=== PATIENT | female | born 1935 | race Caucasian/White ===

== ENCOUNTER 2019-03-21 09:50 | Inpatient (IN) | payer MEDICARE, OTHER ==
[2019-03-21] MEDS ORDERED: MORPHINE SULFATE 2 MG/ML SYRINGE IVP STA (10:30)
--- NOTE | 2019-03-21 10:35 | ED ---
Fall HPI - General Source: patient, EMS Mode of arrival: EMS <Queenie Perez Layton - Last Filed: 03/21/19 14:10> <SuazoSandipDima - Last Filed: 03/21/19 14:20> - General Chief Complaint: Fall Stated Complaint: Fall Time Seen by Provider: 03/21/19 10:07 - History of Present Illness Initial Comments: 83-year-old female with history of diabetes hypertension presents today for chief complaint of fall. Patient states that she fell on Wednesday. She states that she has had issues ambulating she states she has been on the couch for a few days because she is not able to weight-bear on the right lower extremity. Patient also complaining of left foot pain. Patient states the pain is mostly in her right shoulder right knee or ankle. Patient states that she fell in her home striking her right shoulder and then falling to the ground right-sided due to losing her balance. Patient denies any dizziness headache nausea vomiting chest pain shortness of breath prior to falling she states she simply lost her balance. Patient states that her has dementia and was not able to help her. She told her daughter about the fall who brought her to the emergency for further evaluation. Family feels patient is not safe at home. She denies any injury to the head or neck denies any back pain. Patient denies any numbness tingling or loss sensation of the extremities remaining review of system negative. Upon arrival patient appears well no signs of acute distress. Unable to ambulate (Queenie Perez) - Related Data Home Medications Medication Instructions Recorded Confirmed Allopurinol [Zyloprim] 300 mg PO DAILY 12/11/13 03/21/19 Baclofen [Lioresal] 10 mg PO HS 12/11/13 03/21/19 Ferrous Sulfate [Feosol] 325 mg PO DAILY 12/11/13 03/21/19 Furosemide [Lasix] 40 mg PO BID 12/11/13 03/21/19 Glimepiride [Amaryl] 2 mg PO DAILY 12/11/13 03/21/19 Simvastatin [Zocor] 40 mg PO HS 12/11/13 03/21/19 Aspirin 162 mg PO DAILY 03/21/19 03/21/19 Cholecalciferol [Vitamin D3 (25 1,000 unit PO DAILY 03/21/19 03/21/19 Mcg = 1000 Iu)] INSULIN ASPART (NovoLOG) [NovoLOG See Protocol SQ AC-TID 03/21/19 03/21/19 (formulary)] Irbesartan/Hydrochlorothiazide 1 tab PO DAILY 03/21/19 03/21/19 [Avalide 150-12.5 mg Tablet] Levothyroxine Sodium [Synthroid] 150 mcg PO DAILY 03/21/19 03/21/19 Nadolol [Corgard] 20 mg PO BID 03/21/19 03/21/19 Pantoprazole Sodium [Protonix] 40 mg PO DAILY 03/21/19 03/21/19 Allergies Allergy/AdvReac Type Severity Reaction Status Date / Time metformin Allergy Unknown Verified 03/21/19 10:01 Review of Systems ROS Other: All systems not noted in ROS Statement are negative. <Queenie Perez - Last Filed: 03/21/19 14:10> ROS Other: All systems not noted in ROS Statement are negative. <Dima Suazo - Last Filed: 03/21/19 14:20> ROS Statement: Those systems with pertinent positive or pertinent negative responses have been documented in the HPI. Past Medical History Past Medical History: Heart Failure, Diabetes Mellitus, Hypertension Additional Past Medical History / Comment(s): "irregular heart rate", gout, arthritis, SOB History of Any Multi-Drug Resistant Organisms: None Reported Past Surgical History: Appendectomy, Joint Replacement Additional Past Surgical History / Comment(s): left knee replacement, cataract surgery Past Anesthesia/Blood Transfusion Reactions: No Reported Reaction Type of Cardiac Device: Permanent Pacemaker Device Placement Date:: november 2013 Past Psychological History: No Psychological Hx Reported Smoking Status: Never smoker Past Alcohol Use History: None Reported Past Drug Use History: None Reported - Past Family History Father Family Medical History: Cancer <Queenie Perez - Last Filed: 03/21/19 14:10> General Exam Limitations: physical limitation <Queenie Perez - Last Filed: 03/21/19 14:10> - General Exam Comments Initial Comments: General: The patient is awake and alert, in no distress Eye: +3 mm pupils are equal, round and reactive to light, extra-ocular movements are intact. No nystagmus. There is normal conjunctiva bilaterally. No signs of icterus. Ears, nose, mouth and throat: There are moist mucous membranes and no oral lesions. No raccoon or Reyna sign. No blood in the tobacco membranes. No evidence of scalp hematoma. Neck: The neck is supple, there is no tenderness or JVD. No midline or paravertebral tenderness of the cervical thoracic or lumbar spine. Cardiovascular: There is a regular rate and rhythm. No murmur, rub or gallop is appreciated. Respiratory: Lungs are clear to auscultation, respirations are non-labored, breath sounds are equal. No wheezes, stridor, rales, or rhonchi. Gastrointestinal: Soft, non-distended, non-tender abdomen without masses or organomegaly noted. There is no rebound or guarding present. Musculoskeletal: Upon inspection of the upper extremities there is bruising over the right humerus. Patient has pain with opening of range of motion at the right arm. Patient does have his elbows or wrist bilaterally. Patient does have pain of the right knee. Patient has noted slight external rotation of the right lower extremity pain and hip with log roll dull bilaterally. Patient has soft tissue swelling of the lower extremity bilaterally. Significant redness and a small blister of the right distal leg. Normal ROM, no tenderness. She refuses to fully strength testing below the knee or ankles bilaterally due to pain. Patient is point localized tenderness over the left great toe and fifth metatarsal.. Sensation intact of the UE and LE b/l. She is able to make the okay fingers crossed thumbs-up up was at the wrist and oppose small digit and thumb. No evidence of a strep. Radial and DP pulses equal bilaterally 2+. There is ecchymosis over the left great digit. Neurological: A&O x 3. CN II-XII intact, There are no obvious motor or sensory deficits. Coordination appears grossly intact. Speech is normal. Skin: Skin is warm and dry and no rashes or lesions are noted. Psychiatric: Cooperative, appropriate mood & affect, normal judgment. (Queenie Perez) Course Vital Signs 03/21/19 09:57 Temperature 97.9 F Pulse Rate 89 Respiratory 17 Rate Blood Pressure 125/83 O2 Sat by Pulse 98 Oximetry Medical Decision Making - Lab Data Result diagrams: 03/21/19 11:42 03/21/19 11:42 <Queenie Perez - Last Filed: 03/21/19 14:10> - Lab Data Result diagrams: 03/21/19 11:42 03/21/19 11:42 <Dima Suazo - Last Filed: 03/21/19 14:20> - Medical Decision Making 83-year-old female presenting for fall. Patient has also noted red right lower extremity blister. Imaging studies reveal secondary findings of cellulitis. Patient also has leukocytosis. Patient is unable to weight-bear states due to knne original plain films of the right hip and right knee revealed no acute process, no pain with flexion at the hip. Pain mostly appeared apparent of the right knee. She was evaluated in person by attending provider Dr. Suazo who was agreeable with impression. There was point localized tenderness over the fifth digit of the left concerning for fracture. At this time given patient's ce llulitis, inability to weight-bear and ambulate we will admit patient for orthopedic consultation, IV antibiotics and social work consultation. Family and patient are agreeable this care plan and was admitted in stable condition. (Queenie Perez) I, Cuong Suazo, personally saw and examined the patient. I have reviewed and agree with the PA findings, including all diagnostic interpretations and treatment plans as written unless otherwise stated. I was present for the foy portions of any procedures performed and the inclusive time noted for any critical care statement. (Dima Suazo) - Lab Data Lab Results 03/21/19 03/21/19 Range/Units 11:42 11:42 WBC 13.0 H (3.8-10.6) k/uL RBC 4.68 (3.80-5.40) m/uL Hgb 14.1 (11.4-16.0) gm/dL Hct 42.1 (34.0-46.0) % MCV 89.9 (80.0-100.0) fL MCH 30.2 (25.0-35.0) pg MCHC 33.6 (31.0-37.0) g/dL RDW 16.6 H (11.5-15.5) % Plt Count 217 (150-450) k/uL Neutrophils % 78 % Lymphocytes % 11 % Monocytes % 8 % Eosinophils % 1 % Basophils % 1 % Neutrophils # 10.2 H (1.3-7.7) k/uL Lymphocytes # 1.4 (1.0-4.8) k/uL Monocytes # 1.0 (0-1.0) k/uL Eosinophils # 0.1 (0-0.7) k/uL Basophils # 0.1 (0-0.2) k/uL Anisocytosis Slight Sodium 141 (137-145) mmol/L Potassium 3.6 (3.5-5.1) mmol/L Chloride 101 (98-107) mmol/L Carbon Dioxide 29 (22-30) mmol/L Anion Gap 11 mmol/L BUN 41 H (7-17) mg/dL Creatinine 1.07 H (0.52-1.04) mg/dL Est GFR (CKD-EPI)AfAm 56 (>60 ml/min/1.73 sqM) Est GFR (CKD-EPI)NonAf 49 (>60 ml/min/1.73 sqM) Glucose 94 (74-99) mg/dL Calcium 9.5 (8.4-10.2) mg/dL Total Bilirubin 1.6 H (0.2-1.3) mg/dL AST 41 H (14-36) U/L ALT 28 (9-52) U/L Alkaline Phosphatase 107 (38-126) U/L Total Protein 7.5 (6.3-8.2) g/dL Albumin 3.9 (3.5-5.0) g/dL Disposition Is patient prescribed a controlled substance at d/c from ED?: No Time of Disposition: 14:05 Decision to Admit Reason: Admit from EC Decision Date: 03/21/19 Decision Time: 14:05 <Queenie Perez - Last Filed: 03/21/19 14:10> <Dima Suazo - Last Filed: 03/21/19 14:20> Clinical Impression: Fall, Fracture of fifth metatarsal bone, Cellulitis of right lower extremity, Right shoulder pain, Right knee pain, Traumatic ecchymosis of right shoulder, Unable to ambulate Disposition: ADMITTED IP TO THIS [facility] Condition: Stable Referrals: Yina Evans DO [Primary Care Provider] - 1-2 days
[2019-03-21 11:55] LABS: Anisocytosis Slight; Basophils # (A) 0.1 k/uL (0-0.2); Basophils % (A) 1 %; Eosinophils # (A) 0.1 k/uL (0-0.7); Eosinophils % (A) 1 %; HCT 42.1 % (34.0-46.0); HGB 14.1 gm/dL (11.4-16.0); Lymphocytes # (A) 1.4 k/uL (1.0-4.8); Lymphocytes % (A) 11 %; MCH 30.2 pg (25.0-35.0); MCHC 33.6 g/dL (31.0-37.0); MCV 89.9 fL (80.0-100.0); Mean Platelet Volume 8.6; Monocytes % (A) 8 %; Neutrophils # (A) 10.2 k/uL (1.3-7.7); Neutrophils % (A) 78 %; Platelet Count 217 k/uL (150-450); RBC 4.68 m/uL (3.80-5.40); RDW 16.6 % (11.5-15.5)
[2019-03-21 12:01] LABS: Albumin 3.9 g/dL (3.5-5.0); Calcium 9.5 mg/dL (8.4-10.2); Potassium 3.6 mmol/L (3.5-5.1); Total Bilirubin 1.6 mg/dL (0.2-1.3); Total Protein 7.5 g/dL (6.3-8.2)
--- NOTE | 2019-03-21 12:45 | XR ---
EXAMINATION TYPE: XR shoulder complete RT DATE OF EXAM: 03/21/2019 COMPARISON: NONE HISTORY: 83-year-old female fall and right shoulder pain TECHNIQUE: 3 views FINDINGS: Mild degenerative change AC joint. Subacromial space is preserved. Bony irregularity at the greater t uberosity. No acute fracture, subluxation, dislocation. IMPRESSION: Bony irregularity at the greater tuberosity suggests underlying chronic rotator cuff tendinopathy. If concern for acute rotator cuff injury, MRI can be performed.
--- NOTE | 2019-03-21 12:47 | XR ---
EXAMINATION TYPE: XR knee complete RT DATE OF EXAM: 03/21/2019 CLINICAL HISTORY: Pain after fall injury today. TECHNIQUE: Three views of the right knee are obtained. COMPARISON: None. FINDINGS: There is no acute fracture/dislocation evident in right knee. Moderate tricompartment join t space loss and spurring is seen. Demineralization is present present suspect healing or old healed fracture of the proximal fibular diaphysis. Correlate clinically. Overlying clothing material is pres ent making evaluation suboptimal. There is posterior vascular calcification below the knee seen. IMPRESSION: There is no acute fracture or dislocation in the right knee.
--- NOTE | 2019-03-21 12:53 | XR ---
EXAMINATION TYPE: XR Hip Complete 2 views RT, XR ankle complete 3 views LT DATE OF EXAM: 03/21/2019 COMPARISON: NONE HISTORY: 83-year-old female pain after fall FINDINGS: Right hip: Mild axial joint space narrowing and mild degenerative spurring. No acute fracture, subluxation, or d islocation seen. Left ankle: Generalized soft tissue swelling and osteopenia. Ankle mortise appears congruent with preservation of the distal tibiofibular overlap. Talar dome appears intact. Fusiform thickening of the middle third Achilles tendon. Small plantar calcaneal spur. No acute fracture or dislocation seen. Vascular calcif ications suggest underlying diabetes and her chronic kidney disease. IMPRESSION: 1. Right hip: Mild degenerative change. No acute osseous body seen. 2. Left ankle: Marked generalized soft tissue swelling. Findings suggest middle third Achilles tendin opathy. Small plantar calcaneal spur. Osteopenia. No definite acute process.
--- NOTE | 2019-03-21 13:03 | XR ---
Bilateral feet HISTORY: Pain and swelling 3 views of each foot are submitted No comparisons Bone mineralization is reduced which may limit sensitivity. Question cortical disruption at the level of the proximal aspect of the proximal phalanx of the first digit of the left foot. This is best see n on the oblique view. Distal fifth metatarsal shows mild angulation, sclerotic change suggestive of nondisplaced fracture. Soft tissue swelling present bilaterally. Arthropathy changes are present bila terally, there is spurring at the intertarsal joints, tarsometatarsal joints on the right shows some possible subchondral geode formation. There are vascular calcifications present bilaterally. Alignmen t is maintained bilaterally. There are bilateral plantar calcaneal spurs. IMPRESSION: Correlate for point tenderness proximal aspect of a small phalanx first digit left foot a nd distal right fifth metatarsal for possible fractures. No dislocation. Soft tissue swelling, correl ate for possible cellulitis. There may be underlying gout, osteoarthritis. Osteopenia and limitations as described.
[2019-03-21] MEDS ORDERED: NALOXONE 0.4 MG/ML 1 ML VIAL IV PRN (14:17)
[2019-03-21] MEDS ORDERED: FUROSEMIDE 40 MG TAB PO SCH (17:00)
[2019-03-21] MEDS ORDERED: HYDROcodone/APAP 5-325MG 1 EACH TAB PO PRN (17:17)
[2019-03-21 17:18] LABS: Glucose,Whole Blood 116 mg/dL (75-99)
[2019-03-21] MEDS: FUROSEMIDE 10 MG/ML 4 ML VIAL IV SCH (17:32)
[2019-03-21 20:10] LABS: Glucose,Whole Blood 198 mg/dL (75-99)
[2019-03-21] MEDS: ATORVASTATIN 20 MG TAB PO SCH (22:02)
[2019-03-21] MEDS: NADOLOL 20 MG TAB PO SCH (22:02)
[2019-03-21] MEDS: INSULIN ASPART (NovoLOG) 100 UNIT/ML VIAL SQ SCH (22:02)
[2019-03-21] MEDS: BACLOFEN 10 MG TAB PO SCH (22:02)
--- NOTE | 2019-03-21 22:47 | P.HPIM ---
History of Present Illness H&P Date: 03/21/19 June Perez is an 82 yo F with PMH of T2DM, HTN, diastolic CHF who presents to [facility] ED with leg swelling, leg pain and impaired mobility after a fall at home. Pt notes that she lives at home with who has Alzheimers so pt is primary caregiver. She states that she had a fall Wednesday and it took her an hour or two to crawl to a couch and get herself up. She had spent most of the past two days on the couch as she is unable to ambulate without significant foot pain. When she told her daughter about this she was brought in to the ED. Pt also missed her lasix dose yesterday and has noticed increased leg swelling as well as R leg redness and an anterolateral blister. In the ED vitals stable, WBC 13k, foot XR does reveal L 1st phalanx and R 5th metatarsal fractures. Review of Systems All systems: negative Constitutional: Reports weakness, Reports weight gain, Denies chills, Denies fever Eyes: denies blurred vision, denies pain Ears, nose, mouth and throat: Denies headache, Denies sore throat Cardiovascular: Denies chest pain, Denies shortness of breath Respiratory: Denies cough Gastrointestinal: Denies abdominal pain, Denies diarrhea, Denies nausea, Denies vomiting Genitourinary: Denies dysuria, Denies hematuria Musculoskeletal: Reports gait dysfunction, Reports limitation of motion, Reports muscle weakness, Reports myalgias Integumentary: Denies pruritus, Denies rash Neurological: Denies numbness, Denies weakness Psychiatric: Denies anxiety, Denies depression Endocrine: Denies fatigue, Denies weight change Past Medical History Past Medical History: Heart Failure, Diabetes Mellitus, Hypertension Additional Past Medical History / Comment(s): gout, arthritis, SOB when you bend over History of Any Multi-Drug Resistant Organisms: None Reported Past Surgical History: Appendectomy, Joint Replacement, Pacemaker Additional Past Surgical History / Comment(s): left knee replacement, cataract surgery, carpal tunnel sugery on right Past Anesthesia/Blood Transfusion Reactions: No Reported Reaction Type of Cardiac Device: Permanent Pacemaker Device Placement Date:: patient unsure Past Psychological History: No Psychological Hx Reported Smoking Status: Never smoker Past Alcohol Use History: None Reported Past Drug Use History: None Reported - Past Family History Father Family Medical History: Cancer Medications and Allergies Home Medications Medication Instructions Recorded Confirmed Type Allopurinol [Zyloprim] 300 mg PO DAILY 12/11/13 03/21/19 History Baclofen [Lioresal] 10 mg PO HS 12/11/13 03/21/19 History Ferrous Sulfate [Feosol] 325 mg PO DAILY 12/11/13 03/21/19 History Furosemide [Lasix] 40 mg PO BID 12/11/13 03/21/19 History Glimepiride [Amaryl] 2 mg PO DAILY 12/11/13 03/21/19 History Simvastatin [Zocor] 40 mg PO HS 12/11/13 03/21/19 History Aspirin 162 mg PO DAILY 03/21/19 03/21/19 History Cholecalciferol [Vitamin D3 (25 1,000 unit PO DAILY 03/21/19 03/21/19 History Mcg = 1000 Iu)] INSULIN ASPART (NovoLOG) [NovoLOG See Protocol SQ AC-TID 03/21/19 03/21/19 History (formulary)] Irbesartan/Hydrochlorothiazide 1 tab PO DAILY 03/21/19 03/21/19 History [Avalide 150-12.5 mg Tablet] Levothyroxine Sodium [Synthroid] 150 mcg PO DAILY 03/21/19 03/21/19 History Nadolol [Corgard] 20 mg PO BID 03/21/19 03/21/19 History Pantoprazole Sodium [Protonix] 40 mg PO DAILY 03/21/19 03/21/19 History Allergies Allergy/AdvReac Type Severity Reaction Status Date / Time metformin Allergy Unknown Verified 03/21/19 10:01 Physical Exam Vitals: Vital Signs Temp Pulse Pulse Resp BP BP Pulse Ox 03/21/19 20:33 98 F 108 H 16 116/65 94 L 03/21/19 16:14 98.1 F 109 H 17 143/76 94 L 03/21/19 15:38 99.1 F 73 18 140/79 94 L 03/21/19 09:57 97.9 F 89 17 125/83 98 Intake and Output 03/21/19 03/21/19 03/21/19 06:59 14:59 22:59 Other: Voiding Method Bedpan Diaper Incontinent Weight 95.254 kg 103.5 kg Gen. Well-developed well-nourished no apparent distress. Vitals reviewed HEENT. normocephalic, atraumatic. TMs clear. Mucous membranes moist Neck. Supple, no thyromegaly, no JVD CV. Regular rate and rhythm, systolic murmur. Peripheral pulses 2+ Lungs. Normal inspiratory effort, fine crackles at bases Abdomen. Soft, nontender, nondistended, no organomegaly Extremity. BLE with 2+ edema. RLE with erythema 2x4 cm region anterolateral khoury with small bullae. Ecchymosis to L 1st MTP joint Neuro. Alert and oriented 3, no focal deficits Skin. Warm and dry Results CBC & Chem 7: 03/21/19 11:42 03/21/19 11:42 Labs: Abnormal Lab Results - Last 24 Hours (Table) 03/21/19 03/21/19 03/21/19 Range/Units 11:42 11:42 17:16 WBC 13.0 H (3.8-10.6) k/uL RDW 16.6 H (11.5-15.5) % Neutrophils # 10.2 H (1.3-7.7) k/uL BUN 41 H (7-17) mg/dL Creatinine 1.07 H (0.52-1.04) mg/dL POC Glucose (mg/dL) 116 H (75-99) mg/dL Total Bilirubin 1.6 H (0.2-1.3) mg/dL AST 41 H (14-36) U/L 03/21/19 Range/Units 20:09 WBC (3.8-10.6) k/uL RDW (11.5-15.5) % Neutrophils # (1.3-7.7) k/uL BUN (7-17) mg/dL Creatinine (0.52-1.04) mg/dL POC Glucose (mg/dL) 198 H (75-99) mg/dL Total Bilirubin (0.2-1.3) mg/dL AST (14-36) U/L Thrombosis Risk Factor Assmnt - Choose All That Apply Any of the Below Risk Factors Present?: Yes Each Factor Represents 1 point: Obesity (BMI >25), Swollen legs (current) Other Risk Factors: Yes Each Risk Factor Represents 3 Points: Age 75 years or older Other congenital or acquired thrombophilia - If yes, enter type in comment: No Thrombosis Risk Factor Assessment Total Risk Factor Score: 5 Thrombosis Risk Factor Assessment Level: High Risk Assessment and Plan (1) Acute exacerbation of CHF (congestive heart failure) Current Visit: Yes Status: Acute Code(s): I50.9 - HEART FAILURE, UNSPECIFIED SNOMED Code(s): 909125514 (2) Chronic diastolic CHF (congestive heart failure), NYHA class 2 Current Visit: Yes Status: Acute Code(s): I50.32 - CHRONIC DIASTOLIC (CONGESTIVE) HEART FAILURE SNOMED Code(s): 100739740 (3) Hypertension Current Visit: Yes Status: Acute Code(s): I10 - ESSENTIAL (PRIMARY) HYPERTENSION SNOMED Code(s): 00641457 (4) Type 2 diabetes mellitus Current Visit: Yes Status: Acute Code(s): E11.9 - TYPE 2 DIABETES MELLITUS WITHOUT COMPLICATIONS SNOMED Code(s): 57526109 (5) Cellulitis of right lower extremity Current Visit: Yes Status: Acute Code(s): L03.115 - CELLULITIS OF RIGHT LOWER LIMB SNOMED Code(s): 594508883 (6) Fall Current Visit: Yes Status: Acute Code(s): W19.XXXA - UNSPECIFIED FALL, INITIAL ENCOUNTER SNOMED Code(s): 7282828 (7) Fracture of fifth metatarsal bone Current Visit: Yes Status: Acute Code(s): S92.353A - DISP FX OF FIFTH METATARSAL BONE, UNSP FOOT, INIT SNOMED Code(s): 619252053 (8) Traumatic ecchymosis of right shoulder Current Visit: Yes Status: Acute Code(s): S40.011A - CONTUSION OF RIGHT SHOULDER, INITIAL ENCOUNTER SNOMED Code(s): 236669581 (9) Unable to ambulate Current Visit: Yes Status: Acute Code(s): R26.2 - DIFFICULTY IN WALKING, NOT ELSEWHERE CLASSIFIED SNOMED Code(s): 902966043 Plan: 1. Cellulitis of RLE. Likely secondary to fall/immobilization as well as CHF exacerbation. Given rocephin in ED. Continue keflex 2. Acute exacerbation of CHF. Secondary to missed medication and immobilization. Switch lasix to IV. I/Os 3. Fracture of R 5th metatarsal. Ortho consult 4. Impaired mobility. PT/OT. Anticipate need for ADALBERTO 5. T2DM. Accucheck/sliding scale 6. HTN. Continue home BB, ARB DVT prophylaxis lovenox
[2019-03-22] MEDS: LEVOTHYROXINE 75 MCG TAB PO SCH (05:33)
[2019-03-22 07:02] LABS: Glucose,Whole Blood 199 mg/dL (75-99)
[2019-03-22] MEDS: GLIMEPIRIDE 2 MG TAB PO SCH (08:13)
[2019-03-22] MEDS: PANTOPRAZOLE 40 MG TABLET PO SCH (08:13)
[2019-03-22] MEDS: INSULIN ASPART (NovoLOG) 100 UNIT/ML VIAL SQ SCH ×4 (08:13→21:48)
[2019-03-22] MEDS: CEPHALEXIN 500 MG CAP PO SCH ×3 (08:14→21:46)
[2019-03-22] MEDS: ENOXAPARIN 40 MG/0.4 ML SYRINGE SQ SCH (08:14)
[2019-03-22] MEDS: FUROSEMIDE 10 MG/ML 4 ML VIAL IV SCH ×2 (08:14→17:54)
[2019-03-22] MEDS: ALLOPURINOL 300 MG TAB PO SCH (08:14)
[2019-03-22] MEDS: NADOLOL 20 MG TAB PO SCH ×2 (08:15→21:46)
[2019-03-22] MEDS: LOSARTAN-HCTZ 50-12.5 MG 1 EACH TAB PO SCH (08:15)
[2019-03-22] MEDS ORDERED: ASPIRIN 81 MG PO SCH (09:00)
[2019-03-22 11:35] LABS: Glucose,Whole Blood 352 mg/dL (75-99)
[2019-03-22] MEDS: ACETAMINOPHEN TAB 325 MG TAB PO PRN ×2 (13:04→21:47)
--- NOTE | 2019-03-22 13:23 | P.CNOR ---
History of Present Illness - [facility] Consult date: 03/22/19 Consult reason: fracture History of present illness: Patient is a pleasant 83-year-old female seen at bedside this morning consultation for right leg pain along with fractures along the fifth metatarsal of the right foot and phalanx of the big toe of the left foot. She was admitted through the emergency department yesterday 03/21/2019 after a fall. She also describes generalized weakness in the lower extremities. Pain in the right foot is worse than that of her left. Patient denies any dizziness headache nausea vomiting chest pain shortness of breath prior to falling. She states she simply lost her balance. Patient states that her has dementia and was not able to help her. She told her daughter about the fall who brought her to the emergency for further evaluation. Family feels patient is not safe at home. She denies any injury to the head or neck denies any back pain. Patient denies any numbness tingling or loss sensation of the extremities remaining review of system negative. Past Medical History Past Medical History: Heart Failure, Diabetes Mellitus, Hypertension Additional Past Medical History / Comment(s): gout, arthritis, SOB when you bend over History of Any Multi-Drug Resistant Organisms: None Reported Past Surgical History: Appendectomy, Joint Replacement, Pacemaker Additional Past Surgical History / Comment(s): left knee replacement, cataract surgery, carpal tunnel sugery on right Past Anesthesia/Blood Transfusion Reactions: No Reported Reaction Type of Cardiac Device: Permanent Pacemaker Device Placement Date:: patient unsure Past Psychological History: No Psychological Hx Reported Smoking Status: Never smoker Past Alcohol Use History: None Reported Past Drug Use History: None Reported - Past Family History Father Family Medical History: Cancer Medications and Allergies Home Medications Medication Instructions Recorded Confirmed Type Allopurinol [Zyloprim] 300 mg PO DAILY 12/11/13 03/21/19 History Baclofen [Lioresal] 10 mg PO HS 12/11/13 03/21/19 History Ferrous Sulfate [Feosol] 325 mg PO DAILY 12/11/13 03/21/19 History Furosemide [Lasix] 40 mg PO BID 12/11/13 03/21/19 History Glimepiride [Amaryl] 2 mg PO DAILY 12/11/13 03/21/19 History Simvastatin [Zocor] 40 mg PO HS 12/11/13 03/21/19 History Aspirin 81 mg PO BID 03/21/19 03/22/19 History Cholecalciferol [Vitamin D3 (25 1,000 unit PO DAILY 03/21/19 03/21/19 History Mcg = 1000 Iu)] INSULIN ASPART (NovoLOG) [NovoLOG See Protocol SQ AC-TID 03/21/19 03/21/19 History (formulary)] Irbesartan/Hydrochlorothiazide 1 tab PO DAILY 03/21/19 03/21/19 History [Avalide 150-12.5 mg Tablet] Levothyroxine Sodium [Synthroid] 150 mcg PO DAILY 03/21/19 03/21/19 History Nadolol [Corgard] 20 mg PO BID 03/21/19 03/21/19 History Pantoprazole Sodium [Protonix] 40 mg PO DAILY 03/21/19 03/21/19 History Allergies Allergy/AdvReac Type Severity Reaction Status Date / Time metformin Allergy Unknown Verified 03/21/19 10:01 Physical Examination Inspection of the lower extremities show generalized peripheral edema with mild cellulitic-type appearance. There are no open wounds. There is ecchymoses along the large toe of the left foot. There is mild ecchymoses along the lateral aspect of the right foot. The big toe on the left foot is tender to touch. The fifth metatarsal on the right foot is mildly tender to touch. She has a positive right straight leg raise. Otherwise there is no deformity or abnormality. Her neurovascular status intact with motor throughout the left lower extremity. She has difficulty with flexing at the hip and extending at the right knee either due to pain or weakness. Motor in the foot and toes is intact bilaterally. Sensation light touch is intact throughout bilateral lower extremities. Calves are soft and nontender. There is 1+ dorsalis pedis pulse present bilaterally. There is less than 2 second capillary refill present bilaterally. Results X-rays of the right foot show a fifth metatarsal neck fracture with acceptable alignment. X-rays of the left foot show a proximal phalanx fracture of the left big toe with acceptable alignment. Otherwise no acute fractures or dislocation throughout the right lower extremity. - Labs Labs: Abnormal Lab Results - Last 24 Hours (Table) 03/21/19 03/21/19 03/22/19 Range/Units 17:16 20:09 07:01 POC Glucose (mg/dL) 116 H 198 H 199 H (75-99) mg/dL 03/22/19 Range/Units 11:34 POC Glucose (mg/dL) 352 H (75-99) mg/dL H & H 03/21/19 Range/Units 11:42 Hgb 14.1 (11.4-16.0) gm/dL Hct 42.1 (34.0-46.0) % Result Diagrams: 03/21/19 11:42 03/21/19 11:42 - Diagnostic results Hip x-ray: report reviewed, image reviewed Knee x-ray: report reviewed, image reviewed Ankle/Foot x-ray: report reviewed, image reviewed Assessment and Plan (1) Fracture of fifth metatarsal bone Narrative/Plan: We will order postoperative shoes for her metatarsal fracture and phalanx fracture. Have recommended ice and elevation. In regards to her left leg pain x-rays are negative and her symptoms may be radiating from her lumbar spine. We will obtain x-rays of the lumbosacral spine. She is on antibiotics per her primary team. Recommend continue conservative measures and supportive care. Pain medicine per primary team. We'll continue to monitor make further recommendations as appropriate. Current Visit: Yes Status: Acute Priority: Medium Code(s): S92.353A - DISP FX OF FIFTH METATARSAL BONE, UNSP FOOT, INIT SNOMED Code(s): 351395984 (2) Phalanx fracture, foot Current Visit: Yes Status: Acute Priority: Medium Code(s): S92.919A - UNSP FRACTURE OF UNSP TOE(S), INIT FOR CLOS FX SNOMED Code(s): 87800539 Time with Patient: Less than 30
[2019-03-22 15:33] LABS: Hemoglobin A1C 7.5 % (4.0-6.0)
[2019-03-22 17:10] LABS: Glucose,Whole Blood 202 mg/dL (75-99)
--- NOTE | 2019-03-22 19:25 | XR ---
EXAMINATION TYPE: XR lumbar spine 2 or 3V DATE OF EXAM: 03/22/2019 COMPARISON: NONE HISTORY: Back pain TECHNIQUE: 3 views FINDINGS: Vertebra have normal alignment. There is disc space narrowing and multilevel vacuum disc ph enomenon. There is spurring of the endplates. Posterior elements are intact. Sacroiliac joints are in tact. I see no compression fracture. IMPRESSION: Multilevel spondylotic changes. No fracture seen.
[2019-03-22 20:08] LABS: Glucose,Whole Blood 227 mg/dL (75-99)
[2019-03-22] MEDS: ATORVASTATIN 20 MG TAB PO SCH (21:46)
[2019-03-22] MEDS: ASPIRIN 81 MG PO SCH (21:46)
[2019-03-22] MEDS: BACLOFEN 10 MG TAB PO SCH (21:47)
--- NOTE | 2019-03-22 22:57 | P.PN ---
Subjective Progress Note Date: 03/22/19 June Perez is an 82 yo F with PMH of T2DM, HTN, diastolic CHF who presents to [facility] ED with leg swelling, leg pain and impaired mobility after a fall at home. Pt notes that she lives at home with who has Alzheimers so pt is primary caregiver. She states that she had a fall Wednesday and it took her an hour or two to crawl to a couch and get herself up. She had spent most of the past two days on the couch as she is unable to ambulate without significant foot pain. When she told her daughter about this she was brought in to the ED. Pt also missed her lasix dose yesterday and has noticed increased leg swelling as well as R leg redness and an anterolateral blister. In the ED vitals stable, WBC 13k, foot XR does reveal L 1st phalanx and R 5th metatarsal fractures. 03/22. She continues to complain of bilateral LE weakness and pain with movement. Denies chest pain, shortness of breath, fevers. Erythema diminishing. Objective - Vital Signs Vital signs: Vital Signs Temp 98 F 03/22/19 20:45 Pulse 77 03/22/19 20:45 Resp 16 03/22/19 20:45 BP 91/57 03/22/19 20:45 Pulse Ox 93 L 03/22/19 20:45 Intake & Output 03/22/19 03/22/19 03/23/19 06:59 18:59 06:59 Intake Total 250 Balance 250 Weight 102 kg Intake: Oral 250 Other: Voiding Method Bedpan Bedpan # Voids 1 4 - Exam Gen. Well-developed well-nourished no apparent distress. Vitals reviewed CV. Regular rate and rhythm, systolic murmur. Peripheral pulses 2+ Lungs. Normal inspiratory effort, fine crackles at bases Abdomen. Soft, nontender, nondistended, no organomegaly Extremity. BLE with 2+ edema. RLE with erythema 2x4 cm region anterolateral khoury with small bullae. Ecchymosis to L 1st MTP joint - Labs CBC & Chem 7: 03/21/19 11:42 03/21/19 11:42 Labs: Abnormal Lab Results - Last 24 Hours (Table) 03/21/19 03/22/19 03/22/19 Range/Units 11:42 07:01 11:34 POC Glucose (mg/dL) 199 H 352 H (75-99) mg/dL Hemoglobin A1c 7.5 H (4.0-6.0) % 03/22/19 03/22/19 Range/Units 17:08 20:08 POC Glucose (mg/dL) 202 H 227 H (75-99) mg/dL Hemoglobin A1c (4.0-6.0) % Assessment and Plan (1) Acute exacerbation of CHF (congestive heart failure) Current Visit: Yes Status: Acute Code(s): I50.9 - HEART FAILURE, UNSPECIFIED SNOMED Code(s): 393019087 (2) Chronic diastolic CHF (congestive heart failure), NYHA class 2 Current Visit: Yes Status: Acute Code(s): I50.32 - CHRONIC DIASTOLIC (CONGESTIVE) HEART FAILURE SNOMED Code(s): 509487372 (3) Hypertension Current Visit: Yes Status: Acute Code(s): I10 - ESSENTIAL (PRIMARY) HYPERTENSION SNOMED Code(s): 52052422 (4) Type 2 diabetes mellitus Current Visit: Yes Status: Acute Code(s): E11.9 - TYPE 2 DIABETES MELLITUS WITHOUT COMPLICATIONS SNOMED Code(s): 69885991 (5) Cellulitis of right lower extremity Current Visit: Yes Status: Acute Code(s): L03.115 - CELLULITIS OF RIGHT LOWER LIMB SNOMED Code(s): 482807866 (6) Fall Current Visit: Yes Status: Acute Code(s): W19.XXXA - UNSPECIFIED FALL, INITIAL ENCOUNTER SNOMED Code(s): 4326141 (7) Fracture of fifth metatarsal bone Current Visit: Yes Status: Acute Priority: Medium Code(s): S92.353A - DISP FX OF FIFTH METATARSAL BONE, UNSP FOOT, INIT SNOMED Code(s): 036531312 (8) Traumatic ecchymosis of right shoulder Current Visit: Yes Status: Acute Code(s): S40.011A - CONTUSION OF RIGHT SHOULDER, INITIAL ENCOUNTER SNOMED Code(s): 486312154 (9) Unable to ambulate Current Visit: Yes Status: Acute Code(s): R26.2 - DIFFICULTY IN WALKING, NOT ELSEWHERE CLASSIFIED SNOMED Code(s): 080670876 Plan: Continue current regimen including keflex and IV lasix. Walking boots per ortho. Further eval her weakness with lumbar spinal XR. PT/OT DVT prophylaxis lovenox
[2019-03-23] MEDS: LEVOTHYROXINE 75 MCG TAB PO SCH (05:38)
[2019-03-23 06:54] LABS: Glucose,Whole Blood 183 mg/dL (75-99)
[2019-03-23 08:25] LABS: Basophils # (A) 0.1 k/uL (0-0.2); Basophils % (A) 1 %; Eosinophils # (A) 0.2 k/uL (0-0.7); Eosinophils % (A) 2 %; HCT 37.6 % (34.0-46.0); HGB 12.6 gm/dL (11.4-16.0); Lymphocytes # (A) 1.5 k/uL (1.0-4.8); Lymphocytes % (A) 15 %; MCH 30.5 pg (25.0-35.0); MCHC 33.6 g/dL (31.0-37.0); MCV 90.8 fL (80.0-100.0); Mean Platelet Volume 8.3; Monocytes # (A) 0.8 k/uL (0-1.0); Monocytes % (A) 8 %; Neutrophils # (A) 7.3 k/uL (1.3-7.7); Neutrophils % (A) 72 %; Platelet Count 188 k/uL (150-450); RBC 4.14 m/uL (3.80-5.40); RDW 14.2 % (11.5-15.5); WBC 10.2 k/uL (3.8-10.6)
[2019-03-23] MEDS: CEPHALEXIN 500 MG CAP PO SCH ×2 (08:52→15:17)
[2019-03-23] MEDS: ENOXAPARIN 40 MG/0.4 ML SYRINGE SQ SCH (08:52)
[2019-03-23] MEDS: ALLOPURINOL 300 MG TAB PO SCH (08:53)
[2019-03-23] MEDS: PANTOPRAZOLE 40 MG TABLET PO SCH (08:53)
[2019-03-23] MEDS: NADOLOL 20 MG TAB PO SCH ×2 (08:53→22:07)
[2019-03-23] MEDS: FUROSEMIDE 10 MG/ML 4 ML VIAL IV SCH (08:53)
[2019-03-23] MEDS: ASPIRIN 81 MG PO SCH ×2 (08:54→22:08)
[2019-03-23] MEDS: INSULIN ASPART (NovoLOG) 100 UNIT/ML VIAL SQ SCH ×4 (08:54→22:11)
[2019-03-23] MEDS: LOSARTAN-HCTZ 50-12.5 MG 1 EACH TAB PO SCH (08:54)
[2019-03-23] MEDS: GLIMEPIRIDE 2 MG TAB PO SCH (08:55)
[2019-03-23 09:17] LABS: Calcium 8.1 mg/dL (8.4-10.2); Potassium 3.2 mmol/L (3.5-5.1)
[2019-03-23] MEDS ORDERED: Potassium Replacement Protocol 1 EACH MISC MISCELLANE PRN (10:38)
[2019-03-23] MEDS: POTASSIUM CHLORIDE ER 20 MEQ TAB.ER PO SCH ×2 (10:52→12:39)
--- NOTE | 2019-03-23 10:52 | P.PN ---
Subjective Progress Note Date: 03/23/19 June Perez is an 82 yo F with PMH of T2DM, HTN, diastolic CHF who presents to [facility] ED with leg swelling, leg pain and impaired mobility after a fall at home. Pt notes that she lives at home with who has Alzheimers so pt is primary caregiver. She states that she had a fall Wednesday and it took her an hour or two to crawl to a couch and get herself up. She had spent most of the past two days on the couch as she is unable to ambulate without significant foot pain. When she told her daughter about this she was brought in to the ED. Pt also missed her lasix dose yesterday and has noticed increased leg swelling as well as R leg redness and an anterolateral blister. In the ED vitals stable, WBC 13k, foot XR does reveal L 1st phalanx and R 5th metatarsal fractures. 03/22. She continues to complain of bilateral LE weakness and pain with movement. Denies chest pain, shortness of breath, fevers. Erythema diminishing. 03/23/2019 Diuresed well on Lasix IV push, edema subsided, borderline hypotension, mild worsening in renal function with hypokalemia. PT at bedside, required 2 person assist to set patient up at side of bed, further evaluation in progress. Lumbar spine x-ray reporting multilevel spondylitic changes with no fractures. Evaluated by orthopedics with conservative management recommended. Consuming 75% of diet with no nausea vomiting or diarrhea. Hemoglobin A1c 7.5. Hyperglycemic, blood sugars ranging from 180s to 350s. Calcium 8.1. Objective - Vital Signs Vital signs: Vital Signs Temp 97.5 F L 03/23/19 05:00 Pulse 65 03/23/19 05:00 Resp 16 03/23/19 05:00 BP 97/65 03/23/19 05:00 Pulse Ox 95 03/23/19 05:00 Intake & Output 03/22/19 03/23/19 03/23/19 18:59 06:59 18:59 Weight 103.5 kg Other: Voiding Method Bedpan Bedpan Bedpan Diaper Incontinent # Voids 4 1 # Bowel Movements 1 - Exam Gen. Well-developed well-nourished no apparent distress. Vitals reviewed CV. Regular rate and rhythm, systolic murmur. Peripheral pulses 2+ Lungs. Normal inspiratory effort, fine crackles at bases Abdomen. Soft, nontender, nondistended, no organomegaly Extremity. BLE with no edema. RLE with decreased erythema 2x4 cm region anterolateral khoury with small bullae. Ecchymosis to L 1st MTP joint - Labs CBC & Chem 7: 03/23/19 07:14 03/23/19 07:14 Labs: Abnormal Lab Results - Last 24 Hours (Table) 03/21/19 03/22/19 03/22/19 Range/Units 11:42 11:34 17:08 Potassium (3.5-5.1) mmol/L BUN (7-17) mg/dL Creatinine (0.52-1.04) mg/dL Glucose (74-99) mg/dL POC Glucose (mg/dL) 352 H 202 H (75-99) mg/dL Hemoglobin A1c 7.5 H (4.0-6.0) % Calcium (8.4-10.2) mg/dL 03/22/19 03/23/19 03/23/19 Range/Units 20:08 06:47 07:14 Potassium 3.2 L (3.5-5.1) mmol/L BUN 54 H (7-17) mg/dL Creatinine 1.19 H (0.52-1.04) mg/dL Glucose 183 H (74-99) mg/dL POC Glucose (mg/dL) 227 H 183 H (75-99) mg/dL Hemoglobin A1c (4.0-6.0) % Calcium 8.1 L (8.4-10.2) mg/dL Assessment and Plan Assessment: (1) Acute exacerbation of CHF (congestive heart failure) Current Visit: Yes Status: Acute Code(s): I50.9 - HEART FAILURE, UNSPECIFIED SNOMED Code(s): 750754807 (2) Chronic diastolic CHF (congestive heart failure), NYHA class 2 Current Visit: Yes Status: Acute Code(s): I50.32 - CHRONIC DIASTOLIC (CONGE STIVE) HEART FAILURE SNOMED Code(s): 193720827 (3) Hypertension Current Visit: Yes Status: Acute Code(s): I10 - ESSENTIAL (PRIMARY) HYPERTENSION SNOMED Code(s): 35035668 (4) Type 2 diabetes mellitus Current Visit: Yes Status: Acute Code(s): E11.9 - TYPE 2 DIABETES MELLITUS WITHOUT COMPLICATIONS SNOMED Code(s): 07518335 (5) Cellulitis of right lower extremity Current Visit: Yes Status: Acute Code(s): L03.115 - CELLULITIS OF RIGHT LOWER LIMB SNOMED Code(s): 344223366 (6) Fall Current Visit: Yes Status: Acute Code(s): W19.XXXA - UNSPECIFIED FALL, INITIAL ENCOUNTER SNOMED Code(s): 4615404 (7) Fracture of fifth metatarsal bone Current Visit: Yes Status: Acute Priority: Medium Code(s): S92.353A - DISP FX OF FIFTH METATARSAL BONE, UNSP FOOT, INIT SNOMED Code(s): 575298659 (8) Traumatic ecchymosis of right shoulder Current Visit: Yes Status: Acute Code(s): S40.011A - CONTUSION OF RIGHT SHOULDER, INITIAL ENCOUNTER SNOMED Code(s): 595564105 (9) Unable to ambulate Current Visit: Yes Status: Acute Code(s): R26.2 - DIFFICULTY IN WALKING, NOT ELSEWHERE CLASSIFIED SNOMED Code(s): 171719805 Plan: Continue on current medication regime ,monitoring and symptomatic treatment. Lasix IV push converted to oral. Potassium replacement protocol ordered, magnesium level ordered and pending .Close monitoring of renal function and electrolytes. Repeat labs ordered for a.m. Levemir added to medication regime with close monitoring of Accu-Cheks. Borderline hypotension, Cozaar/HCT placed on hold. Discharge planning in progress for tomorrow to subacute rehab. The impression and plan of care has been dictated as directed. : I performed a history and examination of this patient, discussed the same with the dictator. I agree with the dictator's note ,documented as a scribe. Any additional findings or plans will be noted.
[2019-03-23 11:17] LABS: Glucose,Whole Blood 239 mg/dL (75-99)
[2019-03-23] MEDS: INSULIN DETEMIR (LEVEMIR) 100 UNIT/ML SYR SQ SCH (12:39)
[2019-03-23] MEDS: FUROSEMIDE 40 MG TAB PO SCH (15:17)
[2019-03-23 17:18] LABS: Glucose,Whole Blood 229 mg/dL (75-99)
[2019-03-23] MEDS ORDERED: POTASSIUM CHLORIDE ER 20 MEQ TAB.ER PO STA (19:30)
[2019-03-23 19:59] LABS: Glucose,Whole Blood 253 mg/dL (75-99)
[2019-03-23] MEDS: BACLOFEN 10 MG TAB PO SCH (22:08)
[2019-03-23] MEDS: ATORVASTATIN 20 MG TAB PO SCH (22:08)
[2019-03-24] MEDS: ACETAMINOPHEN TAB 325 MG TAB PO PRN (04:30)
[2019-03-24 05:26] VITALS: BP 111/56; RESP 20; TEMP 97.1
[2019-03-24] MEDS: LEVOTHYROXINE 75 MCG TAB PO SCH (05:54)
[2019-03-24 06:58] LABS: Glucose,Whole Blood 93 mg/dL (75-99)
[2019-03-24] MEDS: INSULIN ASPART (NovoLOG) 100 UNIT/ML VIAL SQ SCH ×2 (06:59→14:12)
[2019-03-24 07:51] LABS: Basophils # (A) 0.1 k/uL (0-0.2); Basophils % (A) 1 %; Eosinophils # (A) 0.5 k/uL (0-0.7); Eosinophils % (A) 5 %; HGB 12.5 gm/dL (11.4-16.0); Lymphocytes # (A) 1.5 k/uL (1.0-4.8); Lymphocytes % (A) 15 %; MCH 29.7 pg (25.0-35.0); MCHC 32.9 g/dL (31.0-37.0); MCV 90.5 fL (80.0-100.0); Mean Platelet Volume 8.2; Monocytes # (A) 0.8 k/uL (0-1.0); Monocytes % (A) 8 %; Neutrophils # (A) 6.9 k/uL (1.3-7.7); Neutrophils % (A) 69 %; Platelet Count 234 k/uL (150-450); RDW 14.2 % (11.5-15.5)
[2019-03-24 08:08] LABS: Calcium 8.7 mg/dL (8.4-10.2)
[2019-03-24] MEDS: INSULIN DETEMIR (LEVEMIR) 100 UNIT/ML SYR SQ SCH (08:51)
[2019-03-24] MEDS: ASPIRIN 81 MG PO SCH (08:51)
[2019-03-24] MEDS: FUROSEMIDE 40 MG TAB PO SCH (08:51)
[2019-03-24] MEDS: ENOXAPARIN 40 MG/0.4 ML SYRINGE SQ SCH (08:51)
[2019-03-24] MEDS: ALLOPURINOL 300 MG TAB PO SCH (08:51)
[2019-03-24] MEDS: NADOLOL 20 MG TAB PO SCH (08:51)
[2019-03-24] MEDS: PANTOPRAZOLE 40 MG TABLET PO SCH (08:51)
[2019-03-24] MEDS: GLIMEPIRIDE 2 MG TAB PO SCH (08:52)
[2019-03-24] MEDS ORDERED: CEPHALEXIN 500 MG CAP PO SCH (09:00)
[2019-03-24] MEDS ORDERED: FERROUS SULFATE 325 MG TAB PO SCH (09:30)
--- NOTE | 2019-03-24 09:33 | P.DS ---
Providers Date of admission: 03/21/19 14:12 Expected date of discharge: 03/24/19 Attending physician: Percy Beverly MD Consults: 03/21/19 14:19 Consult Physician Routine Consulting Provider: Adams Corea Consult Reason/Comments: right knee pain, fall, possible ligamentous injury, 5th metatarsal fx Do you want consulting provider notified?: Yes Primary care physician: Yina Evans [facility] Course: Final Diagnoses: (1) Acute exacerbation of CHF (congestive heart failure) Current Visit: Yes Status: Acute Code(s): I50.9 - HEART FAILURE, UNSPECIFIED SNOMED Code(s): 142312067 (2) Chronic diastolic CHF (congestive heart failure), NYHA class 2 Current Visit: Yes Status: Acute Code(s): I50.32 - CHRONIC DIASTOLIC (CONGESTIVE) HEART FAILURE SNOMED Code(s): 405297383 (3) Hypertension Current Visit: Yes Status: Acute Code(s): I10 - ESSENTIAL (PRIMARY) HYPERTENSION SNOMED Code(s): 49078058 (4) Type 2 diabetes mellitus Current Visit: Yes Status: Acute Code(s): E11.9 - TYPE 2 DIABETES MELLITUS WITHOUT COMPLICATIONS SNOMED Code(s): 53249528 (5) Cellulitis of right lower extremity Current Visit: Yes Status: Acute Code(s): L03.115 - CELLULITIS OF RIGHT LOWER LIMB SNOMED Code(s): 001356049 (6) Fall Current Visit: Yes Status: Acute Code(s): W19.XXXA - UNSPECIFIED FALL, INITIAL ENCOUNTER SNOMED Code(s): 0378886 (7) Fracture of fifth metatarsal bone Current Visit: Yes Status: Acute Priority: Medium Code(s): S92.353A - DISP FX OF FIFTH METATARSAL BONE, UNSP FOOT, INIT SNOMED Code(s): 476268576 (8) Traumatic ecchymosis of right shoulder Current Visit: Yes Status: Acute Code(s): S40.011A - CONTUSION OF RIGHT SHOULDER, INITIAL ENCOUNTER SNOMED Code(s): 263695332 (9) Unable to ambulate Current Visit: Yes Status: Acute Code(s): R26.2 - DIFFICULTY IN WALKING, NOT ELSEWHERE CLASSIFIED SNOMED Code(s): 327286754 Hospital course:June Perez is an 82 yo F with PMH of T2DM, HTN, diastolic CHF who presents to [facility] ED with leg swelling, leg pain and impaired mobility after a fall at home. Pt notes that she lives at home with who has Alzheimers so pt is primary caregiver. She states that she had a fall Wednesday and it took her an hour or two to crawl to a couch and get herself up. She had spent most of the past two days on the couch as she is unable to ambulate without significant foot pain. When she told her daughter about this she was brought in to the ED. Pt also missed her lasix dose yesterday and has noticed increased leg swelling as well as R leg redness and an anterolateral blister. In the ED vitals stable, WBC 13k, foot XR does reveal L 1st phalanx and R 5th metatarsal fractures. 03/22. She continues to complain of bilateral LE weakness and pain with movement. Denies chest pain, shortness of breath, fevers. Erythema diminishing. 03/23/2019 Diuresed well on Lasix IV push, edema subsided, borderline hypotension, mild worsening in renal function with hypokalemia. PT at bedside, required 2 person assist to set patient up at side of bed, further evaluation in progress. Lumbar spine x-ray reporting multilevel spondylitic changes with no fractures. Evaluated by orthopedics with conservative management recommended. Consuming 75% of diet with no nausea vomiting or diarrhea. Hemoglobin A1c 7.5. Hyperglycemic, blood sugars ranging from 180s to 350s. Calcium 8.1. Significant clinical improvement. Cleared by orthopedics for discharge. P mimi is being discharged to subacute rehab in a stable condition with guarded prognosis. - Exam Gen. Sitting up in chair, alert and oriented 3, no acute distress CV. Regular rate and rhythm, systolic murmur. Peripheral pulses 2+ Lungs. Normal inspiratory effort, fine crackles at bases Abdomen. Soft, nontender, nondistended, no organomegaly Neuro: No focal deficits The impression and plan of care has been dictated as directed. : I performed a history and examination of this patient, discussed the same with the dictator. I agree with the dictator's note ,documented as a scribe. Any additional findings or plans will be noted. Time taken: 35 minutes Patient Condition at Discharge: Stable Plan - Discharge Summary Discharge Rx Participant: No New Discharge Prescriptions: New Cephalexin [Keflex] 500 mg PO BID 4 Days #8 cap Acetaminophen Tab [Tylenol] 650 mg PO Q6HR PRN tab PRN Reason: Fever And/ Or Pain Insulin Detemir (Levemir) [Levemir] 15 unit SQ DAILY@0700 syr INSULIN LISPRO (HumaLOG) [humaLOG] 0 unit SQ ACHS #1 vial Continue Simvastatin [Zocor] 40 mg PO HS Baclofen [Lioresal] 10 mg PO HS Allopurinol [Zyloprim] 300 mg PO DAILY Furosemide [Lasix] 40 mg PO BID Glimepiride [Amaryl] 2 mg PO DAILY Ferrous Sulfate [Feosol] 325 mg PO DAILY Aspirin 81 mg PO BID Cholecalciferol [Vitamin D3 (25 Mcg = 1000 Iu)] 1,000 unit PO DAILY Levothyroxine Sodium [Synthroid] 150 mcg PO DAILY Nadolol [Corgard] 20 mg PO BID Pantoprazole Sodium [Protonix] 40 mg PO DAILY Discontinued Irbesartan/Hydrochlorothiazide [Avalide 150-12.5 mg Tablet] 1 tab PO DAILY Discharge Medication List Allopurinol [Zyloprim] 300 mg PO DAILY 12/11/13 [History] Baclofen [Lioresal] 10 mg PO HS 12/11/13 [History] Ferrous Sulfate [Feosol] 325 mg PO DAILY 12/11/13 [History] Furosemide [Lasix] 40 mg PO BID 12/11/13 [History] Glimepiride [Amaryl] 2 mg PO DAILY 12/11/13 [History] Simvastatin [Zocor] 40 mg PO HS 12/11/13 [History] Aspirin 81 mg PO BID 03/21/19 [History] Cholecalciferol [Vitamin D3 (25 Mcg = 1000 Iu)] 1,000 unit PO DAILY 03/21/19 [History] Levothyroxine Sodium [Synthroid] 150 mcg PO DAILY 03/21/19 [History] Nadolol [Corgard] 20 mg PO BID 03/21/19 [History] Pantoprazole Sodium [Protonix] 40 mg PO DAILY 03/21/19 [History] Acetaminophen Tab [Tylenol] 650 mg PO Q6HR PRN tab 03/24/19 [Rx] Cephalexin [Keflex] 500 mg PO BID 4 Days #8 cap 03/24/19 [Rx] INSULIN LISPRO (HumaLOG) [humaLOG] 0 unit SQ ACHS #1 vial 03/24/19 [Rx] Insulin Detemir (Levemir) [Levemir] 15 unit SQ DAILY@0700 syr 03/24/19 [Rx] Follow up Appointment(s)/Referral(s): Yina Evans DO [Primary Care Provider] - 1 Week (After DC from subacute rehab) Lonnie Aguilar MD [STAFF PHYSICIAN] - 1 Week Activity/Diet/Wound Care/Special Instructions: ECF: Diet: Consistent carb Activity: As tolerated CBC, BMP in 3 days
[2019-03-24 11:16] LABS: Glucose,Whole Blood 184 mg/dL (75-99)
[2019-03-24 11:38] VITALS: PULSE 58
[2019-03-25] MEDS ORDERED: CHOLECALCIFEROL 1,000 UNIT TAB PO SCH (09:00)
== END 2019-03-24 14:50 | DRG 292 ==
LOC: EC 09:50 → 3NMEDONC 14:12
PROVIDERS: ADMIT Family Medicine; ATTEND Family Medicine
DX: I11.0 Hypertensive heart disease with heart failure (principal); L03.115 Cellulitis of right lower limb; I50.33 Acute on chronic diastolic (congestive) heart failure; I95.9 Hypotension, unspecified; E11.65 Type 2 diabetes mellitus with hyperglycemia; S92.351A Displaced fracture of fifth metatarsal bone, right foot, initial encounter for closed fracture; S92.911A Unspecified fracture of right toe(s), initial encounter for closed fracture; E87.6 Hypokalemia; M10.9 Gout, unspecified; S40.011A Contusion of right shoulder, initial encounter; M19.90 Unspecified osteoarthritis, unspecified site; M25.511 Pain in right shoulder; M25.561 Pain in right knee; M79.672 Pain in left foot; R26.9 Unspecified abnormalities of gait and mobility; R32 Unspecified urinary incontinence; Z79.82 Long term (current) use of aspirin; Z79.84 Long term (current) use of oral hypoglycemic drugs; Z79.890 Hormone replacement therapy; Z79.899 Other long term (current) drug therapy; Z96.652 Presence of left artificial knee joint; Z88.8 Allergy status to other drugs, medicaments and biological substances; Z90.49 Acquired absence of other specified parts of digestive tract; Z98.49 Cataract extraction status, unspecified eye; Z96.1 Presence of intraocular lens; W18.30XA Fall on same level, unspecified, initial encounter; Y92.009 Unspecified place in unspecified non-institutional (private) residence as the place of occurrence of the external cause
CPT/HCPCS: 36415; 72100; 73502; 80048; 80053; 83036; 83735; 84132; 85025; 96374; 99285

== ENCOUNTER → 2019-12-13 | Outpatient (CLI) | payer MEDICARE, OTHER | END | disposition home or self-care (01) | LOC: LABWHC1 11:17 | PROVIDERS: ATTEND General Practice | DX: Z20.828 Contact with and (suspected) exposure to other viral communicable diseases (principal) ==

== ENCOUNTER → 2020-09-04 | Outpatient (CLI) | payer SELFPAY | LOC: RADCTMAIN 13:01 | PROVIDERS: ATTEND Thoracic Surgery (Cardiothoracic Vascular Surgery) | DX: I35.0 Nonrheumatic aortic (valve) stenosis (principal) | CPT/HCPCS: 82565; 84520 ==

== ENCOUNTER 2020-09-13 07:17 | Outpatient (CLI) | payer MEDICARE ==
[2020-09-13 09:23] LABS: Partial Thromboplastin Time 23.9 sec (22.0-30.0); Prothrombin Time 10.8 sec (9.0-12.0)
--- NOTE | 2020-09-13 11:44 | CT ---
EXAMINATION TYPE: CT TAVR Planning DATE OF EXAM: 09/13/2020 HISTORY: Aortic insufficiency CT DLP: 1989 mGycm Automated Exposure Control for Dose Reduction was Utilized. CONTRAST: CT scan of the thorax, abdomen and pelvis is performed without and with IV Contrast, patient injected with 100 mL of Isovue 370. COMPARISON: None TECHNIQUE: Helical imaging obtained through the chest, abdomen and pelvis during arterial phase reba jay administration of radiographic contrast intravenously. FINDINGS: See report from [employer] regarding preprocedural planning CHEST: Lungs: No suspicious consolidation. Mild scattered parenchymal fibrotic change. No pleural effusion o r pneumothorax. Mediastinum & Esophagus: Cardiomegaly with single lead pacemaker. Moderate to severe right atrial dil atation. Mild/moderate left atrial dilatation. Moderate three-vessel coronary calcification. Mild gilles cification at level of mitral valve. More prominent calcification at level of aortic valve is noted. ABDOMEN/PELVIS: Please note arterial phase of the imaging limits detailed evaluation of the solid abdominal organs. Liver: Multiple small calcified dependent gallstones. Spleen: No significant abnormality. Kidneys: Cortical thinning both kidneys. Simple appearing 1.1 cm thin-walled cyst laterally right kid gretel midpole level. Additional scattered thin-walled cysts throughout the right kidney. Suspect early extrusion of contrast over significant bilateral staghorn type calculi. Correlate clinically. Former is favored as there is some early contrast filling of the bladder noted. No hydronephrosis noted bila terally. Adrenal Glands: There is 1.9 x 1.2 cm left adrenal mass or masslike prominence Pancreas: Multiple cysts or cystic lesions in the pancreatic headOr a multicystic lesion. This measur es approximately 3.7 x 3.6 cm axial image 432 series 3. Remainder of pancreas shows no ductal dilatat ion or surrounding inflammatory change. Follow-up advised. Bowel and Mesentery: Occasional distal colonic diverticula. Lymph Nodes: No abnormal greater than 1 cm Osseous structures: [id number] multilevel disc space narrowing and vacuum disc phenomenon. Mult ilevel facet arthropathy in the mid to lower lumbar spine. S-shaped scoliosis in the spine. Pelvic Organs: Uterus slightly retroflexed. Trace free fluid in pelvis image 643 series 13, abnormal finding in postmenopausal female. Other: Mild/moderate calcified plaque of the aorta extends into branch vessels. IMPRESSION: Nonsimple 3.7 cm pancreatic head cystic lesion, cystic neoplasm cannot be excluded. Advis e GI referral. Advise further imaging and lab workup.
--- NOTE | 2020-09-13 13:08 | XR ---
EXAMINATION TYPE: XR chest 2V DATE OF EXAM: 09/13/2020 COMPARISON: NONE HISTORY: Preop TAVR TECHNIQUE: Frontal and lateral views of the chest are obtained. FINDINGS: Heart is enlarged. There is a generator in left pectoral region, lead in the right ventric le. Prominent lung volumes may be indicative of underlying COPD. There is no evident airspace disease , pneumothorax, or pleural effusion. Interstitium is increased. Aorta is dense. Pulmonary vascularity and xiao within normal limits. IMPRESSION: Suspect underlying interstitial lung disease, cardiomegaly
--- NOTE | 2020-09-13 13:15 | US ---
EXAMINATION TYPE: US carotid duplex BILAT DATE OF EXAM: 09/13/2020 COMPARISON: NONE CLINICAL HISTORY: pre-TAVR. Pre-TAVR Very limited exam due to pulsatility and breathing EXAM MEASUREMENTS: RIGHT: Peak Systolic Velocity (PSV) cm/sec ----- Right CCA: 38.0 ----- Right ICA: 72.9 ----- Right ECA: 53.7 ICA/CCA ratio: 1.9 RIGHT: End Diastole cm/sec ----- Right CCA: 0.0 ----- Right ICA: 25.8 ----- Right ECA: 0.0 LEFT: Peak Systolic Velocity (PSV) cm/sec ----- Left CCA: 34.9 ----- Left ICA: 56.2 ----- Left ECA: 60.9 ICA/CCA ratio: 1.6 LEFT: End Diastole cm/sec ----- Left CCA: 13.9 ----- Left ICA: 26.6 ----- Left ECA: 12.3 VERTEBRALS (direction of flow): Right Vertebral: Antegrade Left Vertebral: Antegrade Rhythm: Arrhythmia No elevated velocities. Bilateral wall thickening. Plaque visualized. No significant stenosis. Galvan scale, color Doppler, spectral Doppler imaging performed of the carotid arteries. Atheromatous change present at the carotid bulbs. IMPRESSION: No hemodynamic significant stenosis of the proximal internal carotid arteries by Doppler criteria, an indirect measurement of carotid stenosis. There is cardiac arrhythmia noted. Criteria for Assigning % of Stenosis / Diameter reduction (Estimation based on the indirect measurements of the internal carotid artery velocities (ICA PSV). 1. Normal (no stenosis)=ICA PSV < 125 cm/s: ratio < 2.0: ICA EDV<40 cm/s. 2. Less than 50% stenosis=ICA PSV < 125 cm/s: ratio < 2.0: ICA EDV<40 cm/s. 3. 50 to 69% stenosis=ICA PSV of 125 to 230 cm/s: ration 2.0 ? 4.0: ICA EDV 40-100 cm/s. 4. Greater than 70% stenosis to near occlusion= ICA PSV > 230 cm/s: ratio > 4.0: ICA EDV > 100 cm/s. 5. Near occlusion= ICA PSV velocities may be low or undetectable: variable ratio and ICA EDV. 6. Total occlusion=unable to detect flow.
[2020-09-13 18:23] LABS: Hemoglobin A1C 7.9 % (4.0-6.0)
[2020-09-13 18:40] LABS: African American GFR (CKD) 43.9 (60.0-200.0); Albumin 4.2 g/dL (3.80-4.90); Albumin/Globulin Ratio 1.62 (1.60-3.17); Anion Gap 8.5 mmol/L (4.00-12.00); BUN/Creat Ratio 36.15 Ratio (12.00-20.00); Bilirubin, Conjugated 0.4 mg/dL (0.20-0.40); Bilirubin,Unconjugated 0.3 mg/dL; Calcium 9.4 mg/dL (8.7-10.3); Carbon Dioxide 26.5 mmol/L (21.6-31.8); Chol/HDL Ratio 2.36; Globulin 2.6 g/dL (1.6-3.3); LDL Cholesterol,Calculated 45.8 mg/dL (0.0-131.0); Magnesium 1.9 mg/dL (1.5-2.4); Non-African American GFR(CKD) 37.9 (60.0-200.0); Potassium 4.7 mmol/L (3.5-5.5); Total Bilirubin 0.7 mg/dL (0.3-1.2); Total Protein 6.8 g/dL (6.2-8.2); VLDL Calculation 14.2 mg/dL (5.00-40.00)
[2020-09-13 19:35] LABS: Basophils # (A) 0.04 X 10*3/uL (0.00-0.10); Basophils % (A) 0.6 %; Eosinophils # (A) 0.42 X 10*3/uL (0.04-0.35); Eosinophils % (A) 5.8 %; HCT 42.4 % (37.2-46.3); HGB 13.2 g/dL (12.0-15.0); Lymphocytes # (A) 1.17 X 10*3/uL (0.90-5.00); Lymphocytes % (A) 16.2 %; MCH 28.2 pg (27.0-32.0); MCHC 31.1 g/dL (32.0-37.0); MCV 90.6 fL (80.0-97.0); Mean Platelet Volume 12.1 fL (9.5-12.2); Monocytes # (A) 0.64 X 10*3/uL (0.20-1.00); Monocytes % (A) 8.9 %; Neutrophils # (A) 4.93 X 10*3/uL (1.80-7.70); Neutrophils % (A) 68.1 %; Platelet Count 231 X 10*3/uL (140-440); RBC 4.68 X 10*6/uL (4.10-5.20); WBC 7.23 X 10*3/uL (4.50-10.00)
== END 2020-09-13 14:25 | disposition home or self-care (01) ==
LOC: LABWHC1 07:17
PROVIDERS: ATTEND Nurse Practitioner Acute Care
DX: Z01.810 Encounter for preprocedural cardiovascular examination (principal); I35.0 Nonrheumatic aortic (valve) stenosis; E78.5 Hyperlipidemia, unspecified; E07.9 Disorder of thyroid, unspecified; E11.9 Type 2 diabetes mellitus without complications; N28.9 Disorder of kidney and ureter, unspecified; R35.0 Frequency of micturition; R58 Hemorrhage, not elsewhere classified; K86.2 Cyst of pancreas
CPT/HCPCS: 94150; 93005; 86900; 86901; 84439; 80061; 80053; 84443; 82248; 83735; 85025; 85610; 85730; 86850; 87070; 83036; 71046; 93880; 71275; 74174; 36415; Q9967; 86920

== ENCOUNTER 2020-10-08 20:04 | Inpatient (IN) | payer MEDICARE, OTHER ==
[2020-10-08 21:34] LABS: Anisocytosis Slight; Basophils # (A) 0.1 k/uL (0-0.2); Basophils % (A) 0 %; Eosinophils # (A) 0.1 k/uL (0-0.7); Eosinophils % (A) 1 %; HCT 42.2 % (34.0-46.0); HGB 13.7 gm/dL (11.4-16.0); Hypochromasia Slight; Lymphocytes # (A) 0.9 k/uL (1.0-4.8); Lymphocytes % (A) 8 %; MCH 29.1 pg (25.0-35.0); MCHC 32.6 g/dL (31.0-37.0); MCV 89.2 fL (80.0-100.0); Mean Platelet Volume 8.6; Monocytes # (A) 0.7 k/uL (0-1.0); Monocytes % (A) 7 %; Neutrophils # (A) 8.7 k/uL (1.3-7.7); Neutrophils % (A) 82 %; Platelet Count 223 k/uL (150-450); RBC 4.73 m/uL (3.80-5.40); RDW 16.3 % (11.5-15.5); WBC 10.6 k/uL (3.8-10.6)
[2020-10-08 21:42] LABS: INR 1.8 (<1.2); Partial Thromboplastin Time 32.3 sec (22.0-30.0); Prothrombin Time 17.4 sec (9.0-12.0)
[2020-10-08 21:44] LABS: Albumin 3.9 g/dL (3.5-5.0); Calcium 9.1 mg/dL (8.4-10.2); Magnesium 1.7 mg/dL (1.6-2.3); Potassium 4.7 mmol/L (3.5-5.1); Total Bilirubin 1.5 mg/dL (0.2-1.3); Total Protein 7.3 g/dL (6.3-8.2)
[2020-10-08] MEDS ORDERED: FUROSEMIDE 10 MG/ML 4 ML VIAL IV STA (22:17)
[2020-10-08] MEDS ORDERED: METOPROLOL TARTRATE 5 MG/5 ML VIAL IVP STA (22:31)
--- NOTE | 2020-10-08 22:35 | XR ---
EXAMINATION TYPE: XR foot limited LT DATE OF EXAM: 10/08/2020 COMPARISON: NONE HISTORY: Pain TECHNIQUE: 2 views FINDINGS: There is plantar calcaneal spurring. There is vascular calcification. There is soft tissue swelling of the forefoot. There is multiple hammertoe deformity. There is significant osteopenia. I s ee no fracture. IMPRESSION: Osteopenia. Soft tissue swelling. No definite focal sign of osteomyelitis.
--- NOTE | 2020-10-08 22:36 | XR ---
EXAMINATION TYPE: XR tibia fibula LT DATE OF EXAM: 10/08/2020 COMPARISON: NONE HISTORY: Pain TECHNIQUE: 2 views FINDINGS: There is left knee prosthesis. There is mild subcutaneous edema around the lower leg. There is vascular calcification. I see no fracture nor dislocation. Ankle mortise is anatomic. IMPRESSION: Soft tissue swelling. No fracture.
--- NOTE | 2020-10-08 22:38 | XR ---
EXAMINATION TYPE: XR chest 2V DATE OF EXAM: 10/08/2020 COMPARISON: 09/13/2020 HISTORY: Weakness TECHNIQUE: 2 views. Heart appears slightly enlarged. There is no heart failure. There is left axillary pacemaker. There i s no definite pleural effusion. Thoracic aorta is atheromatous. Bony thorax is intact. IMPRESSION: Cardiomegaly. No active cardiopulmonary disease. No change.
[2020-10-08] MEDS ORDERED: SODIUM CHLORIDE 0.9% 500 ML 500 ML IV ONE (22:41)
[2020-10-08 23:06] LABS: Appearance,Urine Clear (Clear); Bilirubin,Urine Negative (Negative); Blood,Urine Negative (Negative); Color,Urine Light Yellow; Glucose,Urine (UA) Negative (Negative); Ketones,Urine Negative (Negative); Leukocyte Esterase,Urine Negative (Negative); Nitrite,Urine Negative (Negative); Protein,Urine Negative (Negative); Specific Gravity,Urine 1.007 (1.001-1.035); Urobilinogen,Urine <2.0 mg/dL (<2.0)
--- NOTE | 2020-10-08 23:14 | ED ---
Weakness HPI - General Chief complaint: Weakness Stated complaint: Weakness Time Seen by Provider: 10/08/20 20:42 Source: patient, EMS Mode of arrival: EMS - History of Present Illness Initial comments: A 4-year-old feel presented for generalized weakness. Patient states the past few days she has felt weak and tired fatigue. She states that today she could hardly get out of bed and stood up and then started leaned up against a dresser until she could get help she states she was there for quite some time. Patient states the leg that was leaning against the dresser is quite sore, left lower leg and foot. Patient denies any falls. Patient denies chest pain she admits to shortness of breath. She denies fevers chills cough. Patient has a chest pressure, pain with deep inspiration, hemoptysis or lower extremity edema. Patient denies vomiting, diarrhea, urinary symptoms. Patient denies additional complaints. - Related Data Home Medications Medication Instructions Recorded Confirmed Baclofen [Lioresal] 10 mg PO HS PRN 12/11/13 10/08/20 Ferrous Sulfate [Feosol] 325 mg PO DAILY 12/11/13 10/08/20 Furosemide [Lasix] 40 mg PO BID PRN 12/11/13 10/08/20 Aspirin 81 mg PO DAILY 03/21/19 10/08/20 Cholecalciferol [Vitamin D3 (25 1,000 unit PO DAILY 03/21/19 10/08/20 Mcg = 1000 Iu)] Levothyroxine Sodium [Synthroid] 150 mcg PO DAILY 03/21/19 10/08/20 Pantoprazole Sodium [Protonix] 40 mg PO DAILY 03/21/19 10/08/20 nadoloL [Corgard] 20 mg PO BID 03/21/19 10/08/20 Cetirizine HCl 10 mg PO DAILY 10/08/20 10/08/20 Fluticasone Nasal [place] [Flonase 1 spray EA NOSTRIL DAILY 10/08/20 10/08/20 Nasal [place]] Glimepiride [Amaryl] 2 mg PO BID 10/08/20 10/08/20 Insulin Aspart Protam & Aspart See Protocol SQ AC-TID 10/08/20 10/08/20 [NovoLOG MIX 70-30 Flexpen] Losartan Potassium 100 mg PO DAILY 10/08/20 10/08/20 Simvastatin 10 mg PO HS 10/08/20 10/08/20 allopurinoL [Zyloprim] 100 mg PO DAILY 10/08/20 10/08/20 Previous Rx's Medication Instructions Recorded Acetaminophen Tab [Tylenol] 650 mg PO Q6HR PRN tab 03/24/19 Rivaroxaban [Xarelto] 20 mg PO DAILY #30 tab 10/07/20 Allergies Allergy/AdvReac Type Severity Reaction Status Date / Time metformin Allergy Unknown Verified 10/08/20 21:45 Review of Systems ROS Statement: Those systems with pertinent positive or pertinent negative responses have been documented in the HPI. ROS Other: All systems not noted in ROS Statement are negative. Past Medical History Past Medical History: Heart Failure, Diabetes Mellitus, Hypertension Additional Past Medical History / Comment(s): gout, arthritis, SOB when you bend over History of Any Multi-Drug Resistant Organisms: None Reported Past Surgical History: Appendectomy, Joint Replacement, Pacemaker Additional Past Surgical History / Comment(s): left knee replacement, cataract surgery, carpal tunnel sugery on right Past Anesthesia/Blood Transfusion Reactions: No Reported Reaction Type of Cardiac Device: Permanent Pacemaker Device Placement Date:: patient unsure Past Psychological History: No Psychological Hx Reported Smoking Status: Never smoker Past Alcohol Use History: None Reported Past Drug Use History: None Reported - Past Family History Father Family Medical History: Cancer General Exam - General Exam Comments Initial Comments: General: The patient is awake and alert, in no distress Eye: +3 mm pupils are equal, round and reactive to light, extra-ocular movements are intact. No nystagmus. There is normal conjunctiva bilaterally. No signs of icterus. Ears, nose, mouth and throat: There are moist mucous membranes and no oral lesions. Neck: The neck is supple, there is no tenderness or JVD. Cardiovascular: There is a regular rate and rhythm. No rub or gallop is appreciated. murmur Respiratory: Lungs are clear to auscultation, respirations are non-labored, breath sounds are equal. No wheezes, stridor, rales, or rhonchi. Gastrointestinal: Soft, non-distended, non-tender abdomen without masses or organomegaly noted. There is no rebound or guarding present. Musculoskeletal: Normal ROM, no tenderness. Strength 5/5. Sensation intact. Radial and DP pulses equal bilaterally 2+. Neurological: A&O x 3. CN II-XII intact, There are no obvious motor or sensory deficits. Coordination appears grossly intact. Speech is normal. Skin: Skin is warm and dry and no rashes or lesions are noted. LE edema. Psychiatric: Cooperative, appropriate mood & affect, normal judgment. Course Vital Signs 10/08/20 10/08/20 10/08/20 20:12 20:16 21:16 Temperature 98.4 F Pulse Rate 114 H 116 H 117 H Respiratory 18 20 18 Rate Blood Pressure 120/94 102/85 O2 Sat by Pulse 92 L 97 96 Oximetry 10/08/20 10/08/20 10/08/20 22:00 22:34 22:40 Temperature Pulse Rate 107 H 112 H Respiratory 18 18 Rate Blood Pressure 102/57 87/47 130/74 O2 Sat by Pulse 96 97 Oximetry 10/08/20 10/08/20 10/09/20 23:00 23:23 00:00 Temperature Pulse Rate 122 H 118 H 116 H Respiratory 20 20 20 Rate Blood Pressure 123/72 100/56 74/50 O2 Sat by Pulse 96 97 97 Oximetry 10/09/20 10/09/20 10/09/20 00:10 00:18 00:58 Temperature 98.5 F Pulse Rate 117 H 98 112 H Respiratory 18 20 20 Rate Blood Pressure 74/50 108/86 121/75 O2 Sat by Pulse 97 96 96 Oximetry 10/09/20 02:00 Temperature Pulse Rate 91 Respiratory 18 Rate Blood Pressure 112/73 O2 Sat by Pulse 99 Oximetry Medical Decision Making - Medical Decision Making BNP elevated. covid (-). patient is in aflutter with block.patient case discussed and co-managed [facility] Dr. bhatia after BP increased with fluids. pt given metoprolol for rate. patietn HR decreased. patient will be admitted for chf, weakness, tachycardia. patietn agreeable to admission. Dr. hBatia spoke with accepting admiting providers. Cardiology on consultation. - Lab Data Result diagrams: 10/08/20 21:20 10/08/20 21:20 Lab Results 10/08/20 10/08/20 10/08/20 Range/Units 21:20 21:20 21:20 WBC 10.6 (3.8-10.6) k/uL RBC 4.73 (3.80-5.40) m/uL Hgb 13.7 (11.4-16.0) gm/dL Hct 42.2 (34.0-46.0) % MCV 89.2 (80.0-100.0) fL MCH 29.1 (25.0-35.0) pg MCHC 32.6 (31.0-37.0) g/dL RDW 16.3 H (11.5-15.5) % Plt Count 223 (150-450) k/uL MPV 8.6 Neutrophils % 82 % Lymphocytes % 8 % Monocytes % 7 % Eosinophils % 1 % Basophils % 0 % Neutrophils # 8.7 H (1.3-7.7) k/uL Lymphocytes # 0.9 L (1.0-4.8) k/uL Monocytes # 0.7 (0-1.0) k/uL Eosinophils # 0.1 (0-0.7) k/uL Basophils # 0.1 (0-0.2) k/uL Hypochromasia Slight Anisocytosis Slight PT 17.4 H (9.0-12.0) sec INR 1.8 H (<1.2) APTT 32.3 H (22.0-30.0) sec Sodium 138 (137-145) mmol/L Potassium 4.7 (3.5-5.1) mmol/L Chloride 104 (98-107) mmol/L Carbon Dioxide 25 (22-30) mmol/L Anion Gap 9 mmol/L BUN 53 H (7-17) mg/dL Creatinine 1.05 H (0.52-1.04) mg/dL Est GFR (CKD-EPI)AfAm 57 (>60 ml/min/1.73 sqM) Est GFR (CKD-EPI)NonAf 49 (>60 ml/min/1.73 sqM) Glucose 210 H (74-99) mg/dL Plasma Lactic Acid Renato (0.7-2.0) mmol/L Calcium 9.1 (8.4-10.2) mg/dL Magnesium 1.7 (1.6-2.3) mg/dL Total Bilirubin 1.5 H (0.2-1.3) mg/dL AST 42 H (14-36) U/L ALT 22 (4-34) U/L Alkaline Phosphatase 166 H (38-126) U/L Troponin I (0.000-0.034) ng/mL NT-Pro-B Natriuret Pep pg/mL Total Protein 7.3 (6.3-8.2) g/dL Albumin 3.9 (3.5-5.0) g/dL Urine Color Urine Appearance (Clear) Urine pH (5.0-8.0) Ur Specific Spurger (1.001-1.035) Urine Protein (Negative) Urine Glucose (UA) (Negative) Urine Ketones (Negative) Urine Blood (Negative) Urine Nitrite (Negative) Urine Bilirubin (Negative) Urine Urobilinogen (<2.0) mg/dL Ur Leukocyte Esterase (Negative) Coronavirus (PCR) (Not Detectd) 10/08/20 10/08/20 10/08/20 Range/Units 21:20 21:20 21:20 WBC (3.8-10.6) k/uL RBC (3.80-5.40) m/uL Hgb (11.4-16.0) gm/dL Hct (34.0-46.0) % MCV (80.0-100.0) fL MCH (25.0-35.0) pg MCHC (31.0-37.0) g/dL RDW (11.5-15.5) % Plt Count (150-450) k/uL MPV Neutrophils % % Lymphocytes % % Monocytes % % Eosinophils % % Basophils % % Neutrophils # (1.3-7.7) k/uL Lymphocytes # (1.0-4.8) k/uL Monocytes # (0-1.0) k/uL Eosinophils # (0-0.7) k/uL Basophils # (0-0.2) k/uL Hypochromasia Anisocytosis PT (9.0-12.0) sec INR (<1.2) APTT (22.0-30.0) sec Sodium (137-145) mmol/L Potassium (3.5-5.1) mmol/L Chloride (98-107) mmol/L Carbon Dioxide (22-30) mmol/L Anion Gap mmol/L BUN (7-17) mg/dL Creatinine (0.52-1.04) mg/dL Est GFR (CKD-EPI)AfAm (>60 ml/min/1.73 sqM) Est GFR (CKD-EPI)NonAf (>60 ml/min/1.73 sqM) Glucose (74-99) mg/dL Plasma Lactic Acid Renato 2.0 (0.7-2.0) mmol/L Calcium (8.4-10.2) mg/dL Magnesium (1.6-2.3) mg/dL Total Bilirubin (0.2-1.3) mg/dL AST (14-36) U/L ALT (4-34) U/L Alkaline Phosphatase (38-126) U/L Troponin I 0.058 H* (0.000-0.034) ng/mL NT-Pro-B Natriuret Pep 01494 pg/mL Total Protein (6.3-8.2) g/dL Albumin (3.5-5.0) g/dL Urine Color Urine Appearance (Clear) Urine pH (5.0-8.0) Ur Specific Spurger (1.001-1.035) Urine Protein (Negative) Urine Glucose (UA) (Negative) Urine Ketones (Negative) Urine Blood (Negative) Urine Nitrite (Negative) Urine Bilirubin (Negative) Urine Urobilinogen (<2.0) mg/dL Ur Leukocyte Esterase (Negative) Coronavirus (PCR) (Not Detectd) 10/08/20 10/08/20 Range/Units 21:28 22:30 WBC (3.8-10.6) k/uL RBC (3.80-5.40) m/uL Hgb (11.4-16.0) gm/dL Hct (34.0-46.0) % MCV (80.0-100.0) fL MCH (25.0-35.0) pg MCHC (31.0-37.0) g/dL RDW (11.5-15.5) % Plt Count (150-450) k/uL MPV Neutrophils % % Lymphocytes % % Monocytes % % Eosinophils % % Basophils % % Neutrophils # (1.3-7.7) k/uL Lymphocytes # (1.0-4.8) k/uL Monocytes # (0-1.0) k/uL Eosinophils # (0-0.7) k/uL Basophils # (0-0.2) k/uL Hypochromasia Anisocytosis PT (9.0-12.0) sec INR (<1.2) APTT (22.0-30.0) sec Sodium (137-145) mmol/L Potassium (3.5-5.1) mmol/L Chloride (98-107) mmol/L Carbon Dioxide (22-30) mmol/L Anion Gap mmol/L BUN (7-17) mg/dL Creatinine (0.52-1.04) mg/dL Est GFR (CKD-EPI)AfAm (>60 ml/min/1.73 sqM) Est GFR (CKD-EPI)NonAf (>60 ml/min/1.73 sqM) Glucose (74-99) mg/dL Plasma Lactic Acid Renato (0.7-2.0) mmol/L Calcium (8.4-10.2) mg/dL Magnesium (1.6-2.3) mg/dL Total Bilirubin (0.2-1.3) mg/dL AST (14-36) U/L ALT (4-34) U/L Alkaline Phosphatase (38-126) U/L Troponin I (0.000-0.034) ng/mL NT-Pro-B Natriuret Pep pg/mL Total Protein (6.3-8.2) g/dL Albumin (3.5-5.0) g/dL Urine Color Light Yellow Urine Appearance Clear (Clear) Urine pH 5.0 (5.0-8.0) Ur Specific Spurger 1.007 (1.001-1.035) Urine Protein Negative (Negative) Urine Glucose (UA) Negative (Negative) Urine Ketones Negative (Negative) Urine Blood Negative (Negative) Urine Nitrite Negative (Negative) Urine Bilirubin Negative (Negative) Urine Urobilinogen <2.0 (<2.0) mg/dL Ur Leukocyte Esterase Negative (Negative) Coronavirus (PCR) Not Detected (Not Detectd) Disposition Clinical Impression: Weakness, Elevated troponin, CHF (congestive heart failure) Disposition: ADMITTED IP TO THIS [facility] Condition: Stable Is patient prescribed a controlled substance at d/c from ED?: No Time of Disposition: :38 Decision to Admit Reason: Admit from EC Decision Date: 10/09/20 Decision Time: 01:38
[2020-10-08] MEDS ORDERED: DILTIAZEM 125 MG in SODIUM CHLORIDE 0.9% 100 ML IV SCH (23:45)
[2020-10-08] MEDS ORDERED: SODIUM CHLORIDE 0.9% 1,000 ML IV STA (23:46)
[2020-10-08] MEDS ORDERED: DILTIAZEM DRIP BOLUS FROM BAG 1 MG SOLN IV ONE (23:46)
[2020-10-09] MEDS ORDERED: NALOXONE 0.4 MG/ML 1 ML VIAL IV PRN (01:35)
[2020-10-09] MEDS ORDERED: ACETAMINOPHEN TAB 325 MG TAB PO PRN (05:35)
--- NOTE | 2020-10-09 05:59 | P.HPIM ---
History of Present Illness H&P Date: 10/09/20 Chief Complaint: Generalized weakness 84-year-old female with chronic systolic CHF, history of A. fib status post pacemaker, on blood thinner, diabetes mellitus Patient comes in due to progressive generalized weakness she claims that over the past few days she's been feeling progressively weak and tired. Today when she woke up from bed she could hardly get out of bed and then when she stood she felt dizzy and tired and had to lean against the dresser which made her so uncomfortable that she was there for some time until her noticed and came to help her. She was leaning against the dresser with her left lower extremity squeezed against the dresser resulted in some pain however she did not fall. However upon evaluation she seemed to have some bruising in her back and she admitted to falling earlier few days ago. She currently denies any chest pain or trouble breathing she denies any fevers or chills denies any coughing denies any nausea vomiting or abdominal pain She is a poor historian and provides only limited history. She avoids eye contact during the interview In the ED upon arrival she was found to be tachycardic EKG showed a flutter she was given some metoprolol resulted in hypotension she was then given some IV fluids which helped stabilize her blood pressure At home she denies being on any oxygen however she does describe some occasional shortness of breath. She also takes Xarelto for irregular heartbeat and she has a pacemaker inserted Review of Systems Pertinent positives as noted in HPI. All other systems were reviewed and are negative Past Medical History Past Medical History: Diabetes Mellitus, Hypertension Additional Past Medical History / Comment(s): gout, arthritis, SOB when you bend over History of Any Multi-Drug Resistant Organisms: None Reported Past Surgical History: Appendectomy, Joint Replacement, Pacemaker Additional Past Surgical History / Comment(s): left knee replacement, cataract surgery, carpal tunnel sugery on right Past Anesthesia/Blood Transfusion Reactions: No Reported Reaction Type of Cardiac Device: Permanent Pacemaker Device Placement Date:: patient unsure Past Psychological History: No Psychological Hx Reported Smoking Status: Never smoker Past Alcohol Use History: None Reported Past Drug Use History: None Reported - Past Family History Father Family Medical History: Cancer Medications and Allergies Home Medications Medication Instructions Recorded Confirmed Type Baclofen [Lioresal] 10 mg PO HS PRN 12/11/13 10/08/20 History Ferrous Sulfate [Feosol] 325 mg PO DAILY 12/11/13 10/08/20 History Furosemide [Lasix] 40 mg PO BID PRN 12/11/13 10/08/20 History Aspirin 81 mg PO DAILY 03/21/19 10/08/20 History Cholecalciferol [Vitamin D3 (25 1,000 unit PO DAILY 03/21/19 10/08/20 History Mcg = 1000 Iu)] Levothyroxine Sodium [Synthroid] 150 mcg PO DAILY 03/21/19 10/08/20 History Pantoprazole Sodium [Protonix] 40 mg PO DAILY 03/21/19 10/08/20 History nadoloL [Corgard] 20 mg PO BID 03/21/19 10/08/20 History Acetaminophen Tab [Tylenol] 650 mg PO Q6HR PRN tab 03/24/19 10/08/20 Rx Rivaroxaban [Xarelto] 20 mg PO DAILY #30 tab 10/07/20 10/08/20 Rx Cetirizine HCl 10 mg PO DAILY 10/08/20 10/08/20 History Fluticasone Nasal [place] [Flonase 1 spray EA NOSTRIL DAILY 10/08/20 10/08/20 History Nasal [place]] Glimepiride [Amaryl] 2 mg PO BID 10/08/20 10/08/20 History Insulin Aspart Protam & Aspart See Protocol SQ AC-TID 10/08/20 10/08/20 History [NovoLOG MIX 70-30 Flexpen] Losartan Potassium 100 mg PO DAILY 10/08/20 10/08/20 History Simvastatin 10 mg PO HS 10/08/20 10/08/20 History allopurinoL [Zyloprim] 100 mg PO DAILY 10/08/20 10/08/20 History Allergies Allergy/AdvReac Type Severity Reaction Status Date / Time metformin Allergy Unknown Verified 10/08/20 21:45 Physical Exam Vitals: Vital Signs Temp Pulse Pulse Resp BP BP Pulse Ox 10/09/20 04:00 98.4 F 109 H 18 126/60 100 10/09/20 02:43 97.7 F 86 18 108/74 99 10/09/20 02:00 91 18 112/73 99 10/09/20 00:58 98.5 F 112 H 20 121/75 96 10/09/20 00:18 98 20 108/86 96 10/09/20 00:10 117 H 18 74/50 97 10/09/20 00:00 116 H 20 74/50 97 10/08/20 23:23 118 H 20 100/56 97 10/08/20 23:00 122 H 20 123/72 96 10/08/20 22:40 130/74 10/08/20 22:34 112 H 18 87/47 97 10/08/20 22:00 107 H 18 102/57 96 10/08/20 21:16 117 H 18 102/85 96 10/08/20 20:16 116 H 20 97 10/08/20 20:12 98.4 F 114 H 18 120/94 92 L Intake and Output 10/08/20 10/08/20 10/09/20 14:59 22:59 06:59 Other: Weight 104.326 kg 104.326 kg Constitutional: No acute distress, conversant , alert Eyes: Anicteric sclerae, moist conjunctiva, Pupils equal round reactive to light ENMT: NC/AT Oropharynx clear, no erythema, or exudates Neck: Supple, FROM, no masses, or JVD No carotid bruits No thyromegaly Lungs: Clear to auscultation Clear to percussion Normal respiratory effort, no accessory muscle use Cardiovascular: Heart regular in rate and rhythm, Systolic murmurs, no gallops, or rubs peripheral edema right worse than left leg Abdominal: Soft Nontender, no guarding, rebound or rigidity Abdomen moving with respiration Normoactive bowel sounds No hepatomegaly, No splenomegaly No palpable mass No abdominal wall hernia noted Skin: Chronic skin changes over lower extremities right worse than left leg, otherwise Normal temperature, tone, texture, turgor No induration No subcutaneous nodules No rash, lesions No ulcers Extremities: No digital cyanosis No clubbing Pedal pulses intact and symmetrical Radial pulses intact and symmetrical No calf tenderness Psychiatric: Alert and oriented to person, place Avoids eye contact Neuro Muscles Strength 4/5 in all 4 extremities Sensation to light touch grossly present throughout Cranial nerves II-XII grossly intact No focal sensory deficits Lymphatics: no palpable cervical or supraclavicular , or inguinal lymph nodes Results CBC & Chem 7: 10/08/20 21:20 10/08/20 21:20 Labs: Abnormal Lab Results - Last 24 Hours (Table) 10/08/20 10/08/20 10/08/20 Range/Units 21:20 21:20 21:20 RDW 16.3 H (11.5-15.5) % Neutrophils # 8.7 H (1.3-7.7) k/uL Lymphocytes # 0.9 L (1.0-4.8) k/uL PT 17.4 H (9.0-12.0) sec INR 1.8 H (<1.2) APTT 32.3 H (22.0-30.0) sec BUN 53 H (7-17) mg/dL Creatinine 1.05 H (0.52-1.04) mg/dL Glucose 210 H (74-99) mg/dL Total Bilirubin 1.5 H (0.2-1.3) mg/dL AST 42 H (14-36) U/L Alkaline Phosphatase 166 H (38-126) U/L Troponin I (0.000-0.034) ng/mL 10/08/20 Range/Units 21:20 RDW (11.5-15.5) % Neutrophils # (1.3-7.7) k/uL Lymphocytes # (1.0-4.8) k/uL PT (9.0-12.0) sec INR (<1.2) APTT (22.0-30.0) sec BUN (7-17) mg/dL Creatinine (0.52-1.04) mg/dL Glucose (74-99) mg/dL Total Bilirubin (0.2-1.3) mg/dL AST (14-36) U/L Alkaline Phosphatase (38-126) U/L Troponin I 0.058 H* (0.000-0.034) ng/mL Thrombosis Risk Factor Assmnt - Choose All That Apply Each Factor Represents 1 point: Obesity (BMI >25) Each Risk Factor Represents 3 Points: Age 75 years or older Thrombosis Risk Factor Assessment Total Risk Factor Score: 4 Thrombosis Risk Factor Assessment Level: Moderate Risk Assessment and Plan Assessment: A flutter, status post pacemaker currently on Xarelto Chronic systolic CHF seems to be compensated Chronic bilateral lower leg edema with chronic skin changes Diabetes mellitus Possible falling at home Plan clinical research monitor Resume home medications Consider Cardizem if patient goes into rapid ventricular response Supplemental oxygen as needed By mouth diuretics Cardiology consult Follow-up labs and electrolytes PT evaluation Insulin sliding scale Fall precautions CODE STATUS: No code DVT prophylaxis: On Xarelto Discussed with: Patient, ER, RN Anticipated length of stay more than [address]: Home A total of 65 minutes was spent on the care of this complex patient more than 50% of the time was spent in counseling and care coordination.
[2020-10-09 06:19] LABS: Glucose,Whole Blood 163 mg/dL (75-99)
[2020-10-09] MEDS: LEVOTHYROXINE 75 MCG TAB PO SCH (06:47)
[2020-10-09] MEDS: PANTOPRAZOLE 40 MG TABLET PO SCH (06:47)
[2020-10-09] MEDS: INSULIN ASPART (NovoLOG) 100 UNIT/ML VIAL SQ SCH ×4 (06:47→22:45)
[2020-10-09] MEDS ORDERED: FUROSEMIDE 40 MG TAB PO SCH (09:00)
[2020-10-09] MEDS ORDERED: FUROSEMIDE 10 MG/ML 4 ML VIAL IV SCH ×2 (09:00)
[2020-10-09] MEDS ORDERED: LOSARTAN 50 MG TAB PO SCH (09:00)
[2020-10-09] MEDS: allopurinoL 100 MG TAB PO SCH (10:26)
[2020-10-09] MEDS: ASPIRIN 81 MG PO SCH (10:26)
[2020-10-09] MEDS: FLUTICASONE 50MCG/SPRAY NASAL 16GM EA NOSTRIL SCH (10:27)
[2020-10-09] MEDS: LORATADINE 10 MG TAB PO SCH (10:28)
[2020-10-09] MEDS: RIVAROXABAN 20 MG TAB PO SCH (10:30)
[2020-10-09 11:59] LABS: Glucose,Whole Blood 232 mg/dL (75-99)
--- NOTE | 2020-10-09 12:27 | P.PN ---
Progress Note - Text Progress Note Date: 10/09/20 I agree with the plan as documented by my colleague earlier this morning. Aside evaluated the patient bedside today, and I have no new changes. Pending cardiology evaluation. Will stop IV fluids, consider increasing oral to IV Lasix if no change in respiratory status by tomorrow a.m. Orthostatics twice a day.
--- NOTE | 2020-10-09 16:36 | P.CRDCN ---
History of Present Illness History of present illness: HISTORY OF PRESENTING ILLNESS This is a pleasant 84-year-old female past medical history significant for aortic stenosis, typical atrial flutter, hypertension, Type 2 Diabetes, Hyperlipidemia, chronic heart failure with preserved EF, sick sinus syndrome s/p single-chamber permanent pacemaker in 2013, venous insufficiency. She follows in the office with Dr. Nye. We have been asked to see in consultation for atrial flutter and elevated troponin. Patient seen at bedside with Daughter. Her daugther states she had a recent evaluation appointment for TAVR 10/07/20, after having appointments, the patient had progressive generalized weakness. She states she was started on Xarelto on 10/07/20, her first dose was yesterday. Yesterday she woke up from bed she could hardly get out of bed and then when she stood in the bathroom, she felt dizzy and tired. She felt as if her legs may give out. Family at home helped her sit down. She also has had associated shortness of breath, that has worsened. She currently denies any chest pain or trouble breathing she denies any fevers or chills denies any coughing denies any nausea vomiting or abdominal pain. Patient was started on Eliquis in April secondary to her atrial flutter however she had recurrent nosebleeds and anticoagulation was stopped. Patient has had workup for aortic valve replacement, Left heart catheterization on - revealed elevated right and left-sided rpessures with a right atrial pressure of 18, mean PA pressure of 39, and a pulmonary wedge pressure of 31, cardiac output was 3.4L/min. Coronary angiography showed only mild luminal irregularities without significant CAD. Current cardiac medications at home include Lasix 40 mg twice a day, lovastatin 100 mg daily, simvastatin 10 mg daily, atenolol 20 mg twice a day, Xarelto 20 mg daily, aspirin 81 mg daily In the ED upon arrival she was found to be tachycardic EKG showed a flutter she was given some metoprolol resulted in hypotension she was then given some IV fluids which helped stabilize her blood pressure. On exam, patient appears very short of breath, unable to move in bed without being short of breath. Patient is hypotensive blood pressure 98/46, heart rate 60s, maintaining oxygen saturation on 2 L nasal cannula, afebrile. Laboratory data reviewed, BNP 12,400, troponin 0.05, 0.07. Serum creatinine 1.05, BUN 53, sodium 138, potassium 4.7, magnesium 1.7 covid-19 negative DIAGNOSTICS JOSÉ LUIS -08/15/20 EF 50-55%, severe aortic stenosis, severe dilated LA, moderately dilated RA, Atrial septal aneurysm is present, moderate central mitral regurgitation and mild tricuspid regurgitation. Telemetry tracings indicate atrial flutter Chest xray heart appears slightly enlarged. REVIEW OF SYSTEMS At the time of my exam: CONSTITUTIONAL: Denies fever or chills. CARDIOVASCULAR: +shortness of breath. Denies chest pain, shortness of breath, orthopnea, PND or palpitations. RESPIRATORY: Denies cough. GASTROINTESTINAL: Denies abdominal pain, diarrhea, constipation, nausea or vomiting. MUSCULOSKELETAL: Denies myalgias. NEUROLOGIC: Denies numbness, tingling, headacbe or weakness. ENDOCRINE: +weaknes + fatigue, Denies weight change, polydipsia or polyurina. GENITOURINARY: Denies burning, hematuria or urgency with micturation. HEMATOLOGIC: Denies history of anemia or bleeding. PHYSICAL EXAMINATION CONSTITUTIONAL: No apparent distress. HEENT: Head is normocephalic. Pupils are equal, round. Sclerae anicteric. Mucous membranes of the mouth are moist. No JVD. No carotid bruit. CHEST EXAMINATION: Lungs are clear to auscultation. No chest wall tenderness is noted on palpation or with deep breathing. HEART EXAMINATION: Regular rate S1, Loud Systolic ejection murmur. barely hear S2 heard sound ABDOMEN: Soft, nontender. Positive bowel sounds. EXTREMITIES: 2+ peripheral pulses, 2+ lower extremity edema and no calf tenderness. SKIN: intact NEUROLOGIC EXAMINATION: Patient is awake, alert and oriented x3. ASSESSMENT Typical Atrial flutter Chronic diastolic heart failure with preserved EF Severe Nonrheumatic aortic valve stensois - Patient is being followed for a TAVR procedure soon to be scheduled Nonrheumatic mitral valve regurgitation Atrial Septal aneurysm seen on JOSÉ LUIS Hypertension- hypotensive this admission Type 2 Diabetes Hyperlipidemia Sick sinus syndrome s/p single-chamber permanent pacemaker in 2013 Venous insufficiency PLAN -Will be slow with IV Lasix due to patient's hypotension - Lasix 20mg IV daily -Decrease Losartan to 50mg daily -Continue naldolol 20mg BID -Continue Xarelto -Continue cardiac telemetry -Further recommendations based on clinical course Nurse Practitioner note has been reviewed, I agree with a documented findings and plan of care. Patient was seen and examined. Past Medical History Past Medical History: Diabetes Mellitus, Hypertension Additional Past Medical History / Comment(s): gout, arthritis, SOB when you bend over History of Any Multi-Drug Resistant Organisms: None Reported Past Surgical History: Appendectomy, Joint Replacement, Pacemaker Additional Past Surgical History / Comment(s): left knee replacement, cataract surgery, carpal tunnel sugery on right Past Anesthesia/Blood Transfusion Reactions: No Reported Reaction Type of Cardiac Device: Permanent Pacemaker Device Placement Date:: patient unsure Past Psychological History: No Psychological Hx Reported Smoking Status: Never smoker Past Alcohol Use History: None Reported Past Drug Use History: None Reported - Past Family History Father Family Medical History: Cancer Medications and Allergies Home Medications Medication Instructions Recorded Confirmed Type Baclofen [Lioresal] 10 mg PO HS PRN 12/11/13 10/08/20 History Ferrous Sulfate [Feosol] 325 mg PO DAILY 12/11/13 10/08/20 History Furosemide [Lasix] 40 mg PO BID PRN 12/11/13 10/08/20 History Aspirin 81 mg PO DAILY 03/21/19 10/08/20 History Cholecalciferol [Vitamin D3 (25 1,000 unit PO DAILY 03/21/19 10/08/20 History Mcg = 1000 Iu)] Levothyroxine Sodium [Synthroid] 150 mcg PO DAILY 03/21/19 10/08/20 History Pantoprazole Sodium [Protonix] 40 mg PO DAILY 03/21/19 10/08/20 History nadoloL [Corgard] 20 mg PO BID 03/21/19 10/08/20 History Acetaminophen Tab [Tylenol] 650 mg PO Q6HR PRN tab 03/24/19 10/08/20 Rx Rivaroxaban [Xarelto] 20 mg PO DAILY #30 tab 10/07/20 10/08/20 Rx Cetirizine HCl 10 mg PO DAILY 10/08/20 10/08/20 History Fluticasone Nasal [place] [Flonase 1 spray EA NOSTRIL DAILY 10/08/20 10/08/20 History Nasal [place]] Glimepiride [Amaryl] 2 mg PO BID 10/08/20 10/08/20 History Insulin Aspart Protam & Aspart See Protocol SQ AC-TID 10/08/20 10/08/20 History [NovoLOG MIX 70-30 Flexpen] Losartan Potassium 100 mg PO DAILY 10/08/20 10/08/20 History Simvastatin 10 mg PO HS 10/08/20 10/08/20 History allopurinoL [Zyloprim] 100 mg PO DAILY 10/08/20 10/08/20 History Allergies Allergy/AdvReac Type Severity Reaction Status Date / Time metformin Allergy Unknown Verified 10/08/20 21:45 Physical Exam Vitals: Vital Signs Temp Pulse Pulse Resp BP BP Pulse Ox 10/09/20 06:58 18 10/09/20 04:00 98.4 F 109 H 18 126/60 100 10/09/20 02:43 97.7 F 86 18 108/74 99 10/09/20 02:00 91 18 112/73 99 10/09/20 00:58 98.5 F 112 H 20 121/75 96 10/09/20 00:18 98 20 108/86 96 10/09/20 00:10 117 H 18 74/50 97 10/09/20 00:00 116 H 20 74/50 97 10/08/20 23:23 118 H 20 100/56 97 10/08/20 23:00 122 H 20 123/72 96 10/08/20 22:40 130/74 10/08/20 22:34 112 H 18 87/47 97 10/08/20 22:00 107 H 18 102/57 96 10/08/20 21:16 117 H 18 102/85 96 10/08/20 20:16 116 H 20 97 10/08/20 20:12 98.4 F 114 H 18 120/94 92 L Intake and Output 10/08/20 10/09/20 10/09/20 22:59 06:59 14:59 Other: Voiding Method Toilet Weight 104.326 kg 104.326 kg Results 10/08/20 21:20 10/08/20 21:20 Cardiac Enzymes 10/08/20 10/08/20 Range/Units 21:20 21:20 AST 42 H (14-36) U/L Troponin I 0.058 H* (0.000-0.034) ng/mL Coagulation 10/08/20 Range/Units 21:20 PT 17.4 H (9.0-12.0) sec APTT 32.3 H (22.0-30.0) sec CBC 10/08/20 Range/Units 21:20 WBC 10.6 (3.8-10.6) k/uL RBC 4.73 (3.80-5.40) m/uL Hgb 13.7 (11.4-16.0) gm/dL Hct 42.2 (34.0-46.0) % Plt Count 223 (150-450) k/uL Comprehensive Metabolic Panel 10/08/20 Range/Units 21:20 Sodium 138 (137-145) mmol/L Potassium 4.7 (3.5-5.1) mmol/L Chloride 104 (98-107) mmol/L Carbon Dioxide 25 (22-30) mmol/L BUN 53 H (7-17) mg/dL Creatinine 1.05 H (0.52-1.04) mg/dL Glucose 210 H (74-99) mg/dL Calcium 9.1 (8.4-10.2) mg/dL AST 42 H (14-36) U/L ALT 22 (4-34) U/L Alkaline Phosphatase 166 H (38-126) U/L Total Protein 7.3 (6.3-8.2) g/dL Albumin 3.9 (3.5-5.0) g/dL Current Medications Generic Name Dose Route Start Last Admin Trade Name Freq PRN Reason Stop Dose Admin Acetaminophen 650 mg 10/09/20 05:35 Acetaminophen Tab 325 Mg Tab PO Q6HR PRN Fever and/ or Pain Allopurinol 100 mg 10/09/20 09:00 Allopurinol 100 Mg Tab PO DAILY [facility] Aspirin 81 mg 10/09/20 09:00 Aspirin 81 Mg PO DAILY ROSELYN Atorvastatin Calcium 10 mg 10/09/20 21:00 Atorvastatin 10 Mg Tab PO HS ROSELYN Fluticasone Propionate 1 spray 10/09/20 09:00 Fluticasone 50mcg/[place] Nasal 16gm EA NOSTRIL DAILY ROSELYN Furosemide 40 mg 10/09/20 09:00 Furosemide 40 Mg Tab PO DAILY ROSELYN Diltiazem HCl 125 mg/ Sodium 125 mls @ 5 mls/hr 10/08/20 23:45 10/09/20 02:18 Chloride IV Not Given .Q24H ROSELYN 5 MG/HR Insulin Aspart 0 unit 10/09/20 07:30 10/09/20 06:47 Insulin Aspart (Novolog) 100 Unit/Ml Vial SQ 1 unit ACHS ROSELYN Administration Protocol Levothyroxine Sodium 150 mcg 10/09/20 06:30 10/09/20 06:47 Levothyroxine 75 Mcg Tab PO 150 mcg DAILY@0630 ROSELYN Administration Loratadine 10 mg 10/09/20 09:00 Loratadine 10 Mg Tab PO DAILY ROSELYN Losartan Potassium 100 mg 10/09/20 09:00 Losartan 50 Mg Tab PO DAILY ROSELYN Nadolol 20 mg 10/09/20 09:00 Nadolol 20 Mg Tab PO BID ROSELYN Naloxone HCl 0.2 mg 10/09/20 01:35 Naloxone 0.4 Mg/Ml 1 Ml Vial IV Q2M PRN Opioid Reversal Pantoprazole Sodium 40 mg 10/09/20 07:30 10/09/20 06:47 Pantoprazole 40 Mg Tablet PO 40 mg [id number] ROSELYN Administration Rivaroxaban 20 mg 10/09/20 09:00 Rivaroxaban 20 Mg Tab PO DAILY [facility] Intake and Output 10/08/20 10/09/20 10/09/20 22:59 06:59 14:59 Other: Voiding Method Toilet Weight 104.326 kg 104.326 kg 10/08/20 21:20 10/08/20 21:20
[2020-10-09 16:59] LABS: Glucose,Whole Blood 292 mg/dL (75-99)
[2020-10-09 20:49] LABS: Glucose,Whole Blood 271 mg/dL (75-99)
[2020-10-09] MEDS: ATORVASTATIN 10 MG TAB PO SCH (22:45)
[2020-10-10 07:03] LABS: Glucose,Whole Blood 179 mg/dL (75-99)
[2020-10-10 07:12] LABS: Calcium 8.7 mg/dL (8.4-10.2); Potassium 4.4 mmol/L (3.5-5.1)
[2020-10-10] MEDS: LEVOTHYROXINE 75 MCG TAB PO SCH (07:18)
[2020-10-10] MEDS: INSULIN ASPART (NovoLOG) 100 UNIT/ML VIAL SQ SCH ×4 (07:18→21:14)
[2020-10-10] MEDS: INSULN ASP PRT/INSULIN ASPART 100 UNIT/ML 10 ML VIAL SQ SCH ×2 (07:19→17:43)
[2020-10-10] MEDS: PANTOPRAZOLE 40 MG TABLET PO SCH (07:20)
[2020-10-10] MEDS: FUROSEMIDE 10 MG/ML 2 ML VIAL IV SCH (10:00)
[2020-10-10] MEDS: allopurinoL 100 MG TAB PO SCH (10:32)
[2020-10-10] MEDS: ASPIRIN 81 MG PO SCH (10:32)
[2020-10-10] MEDS: RIVAROXABAN 20 MG TAB PO SCH (10:33)
[2020-10-10] MEDS: LOSARTAN 50 MG TAB PO SCH (10:33)
[2020-10-10] MEDS: LORATADINE 10 MG TAB PO SCH (10:33)
[2020-10-10] MEDS: FLUTICASONE 50MCG/SPRAY NASAL 16GM EA NOSTRIL SCH (10:47)
[2020-10-10 12:00] LABS: Glucose,Whole Blood 251 mg/dL (75-99)
--- NOTE | 2020-10-10 12:10 | P.PN ---
Subjective Progress Note Date: 10/10/20 Principal diagnosis: Heart failure with preserved ejection fraction/severe aortic stenosis This is a pleasant 84-year-old female patient who follows with Dr. Meade in the office on regular basis was known severe symptomatic aortic stenosis who was seen recently at the valve clinic for an evaluation off transcutaneous aortic valve replacement. The patient presented to the hospital mainly with increasing shortness of breath as well as feeling tired and fatigued and has no energy. We diagnosed the patient weighs heart failure secondary to diastole dysfunction and valvular heart disease as well. She was seen to the patient stated that she is feeling slightly better. We kept the patient on Lasix IV at 20 mg daily in view of marginal blood pressure with the creatinine continues to be stable. At this point I would advise continue the patient on the current dose of Lasix which is 20 mg by mouth daily and continue monitor the kidney function and electrolytes for possible discharge in the next 24 hours. Objective - Vital Signs Vital signs: Vital Signs Temp 98.7 F 10/10/20 08:27 Pulse 82 10/10/20 07:38 Resp 20 10/10/20 07:38 BP 115/79 10/10/20 07:38 Pulse Ox 97 10/10/20 07:38 Intake & Output 10/09/20 10/10/20 10/10/20 18:59 06:59 18:59 Intake Total 780 240 240 Output Total 400 Balance 780 -160 240 Weight 115.5 kg Intake: Oral 780 240 240 Output: Urine 400 Other: Voiding Method External Catheter # Voids 1 - Constitutional General appearance: Present: no acute distress - Respiratory Respiratory: bilateral: diminished - Cardiovascular Rhythm: irregularly irregular Heart sounds: normal: S1 Abnormal Heart Sounds: Present: systolic murmur - Labs CBC & Chem 7: 10/08/20 21:20 10/10/20 06:01 Labs: Abnormal Lab Results - Last 24 Hours (Table) 10/09/20 10/09/20 10/10/20 Range/Units 16:57 20:45 06:01 BUN 51 H (7-17) mg/dL Creatinine 1.28 H (0.52-1.04) mg/dL Glucose 176 H (74-99) mg/dL POC Glucose (mg/dL) 292 H 271 H (75-99) mg/dL 04/08/21 04/08/21 Range/Units 07:01 11:53 BUN (7-17) mg/dL Creatinine (0.52-1.04) mg/dL Glucose (74-99) mg/dL POC Glucose (mg/dL) 179 H 251 H (75-99) mg/dL Assessment and Plan Assessment: Assessment #1 severe aortic stenosis #2 increase in the shortness of breath #3 atrial flutter was controlled heart rate which is typical flutter #4 mitral regurgitation #5 multiple comorbid conditions Plan #1 continue the IV Lasix for additional 24 hours #2 continue monitor the kidney function and electrolytes #3 continue oral anticoagulation #4 follow-up with the patient
--- NOTE | 2020-10-10 15:37 | P.PN ---
Subjective Progress Note Date: 10/10/20 Pt has new oxygen requirement, and is being gently diuresed by cardiology. No new complaints today, however. Objective - Vital Signs Vital signs: Vital Signs Temp 99.1 F 10/10/20 13:01 Pulse 67 10/10/20 13:01 Resp 20 10/10/20 13:46 BP 105/58 10/10/20 13:01 Pulse Ox 99 10/10/20 13:01 Intake & Output 10/09/20 10/10/20 10/10/20 18:59 06:59 18:59 Intake Total 780 240 240 Output Total 400 Balance 780 -160 240 Weight 115.5 kg Intake: Oral 780 240 240 Output: Urine 400 Other: Voiding Method External Catheter External Catheter # Voids 1 - Exam Gen: awake, alert HEENT: normocephalic, atraumatic, good hearing acuity, moist mucous membranes Resp: good air exchange, breathing comfortably with no accessory muscle use, bibasilar crackles CVS: good distal perfusion x 4, RRR with no murmurs GI: soft, NTTP, ND : no SPT, no CVAT, flores catheter not present MSK: Trace pitting edema, no clubbing Neuro: non-focal, moving all extremities Psych: cooperative, euthymic mood - Labs CBC & Chem 7: 10/08/20 21:20 10/10/20 06:01 Labs: Abnormal Lab Results - Last 24 Hours (Table) 10/09/20 10/09/20 10/10/20 Range/Units 16:57 20:45 06:01 BUN 51 H (7-17) mg/dL Creatinine 1.28 H (0.52-1.04) mg/dL Glucose 176 H (74-99) mg/dL POC Glucose (mg/dL) 292 H 271 H (75-99) mg/dL 10/10/20 10/10/20 Range/Units 07:01 11:53 BUN (7-17) mg/dL Creatinine (0.52-1.04) mg/dL Glucose (74-99) mg/dL POC Glucose (mg/dL) 179 H 251 H (75-99) mg/dL Assessment and Plan Assessment: A flutter, status post pacemaker currently on Xarelto Chronic systolic CHF seems to be compensated Chronic bilateral lower leg edema with chronic skin changes Diabetes mellitus Possible falling at home Plan court monitor Resume home medications Consider Cardizem if patient goes into rapid ventricular response Supplemental oxygen as needed By mouth diuretics Cardiology consult Follow-up labs and electrolytes PT evaluation Insulin sliding scale Fall precautions CODE STATUS: No code DVT prophylaxis: On Xarelto Discussed with: Patient, ER, RN Anticipated length of stay more than [address]: Home
[2020-10-10 17:02] LABS: Glucose,Whole Blood 262 mg/dL (75-99)
[2020-10-10 20:57] LABS: Glucose,Whole Blood 263 mg/dL (75-99)
[2020-10-10] MEDS: ATORVASTATIN 10 MG TAB PO SCH (21:14)
[2020-10-11] MEDS: PANTOPRAZOLE 40 MG TABLET PO SCH (06:13)
[2020-10-11] MEDS: LEVOTHYROXINE 75 MCG TAB PO SCH (06:13)
[2020-10-11 07:48] LABS: Glucose,Whole Blood 137 mg/dL (75-99)
[2020-10-11] MEDS: INSULN ASP PRT/INSULIN ASPART 100 UNIT/ML 10 ML VIAL SQ SCH ×2 (08:37→18:05)
[2020-10-11] MEDS: INSULIN ASPART (NovoLOG) 100 UNIT/ML VIAL SQ SCH ×3 (08:38→18:05)
[2020-10-11] MEDS: ASPIRIN 81 MG PO SCH (09:37)
[2020-10-11] MEDS: RIVAROXABAN 20 MG TAB PO SCH (09:37)
[2020-10-11] MEDS: FLUTICASONE 50MCG/SPRAY NASAL 16GM EA NOSTRIL SCH (09:37)
[2020-10-11] MEDS: allopurinoL 100 MG TAB PO SCH (09:37)
[2020-10-11] MEDS: FUROSEMIDE 10 MG/ML 2 ML VIAL IV SCH (09:37)
[2020-10-11] MEDS: LORATADINE 10 MG TAB PO SCH (09:37)
[2020-10-11] MEDS: LOSARTAN 50 MG TAB PO SCH (09:37)
[2020-10-11 10:20] VITALS: TEMP 97.7
[2020-10-11 11:48] LABS: Glucose,Whole Blood 139 mg/dL (75-99)
--- NOTE | 2020-10-11 11:55 | P.PN ---
Subjective Progress Note Date: 10/11/20 Principal diagnosis: Heart failure with preserved ejection fraction/severe aortic stenosis This is a pleasant 84-year-old female patient who follows with Dr. Meade in the office on regular basis was known severe symptomatic aortic stenosis who was seen recently at the valve clinic for an evaluation off transcutaneous aortic valve replacement. The patient presented to the hospital mainly with increasing shortness of breath as well as feeling tired and fatigued and has no energy. We diagnosed the patient weighs heart failure secondary to diastole dysfunction and valvular heart disease as well. The patient was seen today remind of 2020. She stated that she is feeling better into her shortness of breath. No symptoms of chest pain or chest discomfort. On examination she does have diminished breathing sounds bilaterally and bilateral rhonchi mostly in the bases. Her pressure has been marginal but continues to be above 90 mmHg. Currently she is on Lasix IV at 20 mg daily. I recommended continue that until tomorrow switch her to by mouth Lasix tomorrow for possible discharge tomorrow as well. Objective - Vital Signs Vital signs: Vital Signs Temp 97.7 F 10/11/20 10:05 Pulse 92 10/11/20 10:05 Resp 20 10/11/20 10:05 BP 97/61 10/11/20 10:05 Pulse Ox 96 10/11/20 10:05 Intake & Output 10/10/20 10/11/20 10/11/20 18:59 06:59 18:59 Intake Total 480 240 Output Total 200 Balance 480 -200 240 Weight 98.5 kg Intake: Oral 480 240 Output: Urine 200 Other: Voiding Method External Catheter External Catheter External Catheter - Constitutional General appearance: Present: no acute distress - Respiratory Respiratory: bilateral: rales - Cardiovascular Rhythm: irregularly irregular Heart sounds: normal: S1 Abnormal Heart Sounds: Present: systolic murmur - Labs CBC & Chem 7: 10/08/20 21:20 10/10/20 06:01 Labs: Abnormal Lab Results - Last 24 Hours (Table) 10/10/20 10/10/20 10/10/20 Range/Units 11:53 16:55 20:56 POC Glucose (mg/dL) 251 H 262 H 263 H (75-99) mg/dL 10/11/20 10/11/20 Range/Units 07:46 11:47 POC Glucose (mg/dL) 137 H 139 H (75-99) mg/dL Assessment and Plan Assessment: Assessment #1 severe aortic stenosis #2 increase in the shortness of breath likely related to heart failure with pres erved ejection fraction #3 atrial flutter was controlled heart rate which is typical flutter #4 mitral regurgitation #5 multiple comorbid conditions Plan #1 continue the IV Lasix for additional 24 hours #2 continue monitor the kidney function and electrolytes #3 continue oral anticoagulation #4 possible discharge tomorrow morning
[2020-10-11 13:32] VITALS: BP 101/53; PULSE 69; RESP 18
--- NOTE | 2020-10-11 15:26 | P.DS ---
Providers Date of admission: 10/09/20 01:20 Expected date of discharge: 10/11/20 Attending physician: Alta Paz MD Consults: 10/09/20 03:00 Consult Physician Stat Consulting Provider: Delmar Vera Consult Reason/Comments: aflutter/with block, tachycardia, chf Do you want consulting provider notified?: Yes, Notify in am Primary care physician: Stated None Hospital Course: A flutter, status post pacemaker currently on Xarelto Chronic systolic CHF seems to be compensated Chronic bilateral lower leg edema with chronic skin changes Diabetes mellitus Possible falling at home 84 year old woman with A Flutter s/p PPM, chronic systolic heart failure, DM presented after presyncopal episode at home and generalized weakness. She was monitored on telemetry, and seen by cardiology. Notably, she had recd 2L of fluid in the ER after metoprolol resulted in hypotension, which did help the blood pressure. However, she warranted IV diuresis for 2 days given fluid boluses. Pt was advised to go to SNF for rehab on discharge. She will resume her home dose of lasix 40mg BID. Her Losartan dose was reduced by half to prevent hypotension. No other changes to medication regimen were made. I spent 45 minutes preparing this discharge. Assessment: Gen: awake, alert HEENT: normocephalic, atraumatic, good hearing acuity, moist mucous membranes Resp: good air exchange, breathing comfortably with no accessory muscle use, bibasilar crackles CVS: good distal perfusion x 4, RRR with no murmurs GI: soft, NTTP, ND : no SPT, no CVAT, flores catheter not present MSK: Trace pitting edema, no clubbing Neuro: non-focal, moving all extremities Psych: cooperative, euthymic mood Patient Condition at Discharge: Good Plan - Discharge Summary Discharge Rx Participant: Yes New Discharge Prescriptions: Continue Baclofen [Lioresal] 10 mg PO HS PRN PRN Reason: Muscle Pain Furosemide [Lasix] 40 mg PO BID PRN PRN Reason: Edema Ferrous Sulfate [Feosol] 325 mg PO DAILY Aspirin 81 mg PO DAILY Cholecalciferol [Vitamin D3 (25 Mcg = 1000 Iu)] 1,000 unit PO DAILY Levothyroxine Sodium [Synthroid] 150 mcg PO DAILY nadoloL [Corgard] 20 mg PO BID Pantoprazole Sodium [Protonix] 40 mg PO DAILY Acetaminophen Tab [Tylenol] 650 mg PO Q6HR PRN tab PRN Reason: Fever And/ Or Pain Cetirizine HCl 10 mg PO DAILY Glimepiride [Amaryl] 2 mg PO BID Insulin Aspart Protam & Aspart [NovoLOG MIX 70-30 Flexpen] See Protocol SQ AC-TID allopurinoL [Zyloprim] 100 mg PO DAILY Rivaroxaban [Xarelto] 20 mg PO DAILY #30 tab Fluticasone Nasal [place] [Flonase Nasal [place]] 1 spray EA NOSTRIL DAILY Simvastatin 10 mg PO HS Changed Losartan Potassium 50 mg PO DAILY #0 Discharge Medication List Baclofen [Lioresal] 10 mg PO HS PRN 12/11/13 [History] Ferrous Sulfate [Feosol] 325 mg PO DAILY 12/11/13 [History] Furosemide [Lasix] 40 mg PO BID PRN 12/11/13 [History] Aspirin 81 mg PO DAILY 03/21/19 [History] Cholecalciferol [Vitamin D3 (25 Mcg = 1000 Iu)] 1,000 unit PO DAILY 03/21/19 [History] Levothyroxine Sodium [Synthroid] 150 mcg PO DAILY 03/21/19 [History] Pantoprazole Sodium [Protonix] 40 mg PO DAILY 03/21/19 [History] nadoloL [Corgard] 20 mg PO BID 03/21/19 [History] Acetaminophen Tab [Tylenol] 650 mg PO Q6HR PRN tab 03/24/19 [Rx] Rivaroxaban [Xarelto] 20 mg PO DAILY #30 tab 10/07/20 [Rx] Cetirizine HCl 10 mg PO DAILY 10/08/20 [History] Fluticasone Nasal [place] [Flonase Nasal [place]] 1 spray EA NOSTRIL DAILY 10/08/20 [History] Glimepiride [Amaryl] 2 mg PO BID 10/08/20 [History] Insulin Aspart Protam & Aspart [NovoLOG MIX 70-30 Flexpen] See Protocol SQ AC- TID 10/08/20 [History] Simvastatin 10 mg PO HS 10/08/20 [History] allopurinoL [Zyloprim] 100 mg PO DAILY 10/08/20 [History] Losartan Potassium 50 mg PO DAILY #0 10/11/20 [Rx] Follow up Appointment(s)/Referral(s): None,Stated [Primary Care Provider] - 1-2 days Discharge Disposition: TRANSFER TO SNF/ECF
[2020-10-11 17:05] LABS: Glucose,Whole Blood 165 mg/dL (75-99)
== END 2020-10-11 17:55 | DRG 309 ==
LOC: EC 20:04 → 3SCARD 10-09 01:20
PROVIDERS: ADMIT Internal Medicine; ATTEND Internal Medicine
DX: I48.3 Typical atrial flutter (principal); I25.3 Aneurysm of heart; I50.22 Chronic systolic (congestive) heart failure; R53.1 Weakness; I48.91 Unspecified atrial fibrillation; I11.0 Hypertensive heart disease with heart failure; E11.9 Type 2 diabetes mellitus without complications; E78.5 Hyperlipidemia, unspecified; I08.0 Rheumatic disorders of both mitral and aortic valves; I49.5 Sick sinus syndrome; Z95.0 Presence of cardiac pacemaker; Z20.822 Contact with and (suspected) exposure to COVID-19; Z79.01 Long term (current) use of anticoagulants; Z79.82 Long term (current) use of aspirin; I95.9 Hypotension, unspecified; Z79.84 Long term (current) use of oral hypoglycemic drugs; Z79.890 Hormone replacement therapy; Z79.899 Other long term (current) drug therapy; Z96.652 Presence of left artificial knee joint; Z98.49 Cataract extraction status, unspecified eye; R55 Syncope and collapse; Z91.81 History of falling; L98.9 Disorder of the skin and subcutaneous tissue, unspecified; R79.89 Other specified abnormal findings of blood chemistry; I87.2 Venous insufficiency (chronic) (peripheral); Z88.8 Allergy status to other drugs, medicaments and biological substances
CPT/HCPCS: 36415; 71046; 80048; 80053; 81003; 83605; 83735; 83880; 84484; 85025; 85610; 85730; 87635; 93005; 96361; 96374; 99285

== ENCOUNTER → 2020-11-07 | Outpatient (CLI) | payer MEDICARE, OTHER ==
[2020-11-07 11:07] LABS: Basophils # (A) 0.1 k/uL (0-0.2); Basophils % (A) 1 %; Eosinophils # (A) 0.6 k/uL (0-0.7); Eosinophils % (A) 5 %; HCT 39.2 % (34.0-46.0); HGB 12.1 gm/dL (11.4-16.0); Hypochromasia Slight; Lymphocytes # (A) 1.1 k/uL (1.0-4.8); Lymphocytes % (A) 11 %; MCH 27.7 pg (25.0-35.0); MCHC 30.9 g/dL (31.0-37.0); MCV 89.4 fL (80.0-100.0); Mean Platelet Volume 8.1; Monocytes # (A) 0.5 k/uL (0-1.0); Monocytes % (A) 5 %; Neutrophils # (A) 8.2 k/uL (1.3-7.7); Neutrophils % (A) 78 %; Platelet Count 276 k/uL (150-450); RBC 4.38 m/uL (3.80-5.40); RDW 15.6 % (11.5-15.5); WBC 10.5 k/uL (3.8-10.6)
[2020-11-07 11:17] LABS: Albumin 3.6 g/dL (3.5-5.0); Bilirubin, Delta 0.1 mg/dL (0.0-0.2); Bilirubin,Unconjugated 0.8 mg/dL (0.0-1.1); Calcium 9.7 mg/dL (8.4-10.2); Magnesium 1.5 mg/dL (1.6-2.3); Potassium 4.6 mmol/L (3.5-5.1); Total Bilirubin 0.9 mg/dL (0.2-1.3)
[2020-11-07 11:25] LABS: INR 1.8 (<1.2); Prothrombin Time 17.9 sec (9.0-12.0)
[2020-11-07 19:20] LABS: Hemoglobin A1C 9.1 % (4.0-6.0)
== END | disposition home or self-care (01) ==
LOC: LABWHC1 09:26
PROVIDERS: ATTEND Thoracic Surgery (Cardiothoracic Vascular Surgery)
DX: Z01.812 Encounter for preprocedural laboratory examination (principal); Z20.822 Contact with and (suspected) exposure to COVID-19; I35.0 Nonrheumatic aortic (valve) stenosis; E87.8 Other disorders of electrolyte and fluid balance, not elsewhere classified; R58 Hemorrhage, not elsewhere classified; E07.9 Disorder of thyroid, unspecified; R35.0 Frequency of micturition; E11.9 Type 2 diabetes mellitus without complications; N28.9 Disorder of kidney and ureter, unspecified; E78.5 Hyperlipidemia, unspecified; Z79.01 Long term (current) use of anticoagulants; Z79.899 Other long term (current) drug therapy
CPT/HCPCS: 83880; 80061; 80053; 84443; 82248; 83735; 85025; 85610; 85730; 87070; 83036; 36415; U0003; C9803; U0005

== ENCOUNTER 2020-11-13 05:36 | Inpatient (IN) | payer MEDICARE, OTHER ==
[2020-11-13] MEDS ORDERED: SODIUM CHLORIDE 0.9% 1,000 ML IV SCH ×2 (05:47→10:02)
[2020-11-13] MEDS ORDERED: PROTAMINE SULFATE 250 MG in EMPTY BAG 1 BAG IV PRN ×2 (05:47→06:00)
[2020-11-13] MEDS ORDERED: TRANEXAMIC ACID 2,000 MG in SODIUM CHLORIDE 0.9% 80 ML IV PRN ×5 (05:47→06:00)
[2020-11-13] MEDS ORDERED: CLOPIDOGREL 75 MG TAB PO ONE ×2 (05:47→06:00)
[2020-11-13] MEDS ORDERED: ELECTROLYTE-A SOLUTION 1,000 ML with POTASSIUM CHLORIDE 100 MEQ, MAGNESIUM SULFATE 16 M... IV PRN ×5 (05:47)
[2020-11-13] MEDS ORDERED: CARDIOPLEGIC SOLN (K+ 16 MEQ/L 1,000 ML with SOD BICARB SYR 8.4% (1 MEQ/ML) 20 ML, LIDO... PERFUSION PRN ×3 (05:47)
[2020-11-13] MEDS ORDERED: METOPROLOL TARTRATE 25 MG TAB PO ONE ×2 (05:47→06:00)
[2020-11-13] MEDS ORDERED: ELECTROLYTE-A SOLUTION 1,000 ML with POTASSIUM CHLORIDE 40 MEQ, MAGNESIUM SULFATE 16 ME... IV PRN ×5 (05:47)
[2020-11-13] MEDS ORDERED: MD COMMUNICATION TO PHARMACY 1 EACH MISC PO ONE ×2 (05:47)
[2020-11-13] MEDS ORDERED: CLEVIDIPINE BUTYRATE 25 MG in EMPTY BAG 1 BAG IV PRN ×2 (05:47→06:00)
[2020-11-13] MEDS ORDERED: NITROGLYCERIN-D5W PMX 25 MG/250 ML BTL IV PRN ×2 (05:47→06:00)
[2020-11-13] MEDS ORDERED: INSULIN REGULAR 100 UNIT in SODIUM CHLORIDE 0.9% 100 ML IV PRN ×2 (05:47→06:00)
[2020-11-13] MEDS ORDERED: ASPIRIN 325 MG TAB PO ONE ×2 (05:47→06:00)
[2020-11-13] MEDS ORDERED: ATORVASTATIN 10 MG TAB PO ONE ×2 (05:47→06:00)
[2020-11-13] MEDS ORDERED: SODIUM CHLORIDE 0.9% 1,000 ML IV ONE ×2 (06:00)
[2020-11-13] MEDS ORDERED: SODIUM CHLORIDE 0.9% 500 ML 500 ML INTRAARTER PRN (06:00)
[2020-11-13] MEDS ORDERED: CARDIOPLEGIC SOLN (K+ 16 MEQ/L 1,000 ML with SODIUM BICARB (1 MEQ/ML) 20 ML, LIDOCAINE ... PERFUSION PRN ×3 (06:00)
[2020-11-13 06:30] LABS: Glucose,Whole Blood 171 mg/dL (75-99)
[2020-11-13 06:37] LABS: Basophils # (A) 0.1 k/uL (0-0.2); Basophils % (A) 1 %; Eosinophils # (A) 0.7 k/uL (0-0.7); Eosinophils % (A) 7 %; HCT 37.9 % (34.0-46.0); HGB 12.4 gm/dL (11.4-16.0); Lymphocytes # (A) 1.1 k/uL (1.0-4.8); Lymphocytes % (A) 10 %; MCH 28.5 pg (25.0-35.0); MCHC 32.8 g/dL (31.0-37.0); MCV 86.9 fL (80.0-100.0); Monocytes # (A) 0.6 k/uL (0-1.0); Monocytes % (A) 6 %; Neutrophils % (A) 75 %; Platelet Count 255 k/uL (150-450); RBC 4.37 m/uL (3.80-5.40); RDW 15.2 % (11.5-15.5); WBC 10.6 k/uL (3.8-10.6)
[2020-11-13] MEDS ORDERED: LIDOCAINE 1% INJ 10MG/ML (20 ML MDV) ONE (07:45)
[2020-11-13] MEDS ORDERED: PHENYLEPHRINE-0.9% NACL SYG 1,000 MCG/10 ML SYRINGE ONE (07:45)
[2020-11-13] MEDS ORDERED: fentaNYL (PF) 50 MCG/ML 2 ML AMP ONE (07:45)
[2020-11-13] MEDS ORDERED: ROCURONIUM 10 MG/ML (5 ML VIAL) IV ONE (07:45)
[2020-11-13] MEDS ORDERED: PROPOFOL 10 MG/ML 20 ML VIAL IV ONE (07:45)
[2020-11-13] MEDS ORDERED: HEPARIN SODIUM,PORCINE 10,000 UNIT/ML 1 ML VIAL ONE (07:45)
[2020-11-13] MEDS ORDERED: MIDAZOLAM 2 MG/2 ML VIAL ONE (07:45)
[2020-11-13] MEDS ORDERED: PROTAMINE SULFATE 10 MG/ML 5 ML VIAL IV ONE ×2 (07:45→09:30)
[2020-11-13] MEDS ORDERED: IOPAMIDOL-370 125ML BTL INJ ONE (09:34)
[2020-11-13] MEDS ORDERED: BACLOFEN 10 MG TAB PO PRN (09:35)
[2020-11-13] MEDS ORDERED: ACETAMINOPHEN TAB 325 MG TAB PO PRN (09:35)
[2020-11-13] MEDS ORDERED: HYDROcodone/APAP 5-325MG 1 EACH TAB PO PRN (10:02)
[2020-11-13] MEDS ORDERED: IPRATROPIUM-ALBUTEROL 3 ML NEB INHALATION PRN (10:02)
[2020-11-13] MEDS ORDERED: ONDANSETRON 4 MG/2 ML VIAL IVP PRN (10:02)
[2020-11-13] MEDS ORDERED: ALBUMIN HUMAN 5% 250 ML in EMPTY BAG 1 BAG IVPB PRN (10:02)
--- NOTE | 2020-11-13 10:13 | P.ANPRN ---
Procedure Note - Anesthesia - Invasive Line Right Central Line Time Out Performed: Yes Date of Procedure: 11/13/20 Time of Procedure: 06:45 Location of Patient: PreOp Preparation: Sterile Prep, Sterile Dressing Ultrasound Used: Yes Purpose - Visualization and Identification of Vasculature: Yes Needle Guage: 18 Image Stored and Saved: Yes Narrative: Central line placement per sterile protocol utilized. TLC secured at 16 cm Left Arterial Line Time Out Performed: Yes Date of Procedure: 11/13/20 Location of Patient: PreOp Preparation: Sterile Prep, Sterile Dressing Arterial Line Location: Radial Ultrasound Used: Yes Purpose - Visualization and Identification of Vasculature: Yes Needle Guage: 20 Image Stored and Saved: Yes Narrative: 20 g arterial line placed under sterile conditions. - JOSÉ LUIS Intraop Pre Bypass JOSÉ LUIS Intraop - Anesthesia Indication: Aortic stenosis Date of Procedure: 11/13/20 Pre-operative Diagnosis: Aortic stenosis Post-operative Diagnosis: Same Surgeon: Hau Martinez Ejection Fraction: Normal Regional Wall Motion Abnormalities: None Left Ventricle Hypertrophy: Yes R. Ventricle Function: Hypokinesis Mild Anatomy: Trileaflet Aortic Stenosis: Moderate Aortic Regurgitation: None Mitral Valve: Significant MAC, Restricted posterior leaflet Mitral Stenosis: None Mitral Regurgitation: Severe Tricuspid Stenosis: None Tricuspid Regurgitation: Moderate Pulmonic Stenosis: None Pulmonic Regurgitation: None R. Atrial Dilation: No R. Atrial PFO: No L. Atrial Dilation: No Aortic Dissection: No Aortic Calcification: Severe Plural Effusion: None - JOSÉ LUIS Intraop Post Bypass JOSÉ LUIS Intraop Post Bypass Procedure Performed: TAVR Left Ventricle: EF 50% Ejection Fraction: Normal Regional Wall Motion Abnormalities: None R. Ventricle Function: Hypokinesis Mild Aortic Valve: S/p TAVR. Mild to moderate perivalvular leak, most apparent in the region of NCC Mitral Valve: Unchanged Tricuspid: Unchanged Pulmonic: Unchanged Aortic Dissection: No
--- NOTE | 2020-11-13 10:22 | P.OP ---
Date of Procedure: 11/13/20 Preoperative Diagnosis: Calcific senile aortic stenosis Postoperative Diagnosis: same Procedure(s) Performed: TAVR: 29 Corevalve ProPlus via percutaneous transfemoral approach Implants: 29 core valve pro plus Anesthesia: GETA Surgeon: Hua aMrtinez (Cardiac surgeon) Fabric Worker Fitter #1: Nelson Nye (divorce attorney) Fabric Worker Fitter #2: Delmar Vera (Second inspector set up and lay out) Estimated Blood Loss (ml): 25 IV fluids (ml): 200 Urine output (ml): 0 Pathology: none sent Condition: stable Disposition: ICU Indications for Procedure: 84-year-old female presents with exertional dyspnea. She has had several hospitalizations for heart failure. She is found to have critical aortic valvular stenosis. She has recently undergone a course of rehabilitation and is admitted for elective transcatheter aortic valve replacement. She was evaluated in the multidisciplinary valve clinic and felt to be appropriate for this procedure. Patient has permanent pacemaker. Operative Findings: The [place] valve was quite tight and was difficult passing a wire. It was decided to predilate. This proceeded without event. Following this it was easy to pass the valve. Post deployment there was mild aortic insufficiency. This improved over the first 10 minutes. Hemodynamics were excellent. Final JOSÉ LUIS demonstrated really trivial paravalvular leak and this was accepted. Ventricular function was excellent and mitral regurgitation was very mild at the completion of the procedure. Postextubation on the table the patient was grossly neurologically intact. Description of Procedure: The patient was brought to the catheterization laboratory and placed supine on the table. She was appropriately positioned. General anesthesia was induced. JOSÉ LUIS probe was placed. JOSÉ LUIS demonstrated critical aortic stenosis with moderate mitral regurgitation which appeared central and functional. There was no ev idence of thrombus in the left atrial appendage. The anterior chest and groins were sterilely prepped and draped. Bilateral femoral access was obtained using ultrasound guidance and micropuncture technique by Dr. Ojeda. A long 6-Burkinan sheath was placed on the left and a short 6-Burkinan sheath on the right. 2 Perclose devices were deployed on the right. Femoral venous sheath was placed on the left and a temporary pacer advanced into the apex of the right ventricle with good capture at low thresholds. Pigtail catheter was placed through the Jomar catheter on the left and advanced into the noncoronary sinus of Valsalva. The right groin sheath was exchanged for a 14-Burkinan sheath over a stiff wire. The aortic valve was crossed on the right and a pigtail catheter placed in the apex of the left ventricle. Transvalvular gradients were measured. Lunderquist wire was placed into the apex of the ventricle and a 20 mm true balloon was used to dilate the [place] aortic valve. This was performed under rapid ventricular pacing. Following this the 14-Burkinan sheath was exchanged for the delivery system for the 29 core valve pro plus which had been loaded on the back table. This was advanced under fluoroscopic guidance through the aortic valve. It was deployed under rapid ventricular pacing with levels of 2 of the right and 3 on the left. This proceeded without event. There was mild paravalvular leak which improved over the next 10 minutes. The delivery system was removed and the 14- Burkinan sheath were placed. Through this valve was crossed with a pigtail catheter and there was no evidence of gradient. There was good diastolic separation. Hemodynamics were felt to be excellent and repeat JOSÉ LUIS demonstrated no evidence of significant paravalvular leak. This point heparin was reversed with protamine and the delivery system was removed. Bilateral femoral hemostasis was obtained by Dr. Ojeda and Dr. Nye. Patient was awakened on the table and examined neurologically and then transferred to ICU.
[2020-11-13 10:23] LABS: ABG Base Excess 3.6 mmol/L; ABG Glucose Whole Blood 173 mg/dL (75-99); ABG HCO3 28 mmol/L (21-25); ABG Hematocrit 37 % (34.0-46.0); ABG Ionized Calcium 4.8 mg/dL (4.5-5.3); ABG PCO2 39 mmHg (35-45); ABG PH 7.46 (7.35-7.45); ABG PO2 404 mmHg (83-108); ABG Potassium Whole Blood 4.7 mmol/L (3.4-4.5); ABG Sodium Whole Blood 135 mmol/L (135-146); ABG TCO2 29 mmol/L (19-24)
[2020-11-13 10:23] LABS: ABG Base Excess 2.8 mmol/L; ABG Glucose Whole Blood 176 mg/dL (75-99); ABG HCO3 26 mmol/L (21-25); ABG Hematocrit 35 % (34.0-46.0); ABG Ionized Calcium 4.8 mg/dL (4.5-5.3); ABG Lactic Acid Whole Blood 1.6 mmol/L (0.5-1.6); ABG Oxygen Saturation 98.5 % (94-97); ABG PCO2 35 mmHg (35-45); ABG PH 7.48 (7.35-7.45); ABG PO2 93 mmHg (83-108); ABG Potassium Whole Blood 4.2 mmol/L (3.4-4.5); ABG Sodium Whole Blood 133 mmol/L (135-146); ABG TCO2 27 mmol/L (19-24)
[2020-11-13 10:24] LABS: Glucose,Whole Blood 186 mg/dL (75-99)
--- NOTE | 2020-11-13 10:33 | XR ---
EXAMINATION TYPE: XR chest 1V portable DATE OF EXAM: 11/13/2020 COMPARISON: 10/08/2020 HISTORY: Postop TECHNIQUE: Single frontal view of the chest is obtained. FINDINGS: Postsurgical changes noted. There is a cardiac device and central line. Coarsened intersti tium with basilar subsegmental atelectasis or infiltrate and tiny effusions. Cardiomegaly and atheros clerotic change aorta. Prominence the upper right mediastinum likely related to vasculature and rotat ion. IMPRESSION: 1. Cardiomegaly with basilar atelectasis or infiltrate with tiny effusions. 2. Correlate for mild central venous congestion
[2020-11-13 10:51] LABS: Basophils # (A) 0.1 k/uL (0-0.2); Basophils % (A) 1 %; Eosinophils # (A) 0.4 k/uL (0-0.7); Eosinophils % (A) 4 %; Lymphocytes # (A) 0.9 k/uL (1.0-4.8); Lymphocytes % (A) 10 %; MCH 29.2 pg (25.0-35.0); MCHC 33.4 g/dL (31.0-37.0); MCV 87.4 fL (80.0-100.0); Mean Platelet Volume 8.4; Monocytes # (A) 0.5 k/uL (0-1.0); Monocytes % (A) 5 %; Neutrophils # (A) 7.5 k/uL (1.3-7.7); Neutrophils % (A) 79 %; Platelet Count 201 k/uL (150-450); RBC 4.12 m/uL (3.80-5.40); RDW 15.4 % (11.5-15.5); WBC 9.5 k/uL (3.8-10.6)
[2020-11-13 11:05] LABS: INR 1.1 (<1.2); Partial Thromboplastin Time 25.5 sec (22.0-30.0); Prothrombin Time 11.9 sec (9.0-12.0)
[2020-11-13 11:13] LABS: Albumin 2.8 g/dL (3.5-5.0); Calcium 8.9 mg/dL (8.4-10.2); Magnesium 1.5 mg/dL (1.6-2.3); Potassium 4.5 mmol/L (3.5-5.1); Total Protein 5.8 g/dL (6.3-8.2)
[2020-11-13 12:36] LABS: Glucose,Whole Blood 177 mg/dL (75-99)
[2020-11-13] MEDS: INSULIN ASPART (NovoLOG) 100 UNIT/ML VIAL SQ SCH ×3 (12:41→20:55)
[2020-11-13] MEDS: MAGNESIUM SULFATE-D5W PMX 1 GM in DEXTROSE/WATER 1 100ML.BAG IVPB SCH ×2 (12:41→14:02)
[2020-11-13 13:22] LABS: Basophils # (A) 0.1 k/uL (0-0.2); Basophils % (A) 1 %; Eosinophils # (A) 0.3 k/uL (0-0.7); Eosinophils % (A) 3 %; HCT 37.2 % (34.0-46.0); HGB 11.5 gm/dL (11.4-16.0); Lymphocytes # (A) 0.8 k/uL (1.0-4.8); Lymphocytes % (A) 9 %; MCH 27.2 pg (25.0-35.0); MCV 87.8 fL (80.0-100.0); Mean Platelet Volume 8.4; Monocytes # (A) 0.4 k/uL (0-1.0); Monocytes % (A) 4 %; Neutrophils # (A) 7.8 k/uL (1.3-7.7); Neutrophils % (A) 83 %; Platelet Count 217 k/uL (150-450); RBC 4.23 m/uL (3.80-5.40); RDW 15.5 % (11.5-15.5); WBC 9.4 k/uL (3.8-10.6)
[2020-11-13 14:10] VITALS: BMI 42.4
--- NOTE | 2020-11-13 15:53 | P.CNPUL ---
History of Present Illness Consult date: 11/13/20 Requesting physician: Hua Martinez Chief complaint: ICU management, status post TAVR History of present illness: This 84-year-old white female patient with history of chronic atrial flutter, status post permanent pacemaker implantation, chronic diastolic congestive heart failure, diabetes mellitus and severe aortic stenosis, was recently hospitalized for progressive generalized weakness, dizziness, fatigue, shortness of breath. She was evaluated for TAVR on 10/07/2020. She has had workup for aortic valve replacement, left heart catheterization on 2020 that revealed elevated right and left-sided pressures with a right atrial pressure of 18, mean PA pressure of 39, and the pulmonary blood pressure of 31, cardiac output of 3.4. Coronary angiography showed only mild luminal irregularities without significant CAD. On 11/13/2020 patient underwent percutaneous transluminal approach TAVR the Corvalve Pro Plus. The procedure was without event. Patient was extubated in the [facility], and returned in the intensive care unit following the procedure for recovery and close monitoring. She is doing very well, she is on 2 L, breathing comfortably, her pulse ox is 99%, vital signs are stable. She is A. fib/A flutter with a controlled rate. No complaints of chest discomfort. No shortness of breath, vitals are stable, she is awake alert, oriented 3. 0.9 normal saline infusing at 75 ML per hour Review of Systems All systems: negative Constitutional: Reports fatigue, Reports weakness, Denies chills, Denies fever Eyes: denies blurred vision, denies pain Ears, nose, mouth and throat: Denies headache, Denies sore throat Cardiovascular: Reports chest pain, Reports lightheadedness, Denies shortness of breath Respiratory: Reports dyspnea, Denies cough Gastrointestinal: Denies abdominal pain, Denies diarrhea, Denies nausea, Denies vomiting Genitourinary: Denies dysuria, Denies hematuria Musculoskeletal: Denies myalgias Integumentary: Denies pruritus, Denies rash Neurological: Denies numbness, Denies weakness Psychiatric: Denies anxiety, Denies depression Endocrine: Denies fatigue, Denies weight change Past Medical History Past Medical History: Atrial Fibrillation, Diabetes Mellitus, GERD/Reflux, Hypertension, Osteoarthritis (OA), Thyroid Disorder Additional Past Medical History / Comment(s): gout, SOB w/exertion, recent admission for weakness, possible fall @home, currently @[facility] for rehab History of Any Multi-Drug Resistant Organisms: None Reported Past Surgical History: Appendectomy, Joint Replacement, Pacemaker Additional Past Surgical History / Comment(s): left knee replacement, cataract surgery, carpal tunnel sugery on right Past Anesthesia/Blood Transfusion Reactions: No Reported Reaction Type of Cardiac Device: Permanent Pacemaker Device Placement Date:: patient unsure Smoking Status: Never smoker - Past Family History Father Family Medical History: Cancer Medications and Allergies Home Medications Medication Instructions Recorded Confirmed Type Baclofen [Lioresal] 10 mg PO HS PRN 12/11/13 11/13/20 History Ferrous Sulfate [Feosol] 325 mg PO DAILY 12/11/13 11/13/20 History Furosemide [Lasix] 40 mg PO DAILY 12/11/13 11/13/20 History Aspirin 81 mg PO DAILY 03/21/19 11/13/20 History Cholecalciferol [Vitamin D3 (25 1,000 unit PO DAILY 03/21/19 11/13/20 History Mcg = 1000 Iu)] Levothyroxine Sodium [Synthroid] 150 mcg PO DAILY 03/21/19 11/13/20 History Pantoprazole Sodium [Protonix] 40 mg PO DAILY 03/21/19 11/13/20 History nadoloL [Corgard] 20 mg PO BID 03/21/19 11/13/20 History Acetaminophen Tab [Tylenol] 650 mg PO Q6HR PRN tab 03/24/19 11/13/20 Rx Rivaroxaban [Xarelto] 20 mg PO DAILY #30 tab 10/07/20 11/13/20 Rx Cetirizine HCl 10 mg PO DAILY 10/08/20 11/13/20 History Fluticasone Nasal [place] [Flonase 1 spray EA NOSTRIL DAILY 10/08/20 11/13/20 History Nasal [place]] Glimepiride [Amaryl] 2 mg PO BID 10/08/20 11/13/20 History Insulin Aspart Protam & Aspart See Protocol SQ AC-TID 10/08/20 11/13/20 History [NovoLOG MIX 70-30 Flexpen] Simvastatin 10 mg PO HS 10/08/20 11/13/20 History allopurinoL [Zyloprim] 100 mg PO DAILY 10/08/20 11/13/20 History Losartan Potassium 50 mg PO DAILY #0 10/11/20 11/13/20 Rx Potassium Chloride [Klor-Con 10] 10 meq PO DAILY 11/06/20 11/13/20 History Insulin Aspart Prot/Insuln Asp 0 units SQ TID 11/13/20 11/13/20 History [Insulin Aspart Prot-Insuln Asp] Allergies Allergy/AdvReac Type Severity Reaction Status Date / Time metformin Allergy Unknown Verified 11/13/20 05:56 Physical Exam Vitals: Vital Signs Temp Pulse Pulse Resp BP BP BP 11/13/20 15:00 72 15 11/13/20 14:00 89 19 11/13/20 13:50 72 10 L 11/13/20 13:40 78 16 11/13/20 13:30 8 L 11/13/20 13:20 81 21 11/13/20 13:10 76 14 11/13/20 13:00 101 H 17 11/13/20 12:50 77 20 11/13/20 12:40 61 11 L 105/65 11/13/20 12:30 92 15 11/13/20 12:20 18 11/13/20 12:10 104 H 15 105/65 11/13/20 12:00 98.4 F 13 11/13/20 11:50 91 18 11/13/20 11:40 79 12 11/13/20 11:30 86 21 11/13/20 11:20 83 16 11/13/20 11:10 100 11 L 11/13/20 11:00 101 H 24 118/65 11/13/20 10:50 100 10 L 11/13/20 10:40 104 H 18 11/13/20 10:30 82 7 L 11/13/20 10:20 11/13/20 10:11 97.8 F 94 8 L 11/13/20 06:28 98.9 F 109 H 18 120/76 110/80 Pulse Ox 11/13/20 15:00 95 11/13/20 14:00 99 11/13/20 13:50 98 11/13/20 13:40 99 11/13/20 13:30 99 11/13/20 13:20 99 11/13/20 13:10 94 L 11/13/20 13:00 97 11/13/20 12:50 100 11/13/20 12:40 98 11/13/20 12:30 100 11/13/20 12:20 100 11/13/20 12:10 100 11/13/20 12:00 100 11/13/20 11:50 96 11/13/20 11:40 99 11/13/20 11:30 98 11/13/20 11:20 100 11/13/20 11:10 97 11/13/20 11:00 99 11/13/20 10:50 97 11/13/20 10:40 98 11/13/20 10:30 100 11/13/20 10:20 98 11/13/20 10:11 100 11/13/20 06:28 98 Intake and Output 11/13/20 11/13/20 11/13/20 06:59 14:59 22:59 Intake Total 200 1550 100 Output Total 200 Balance 200 1350 100 Intake: IV 200 1200 100 Sodium Chloride 0.9% 1, 400 100 000 ml @ 100 mls/hr IV . Q10H ROSELYN Rx#:[id number] Intake, IV Titration 200 Amount Magnesium Sulfate-D5w Pmx 200 1 gm In Dextrose/Water 1 100ml.bag @ 100 mls/hr IVPB Q1H ROSELYN Rx#: [id number] Oral 150 Output: Urine 200 Other: Voiding Method External Catheter Weight 105.2 kg 105.2 kg ABP, PAP, CO, CI - Last 8 Hours Arterial Blood Pressure 103/41 Arterial Blood Pressure 115/52 Arterial Blood Pressure 121/47 Arterial Blood Pressure 114/51 Arterial Blood Pressure 122/51 Arterial Blood Pressure 97/43 Arterial Blood Pressure 110/42 Arterial Blood Pressure 114/53 Arterial Blood Pressure 127/49 Arterial Blood Pressure 117/43 Arterial Blood Pressure 126/48 Arterial Blood Pressure 114/44 Arterial Blood Pressure 113/46 Arterial Blood Pressure 114/45 Arterial Blood Pressure 108/46 Arterial Blood Pressure 109/43 Arterial Blood Pressure 118/51 Arterial Blood Pressure 113/47 Arterial Blood Pressure 123/49 Arterial Blood Pressure 119/53 Arterial Blood Pressure 127/57 Arterial Blood Pressure 111/50 Arterial Blood Pressure 117/57 GENERAL EXAM: Alert, very pleasant, 84-year-old white female, on 2 L of oxygen a pulse ox of 99%, comfortable in no apparent distress. HEAD: Normocephalic/atraumatic. EYES: Normal reaction of pupils, equal size. Conjunctiva pink, sclera white. NOSE: Clear with pink turbinates. THROAT: No erythema or exudates. NECK: No masses, no JVD, no thyroid enlargement, no adenopathy. CHEST: No chest wall deformity. Symmetrical expansion. LUNGS: Equal air entry with no crackles, wheeze, rhonchi or dullness. CVS: Irregular rate and rhythm, normal S1 and S2, no gallops, no murmurs, no rubs ABDOMEN: Soft, nontender. No hepatosplenomegaly, normal bowel sounds, no guarding or rigidity. EXTREMITIES: No clubbing, 1+ lower extremity edema, no cyanosis, 2+ pulses and upper and lower extremities. MUSCULOSKELETAL: Muscle strength and tone normal. SPINE: No scoliosis or deformity SKIN: No rashes. Bilateral groin puncture sites clean dry and intact, soft CENTRAL NERVOUS SYSTEM: Alert and oriented -3. No focal deficits, tone is normal in all 4 extremities. PSYCHIATRIC: Alert and oriented -3. Appropriate affect. Intact judgment and insight. Results - Laboratory Findings CBC and BMP: 11/13/20 12:57 11/13/20 10:34 ABG ABG pH 7.48 (7.35-7.45) H 11/13/20 09:43 ABG pCO2 35 mmHg (35-45) 11/13/20 09:43 ABG pO2 93 mmHg (83-108) 11/13/20 09:43 ABG O2 Saturation 98.5 % (94-97) H 11/13/20 09:43 PT/INR, D-dimer PT 11.9 sec (9.0-12.0) 11/13/20 10:34 INR 1.1 (<1.2) 11/13/20 10:34 Abnormal lab findings: Abnormal Labs 11/07/20 11/13/20 11/13/20 09:58 06:20 06:22 Neutrophils # 8.0 H Lymphocytes # ABG pH ABG pO2 ABG HCO3 ABG Total CO2 ABG O2 Saturation ABG Sodium ABG Potassium ABG Glucose Hemoglobin Sodium BUN Glucose POC Glucose (mg/dL) 171 H Magnesium Alkaline Phosphatase Total Protein Albumin Arterial Blood Potassium Arterial Blood Glucose Crossmatch See Detail 11/13/20 11/13/20 11/13/20 08:18 09:43 10:23 Neutrophils # Lymphocytes # ABG pH 7.46 H 7.48 H ABG pO2 404 H ABG HCO3 28 H 26 H ABG Total CO2 29 H 27 H ABG O2 Saturation 100.0 H 98.5 H ABG Sodium 133 L ABG Potassium 4.7 H ABG Glucose 173 H 176 H Hemoglobin 11.3 L Sodium BUN Glucose POC Glucose (mg/dL) 186 H Magnesium Alkaline Phosphatase Total Protein Albumin Arterial Blood Potassium 4.7 H Arterial Blood Glucose 173 H 176 H Crossmatch 11/13/20 11/13/20 11/13/20 10:34 10:34 12:35 Neutrophils # Lymphocytes # 0.9 L ABG pH ABG pO2 ABG HCO3 ABG Total CO2 ABG O2 Saturation ABG Sodium ABG Potassium ABG Glucose Hemoglobin Sodium 133 L BUN 44 H Glucose 186 H POC Glucose (mg/dL) 177 H Magnesium 1.5 L Alkaline Phosphatase 162 H Total Protein 5.8 L Albumin 2.8 L Arterial Blood Potassium Arterial Blood Glucose Crossmatch 11/13/20 12:57 Neutrophils # 7.8 H Lymphocytes # 0.8 L ABG pH ABG pO2 ABG HCO3 ABG Total CO2 ABG O2 Saturation ABG Sodium ABG Potassium ABG Glucose Hemoglobin Sodium BUN Glucose POC Glucose (mg/dL) Magnesium Alkaline Phosphatase Total Protein Albumin Arterial Blood Potassium Arterial Blood Glucose Crossmatch - Diagnostic Findings Chest x-ray: report reviewed, image reviewed Assessment and Plan Plan: Assessment: #1. Severe aortic valve stenosis, status post elective TAVR, postop day #0 #2. Exertional dyspnea, dizziness, fatigue, related to the above #3. Recurrent hospitalizations for exacerbations of CHF with diastolic dysfunction #4. Chronic A. fib flutter, on Xarelto #5. Hypertension #6. Type 2 diabetes mellitus #7. Hyperlipidemia #8. Chronic heart failure with preserved EF #9. Sick sinus syndrome status post single-chamber permanent pacemaker in 2013 #10. Chronic venous insufficiency Plan: Patient is doing well Postop chest x-ray reviewed Labs reviewed Breathing comfortably, no compressive chest discomfort, hemodynamically stable Provide incentive spirometer Antibiotics, GI and DVT prophylaxis per CT surgery and cardiology We'll continue to follow closely along with them Follow-up echocardiogram in the morning, follow-up chest x-ray in the morning I performed a history & physical examination of the patient and discussed their management with my nurse practitioner, Jocelyn Porras. I reviewed the nurse practitioner's note and agree with the documented findings and plan of care. Lung sounds are positive for diminished breath sounds. The findings and the impression was discussed with the patient. I attest to the documentation by the nurse practitioner. Time with Patient: Greater than 30
--- NOTE | 2020-11-13 16:09 | IR ---
EXAMINATION TYPE: IR stent intravas non coronary DATE OF EXAM: 11/13/2020 COMPARISON: NONE HISTORY: Fluoroscopy time. Fluoroscopy was provided to the referring clinician.
--- NOTE | 2020-11-13 16:29 | P.PCN ---
Date of Procedure: 11/13/20 Operative Findings: Date of procedure: 11/13/2020 PROCEDURE PERFORMED: 1. Percutaneous Aortic Valve Implantation using a 29 mm Core-Valve Evolut-Pro Plus. 2. Transesophageal echocardiography 3. Access and repair of right femoral artery access site by Perclose device. 4. Placement and removal of temporary pacemaker wire. 5. Aortoiliac angiogram 6. Selective bilateral common femoral artery angiogram INDICATIONS: 1. This is a very pleasant 84year-old female patientwith a history of severe symptomatic aortic valve stenosis. 2. High surgical risk for AVR due to the reasons below. 3. NYHA class III and class IV symptoms 4. Recurrent hospital admission with heart failure 5. High STS score PERFORMING PHYSICIANS: 1. Dr. Miranda Meade, occupational therapy assist 2. Dr. Delmar Vera, occupational therapy assist 3. Dr. Hua Martinez, Cardiothoracic surgeon CONTRAST USED: 100 ml. SEDATION: The procedure was performed under general anesthesia with sedation time 85 minutes APPROACH: Right common femoral artery with a 14-Hungarian sheath. Left common femoral artery with a 6-Hungarian sheath COMPLICATIONS: None PROCEDURE DESCRIPTION: The patient was discussed at valve clinic and thought better treated with TAVR. Risks, benefits, and alternatives of the procedure had been explained to the patient who understood the risks and agreed to proceed. After consents were obtained, patient was brought to the transcatheter aortic valve implantation room in the cardiac director labor standards [employer] [facility] anesthesia was provided by the anesthesiologist (see separate report). Once full body sterile prep was performed, the left emoral artery and vein were accessed using a modified Seldinger technique. A 6.5 Hungarian cm sheath was placed in the left femoral artery and a 6-Hungarian sheath was placed in the left femoral vein under direct ultrasound guidance. Next, a balloon tipped temporary pacemaker was advanced through the venous sheath and positioned in the right ventricle apex. Thresholds were checked and deemed adequate. Next, a 6-Hungarian pigtail catheter was advanced into the aorta and positioned in the aortic root, aortic root angiography was performed to determine optimal deployment angle. The right femoral artery was accessed using modified Seldinger technique, micropuncture technique and under direct ultrasound guidance. A right femoral angiogram was done showing access in the common femoral artery and a 6Fr sheath was placed. Subsequently we deployed 2 Perclose 10:00 and 2:00. After that I placed a 7-Hungarian sheath in the right common femoral artery. Then superstiff wire was placed and advanced through the sheath at the right common femoral artery all the way to the thoracic aorta. Subsequently we dilated using an 8-Hungarian and then 10-Hungarian and then 12- Hungarian dilator before we placed a 14-Hungarian sheath over the s uperstiff wire which was advanced under fluoroscopy guidance at the right common femoral artery. Next a 6F- AL1 catheter was advanced over a wire to the aortic root. A straight wire was advanced through the catheter and used to cross the severely stenotic valve. After that we did exchange the AL 1 catheter into a pigtail catheter. Subsequently we did simultaneous LV and aortic pressure to check for hemodynamic and the gradient. The gradient was significant. Subsequently we advanced a superstiff wire through the pigtail catheter in the LV all the way to the apex. After that predilatation of the valve was performed using 20 mm x 45 mm balloon. Then a 29 mm Corevalve Evolut-Pro Plus was advanced. The valve was then positioned across the aortic valve and confirmed with aortic root angiography. The 29 mm valve was then deployed in a proper position using slow deployment in conjuncture with aortic root angiography and JOSÉ LUIS. The delivery system was withdrawn back into the arch and an aortic root injection in conjunction with JOSÉ LUIS demonstrated a satisfactory result. There was mild gaetano-valvular leak. There was no evidence of any other significant abnormalities. The closure of the right femoral artery access site was then performed over the wire using the two perclose device. The pigtail was then advanced to the level of the iliac bifurcation via the left femoral access. Femoral angiogram was performed that showed no contrast leak. The left femoral angiogram then demonstrated an arteriotomy in the common femoral artery. This was repaired using a 6F angioseal device with complete hemostasis. The temporary venous pacemaker was pulled and then the 6F venous sheath was pulled and manual pressure was held with hemostasis achieved. The patient was then transported to the ICU in hemodynamically stable condition, requiring no pressor support. RECOMMENDATIONS: The patient will be monitored in the ICU for hemodynamic and electrical stability. Patient will be on aspirin and Plavix.
[2020-11-13 16:53] LABS: Glucose,Whole Blood 219 mg/dL (75-99)
[2020-11-13 20:10] LABS: Glucose,Whole Blood 172 mg/dL (75-99)
[2020-11-13] MEDS ORDERED: ATORVASTATIN 10 MG TAB PO SCH (21:00)
[2020-11-13] MEDS: GLIMEPIRIDE 2 MG TAB PO SCH (22:32)
[2020-11-14] MEDS ORDERED: HEPARIN SODIUM,PORCINE/PF 5,000 UNIT/0.5 ML SYRINGE SQ SCH
[2020-11-14 05:29] LABS: Basophils # (A) 0.1 k/uL (0-0.2); Basophils % (A) 0 %; Eosinophils # (A) 0.1 k/uL (0-0.7); Eosinophils % (A) 1 %; HCT 37.3 % (34.0-46.0); HGB 11.6 gm/dL (11.4-16.0); Hypochromasia Slight; Lymphocytes # (A) 0.7 k/uL (1.0-4.8); Lymphocytes % (A) 5 %; MCH 27.7 pg (25.0-35.0); MCHC 31.2 g/dL (31.0-37.0); MCV 88.8 fL (80.0-100.0); Mean Platelet Volume 8.1; Monocytes # (A) 0.5 k/uL (0-1.0); Monocytes % (A) 4 %; Neutrophils # (A) 11.5 k/uL (1.3-7.7); Neutrophils % (A) 88 %; Platelet Count 246 k/uL (150-450); RBC 4.19 m/uL (3.80-5.40); RDW 15.4 % (11.5-15.5)
[2020-11-14 06:17] LABS: Ionized Calcium 5.3 mg/dL (4.5-5.3)
[2020-11-14] MEDS ORDERED: LEVOTHYROXINE 75 MCG TAB PO SCH (06:30)
--- NOTE | 2020-11-14 06:42 | XR ---
EXAMINATION TYPE: XR chest 1V portable DATE OF EXAM: 11/14/2020 COMPARISON: 11/13/2020 HISTORY: Atrial fibrillation. Pneumonia. TECHNIQUE: Single frontal view of the chest is obtained. FINDINGS: The right-sided central line. Left chest wall cardiac pacing device with leads overlying the heart ar e noted. Aortic valve scintigraph is noted. There is mild pelvic vascular congestion without pulmonar y edema. Minor atelectasis seen at the left base. There is no pleural effusion. No CHF. No pneumothor ax. Heart appears slightly prominent. IMPRESSION: Stable chest.
[2020-11-14 06:48] LABS: Glucose,Whole Blood 101 mg/dL (75-99)
[2020-11-14] MEDS: INSULIN ASPART (NovoLOG) 100 UNIT/ML VIAL SQ SCH ×2 (06:49→11:58)
[2020-11-14] MEDS ORDERED: PANTOPRAZOLE 40 MG TABLET PO SCH (07:30)
[2020-11-14 08:13] LABS: Albumin 2.8 g/dL (3.5-5.0); Calcium 9.2 mg/dL (8.4-10.2); Magnesium 2.1 mg/dL (1.6-2.3); Potassium 4.8 mmol/L (3.5-5.1); Total Bilirubin 0.6 mg/dL (0.2-1.3); Total Protein 5.9 g/dL (6.3-8.2)
[2020-11-14] MEDS: GLIMEPIRIDE 2 MG TAB PO SCH (08:29)
--- NOTE | 2020-11-14 08:33 | P.PN ---
Subjective Progress Note Date: 11/14/20 Principal diagnosis: Calcific severe aortic stenosis. Previous medical history of diastolic heart failure, NYHA class III, atrial flutter on Xarelto for anticoagulation, sick sinus syndrome status post Medtronic permanent pacemaker in 2013, hypertension, hyperlipidemia, CKD stage III, insulin-dependent diabetes, hypothyroid. POD #1 transcatheter aortic valve replacement with a 29 mm Core-Valve Evolut-Pro Plus via a percutaneous transfemoral approach, transesophageal echocardiography, access and repair of right femoral artery access site by Perclose device, placement and removal of temporary pacemaker wire, aortoiliac angiogram, selective bilateral common femoral artery angiogram The patient is currently sitting up in a recliner in no acute distress states she has no pain, shortness of breath has improved. Was seen and examined this morning with Dr. Vera and Dr. Martinez. Remains in atrial flutter, hemodynamically stable. Bilateral groins soft,non-tender, no ecchymosis or drainage. Faint but palpable peripheral pulses bilaterally. Follow-up transthoracic echocardiogram was just completed at the bedside, report pending but only mild aortic insufficiency per Dr. Vera. No new concerns. Objective - Vital Signs Vital signs: Vital Signs Temp 98.7 F 11/14/20 04:00 Pulse 95 11/14/20 07:00 Resp 15 11/14/20 07:00 BP 102/66 11/14/20 07:00 Pulse Ox 95 11/14/20 07:00 Intake & Output 11/13/20 11/14/20 11/14/20 18:59 06:59 18:59 Intake Total 1900 250 100 Output Total 500 725 Balance 1400 -475 100 Weight 105.2 kg 118.8 kg Intake: IV 1400 50 Sodium Chloride 0.9% 1, 600 000 ml @ 100 mls/hr IV . Q10H [facility] Rx#:[id number] ceFAZolin 2 gm In Sodium 50 Chloride 0.9% 50 ml @ 100 mls/hr IVPB Q8HR [facility] Rx# :[id number] Intake, IV Titration 250 Amount Magnesium Sulfate-D5w Pmx 200 1 gm In Dextrose/Water 1 100ml.bag @ 100 mls/hr IVPB Q1H [facility] Rx#: [id number] ceFAZolin 2 gm In Sodium 50 Chloride 0.9% 50 ml @ 100 mls/hr IVPB Q8HR [facility] Rx# :[id number] Oral 250 200 100 Output: Urine 500 725 Other: Voiding Method External Catheter External Catheter # Voids 0 0 ABP, PAP, CO, CI - Last Documented Arterial Blood Pressure 102/47 - Exam CONSTITUTIONAL: Appears comfortable, cooperative, no acute distress RESPIRATORY: Lungs sounds diminished bilaterally. Respirations even, nonlabored. Currently on 2 L nasal cannula with oxygen saturation 95%. Able to achieve 1000 mL on incentive spirometry. Strong cough. CARDIOVASCULAR: S1, S2 present, no murmur. Irregular rate and rhythm, atrial flutter on telemetry. Palpable peripheral pulses bilaterally. Trace bilateral lower extremity edema present. No calf pain or tenderness noted. Antiembolism stockings, SCDs present. GASTROINTESTINAL: Abdomen soft, nontender, nondistended. Active bowel sounds present 4 quadrants. Tolerating diet. GENITOURINARY: Continues to void clear, yellow urine, does have [place] in place. INTEGUMENTARY: Skin is warm and dry with evidence of good perfusion. Bilateral groins soft, nontender without redness or drainage NEUROLOGIC: Cranial nerves II through XII intact MUSKULOSKELETAL: Able to move all extremities, generalized weakness present, needs Meera lift to get into chair which is her baseline, same at [facility] PSYCHIATRIC: Alert and oriented to person place and time, appropriate affect, intact judgment and insight - Allied health notes Allied health notes reviewed: nursing - Labs CBC & Chem 7: 11/14/20 05:16 11/13/20 10:34 Labs: Abnormal Lab Results - Last 24 Hours (Table) 11/07/20 11/13/20 11/13/20 Range/Units 09:58 08:18 09:43 WBC (3.8-10.6) k/uL Neutrophils # (1.3-7.7) k/uL Lymphocytes # (1.0-4.8) k/uL ABG pH 7.46 H 7.48 H (7.35-7.45) ABG pO2 404 H (83-108) mmHg ABG HCO3 28 H 26 H (21-25) mmol/L ABG Total CO2 29 H 27 H (19-24) mmol/L ABG O2 Saturation 100.0 H 98.5 H (94-97) % ABG Sodium 133 L (135-146) mmol/L ABG Potassium 4.7 H (3.4-4.5) mmol/L ABG Glucose 173 H 176 H (75-99) mg/dL Hemoglobin 11.3 L (11.4-16.0) gm/dL Sodium (137-145) mmol/L BUN (7-17) mg/dL Glucose (74-99) mg/dL POC Glucose (mg/dL) (75-99) mg/dL Magnesium (1.6-2.3) mg/dL Alkaline Phosphatase (38-126) U/L Total Protein (6.3-8.2) g/dL Albumin (3.5-5.0) g/dL Arterial Blood Potassium 4.7 H (3.4-4.5) mmol/L Arterial Blood Glucose 173 H 176 H (75-99) mg/dL Crossmatch See Detail 11/13/20 11/13/20 11/13/20 Range/Units 10:23 10:34 10:34 WBC (3.8-10.6) k/uL Neutrophils # (1.3-7.7) k/uL Lymphocytes # 0.9 L (1.0-4.8) k/uL ABG pH (7.35-7.45) ABG pO2 (83-108) mmHg ABG HCO3 (21-25) mmol/L ABG Total CO2 (19-24) mmol/L ABG O2 Saturation (94-97) % ABG Sodium (135-146) mmol/L ABG Potassium (3.4-4.5) mmol/L ABG Glucose (75-99) mg/dL Hemoglobin (11.4-16.0) gm/dL Sodium 133 L (137-145) mmol/L BUN 44 H (7-17) mg/dL Glucose 186 H (74-99) mg/dL POC Glucose (mg/dL) 186 H (75-99) mg/dL Magnesium 1.5 L (1.6-2.3) mg/dL Alkaline Phosphatase 162 H (38-126) U/L Total Protein 5.8 L (6.3-8.2) g/dL Albumin 2.8 L (3.5-5.0) g/dL Arterial Blood Potassium (3.4-4.5) mmol/L Arterial Blood Glucose (75-99) mg/dL Crossmatch 11/13/20 11/13/20 11/13/20 Range/Units 12:35 12:57 16:52 WBC (3.8-10.6) k/uL Neutrophils # 7.8 H (1.3-7.7) k/uL Lymphocytes # 0.8 L (1.0-4.8) k/uL ABG pH (7.35-7.45) ABG pO2 (83-108) mmHg ABG HCO3 (21-25) mmol/L ABG Total CO2 (19-24) mmol/L ABG O2 Saturation (94-97) % ABG Sodium (135-146) mmol/L ABG Potassium (3.4-4.5) mmol/L ABG Glucose (75-99) mg/dL Hemoglobin (11.4-16.0) gm/dL Sodium (137-145) mmol/L BUN (7-17) mg/dL Glucose (74-99) mg/dL POC Glucose (mg/dL) 177 H 219 H (75-99) mg/dL Magnesium (1.6-2.3) mg/dL Alkaline Phosphatase (38-126) U/L Total Protein (6.3-8.2) g/dL Albumin (3.5-5.0) g/dL Arterial Blood Potassium (3.4-4.5) mmol/L Arterial Blood Glucose (75-99) mg/dL Crossmatch 11/13/20 11/14/20 11/14/20 Range/Units 20:08 05:16 06:46 WBC 13.0 H (3.8-10.6) k/uL Neutrophils # 11.5 H (1.3-7.7) k/uL Lymphocytes # 0.7 L (1.0-4.8) k/uL ABG pH (7.35-7.45) ABG pO2 (83-108) mmHg ABG HCO3 (21-25) mmol/L ABG Total CO2 (19-24) mmol/L ABG O2 Saturation (94-97) % ABG Sodium (135-146) mmol/L ABG Potassium (3.4-4.5) mmol/L ABG Glucose (75-99) mg/dL Hemoglobin (11.4-16.0) gm/dL Sodium (137-145) mmol/L BUN (7-17) mg/dL Glucose (74-99) mg/dL POC Glucose (mg/dL) 172 H 101 H (75-99) mg/dL Magnesium (1.6-2.3) mg/dL Alkaline Phosphatase (38-126) U/L Total Protein (6.3-8.2) g/dL Albumin (3.5-5.0) g/dL Arterial Blood Potassium (3.4-4.5) mmol/L Arterial Blood Glucose (75-99) mg/dL Crossmatch - Imaging and Cardiology Chest x-ray: image reviewed Assessment and Plan Assessment: 1. Calcific severe aortic stenosis, status post TAVR 2. History of diastolic heart failure, NYHA class III 3. Atrial flutter on Xarelto for anticoagulation 4. Sick sinus syndrome status post Medtronic permanent pacemaker in 2013 5. Hypertension 6. Hyperlipidemia, treated 7. CKD stage III 8. Insulin-dependent diabetes with pre-TAVR A1c 7.9% 9. Hypothyroid. Plan: 1. Continue to maximize medical therapy with Plavix, statin, beta claudia, Cozaar, Lasix 2. Continue Xarelto for anticoagulation at 15 mg daily 3. Wean O2 as tolerated. Encourage incentive spirometry use 4. Increase activity as tolerated, needs Meera lift to get into the chair at this point, the same as at [facility]. PT/OT consulted and will see the patient this morning 5. Will make follow-up appointment for patient in 1 week to see the outreach consultant for groin check. Will make 30 day follow-up appointment for echo, EKG, KCCQ12, and lab work 6. Social work consulted for discharge planning. Anticipate discharge back to [facility] this afternoon Time with Patient: Greater than 30
[2020-11-14] MEDS ORDERED: bisacodyL 10 MG SUPP RECTAL PRN (09:00)
[2020-11-14] MEDS ORDERED: LOSARTAN 50 MG TAB PO SCH (09:00)
[2020-11-14] MEDS ORDERED: CHOLECALCIFEROL 25 MCG (1000 IU) TABLET PO SCH (09:00)
[2020-11-14] MEDS ORDERED: RIVAROXABAN 15 MG TAB PO SCH (09:00)
[2020-11-14] MEDS ORDERED: FLUTICASONE 50MCG/SPRAY NASAL 16GM EA NOSTRIL SCH (09:00)
[2020-11-14] MEDS ORDERED: allopurinoL 100 MG TAB PO SCH (09:00)
[2020-11-14] MEDS ORDERED: RIVAROXABAN 20 MG TAB PO SCH (09:00)
[2020-11-14] MEDS ORDERED: CLOPIDOGREL 75 MG TAB PO SCH (09:00)
[2020-11-14] MEDS ORDERED: ASPIRIN 81 MG PO SCH (09:00)
[2020-11-14] MEDS ORDERED: MAGNESIUM HYDROXIDE 2,400 MG/10 ML CUP PO PRN (09:00)
[2020-11-14] MEDS ORDERED: POTASSIUM CHLORIDE ER 10 MEQ TAB.ER.PRT PO SCH (09:00)
[2020-11-14] MEDS ORDERED: FERROUS SULFATE 325 MG TAB PO SCH (09:00)
[2020-11-14] MEDS ORDERED: FUROSEMIDE 40 MG TAB PO SCH (09:00)
[2020-11-14] MEDS ORDERED: LORATADINE 10 MG TAB PO SCH (09:00)
--- NOTE | 2020-11-14 10:45 | P.DS ---
Providers Date of admission: 11/13/20 05:36 Expected date of discharge: 11/14/20 Attending physician: Delmar Vera Consults: 11/13/20 05:47 Consult to Anesthesia Routine Consulting Provider: Anesthesia,Services Consult Reason/Comments: Cardiac Surgery Pre-Op Placement Type Exists?: Yes 11/13/20 09:00 Consult Physician Routine Consulting Provider: Stevan Hartmann Consult Reason/Comments: trust manager-post op TAVR Do you want consulting provider notified?: Yes Placement Type Exists?: Yes 11/13/20 10:19 Consult Physician Routine Consulting Provider: Hua Martinez Consult Reason/Comments: TAVR Do you want consulting provider notified?: Already Contacted Primary care physician: Delmar Vera [facility] Course: FINAL DIAGNOSES: 1. Calcific severe aortic stenosis 2. History of diastolic heart failure, NYHA class III 3. Atrial flutter on Xarelto for anticoagulation 4. History of sick sinus syndrome status post Medtronic pacemaker in 2013 5. History of hypertension 6. History of hyperlipidemia, treated 7. CKD stage III 8. Insulin-dependent diabetes with pre-TAVR A1c 7.9% 9. Hypothyroidism PRINCIPAL PROCEDURE: 1. Transcatheter aortic valve replacement with 29 mm Core-Valve Evolut-Pro Plus via percutaneous transfemoral approach 2. Transesophageal echocardiography 3. Access and repair of right femoral artery access site by Perclose device 4. Placement and removal of temporary pacemaker wire 5. Aortoiliac angiogram 6. Selective bilateral common femoral artery angiogram HISTORY OF PRESENT ILLNESS: This is a pleasant obese, debilitated 84-year-old female patient who follows on an outpatient basis with Dr Yina Evans for primary care and Dr. Nelson Nye for cardiology. She has a known history of severe aortic stenosis and has been deteriorating over the previous several months with increasing hospitalizations for heart failure. She has had a sharp decline in her functional status, and in fact currently resides at [facility] senior [facility] with daily physical and occupational therapy. She underwent workup for aortic valve replacement including TTE demonstrating aortic valve area 0.54 cm with a mean gradient of 41 mmHg and max velocity 4.1 m, cardiac catheterization demonstrated no evidence of obstructive coronary artery disease. Computed tomography scan was performed demonstrating good femoral axis bilaterally and valve was sized to a 29 mm Core-Valve. She was seen in the valve clinic by Dr. Nye, Dr. Vera, and Dr. Martinez, and was felt to be very high risk for surgical aortic valve replacement, and recommendation was made for transcatheter aortic valve replacement. The usual perioperative course was discussed in detail with the patient and her daughter, all risks and benefits we re explained, all questions were answered, and consent was obtained to proceed with surgery. The patient was scheduled for TAVR after obtaining dental clearance. HOSPITAL COURSE: The patient was brought to the hospital on 11/13/2020, taken to the extended stay area, prepared in the usual fashion, and subsequently taken to the [facility] where Dr. Nye and Dr. Martinez completed TAVR procedure under general anesthesia with fluoroscopy and JOSÉ LUIS. The valve was deployed under rapid ventricular pacing and proceeded without event. At the end of the procedure there was no evidence of gradient, hemodynamics were felt to be excellent, and there was no evidence of significant perivalvular leak.. Upon completion of the procedure the patient extubated and was transferred to the cardiovascular inte nsive care unit where she was recovered and monitored hemodynamically. Her oxygen was titrated down, she continued to work with physical and occupational therapy, she was tolerating oral diet, her pain was controlled, follow-up TTE demonstrated mild AI with no significant perivalvular leak, and she was ready to be discharged back to [facility] nursing [facility] on postoperative day #1. She received written and verbal instruction regarding her medications, activity restrictions, signs and symptoms requiring physician notification, and follow-up appointments. COMPLICATIONS: The patient experienced no postoperative complications. Patient Condition at Discharge: Stable Plan - Discharge Summary Discharge Rx Participant: Yes New Discharge Prescriptions: New Clopidogrel [Plavix] 75 mg PO DAILY tab Continue Baclofen [Lioresal] 10 mg PO HS PRN PRN Reason: Muscle Pain Furosemide [Lasix] 40 mg PO DAILY Ferrous Sulfate [Feosol] 325 mg PO DAILY Cholecalciferol [Vitamin D3 (25 Mcg = 1000 Iu)] 1,000 unit PO DAILY Levothyroxine Sodium [Synthroid] 150 mcg PO DAILY nadoloL [Corgard] 20 mg PO BID Pantoprazole Sodium [Protonix] 40 mg PO DAILY Acetaminophen Tab [Tylenol] 650 mg PO Q6HR PRN tab PRN Reason: Fever And/ Or Pain Cetirizine HCl 10 mg PO DAILY Glimepiride [Amaryl] 2 mg PO BID Insulin Aspart Protam & Aspart [NovoLOG MIX 70-30 Flexpen] See Protocol SQ AC-TID allopurinoL [Zyloprim] 100 mg PO DAILY Losartan Potassium 50 mg PO DAILY #0 Insulin Aspart Prot/Insuln Asp [Insulin Aspart Prot (Rai14-93)] 0 units SQ TID Fluticasone Nasal [place] [Flonase Nasal [place]] 1 spray EA NOSTRIL DAILY Simvastatin 10 mg PO HS Potassium Chloride [Klor-Con 10] 10 meq PO DAILY Changed Rivaroxaban [Xarelto] 15 mg PO DAILY #30 tab Discontinued Aspirin 81 mg PO DAILY Discharge Medication List Baclofen [Lioresal] 10 mg PO HS PRN 12/11/13 [History] Ferrous Sulfate [Feosol] 325 mg PO DAILY 12/11/13 [History] Furosemide [Lasix] 40 mg PO DAILY 12/11/13 [History] Cholecalciferol [Vitamin D3 (25 Mcg = 1000 Iu)] 1,000 unit PO DAILY 03/21/19 [History] Levothyroxine Sodium [Synthroid] 150 mcg PO DAILY 03/21/19 [History] Pantoprazole Sodium [Protonix] 40 mg PO DAILY 03/21/19 [History] nadoloL [Corgard] 20 mg PO BID 03/21/19 [History] Acetaminophen Tab [Tylenol] 650 mg PO Q6HR PRN tab 03/24/19 [Rx] Cetirizine HCl 10 mg PO DAILY 10/08/20 [History] Fluticasone Nasal [place] [Flonase Nasal [place]] 1 spray EA NOSTRIL DAILY 10/08/20 [History] Glimepiride [Amaryl] 2 mg PO BID 10/08/20 [History] Insulin Aspart Protam & Aspart [NovoLOG MIX 70-30 Flexpen] See Protocol SQ AC- TID 10/08/20 [History] Simvastatin 10 mg PO HS 10/08/20 [History] allopurinoL [Zyloprim] 100 mg PO DAILY 10/08/20 [History] Losartan Potassium 50 mg PO DAILY #0 10/11/20 [Rx] Potassium Chloride [Klor-Con 10] 10 meq PO DAILY 11/06/20 [History] Insulin Aspart Prot/Insuln Asp [Insulin Aspart Prot ([id number])] 0 units SQ TID 11/13/20 [History] Clopidogrel [Plavix] 75 mg PO DAILY tab 11/14/20 [Rx] Rivaroxaban [Xarelto] 15 mg PO DAILY #30 tab 11/14/20 [Rx] Follow up Appointment(s)/Referral(s): Nelson Nye DO [STAFF PHYSICIAN] - 11/21/20 2:15 pm (groin check on 11/21/20 @2:15 pm. Will need to see Dr. Nye for recheck, echocardiogram and EKG on 12/20/20 @ 3pm) Yina Evans DO [REFERRING] - As Needed Ambulatory/Diagnostic Orders: Basic Metabolic Panel [LAB.AMB] Time Frame: 12/20/20, Location: None Selected Complete Blood Count w/diff [LAB.AMB] Time Frame: 12/20/20, Location: None Selected Activity/Diet/Wound Care/Special Instructions: DISCHARGE INSTRUCTIONS: 1. No driving for 1 week, or until physician gives their ok. 2. No lifting, pushing, or pulling more than 5-10 pounds for 1 week. 3. Hold both groins when you cough or sneeze for the next 2 weeks. Bruising is common, but report increased swelling, pain or fever >101F 4. Shower daily. No pool, hot tub, or bathtub for 1 week 5. No powders, lotions, ointments on incisions. 6. No straining, including for bowel movements. Use stool softner if necessary 7. Stairs are not an issue. Go slowly, using handrail and take 1 step at a time. Ambulate several times daily 8. Continue pain control per as needed orders. 9. Take only the medications listed on your discharge form 10. Eat low salt (limited to 2 grams or 2000 milligrams) daily, avoid adding salt, avoid canned/processed foods 11. Take your weight daily in the morning and record, bring with you to your follow up appointments 12. Keep all follow up appointments. You will need an appointment with your bounty hunter at 1 week for a groing check, as well as valve clinic appointment at 30 days and 1 year post procedure for follow up 13. You have been referred to and are expected to begin Cardiac Rehab in approximately 4 weeks. 14. You will need antibiotics prior to any dental work, including cleanings, and any surgeries to prevent Endocarditis (bacterial infection in your heart) For any questions or concerns please call your valve coordinators: Yane @ or Dilshad @ Discharge Disposition: TRANSFER TO SNF/ECF
[2020-11-14 11:21] LABS: Glucose,Whole Blood 59 mg/dL (75-99)
[2020-11-14 11:50] LABS: Glucose,Whole Blood 185 mg/dL (75-99)
[2020-11-14 12:11] VITALS: BP 118/69; RESP 20; TEMP 97.9
[2020-11-14 12:12] VITALS: PULSE 90
--- NOTE | 2020-11-14 12:37 | ECHOF ---
Referral Reason:assess aortic valve MEASUREMENTS -------- HEIGHT: 157.5 cm WEIGHT: 104.8 kg BP: 96/76 RVIDd: 2.7 cm (< 3.3) IVSd: 1.3 cm (0.6 - 1.1) LVIDd: 3.6 cm (3.9 - 5.3) LVPWd: 1.4 cm (0.6 - 1.1) IVSs: 2.1 cm LVIDs: 1.5 cm LVPWs: 1.9 cm MV EXCURSION: 14.924 mm (> 18.000) MV EF SLOPE: 72 mm/s (70 - 150) EPSS: 0.4 cm MV E Kei: 1.13 m/s MV DecT: 211 ms MV A Kei: 0.30 m/s MV E/A Ratio: 3.75 AV maxP.08 mmHg AV meanP.38 mmHg AR PHT: 349 ms RAP: 5.00 mmHg RVSP: 51.50 mmHg FINDINGS -------- This was a technically difficult study with suboptimal views. The left ventricular size is normal. There is moderate concentric left ventricular hypertrophy. O verall left ventricular systolic function is low-normal with, an EF between 50 - 55 %. The right ventricle is normal in size. The left atrial size is normal. The right atrial size is normal. Lumason used Trace amount of aortic regurgitation. Peak/mean gradient across the Aortic Valve is 11.08mmHg / 6. 38mmHg. TAVR procedure done The mitral valve is normal. The mitral valve leaflets are mildly thickened. Mild mitral annular c alcification present. Seal-oo-zesbmosh mitral regurgitation is present. The tricuspid valve appears structurally normal. Mild tricuspid regurgitation present. There is m oderate pulmonary hypertension. The right ventricular systolic pressure, as measured by Doppler, is 51.50mmHg. There is no pulmonic regurgitation present. The aortic root size is normal. IVC Not well visulized. There is no pericardial effusion. CONCLUSIONS -------- 1. The left ventricular size is normal. 2. There is moderate concentric left ventricular hypertrophy. 3. Overall left ventricular systolic function is low-normal with, an EF between 50 - 55 %. 4. Trace amount of aortic regurgitation. 5. Peak/mean gradient across the Aortic Valve is 11.08mmHg / 6.38mmHg. 6. TAVR procedure done 7. The mitral valve leaflets are mildly thickened. 8. Mild mitral annular calcification present. 9. Hiow-lk-jxsspejw mitral regurgitation is present. 10. Mild tricuspid regurgitation present. 11. There is moderate pulmonary hypertension. 12. The right ventricular systolic pressure, as measured by Doppler, is 51.50mmHg. 13. There is no pericardial effusion. INTERNATIONAL TRADE MANAGER: Yane Welch RDCS
--- NOTE | 2020-11-14 12:55 | P.PN ---
Subjective Progress Note Date: 11/14/20 Principal diagnosis: Severe aortic stenosis, status post TaVR, postoperative day #1 This 84-year-old white female patient with history of chronic atrial flutter, status post permanent pacemaker implantation, chronic diastolic congestive heart failure, diabetes mellitus and severe aortic stenosis, was recently hospitalized for progressive generalized weakness, dizziness, fatigue, shortness of breath. She was evaluated for TAVR on 10/07/2020. She has had workup for aortic valve replacement, left heart catheterization on 2020 that revealed elevated right and left-sided pressures with a right atrial pressure of 18, mean PA pressure of 39, and the pulmonary blood pressure of 31, cardiac output of 3.4. Coronary angiography showed only mild luminal irregularities without significant CAD. On 11/13/2020 patient underwent percutaneous transluminal approach TAVR the Corvalve Pro Plus. The procedure was without event. Patient was extubated in the [facility], and returned in the intensive care unit following the procedure for recovery and close monitoring. She is doing very well, she is on 2 L, breathing comfortably, her pulse ox is 99%, vital signs are stable. She is A. fib/A flutter with a controlled rate. No complaints of chest discomfort. No shortness of breath, vitals are stable, she is awake alert, oriented 3. 0.9 normal saline infusing at 75 ML per hour Reevaluated today on 11/14/2020, patient is sitting at a bedside chair, in no distress, doing great, she remains in atrial flutter but hemodynamically stable. Patient is doing great, and I believe the patient is going to be discharged home today. CBC is relatively normal lites are normal renal profile is normal Objective - Vital Signs Vital signs: Vital Signs Temp 97.9 F 11/14/20 12:00 Pulse 90 11/14/20 12:00 Resp 20 11/14/20 12:00 BP 118/69 11/14/20 12:00 Pulse Ox 96 11/14/20 12:00 Intake & Output 11/13/20 11/14/20 11/14/20 18:59 06:59 18:59 Intake Total 1900 250 150 Output Total 500 725 0 Balance 1400 -475 150 Weight 105.2 kg 118.8 kg Intake: IV 1400 50 50 Sodium Chloride 0.9% 1, 600 000 ml @ 100 mls/hr IV . Q10H [facility] Rx#:[id number] ceFAZolin 2 gm In Sodium 50 50 Chloride 0.9% 50 ml @ 100 mls/hr IVPB Q8HR [facility] Rx# :[id number] Intake, IV Titration 250 Amount Magnesium Sulfate-D5w Pmx 200 1 gm In Dextrose/Water 1 100ml.bag @ 100 mls/hr IVPB Q1H [facility] Rx#: [id number] ceFAZolin 2 gm In Sodium 50 Chloride 0.9% 50 ml @ 100 mls/hr IVPB Q8HR [facility] Rx# :[id number] Oral 250 200 100 Output: Urine 500 725 0 Other: Voiding Method External Catheter External Catheter External Catheter # Voids 0 0 ABP, PAP, CO, CI - Last Documented Arterial Blood Pressure 102/47 - Exam CONSTITUTIONAL: Revealed an 84-year-old, pleasant in no distress. RESPIRATORY: Symmetrical chest expansion, diminished breath sounds at the bases no rhonchi no wheezes.. CARDIOVASCULAR: Normal S1 and S2, no S3 gallop.. GASTROINTESTINAL: Soft, nontender, no megaly no rebound no guarding.. INTEGUMENTARY: No rashes NEUROLOGIC: Alert and oriented 3 mg focal deficits. MUSKULOSKELETAL: No deformities and no limitation in range of motion. PSYCHIATRIC: Normal mood, affect and normal mental status examination. - Labs CBC & Chem 7: 11/14/20 05:16 11/14/20 05:16 Labs: Abnormal Lab Results - Last 24 Hours (Table) 11/07/20 11/13/20 11/13/20 Range/Units 09:58 12:57 16:52 WBC (3.8-10.6) k/uL Neutrophils # 7.8 H (1.3-7.7) k/uL Lymphocytes # 0.8 L (1.0-4.8) k/uL Sodium (137-145) mmol/L BUN (7-17) mg/dL POC Glucose (mg/dL) 219 H (75-99) mg/dL Alkaline Phosphatase (38-126) U/L Total Protein (6.3-8.2) g/dL Albumin (3.5-5.0) g/dL Crossmatch See Detail 11/13/20 11/14/20 11/14/20 Range/Units 20:08 05:16 05:16 WBC 13.0 H (3.8-10.6) k/uL Neutrophils # 11.5 H (1.3-7.7) k/uL Lymphocytes # 0.7 L (1.0-4.8) k/uL Sodium 135 L (137-145) mmol/L BUN 45 H (7-17) mg/dL POC Glucose (mg/dL) 172 H (75-99) mg/dL Alkaline Phosphatase 140 H (38-126) U/L Total Protein 5.9 L (6.3-8.2) g/dL Albumin 2.8 L (3.5-5.0) g/dL Crossmatch 11/14/20 11/14/20 11/14/20 Range/Units 06:46 11:19 11:49 WBC (3.8-10.6) k/uL Neutrophils # (1.3-7.7) k/uL Lymphocytes # (1.0-4.8) k/uL Sodium (137-145) mmol/L BUN (7-17) mg/dL POC Glucose (mg/dL) 101 H 59 L 185 H (75-99) mg/dL Alkaline Phosphatase (38-126) U/L Total Protein (6.3-8.2) g/dL Albumin (3.5-5.0) g/dL Crossmatch Assessment and Plan Assessment: Impression: Severe aortic stenosis, status post T aVR postoperative day #1 History of diastolic congestive heart failure, chronic. Chronic atrial flutter maintained on Xarelto. History of sick sinus syndrome requiring permanent pacemaker implantation in 2013. Chronic kidney disease stage III History of hypothyroidism. Recommendation: Continue present treatment plan. Continue incentive spirometer. Agree with discharge planning in the patient has been cleared by other consultants on the case. Time with Patient: Less than 30
[2020-11-14] MEDS ORDERED: SENNOSIDES-DOCUSATE SODIUM 1 EACH TAB PO SCH (21:00)
--- NOTE | 2020-11-25 12:24 | CDI ---
Documentation Clarification Form Date: 11/26/19 From: Sarah Wright Phone: Admit Date: 11/13/2020 05:36:00 AM Patient Name: June Perez Visit Number: [id number] Discharge Date: 11/14/2020 02:30:00 PM ATTENTION: The Clinical Documentation Specialists (CDI) and [facility] Coding Staff appreciate your assistance in clarifying documentation. Please respond to the clarification below the line at the bottom and electronically sign. The CDI & [facility] Coding staff will review the response and follow-up if needed. Please note: Queries are made part of the Legal Health Record. If you have any questions, please contact the author of this message via ITS. Dr. Hua Martinez, History of chronic atrial flutter is documented H&P and Dr Aguilar's consult. Additional clarification regarding the type of Atrial Flutter is requested. History/Risk factors: aortic stenosis-underwent TAVR this visit, chronic atrial fibrillation, HTN w chronic diastolic CHF and CKD stage III, DM w CKD, s/p pacemaker Clinical Indicators: 11/14 PN - remains in atrial flutter, hemodynamically stable. Maintained on Xarelto. EKG/telemetry: Atrial fibrillation electronic ventricular pacemaker. Treatment: Xarelto Please clarify the type of Atrial Flutter, if known: [ ] Typical/Type I [ ] Atypical/Type II [ ] Other, please specify [ x ] Unable to determine I am unaware of this classification scheme. Suggest you ask cardiology this question if you really want an answer. TAWNYA
--- NOTE | 2021-01-08 20:19 | P.PCN ---
Description of Procedure: Late entry Date of procedure: 11/13/2020 PROCEDURE PERFORMED: 1. Percutaneous Aortic Valve Implantation using a 29 mm Core-Valve Evolut-Pro Plus. 2. Transesophageal echocardiography 3. Access and repair of right femoral artery access site by Perclose device. 4. Placement and removal of temporary pacemaker wire. 5. Aortoiliac angiogram 6. Selective bilateral common femoral artery angiogram INDICATIONS: 1. This is a very pleasant 84year-old female patient with a history of severe symptomatic aortic valve stenosis. 2. Atrial flutter, SSS s/p PPM, HTN, HLD, gout 3. NYHA class IV symptoms 4. Recurrent hospital admission with heart failure 5. High STS score PERFORMING PHYSICIANS: Dr. Nelson Nye, radiographic technologist Dr. Delmar Vera, radiographic technologist Dr. Hua Martinez, Cardiothoracic surgeon CONTRAST USED: 100 ml. SEDATION: The procedure was performed under general anesthesia with sedation time 85 minutes APPROACH: Right common femoral artery with a 14-Qatari sheath. Left common femoral artery with a 6-Qatari sheath COMPLICATIONS: None PROCEDURE DESCRIPTION: The patient was discussed at valve clinic and thought better treated with TAVR. Risks, benefits, and alternatives of the procedure had been explained to the patient who understood the risks and agreed to proceed. After consents were obtained, patient was brought to the transcatheter aortic valve implantation room in the [facility]. Gen anesthesia was provided by the anesthesiologist (see separate report). Once full body sterile prep was performed, the left femoral artery and vein were accessed using a modified Seldinger technique. A 6.5 Qatari cm sheath was placed in the left femoral artery and a 6-Qatari sheath was placed in the left femoral vein under direct ultrasound guidance. Next, a balloon tipped temporary pacemaker was advanced through the venous sheath and positioned in the right ventricle apex. Thresholds were checked and deemed adequate. Next, a 6-Qatari pigtail catheter was advanced into the aorta and positioned in the aortic root, aortic root angiography was performed to determine optimal deployment angle. The right femoral artery was accessed using modified Seldinger technique, micropuncture technique and under direct ultrasound guidance. A right femoral angiogram was done showing access in the common femoral artery and a 6Fr sheath was placed. Subsequently we deployed 2 Perclose 10:00 and 2:00. After that I placed a 7-Qatari sheath in the right common femoral artery. Then a 0.035 Lunderquist wire was placed and advanced through the sheath at the right common femoral artery all the way to the thoracic aorta. Subsequently we dilated using an 8-Qatari and then 10- Qatari and then 12- Qatari dilator before we placed a 14-Qatari sheath over the superstiff wire which was advanced under fluoroscopy guidance at the right common femoral artery. Next a 6F- AL1 catheter was advanced over a wire to the aortic root. A straight wire was advanced through the catheter and used to cross the severely stenotic valve. After that we did exchange the AL 1 catheter into a pigtail catheter. Subsequently we did simultaneous LV and aortic pressure to check for hemodynamic and the gradient. Subsequently we advanced the 0.035 L underquist wire through the pigtail catheter in the LV all the way to the apex. After that predilatation of the valve was performed using 20 mm x 45 mm balloon. Then a 29 mm Corevalve Evolut-Pro Plus was advanced. The valve was then positioned across the aortic valve and confirmed with aortic root angiography. The 29 mm valve was then deployed in a proper position using slow deployment in conjuncture with aortic root angiography and JOSÉ LUIS. The delivery system was withdrawn back into the arch and an aortic root injection in conjunction with JOSÉ LUIS demonstrated a satisfactory result. There was mild gaetano-valvular leak. There was no evidence of any other significant abnormalities. The closure of the right femoral artery access site was then performed over the wire using the two perclose device. The pigtail was then advanced to the level of the iliac bifurcation via the left femoral access. Femoral angiogram was performed that showed no contrast leak. The left femoral angiogram then demonstrated an arteriotomy in the common femoral artery. This was repaired using a 6F angioseal device with complete hemostasis. The temporary venous pacemaker was pulled and then the 6F venous sheath was pulled and manual pressure was held with hemostasis achieved. The patient was then transported to the ICU in hemodynamically stable condition, requiring no pressor support. RECOMMENDATIONS: The patient will be monitored in the ICU for hemodynamic and electrical stability.
== END 2020-11-14 14:30 | DRG 267 ==
LOC: 2ORMAIN 05:36 → 2SICU 10:09
PROVIDERS: ADMIT Internal Medicine Interventional Cardiology; ATTEND Internal Medicine Interventional Cardiology
PROC: B41D1ZZ Fluoroscopy of Aorta and Bilateral Lower Extremity Arteries using Low Osmolar Contrast (ICD-10-PCS; 2020-11-13)
PROC: B24BZZ4 Ultrasonography of Heart with Aorta, Transesophageal (ICD-10-PCS; 2020-11-13)
PROC: 02RF38Z Replacement of Aortic Valve with Zooplastic Tissue, Percutaneous Approach (ICD-10-PCS; principal; 2020-11-13 07:30)
DX: I35.0 Nonrheumatic aortic (valve) stenosis (principal); I50.32 Chronic diastolic (congestive) heart failure; I13.0 Hypertensive heart and chronic kidney disease with heart failure and stage 1 through stage 4 chronic kidney disease, or unspecified chronic kidney disease; I48.20 Chronic atrial fibrillation, unspecified; Z68.42 Body mass index [BMI] 45.0-49.9, adult; I48.92 Unspecified atrial flutter; I49.5 Sick sinus syndrome; E11.22 Type 2 diabetes mellitus with diabetic chronic kidney disease; Z00.6 Encounter for examination for normal comparison and control in clinical research program; N18.30 Chronic kidney disease, stage 3 unspecified; Z79.4 Long term (current) use of insulin; E66.9 Obesity, unspecified; Z20.822 Contact with and (suspected) exposure to COVID-19; E78.5 Hyperlipidemia, unspecified; E03.9 Hypothyroidism, unspecified; K21.9 Gastro-esophageal reflux disease without esophagitis; M10.9 Gout, unspecified; M19.90 Unspecified osteoarthritis, unspecified site; I87.2 Venous insufficiency (chronic) (peripheral); Z79.82 Long term (current) use of aspirin; Z79.890 Hormone replacement therapy; Z79.01 Long term (current) use of anticoagulants; Z79.899 Other long term (current) drug therapy; Z90.49 Acquired absence of other specified parts of digestive tract; Z95.0 Presence of cardiac pacemaker; Z87.39 Personal history of other diseases of the musculoskeletal system and connective tissue; Z87.19 Personal history of other diseases of the digestive system; Z96.652 Presence of left artificial knee joint; Z98.49 Cataract extraction status, unspecified eye; Z98.890 Other specified postprocedural states; Z71.3 Dietary counseling and surveillance; Z88.8 Allergy status to other drugs, medicaments and biological substances; Z80.9 Family history of malignant neoplasm, unspecified
CPT/HCPCS: 33361; 71045; 80053; 82330; 82805; 83735; 85025; 85610; 85730; 86850; 86900; 86901; 86920; 87635; 93306; 93312; 93320; 93325

== ENCOUNTER 2021-02-04 18:02 | Inpatient (IN) | payer MEDICARE, OTHER ==
[2021-02-04 20:46] LABS: Anisocytosis Slight; Basophils # (A) 0.1 k/uL (0-0.2); Basophils % (A) 1 %; Eosinophils # (A) 0.5 k/uL (0-0.7); Eosinophils % (A) 5 %; HCT 42.2 % (34.0-46.0); HGB 13.6 gm/dL (11.4-16.0); Lymphocytes # (A) 1.7 k/uL (1.0-4.8); Lymphocytes % (A) 18 %; MCH 29.3 pg (25.0-35.0); MCHC 32.2 g/dL (31.0-37.0); MCV 90.9 fL (80.0-100.0); Mean Platelet Volume 8.2; Monocytes # (A) 0.6 k/uL (0-1.0); Monocytes % (A) 6 %; Neutrophils # (A) 6.3 k/uL (1.3-7.7); Neutrophils % (A) 68 %; Platelet Count 304 k/uL (150-450); RBC 4.64 m/uL (3.80-5.40); RDW 16.4 % (11.5-15.5); WBC 9.3 k/uL (3.8-10.6)
[2021-02-04 21:09] LABS: Potassium 4.6 mmol/L (3.5-5.1)
[2021-02-04] MEDS ORDERED: VANCOMYCIN IV PER PHARMACY 1 EACH MISC MISCELLANE PRN (21:18)
[2021-02-04] MEDS ORDERED: cefTRIAXone IN SWFI 1,000 MG/10 ML SYRINGE IVP ONE (21:18)
[2021-02-04] MEDS ORDERED: NALOXONE 0.4 MG/ML 1 ML VIAL IV PRN (21:43)
[2021-02-04] MEDS ORDERED: CALCIUM CARBONATE 500 MG CHEWABLE PO PRN (21:45)
[2021-02-04] MEDS ORDERED: ONDANSETRON 4 MG/2 ML VIAL IVP PRN (21:45)
[2021-02-04] MEDS ORDERED: LACTULOSE 20 GM/30 ML CUP PO PRN (21:45)
[2021-02-04] MEDS ORDERED: MAG HYDROX/AL HYDROX/SIMETH 30 ML CUP PO PRN (21:45)
[2021-02-04] MEDS ORDERED: MAGNESIUM HYDROXIDE 2,400 MG/10 ML CUP PO PRN (21:45)
[2021-02-04] MEDS ORDERED: MELATONIN 3 MG TABLET PO PRN (21:45)
[2021-02-04] MEDS ORDERED: ALPRAZolam 0.25 MG TAB PO PRN (21:45)
--- NOTE | 2021-02-04 21:46 | ED ---
General Adult HPI - General Chief complaint: Extremity Problem,Nontraumatic Stated complaint: Infection- foot Time Seen by Provider: 02/04/21 20:34 Source: patient, RN notes reviewed, old records reviewed Mode of arrival: EMS Limitations: no limitations - History of Present Illness Initial comments: 85-year-old female presenting with blister and erythema to the left foot. She has had a nonhealing wound on her heel which has been managed by wound care. She developed a blister on the great toe left foot and some swelling and erythema of the foot and leg. She has been on outpatient antibiotics without improvement. She was sent in for IV antibiotics. She denies fever. Denies nausea vomiting. Denies abdominal pain. Denies cough or dyspnea. Denies dysuria. - Related Data Home Medications Medication Instructions Recorded Confirmed Baclofen [Lioresal] 10 mg PO HS PRN 12/11/13 11/13/20 Ferrous Sulfate [Feosol] 325 mg PO DAILY 12/11/13 11/13/20 Furosemide [Lasix] 40 mg PO DAILY 12/11/13 11/13/20 Cholecalciferol [Vitamin D3 (25 1,000 unit PO DAILY 03/21/19 11/13/20 Mcg = 1000 Iu)] Levothyroxine Sodium [Synthroid] 150 mcg PO DAILY 03/21/19 11/13/20 Pantoprazole Sodium [Protonix] 40 mg PO DAILY 03/21/19 11/13/20 nadoloL [Corgard] 20 mg PO BID 03/21/19 11/13/20 Cetirizine HCl 10 mg PO DAILY 10/08/20 11/13/20 Fluticasone Nasal [place] [Flonase 1 spray EA NOSTRIL DAILY 10/08/20 11/13/20 Nasal [place]] Glimepiride [Amaryl] 2 mg PO BID 10/08/20 11/13/20 Insulin Aspart Protam & Aspart See Protocol SQ AC-TID 10/08/20 11/13/20 [NovoLOG MIX 70-30 Flexpen] Simvastatin 10 mg PO HS 10/08/20 11/13/20 allopurinoL [Zyloprim] 100 mg PO DAILY 10/08/20 11/13/20 Potassium Chloride [Klor-Con 10] 10 meq PO DAILY 11/06/20 11/13/20 Insulin Aspart Prot/Insuln Asp 0 units SQ TID 11/13/20 11/13/20 [Insulin Aspart Prot ([id number])] Previous Rx's Medication Instructions Recorded Acetaminophen Tab [Tylenol] 650 mg PO Q6HR PRN tab 03/24/19 Losartan Potassium 50 mg PO DAILY #0 10/11/20 Clopidogrel [Plavix] 75 mg PO DAILY tab 11/14/20 Rivaroxaban [Xarelto] 15 mg PO DAILY #30 tab 11/14/20 Allergies Allergy/AdvReac Type Severity Reaction Status Date / Time metformin Allergy Unknown Verified 02/04/21 19:01 Review of Systems ROS Statement: Those systems with pertinent positive or pertinent negative responses have been documented in the HPI. ROS Other: All systems not noted in ROS Statement are negative. Past Medical History Past Medical History: Atrial Fibrillation, Diabetes Mellitus, GERD/Reflux, Hypertension, Osteoarthritis (OA), Thyroid Disorder Additional Past Medical History / Comment(s): gout, SOB w/exertion, recent admission for weakness, possible fall @home, currently @[facility] for rehab History of Any Multi-Drug Resistant Organisms: None Reported Past Surgical History: Appendectomy, Joint Replacement, Pacemaker Additional Past Surgical History / Comment(s): left knee replacement, cataract surgery, carpal tunnel sugery on right Past Anesthesia/Blood Transfusion Reactions: No Reported Reaction Type of Cardiac Device: Permanent Pacemaker Device Placement Date:: patient unsure Past Psychological History: No Psychological Hx Reported Smoking Status: Never smoker Past Alcohol Use History: None Reported Past Drug Use History: None Reported - Past Family History Father Family Medical History: Cancer General Exam Limitations: no limitations General appearance: alert, in no apparent distress Head exam: Present: atraumatic, normocephalic Eye exam: Present: normal appearance, PERRL ENT exam: Present: normal exam Neck exam: Present: normal inspection. Absent: tenderness, meningismus Respiratory exam: Present: normal lung sounds bilaterally. Absent: respiratory distress, wheezes Cardiovascular Exam: Present: regular rate, normal rhythm GI/Abdominal exam: Present: soft. Absent: distended, tenderness Extremities exam: Present: pedal edema, other (Patient has hemorrhagic blister on the tip of the left great toe, there is some erythema to the foot no crepitus, no drainable abscess) Neurological exam: Present: alert, oriented X3, CN II-XII intact. Absent: motor sensory deficit Psychiatric exam: Present: normal affect, normal mood Skin exam: Present: warm Course Vital Signs 02/04/21 18:59 Temperature 98.1 F Pulse Rate 69 Respiratory 16 Rate Blood Pressure 125/81 O2 Sat by Pulse 98 Oximetry Medical Decision Making - Medical Decision Making 85-year-old female with left foot cellulitis, failed outpatient treatment. Laboratory studies obtained, blood cultures, lactic acid. Patient started on IV antibiotics. Case discussed with Dr. Russell who will admit. Infectious disease placed on consult. - Lab Data Result diagrams: 02/04/21 20:38 02/04/21 20:38 Lab Results 02/04/21 02/04/21 02/04/21 Range/Units 20:38 20:38 20:38 WBC 9.3 (3.8-10.6) k/uL RBC 4.64 (3.80-5.40) m/uL Hgb 13.6 (11.4-16.0) gm/dL Hct 42.2 (34.0-46.0) % MCV 90.9 (80.0-100.0) fL MCH 29.3 (25.0-35.0) pg MCHC 32.2 (31.0-37.0) g/dL RDW 16.4 H (11.5-15.5) % Plt Count 304 (150-450) k/uL MPV 8.2 Neutrophils % 68 % Lymphocytes % 18 % Monocytes % 6 % Eosinophils % 5 % Basophils % 1 % Neutrophils # 6.3 (1.3-7.7) k/uL Lymphocytes # 1.7 (1.0-4.8) k/uL Monocytes # 0.6 (0-1.0) k/uL Eosinophils # 0.5 (0-0.7) k/uL Basophils # 0.1 (0-0.2) k/uL Anisocytosis Slight APTT (22.0-30.0) sec Sodium 137 (137-145) mmol/L Potassium 4.6 (3.5-5.1) mmol/L Chloride 100 (98-107) mmol/L Carbon Dioxide 27 (22-30) mmol/L Anion Gap 10 mmol/L BUN 51 H (7-17) mg/dL Creatinine 1.12 H (0.52-1.04) mg/dL Est GFR (CKD-EPI)AfAm 52 (>60 ml/min/1.73 sqM) Est GFR (CKD-EPI)NonAf 45 (>60 ml/min/1.73 sqM) Glucose 233 H (74-99) mg/dL Plasma Lactic Acid Renato 1.3 (0.7-2.0) mmol/L Calcium 10.0 (8.4-10.2) mg/dL Troponin I (0.000-0.034) ng/mL 02/04/21 02/04/21 Range/Units 20:38 20:38 WBC (3.8-10.6) k/uL RBC (3.80-5.40) m/uL Hgb (11.4-16.0) gm/dL Hct (34.0-46.0) % MCV (80.0-100.0) fL MCH (25.0-35.0) pg MCHC (31.0-37.0) g/dL RDW (11.5-15.5) % Plt Count (150-450) k/uL MPV Neutrophils % % Lymphocytes % % Monocytes % % Eosinophils % % Basophils % % Neutrophils # (1.3-7.7) k/uL Lymphocytes # (1.0-4.8) k/uL Monocytes # (0-1.0) k/uL Eosinophils # (0-0.7) k/uL Basophils # (0-0.2) k/uL Anisocytosis APTT 34.2 H (22.0-30.0) sec Sodium (137-145) mmol/L Potassium (3.5-5.1) mmol/L Chloride (98-107) mmol/L Carbon Dioxide (22-30) mmol/L Anion Gap mmol/L BUN (7-17) mg/dL Creatinine (0.52-1.04) mg/dL Est GFR (CKD-EPI)AfAm (>60 ml/min/1.73 sqM) Est GFR (CKD-EPI)NonAf (>60 ml/min/1.73 sqM) Glucose (74-99) mg/dL Plasma Lactic Acid Renato (0.7-2.0) mmol/L Calcium (8.4-10.2) mg/dL Troponin I 0.015 (0.000-0.034) ng/mL Disposition Clinical Impression: Type 2 diabetes mellitus, Cellulitis of left foot Disposition: ADMITTED IP TO THIS HOSP Condition: Stable Is patient prescribed a controlled substance at d/c from ED?: No Referrals: Chris Alves MD [Primary Care Provider] - 1-2 days Decision to Admit Reason: Admit from EC Decision Date: 02/04/21 Decision Time: 21:46
[2021-02-04] MEDS ORDERED: LACTATED RINGERS 1,000 ML IV ONE (21:58)
--- NOTE | 2021-02-04 21:58 | P.HPIM ---
History of Present Illness H&P Date: 02/04/21 Chief Complaint: Left foot wound History of presenting complaint: This is a pleasant 85-year-old patient who follows with visiting physicians Dr. Alves. Chronic stable medical conditions include atrial fibrillation, diabetes, GERD, hypertension, osteoarthritis, hypothyroid, gout,. Patient has a permanent pacemaker. Patient in November of this year underwent percutaneous aortic valve implantation. 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 Patient is very much wheelchair bound. Patient wasn't [facility] for rehab back in November of this year. She is being followed by visiting physicians for a left foot wound which is a pressure ulcer of the left heel. Patient was noticed to have a blister off the left big toe. No fever no chills. Patient's appetite is fair. An okay bowel movements. Left footin dressing. No obvious drainage from the wound. Review of systems: GEN.: None EYES: None HEENT: None NECK: None RESPIRATORY: None CARDIOVASCULAR: None GASTROINTESTINAL: None GENITOURINARY: Urinary incontinence MUSCULOSKELETAL: Joint pains LYMPHATICS: None HEMATOLOGICAL: None PSYCHIATRY: None NEUROLOGICAL: Uses wheelchair Past medical history to include: Atrial fibrillation, diabetes, GERD, hypertension, osteoporosis, hypothyroid, gout, pacemaker, TAVR Social history: No history of smoking or alcohol. Has a manager payer. Uses a wheelchair Family history: Cancer Physical examination: VITAL SIGNS: 98.1, 69, 16, 125/81, 98% room air GENERAL: BMI 44.9, reclining in bed, awake, comfortable. EYES: Pupils equal. Conjunctiva normal. HEENT: External appearance of nose and ears normal, oral cavity grossly normal. NECK: JVD not raised; masses not palpable. HEART: First and second heart sounds are normal; no edema. LUNGS: Respiratory rate normal; clear to auscultation. ABDOMEN: Soft, nontender, liver spleen not palpable, no masses palpable. PSYCH: Alert and oriented x3; mood and affect normal. NEUROLOGICAL: Cranial nerves grossly intact; no facial asymmetry, power and sensation grossly intact EXTREMITY: Dressing of the left ankle and midfoot. Placed on the left big toe.. LYMPHATICS: No lymph nodes palpable in the axilla and neck INVESTIGATIONS, reviewed in the clinical context: WBC 9.3 hemoglobin 10.6 platelets 304 potassium 4.6 and 51 creatinine 1.12 Assessment and plan: -Acute on chronic left heel wound. Each patient's had for a few months. Has been followed as an outpatient. Patient has now developed a blister on the left big toe. Consult ID -Morbid obesity, BMI 44.9 Weight loss measures and follow-up with PCP -Transcutaneous aortic valve replacement in November 2020 -Atrial fibrillation -Diabetes mellitus type 2, chronically on insulin Follow Accu-Cheks -GERD Protonix -Paroxysmal atrial fibrillation On nadolol, xarelto -Essential hypertension Corgard, losartan -Primary osteoarthritis Use pain medications as needed -Hypothyroid Synthroid 150 g daily -Chronic gout Allopurinol 100 mg daily Home medications resumed. Care was discussed with the patient daughter the bedside. Follow Accu-Cheks. Consultation to ID Past Medical History Past Medical History: Atrial Fibrillation, Diabetes Mellitus, GERD/Reflux, Hypertension, Osteoarthritis (OA), Thyroid Disorder Additional Past Medical History / Comment(s): gout, SOB w/exertion, recent admission for weakness, possible fall @home, currently @[facility] for rehab History of Any Multi-Drug Resistant Organisms: None Reported Past Surgical History: Appendectomy, Joint Replacement, Pacemaker Additional Past Surgical History / Comment(s): left knee replacement, cataract surgery, carpal tunnel sugery on right Past Anesthesia/Blood Transfusion Reactions: No Reported Reaction Type of Cardiac Device: Permanent Pacemaker Device Placement Date:: patient unsure Past Psychological History: No Psychological Hx Reported Smoking Status: Never smoker Past Alcohol Use History: None Reported Past Drug Use History: None Reported - Past Family History Father Family Medical History: Cancer Medications and Allergies Home Medications Medication Instructions Recorded Confirmed Type Baclofen [Lioresal] 10 mg PO HS PRN 12/11/13 11/13/20 History Ferrous Sulfate [Feosol] 325 mg PO DAILY 12/11/13 11/13/20 History Furosemide [Lasix] 40 mg PO DAILY 12/11/13 11/13/20 History Cholecalciferol [Vitamin D3 (25 1,000 unit PO DAILY 03/21/19 11/13/20 History Mcg = 1000 Iu)] Levothyroxine Sodium [Synthroid] 150 mcg PO DAILY 03/21/19 11/13/20 History Pantoprazole Sodium [Protonix] 40 mg PO DAILY 03/21/19 11/13/20 History nadoloL [Corgard] 20 mg PO BID 03/21/19 11/13/20 History Acetaminophen Tab [Tylenol] 650 mg PO Q6HR PRN tab 03/24/19 11/13/20 Rx Cetirizine HCl 10 mg PO DAILY 10/08/20 11/13/20 History Fluticasone Nasal [place] [Flonase 1 spray EA NOSTRIL DAILY 10/08/20 11/13/20 History Nasal [place]] Glimepiride [Amaryl] 2 mg PO BID 10/08/20 11/13/20 History Insulin Aspart Protam & Aspart See Protocol SQ AC-TID 10/08/20 11/13/20 History [NovoLOG MIX 70-30 Flexpen] Simvastatin 10 mg PO HS 10/08/20 11/13/20 History allopurinoL [Zyloprim] 100 mg PO DAILY 10/08/20 11/13/20 History Losartan Potassium 50 mg PO DAILY #0 10/11/20 11/13/20 Rx Potassium Chloride [Klor-Con 10] 10 meq PO DAILY 11/06/20 11/13/20 History Insulin Aspart Prot/Insuln Asp 0 units SQ TID 11/13/20 11/13/20 History [Insulin Aspart Prot ([id number])] Clopidogrel [Plavix] 75 mg PO DAILY tab 11/14/20 Rx Rivaroxaban [Xarelto] 15 mg PO DAILY #30 tab 11/14/20 11/13/20 Rx Allergies Allergy/AdvReac Type Severity Reaction Status Date / Time metformin Allergy Unknown Verified 02/04/21 19:01 Physical Exam Vitals: Vital Signs Temp Pulse Resp BP Pulse Ox 02/04/21 18:59 98.1 F 69 16 125/81 98 Intake and Output 02/04/21 02/04/21 02/04/21 06:59 14:59 22:59 Other: Weight 104.326 kg Results CBC & Chem 7: 02/04/21 20:38 02/04/21 20:38 Labs: Abnormal Lab Results - Last 24 Hours (Table) 02/04/21 02/04/21 02/04/21 Range/Units 20:38 20:38 20:38 RDW 16.4 H (11.5-15.5) % APTT 34.2 H (22.0-30.0) sec BUN 51 H (7-17) mg/dL Creatinine 1.12 H (0.52-1.04) mg/dL Glucose 233 H (74-99) mg/dL
[2021-02-04] MEDS ORDERED: VANCOMYCIN 1,500 MG in SODIUM CHLORIDE 0.9% 250 ML IVPB ONE (22:00)
[2021-02-04 22:44] LABS: Glucose,Whole Blood 226 mg/dL (75-99)
[2021-02-04] MEDS: INSULIN ASPART (NovoLOG) 100 UNIT/ML VIAL SQ SCH (22:57)
[2021-02-05 07:14] LABS: Glucose,Whole Blood 137 mg/dL (75-99)
[2021-02-05] MEDS ORDERED: NYSTATIN 100,000 UNIT/GM POWD 15 GM TOPICAL PRN (07:16)
[2021-02-05] MEDS: PANTOPRAZOLE 40 MG TABLET PO SCH (07:48)
[2021-02-05] MEDS: INSULIN ASPART (NovoLOG) 100 UNIT/ML VIAL SQ SCH ×4 (07:48→23:19)
[2021-02-05] MEDS: FUROSEMIDE 40 MG TAB PO SCH (07:49)
[2021-02-05] MEDS: LEVOTHYROXINE 75 MCG TAB PO SCH (07:49)
[2021-02-05] MEDS: allopurinoL 100 MG TAB PO SCH (07:49)
[2021-02-05] MEDS: FERROUS SULFATE 325 MG TAB PO SCH (07:49)
[2021-02-05] MEDS: POTASSIUM CHLORIDE ER 10 MEQ TAB.ER.PRT PO SCH (07:49)
[2021-02-05] MEDS: CLOPIDOGREL 75 MG TAB PO SCH (07:49)
[2021-02-05] MEDS: LOSARTAN 50 MG TAB PO SCH (07:49)
[2021-02-05] MEDS: LORATADINE 10 MG TAB PO SCH (07:49)
[2021-02-05] MEDS: FLUTICASONE 50MCG/SPRAY NASAL 16GM EA NOSTRIL SCH (08:59)
[2021-02-05] MEDS: ACETAMINOPHEN TAB 325 MG TAB PO PRN (08:59)
[2021-02-05] MEDS: RIVAROXABAN 15 MG TAB PO SCH (09:00)
[2021-02-05 12:01] LABS: Glucose,Whole Blood 264 mg/dL (75-99)
[2021-02-05] MEDS ORDERED: BACLOFEN 10 MG TAB PO PRN (17:00)
[2021-02-05 17:03] LABS: Glucose,Whole Blood 241 mg/dL (75-99)
[2021-02-05] MEDS: ATORVASTATIN 10 MG TAB PO SCH (17:22)
[2021-02-05] MEDS: CHOLECALCIFEROL 25 MCG (1000 IU) TABLET PO SCH (17:22)
[2021-02-05] MEDS ORDERED: LEVOFLOXACIN 250 MG TAB PO SCH (17:30)
[2021-02-05] MEDS ORDERED: LEVOFLOXACIN 500 MG TAB PO SCH (17:30)
--- NOTE | 2021-02-05 17:49 | P.PN ---
Progress Note - Text Progress Note Date: 02/05/21 Chief Complaint: Left foot wound History of presenting complaint: This is a pleasant 85-year-old patient who follows with visiting physicians Dr. Alves. Chronic stable medical conditions include atrial fibrillation, diabetes, GERD, hypertension, osteoarthritis, hypothyroid, gout,. Patient has a permanent pacemaker. Patient in November of this year underwent percutaneous aortic valve implantation. 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 Patient is very much wheelchair bound. Patient wasn't [facility] for rehab back in November of this year. She is being followed by visiting physicians for a left foot wound which is a pressure ulcer of the left heel. Patient was noticed to have a blister off the left big toe. No fever no chills. Patient's appetite is fair. An okay bowel movements. Left footin dressing. No obvious drainage from the wound. February 05: Laying in bed. Comfortable. Getting IV vancomycin. Pending evaluation by ID. Oral intake fair. Review of systems: Was done for constitutional, cardiovascular, GI, pulmonary. relevant finding as above Active Medications Acetaminophen (Acetaminophen Tab 325 Mg Tab) 650 mg PO Q6HR PRN PRN Reason: Mild Pain or Fever > 100.5 Last Admin: 02/05/21 08:59 Dose: 650 mg Documented by: Al Hydroxide/Mg Hydroxide (Mag Hydrox/Al Hydrox/Simeth 30 Ml Cup) 15 ml PO Q6HR PRN PRN Reason: Indigestion Allopurinol (Allopurinol 100 Mg Tab) 100 mg PO DAILY@0600 [facility] Last Admin: 02/05/21 07:49 Dose: 100 mg Documented by: Alprazolam (Alprazolam 0.25 Mg Tab) 0.25 mg PO Q6HR PRN PRN Reason: Anxiety Atorvastatin Calcium (Atorvastatin 10 Mg Tab) 10 mg PO HS@1700 [facility] Last Admin: 02/05/21 17:22 Dose: 10 mg Documented by: Baclofen (Baclofen 10 Mg Tab) 10 mg PO HS@1700 PRN PRN Reason: Muscle Pain Calcium Carbonate/Glycine (Calcium Carbonate 500 Mg Chewable) 1,000 mg PO Q4HR PRN PRN Reason: Dyspepsia Cholecalciferol (Cholecalciferol 25 Mcg (1000 Iu) Tablet) 25 mcg PO HS@1700 [facility] Last Admin: 02/05/21 17:22 Dose: 25 mcg Documented by: Clopidogrel Bisulfate (Clopidogrel 75 Mg Tab) 75 mg PO DAILY@0900 [facility] Last Admin: 02/05/21 07:49 Dose: 75 mg Documented by: Ferrous Sulfate (Ferrous Sulfate 325 Mg Tab) 325 mg PO DAILY@0900 [facility] Last Admin: 02/05/21 07:49 Dose: 325 mg Documented by: Fluticasone Propionate (Fluticasone 50mcg/[place] Nasal 16gm) 1 spray EA NOSTRIL DAILY@06 [facility] Last Admin: 02/05/21 08:59 Dose: 1 spray Documented by: Furosemide (Furosemide 40 Mg Tab) 40 mg PO DAILY@0600 [facility] Last Admin: 02/05/21 07:49 Dose: 40 mg Documented by: Glimepiride (Glimepiride 2 Mg Tab) 2 mg PO BID@0600,1700 [facility] Vancomycin HCl 1,500 mg/ (Sodium Chloride) 250 mls @ 125 mls/hr IVPB Q24H [facility] Insulin Aspart (Insulin Aspart (Novolog) 100 Unit/Ml Vial) 0 unit SQ ACHS [facility]; Protocol Last Admin: 02/05/21 17:22 Dose: 5 unit Documented by: Lactulose (Lactulose 20 Gm/30 Ml Cup) 20 gm PO DAILY PRN PRN Reason: Constipation Levofloxacin (Levofloxacin 250 Mg Tab) 250 mg PO W/SUPPER [facility] Last Admin: 02/05/21 17:22 Dose: 250 mg Documented by: Levothyroxine Sodium (Levothyroxine 75 Mcg Tab) 150 mcg PO DAILY@0600 [facility] Last Admin: 02/05/21 07:49 Dose: 150 mcg Documented by: Loratadine (Loratadine 10 Mg Tab) 10 mg PO DAILY@06 [facility] Last Admin: 02/05/21 07:49 Dose: 10 mg Documented by: Losartan Potassium (Losartan 50 Mg Tab) 50 mg PO DAILY@0600 [facility] Last Admin: 02/05/21 07:49 Dose: 50 mg Documented by: Magnesium Hydroxide (Magnesium Hydroxide 2,400 Mg/10 Ml Cup) 2,400 mg PO DAILY PRN PRN Reason: Constipation Melatonin (Melatonin 3 Mg Tablet) 3 mg PO HS PRN PRN Reason: Insomnia Nadolol (Nadolol 20 Mg Tab) 20 mg PO DAILY@0900 [facility] Last Admin: 02/05/21 09:00 Dose: 20 mg Documented by: Naloxone HCl (Naloxone 0.4 Mg/Ml 1 Ml Vial) 0.2 mg IV Q2M PRN PRN Reason: Opioid Reversal Nystatin (Nystatin 100,000 Unit/Gm Powd 15 Gm) 1 applic TOPICAL DAILY PRN; Protocol PRN Reason: Rash Ondansetron HCl (Ondansetron 4 Mg/2 Ml Vial) 4 mg IVP Q8HR PRN PRN Reason: Nausea And Vomiting Pantoprazole Sodium (Pantoprazole 40 Mg Tablet) 40 mg PO DAILY@0600 [facility] Last Admin: 02/05/21 07:48 Dose: 40 mg Documented by: Potassium Chloride (Potassium Chloride Er 10 Meq Tab.Er.Prt) 10 meq PO DAILY@0900 [facility] Last Admin: 02/05/21 07:49 Dose: 10 meq Documented by: Rivaroxaban (Rivaroxaban 15 Mg Tab) 15 mg PO DAILY@09 [facility]; Protocol Last Admin: 02/05/21 09:00 Dose: 15 mg Documented by: Past medical history to include: Atrial fibrillation, diabetes, GERD, hypertension, osteoporosis, hypothyroid, gout, pacemaker, TAVR Social history: No history of smoking or alcohol. 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 EYES: Pupils equal. Conjunctiva normal. HEENT: External appearance of nose and ears normal, oral cavity grossly normal. NECK: JVD not raised; masses not palpable. HEART: First and second heart sounds are normal; no edema. LUNGS: Respiratory rate normal; clear to auscultation. ABDOMEN: Soft, nontender, liver spleen not palpable, no masses palpable. PSYCH: Alert and oriented x3; mood and affect normal. EXTREMITY: Dressing of the left ankle and midfoot. Placed on the left big toe.. INVESTIGATIONS, reviewed in the clinical context: WBC 9.3 hemoglobin 10.6 platelets 304 potassium 4.6 and 51 creatinine 1.12 Assessment and plan: -Acute on chronic left heel wound. Each patient's had for a few months. Has been followed as an outpatient. Patient has now developed a blister on the left big toe. 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 IV vancomycin. Check procalcitonin the morning. Repeat labs tomorrow. Follow with ID.
[2021-02-05] MEDS: GLIMEPIRIDE 2 MG TAB PO SCH (18:06)
[2021-02-05] MEDS ORDERED: VANCOMYCIN 1,500 MG in SODIUM CHLORIDE 0.9% 250 ML IVPB SCH (23:00)
[2021-02-05 23:11] LABS: Glucose,Whole Blood 248 mg/dL (75-99)
--- NOTE | 2021-02-05 23:16 | P.CONS ---
History of Present Illness - Reason for Consult Consult date: 02/05/21 left foot cellulitis Requesting physician: Jay Russell - Chief Complaint left foot pain and redness x few days - History of Present Illness Patient is a 85-year-old female with a past medical he significant for nonhealing wound to the left heel for the patient is evaluated at the wound care center patient presenting to the hospital for evaluation of increasing erythema and pain to the left foot and blistering to the left big toe patient symptom has been going on for few days before presentation to the hospital patient denies having any history of any trauma to the left big toe patient did have a pain to the left foot will no further leaking 3-4 out of 10 had no radiation on presentation to the hospital the patient was afebrile and no fever has been re corded subsequently patient did have a normal white count creatinine was 1.12 blood culture grew which are currently pending patient has been admitted to the hospital patient was started on vancomycin and Levaquin infectious disease was consulted for further management of antibiotic therapy Review of Systems Positive point has been mentioned in the HPI rest of the systems are negative Past Medical History Past Medical History: Atrial Fibrillation, Diabetes Mellitus, GERD/Reflux, Hypertension, Osteoarthritis (OA), Thyroid Disorder Additional Past Medical History / Comment(s): gout, SOB w/exertion, recent admission for weakness, possible fall @home, currently @[facility] for rehab History of Any Multi-Drug Resistant Organisms: None Reported Past Surgical History: Appendectomy, Joint Replacement, Pacemaker Additional Past Surgical History / Comment(s): left knee replacement, cataract surgery, carpal tunnel sugery on right Past Anesthesia/Blood Transfusion Reactions: No Reported Reaction Type of Cardiac Device: Permanent Pacemaker Device Placement Date:: patient unsure Past Psychological History: No Psychological Hx Reported Smoking Status: Never smoker Past Alcohol Use History: None Reported Past Drug Use History: None Reported - Past Family History Father Family Medical History: Cancer Medications and Allergies Home Medications Medication Instructions Recorded Confirmed Type Baclofen [Lioresal] 10 mg PO HS@1700 PRN 12/11/13 02/04/21 History Ferrous Sulfate [Feosol] 325 mg PO DAILY@0900 12/11/13 02/04/21 History Furosemide [Lasix] 40 mg PO DAILY@0600 12/11/13 02/04/21 History Cholecalciferol [Vitamin D3 (25 1,000 unit PO HS@1700 03/21/19 02/04/21 History Mcg = 1000 Iu)] Levothyroxine Sodium [Synthroid] 150 mcg PO DAILY@0600 03/21/19 02/04/21 History Pantoprazole Sodium [Protonix] 40 mg PO DAILY@0600 03/21/19 02/04/21 History nadoloL [Corgard] 20 mg PO DAILY@0900 03/21/19 02/04/21 History Acetaminophen Tab [Tylenol] 650 mg PO Q6HR PRN tab 03/24/19 02/04/21 Rx Cetirizine HCl 10 mg PO DAILY@0600 10/08/20 02/04/21 History Fluticasone Nasal [place] [Flonase 1 spray EA NOSTRIL DAILY@0600 10/08/20 02/04/21 History Nasal [place]] Glimepiride [Amaryl] 2 mg PO BID@0600,1700 10/08/20 02/04/21 History Insulin Aspart Protam & Aspart See Protocol SQ AC-TID 10/08/20 02/04/21 History [NovoLOG MIX 70-30 Flexpen] Simvastatin 10 mg PO HS@1700 10/08/20 02/04/21 History allopurinoL [Zyloprim] 100 mg PO DAILY@0600 10/08/20 02/04/21 History Potassium Chloride [Klor-Con 10] 10 meq PO DAILY@0900 11/06/20 02/04/21 History Clopidogrel [Plavix] 75 mg PO DAILY@0900 02/04/21 02/04/21 History Levofloxacin [Levaquin] 500 mg PO W/SUPPER 02/04/21 02/04/21 History Losartan Potassium 50 mg PO DAILY@0600 02/04/21 02/04/21 History Nystatin 100,000 Unit/gm Powd 1 applic TOPICAL DAILY PRN 02/04/21 02/04/21 History [Mycostatin Powder] Rivaroxaban [Xarelto] 15 mg PO DAILY@0900 02/04/21 02/04/21 History Allergies Allergy/AdvReac Type Severity Reaction Status Date / Time metformin Allergy Unknown Verified 02/04/21 19:01 Physical Exam Vitals: Vital Signs Temp Pulse Pulse Resp BP BP Pulse Ox 02/05/21 14:00 98.2 F 113 H 18 111/57 94 L 02/05/21 07:50 98.4 F 89 16 123/56 96 02/05/21 00:31 97.5 F L 73 15 128/84 98 02/04/21 23:55 98.5 F 99 16 130/66 98 02/04/21 18:59 98.1 F 69 16 125/81 98 Intake and Output 02/04/21 02/05/21 02/05/21 22:59 06:59 14:59 Other: Voiding Method Bedpan # Voids 1 1 Weight 104.326 kg 104.326 kg GENERAL DESCRIPTION: An elderly female lying in bed, no distress. No tachypnea or accessory muscle of respiration use. HEENT: Shows Pallor , no scleral icterus. Oral mucous membrane is dry. No pharyngeal erythema or thrush NECK: Trachea central, no thyromegaly. LUNGS: Unlabored breathing. Clear to auscultation anteriorly. No wheeze or crackle. HEART: S1, S2, regular rate and rhythm. No loud murmur ABDOMEN: Soft, no tenderness , guarding or rigidity, no organomegaly EXTREMITIES: No edema of feet. SKIN: No rash, no masses palpable. NEUROLOGICAL: The patient is awake, alert, oriented x3, mood and affect normal. Results CBC & Chem 7: 02/04/21 20:38 02/04/21 20:38 Labs: Abnormal Lab Results - Last 24 Hours (Table) 02/04/21 02/04/21 02/04/21 Range/Units 20:38 20:38 20:38 RDW 16.4 H (11.5-15.5) % APTT 34.2 H (22.0-30.0) sec BUN 51 H (7-17) mg/dL Creatinine 1.12 H (0.52-1.04) mg/dL Glucose 233 H (74-99) mg/dL POC Glucose (mg/dL) (75-99) mg/dL 02/04/21 02/05/21 02/05/21 Range/Units 22:42 07:13 12:00 RDW (11.5-15.5) % APTT (22.0-30.0) sec BUN (7-17) mg/dL Creatinine (0.52-1.04) mg/dL Glucose (74-99) mg/dL POC Glucose (mg/dL) 226 H 137 H 264 H (75-99) mg/dL Assessment and Plan Assessment: 1-patient with chronic nonhealing wound to the left heel area and this patient presented to hospital with increasing swelling redness to the left foot and concern for second cellulitis as well as blistering to the left big toe but no history of any trauma white count for the gram-positive skin robert to the likely pathogen clinical doubt MRSA infection 2-patient with renal insufficiency high risk of nephrotoxicity from vancomycin Plan: 1-discontinue vancomycin 2-start the patient cefazolin 2 g every 8 hour 3-local wound care with dry Aquacel silver dressing We will follow on clinical condition and cultures to further adjust medication if needed Thank you for this consultation we will follow the patient along with you
[2021-02-06] MEDS: LORATADINE 10 MG TAB PO SCH (05:45)
[2021-02-06] MEDS: PANTOPRAZOLE 40 MG TABLET PO SCH (05:45)
[2021-02-06] MEDS: LEVOTHYROXINE 75 MCG TAB PO SCH (05:45)
[2021-02-06] MEDS: LOSARTAN 50 MG TAB PO SCH (05:45)
[2021-02-06] MEDS: FUROSEMIDE 40 MG TAB PO SCH (05:45)
[2021-02-06] MEDS: allopurinoL 100 MG TAB PO SCH (05:45)
[2021-02-06] MEDS: FLUTICASONE 50MCG/SPRAY NASAL 16GM EA NOSTRIL SCH (05:46)
[2021-02-06 06:39] LABS: Glucose,Whole Blood 171 mg/dL (75-99)
[2021-02-06] MEDS: CLOPIDOGREL 75 MG TAB PO SCH (07:32)
[2021-02-06] MEDS: POTASSIUM CHLORIDE ER 10 MEQ TAB.ER.PRT PO SCH (07:32)
[2021-02-06] MEDS: INSULIN ASPART (NovoLOG) 100 UNIT/ML VIAL SQ SCH ×4 (07:32→22:55)
[2021-02-06] MEDS: FERROUS SULFATE 325 MG TAB PO SCH (07:32)
[2021-02-06] MEDS: RIVAROXABAN 15 MG TAB PO SCH (07:33)
[2021-02-06] MEDS: GLIMEPIRIDE 2 MG TAB PO SCH ×2 (07:40→16:57)
[2021-02-06 08:46] LABS: Anisocytosis Slight; Basophils # (A) 0.1 k/uL (0-0.2); Basophils % (A) 1 %; Eosinophils # (A) 0.3 k/uL (0-0.7); Eosinophils % (A) 4 %; HGB 12.4 gm/dL (11.4-16.0); Lymphocytes # (A) 1.5 k/uL (1.0-4.8); Lymphocytes % (A) 22 %; MCH 29.8 pg (25.0-35.0); MCHC 32.6 g/dL (31.0-37.0); MCV 91.4 fL (80.0-100.0); Mean Platelet Volume 8.2; Monocytes # (A) 0.5 k/uL (0-1.0); Monocytes % (A) 7 %; Neutrophils # (A) 4.3 k/uL (1.3-7.7); Neutrophils % (A) 64 %; Platelet Count 289 k/uL (150-450); RBC 4.15 m/uL (3.80-5.40); RDW 16.9 % (11.5-15.5); WBC 6.7 k/uL (3.8-10.6)
[2021-02-06 11:31] LABS: Glucose,Whole Blood 192 mg/dL (75-99)
[2021-02-06 13:00] LABS: African American GFR (CKD) 69 (>60 ml/min/1.73 sqM); Anion Gap 7 mmol/L; Blood Urea Nitrogen 43 mg/dL (7-17); Calcium 9.6 mg/dL (8.4-10.2); Carbon Dioxide 28 mmol/L (22-30); Chloride 103 mmol/L (98-107); Glucose 181 mg/dL (74-99); Non-African American GFR(CKD) 60 (>60 ml/min/1.73 sqM); Potassium 4.4 mmol/L (3.5-5.1); Sodium 138 mmol/L (137-145)
--- NOTE | 2021-02-06 14:44 | P.PN ---
Progress Note - Text Progress Note Date: 02/06/21 Chief Complaint: Left foot wound History of presenting complaint: This is a pleasant 85-year-old patient who follows with visiting physicians Dr. Alves. Chronic stable medical conditions include atrial fibrillation, diabetes, GERD, hypertension, osteoarthritis, hypothyroid, gout,. Patient has a permanent pacemaker. Patient in November of this year underwent percutaneous aortic valve implantation. 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 Patient is very much wheelchair bound. Patient wasn't [facility] for rehab back in November of this year. She is being followed by visiting physicians for a left foot wound which is a pressure ulcer of the left heel. Patient was noticed to have a blister off the left big toe. No fever no chills. Patient's appetite is fair. An okay bowel movements. Left footin dressing. No obvious drainage from the wound. Admitted with left heel ulcer and secondary cellulitis. February 05: Laying in bed. Comfortable. Getting IV vancomycin. Pending evaluation by ID. Oral intake fair. February 06: Laying in bed. Comfortable. Fair oral intake. Antibiotic changed to IV Ancef. Local wound care. Review of systems: Was done for constitutional, cardiovascular, GI, pulmonary. relevant finding as above Active Medications Acetaminophen (Acetaminophen Tab 325 Mg Tab) 650 mg PO Q6HR PRN PRN Reason: Mild Pain or Fever > 100.5 Last Admin: 02/05/21 08:59 Dose: 650 mg Documented by: Al Hydroxide/Mg Hydroxide (Mag Hydrox/Al Hydrox/Simeth 30 Ml Cup) 15 ml PO Q6HR PRN PRN Reason: Indigestion Allopurinol (Allopurinol 100 Mg Tab) 100 mg PO DAILY@[facility] Last Admin: 02/06/21 05:45 Dose: 100 mg Documented by: Alprazolam (Alprazolam 0.25 Mg Tab) 0.25 mg PO Q6HR PRN PRN Reason: Anxiety Atorvastatin Calcium (Atorvastatin 10 Mg Tab) 10 mg PO HS@1700 [facility] Last Admin: 02/05/21 17:22 Dose: 10 mg Documented by: Baclofen (Baclofen 10 Mg Tab) 10 mg PO HS@1700 PRN PRN Reason: Muscle Pain Calcium Carbonate/Glycine (Calcium Carbonate 500 Mg Chewable) 1,000 mg PO Q4HR PRN PRN Reason: Dyspepsia Cholecalciferol (Cholecalciferol 25 Mcg (1000 Iu) Tablet) 25 mcg PO HS@1700 [facility] Last Admin: 02/05/21 17:22 Dose: 25 mcg Documented by: Clopidogrel Bisulfate (Clopidogrel 75 Mg Tab) 75 mg PO DAILY@0900 [facility] Last Admin: 02/06/21 07:32 Dose: 75 mg Documented by: Ferrous Sulfate (Ferrous Sulfate 325 Mg Tab) 325 mg PO DAILY@0900 [facility] Last Admin: 02/06/21 07:32 Dose: 325 mg Documented by: Fluticasone Propionate (Fluticasone 50mcg/[place] Nasal 16gm) 1 spray EA NOSTRIL DAILY@0600 [facility] Last Admin: 02/06/21 05:46 Dose: 1 spray Documented by: Furosemide (Furosemide 40 Mg Tab) 40 mg PO DAILY@0600 [facility] Last Admin: 02/06/21 05:45 Dose: 40 mg Documented by: Glimepiride (Glimepiride 2 Mg Tab) 2 mg PO BID@0600,[facility]00 [facility] Last Admin: 02/06/21 07:40 Dose: Not Given Documented by: Cefazolin Sodium 2 gm/ Sodium (Chloride) 50 mls @ 100 mls/hr IVPB Q8HR [facility] Last Admin: 02/06/21 07:57 Dose: 100 mls/hr Documented by: Insulin Aspart (Insulin Aspart (Novolog) 100 Unit/Ml Vial) 0 unit SQ ACHS [facility]; Protocol Last Admin: 02/06/21 11:54 Dose: 3 unit Documented by: Lactulose (Lactulose 20 Gm/30 Ml Cup) 20 gm PO DAILY PRN PRN Reason: Constipation Levofloxacin (Levofloxacin 250 Mg Tab) 250 mg PO W/SUPPER [facility] Last Admin: 02/05/21 17:22 Dose: 250 mg Documented by: Levothyroxine Sodium (Levothyroxine 75 Mcg Tab) 150 mcg PO DAILY@0600 [facility] Last Admin: 02/06/21 05:45 Dose: 150 mcg Documented by: Loratadine (Loratadine 10 Mg Tab) 10 mg PO DAILY@0600 [facility] Last Admin: 02/06/21 05:45 Dose: 10 mg Documented by: Losartan Potassium (Losartan 50 Mg Tab) 50 mg PO DAILY@0600 [facility] Last Admin: 02/06/21 05:45 Dose: 50 mg Documented by: Magnesium Hydroxide (Magnesium Hydroxide 2,400 Mg/10 Ml Cup) 2,400 mg PO DAILY PRN PRN Reason: Constipation Melatonin (Melatonin 3 Mg Tablet) 3 mg PO HS PRN PRN Reason: Insomnia Nadolol (Nadolol 20 Mg Tab) 20 mg PO DAILY@0900 [facility] Last Admin: 02/06/21 07:33 Dose: 20 mg Documented by: Naloxone HCl (Naloxone 0.4 Mg/Ml 1 Ml Vial) 0.2 mg IV Q2M PRN PRN Reason: Opioid Reversal Nystatin (Nystatin 100,000 Unit/Gm Powd 15 Gm) 1 applic TOPICAL DAILY PRN; Protocol PRN Reason: Rash Ondansetron HCl (Ondansetron 4 Mg/2 Ml Vial) 4 mg IVP Q8HR PRN PRN Reason: Nausea And Vomiting Pantoprazole Sodium (Pantoprazole 40 Mg Tablet) 40 mg PO DAILY@0600 [facility] Last Admin: 02/06/21 05:45 Dose: 40 mg Documented by: Potassium Chloride (Potassium Chloride Er 10 Meq Tab.Er.Prt) 10 meq PO DAILY@0900 [facility] Last Admin: 02/06/21 07:32 Dose: 10 meq Documented by: Rivaroxaban (Rivaroxaban 15 Mg Tab) 15 mg PO DAILY@0900 [facility]; Protocol Last Admin: 02/06/21 07:33 Dose: 15 mg Documented by: Past medical history to include: Atrial fibrillation, diabetes, GERD, hypertension, osteoporosis, hypothyroid, gout, pacemaker, TAVR Social history: No history of smoking or alcohol. 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 EYES: Pupils equal. Conjunctiva normal. HEENT: External appearance of nose and ears normal, oral cavity grossly normal. NECK: JVD not raised; masses not palpable. HEART: First and second heart sounds are normal; no edema. LUNGS: Respiratory rate normal; clear to auscultation. ABDOMEN: Soft, nontender, liver spleen not palpable, no masses palpable. PSYCH: Alert and oriented x3; mood and affect normal. EXTREMITY: Dressing of the left ankle and midfoot. Blister left big toe.. INVESTIGATIONS, reviewed in the clinical context: February 06: WBC 6.7 hemoglobin 12.4 potassium 4.4 creatinine 0.89 Pro-calcitonin 0.04 WBC 9.3 hemoglobin 10.6 platelets 304 potassium 4.6 and 51 creatinine 1.12 Assessment and plan: -Acute on chronic left heel wound/pressure ulcer. had for a few months. Failed outpatient treatment. Patient has now developed a blister on the left big toe. 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 IV Ancef care discussed with the patient. Cutback IV fluids and DC Lasix.
[2021-02-06 16:42] LABS: Glucose,Whole Blood 307 mg/dL (75-99)
[2021-02-06] MEDS: ATORVASTATIN 10 MG TAB PO SCH (16:57)
[2021-02-06] MEDS: CHOLECALCIFEROL 25 MCG (1000 IU) TABLET PO SCH (16:57)
--- NOTE | 2021-02-06 18:15 | PN ---
PROGRESS NOTE DATE OF SERVICE: 02/06/2021 REASON FOR FOLLOWUP: Left heel wound and cellulitis. INTERVAL HISTORY: The patient is afebrile. The patient is currently breathing comfortably. No chest pain or cough. No abdominal pain or any worsening pain to the left heel and foot area. PHYSICAL EXAMINATION: Blood pressure 98/63 with a pulse of 108, temperature 98.4. She is 99% on room air. General description is an elderly female lying in bed in no distress. Respiratory system: Unlabored breathing, clear to auscultation anteriorly. Heart S1, S2. Regular rate and rhythm. Abdomen: Soft, no tenderness. Left heel swelling and redness has decreased. LABS: Hemoglobin is 12.4, white count 6.7. BUN of 43, creatinine 0.89. DIAGNOSTIC IMPRESSION AND PLAN: Patient with left heel wound with secondary cellulitis. Patient seems to be clinically responding to cefazolin to continue. Transition to oral Ceftin on discharge. Local wound care with dry Aquacel dressing. Family at the bedside. Questions and concerns were answered. MMODL / IJN: [id number] /
[2021-02-06 20:13] LABS: Glucose,Whole Blood 351 mg/dL (75-99)
[2021-02-07] MEDS: LOSARTAN 50 MG TAB PO SCH (05:52)
[2021-02-07] MEDS: LORATADINE 10 MG TAB PO SCH (05:52)
[2021-02-07] MEDS: allopurinoL 100 MG TAB PO SCH (05:52)
[2021-02-07] MEDS: LEVOTHYROXINE 75 MCG TAB PO SCH (05:52)
[2021-02-07] MEDS: PANTOPRAZOLE 40 MG TABLET PO SCH (05:52)
[2021-02-07] MEDS: FLUTICASONE 50MCG/SPRAY NASAL 16GM EA NOSTRIL SCH (05:54)
[2021-02-07 07:34] LABS: Glucose,Whole Blood 237 mg/dL (75-99)
[2021-02-07] MEDS: RIVAROXABAN 15 MG TAB PO SCH (08:05)
[2021-02-07] MEDS: INSULIN ASPART (NovoLOG) 100 UNIT/ML VIAL SQ SCH ×4 (08:05→22:49)
[2021-02-07] MEDS: POTASSIUM CHLORIDE ER 10 MEQ TAB.ER.PRT PO SCH (08:05)
[2021-02-07] MEDS: CLOPIDOGREL 75 MG TAB PO SCH (08:05)
[2021-02-07] MEDS: FERROUS SULFATE 325 MG TAB PO SCH (08:05)
[2021-02-07] MEDS: GLIMEPIRIDE 2 MG TAB PO SCH ×2 (08:14→17:03)
[2021-02-07 11:44] LABS: Glucose,Whole Blood 237 mg/dL (75-99)
--- NOTE | 2021-02-07 13:01 | CDI ---
Documentation Clarification Form Date: 02/07/2021 12:46:13 PM From: Valerie LawrenceASHER portillo, CCDS Admit Date: 02/05/2021 04:24:00 PM Patient Name: June Perez Visit Number: [id number] Discharge Date: ATTENTION: The Clinical Documentation Specialists (CDI) and [facility] Coding Staff appreciate your assistance in clarifying documentation. Please respond to the clarification below the line at the bottom and electronically sign. The CDI & [facility] Coding staff will review the response and follow-up if needed. Please note: Queries are made part of the Legal Health Record. If you have any questions, please contact the author of this message via ITS. Dr. Jay Russell: Per the 02/06 Attending Physician Progress Note, the following is documented: Admitted with left heel ulcer and secondary cellulitis. Additional clarification is requested regarding the patient's Diabetes and documented condition. History/Risk Factors per the 02/04 H/P: Atrial Fibrillation, IDDM II, GERD, Hypertension, Osteoarthritis, Osteoporosis, Hypothyroid and Gout, Pacemaker and TAVR, Wheelchair bound. Clinical Indicators: Presented to the ED 02/04 via EMS from rehab facility with a blister and erythema to the left foot. She has had a non-healing wound on her heel which has been managed by wound care. She developed a blister on the great toe left foot and some swelling and erythema of the foot and leg, has been on outpatient antibiotics without improvement, sent in for IV antibiotics. ED Clinical Impression: Left Foot Cellulitis, failed outpatient treatment, Type 2 Diabetes Mellitus. 02/04 VS: stable. 02/04 LAB: APTT 34.2, BUN 51, Creatinine 1.12 Glucose: 02/04: 233; 02/05: 137, 264, 241, 248; 02/06: 171, 192, 307, 351; 02/07: 237, 237 Treatment 02/04: IV Rocephin 1,000 mg x1, IV Lactated Ringers 1,000 mls @ 75 mls/hr q13H, Insulin sq, IV Vancomyin 250 mls @ 125 mls/hr x1, Hypoglycemia Protocol & Insulin Sliding Scale. Please clarify the following Diabetes conditions: [ ] Diabetes Type 2 [ ] With Hyperglycemia [ ] With Cellulitis [ ] Other, please specify [ ] Unable to Determine (Template Last Revised: September 2020) Diabetes mellitus type 2 with cellulitis MTDD
[2021-02-07 16:53] LABS: Glucose,Whole Blood 286 mg/dL (75-99)
--- NOTE | 2021-02-07 16:58 | PN ---
PROGRESS NOTE DATE OF SERVICE: 02/07/2021 REASON FOR FOLLOWUP: Left heel wound with significant cellulitis. INTERVAL HISTORY: Patient is afebrile. The patient is breathing comfortably. Denies having any chest pain, cough. No nausea, vomiting, abdominal pain or pain to the left heel area. PHYSICAL EXAMINATION: Blood pressure is 124/75, pulse of 77, temperature 98.7. She is 92% on room air. General description is an elderly female lying in bed in no distress. Respiratory system: Unlabored breathing, clear to auscultation anteriorly. Heart S1, S2. Regular rate and rhythm. Abdomen soft, no tenderness. Left foot swelling and redness has improved. No drainage. LABS: Creatinine 0.81. Blood cultures negative. DIAGNOSTIC IMPRESSION AND PLAN: Patient with left heel pressure ulcer with secondary cellulitis of the leg. Overall improvement. Finish therapy with oral Keflex, Aquacel dressing to the wound and close outpatient followup. MMODL / IJN: [id number] /
[2021-02-07] MEDS: ATORVASTATIN 10 MG TAB PO SCH (17:03)
[2021-02-07] MEDS: CHOLECALCIFEROL 25 MCG (1000 IU) TABLET PO SCH (17:03)
--- NOTE | 2021-02-07 17:21 | P.PN ---
Progress Note - Text Progress Note Date: 02/07/21 Chief Complaint: Left foot wound History of presenting complaint: This is a pleasant 85-year-old patient who follows with visiting physicians Dr. Alves. Chronic stable medical conditions include atrial fibrillation, diabetes, GERD, hypertension, osteoarthritis, hypothyroid, gout,. Patient has a permanent pacemaker. Patient in November of this year underwent percutaneous aortic valve implantation. 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 Patient is very much wheelchair bound. Patient wasn't [facility] for rehab back in November of this year. She is being followed by visiting physicians for a left foot wound which is a pressure ulcer of the left heel. Patient was noticed to have a blister off the left big toe. No fever no chills. Patient's appetite is fair. An okay bowel movements. Left footin dressing. No obvious drainage from the wound. Admitted with left heel ulcer and secondary cellulitis. February 05: Laying in bed. Comfortable. Getting IV vancomycin. Pending evaluation by ID. Oral intake fair. February 06: Laying in bed. Comfortable. Fair oral intake. Antibiotic changed to IV Ancef. Local wound care. February 07: Comfortable. Oral intake fair. On IV Ancef. Patient's family is very keen on vascular consultation. Review of systems: Was done for constitutional, cardiovascular, GI, pulmonary. relevant finding as above Active Medications Acetaminophen (Acetaminophen Tab 325 Mg Tab) 650 mg PO Q6HR PRN PRN Reason: Mild Pain or Fever > 100.5 Last Admin: 02/05/21 08:59 Dose: 650 mg Documented by: Al Hydroxide/Mg Hydroxide (Mag Hydrox/Al Hydrox/Simeth 30 Ml Cup) 15 ml PO Q6HR PRN PRN Reason: Indigestion Allopurinol (Allopurinol 100 Mg Tab) 100 mg PO DAILY@0600 [facility] Last Admin: 02/07/21 05:52 Dose: 100 mg Documented by: Alprazolam (Alprazolam 0.25 Mg Tab) 0.25 mg PO Q6HR PRN PRN Reason: Anxiety Atorvastatin Calcium (Atorvastatin 10 Mg Tab) 10 mg PO HS@1700 [facility] Last Admin: 02/07/21 17:03 Dose: 10 mg Documented by: Baclofen (Baclofen 10 Mg Tab) 10 mg PO HS@1700 PRN PRN Reason: Muscle Pain Calcium Carbonate/Glycine (Calcium Carbonate 500 Mg Chewable) 1,000 mg PO Q4HR PRN PRN Reason: Dyspepsia Cholecalciferol (Cholecalciferol 25 Mcg (1000 Iu) Tablet) 25 mcg PO HS@1700 [facility] Last Admin: 02/07/21 17:03 Dose: 25 mcg Documented by: Clopidogrel Bisulfate (Clopidogrel 75 Mg Tab) 75 mg PO DAILY@0900 [facility] Last Admin: 02/07/21 08:05 Dose: 75 mg Documented by: Ferrous Sulfate (Ferrous Sulfate 325 Mg Tab) 325 mg PO DAILY@0900 [facility] Last Admin: 02/07/21 08:05 Dose: 325 mg Documented by: Fluticasone Propionate (Fluticasone 50mcg/[place] Nasal 16gm) 1 spray EA NOSTRIL DAILY@0600 [facility] Last Admin: 02/07/21 05:54 Dose: 1 spray Documented by: Glimepiride (Glimepiride 2 Mg Tab) 2 mg PO BID@0600,1700 [facility] Last Admin: 02/07/21 17:03 Dose: 2 mg Documented by: Cefazolin Sodium 2 gm/ Sodium (Chloride) 50 mls @ 100 mls/hr IVPB Q8HR [facility] Last Admin: 02/07/21 16:37 Dose: 100 mls/hr Documented by: Insulin Aspart (Insulin Aspart (Novolog) 100 Unit/Ml Vial) 0 unit SQ [facility]; Protocol Last Admin: 02/07/21 17:03 Dose: 7 unit Documented by: Lactulose (Lactulose 20 Gm/30 Ml Cup) 20 gm PO DAILY PRN PRN Reason: Constipation Levothyroxine Sodium (Levothyroxine 75 Mcg Tab) 150 mcg PO DAILY@06 [facility] Last Admin: 02/07/21 05:52 Dose: 150 mcg Documented by: Loratadine (Loratadine 10 Mg Tab) 10 mg PO DAILY@0600 [facility] Last Admin: 02/07/21 05:52 Dose: 10 mg Documented by: Losartan Potassium (Losartan 50 Mg Tab) 50 mg PO DAILY@0600 [facility] Last Admin: 02/07/21 05:52 Dose: 50 mg Documented by: Magnesium Hydroxide (Magnesium Hydroxide 2,400 Mg/10 Ml Cup) 2,400 mg PO DAILY PRN PRN Reason: Constipation Melatonin (Melatonin 3 Mg Tablet) 3 mg PO HS PRN PRN Reason: Insomnia Nadolol (Nadolol 20 Mg Tab) 20 mg PO DAILY@0900 [facility] Last Admin: 02/07/21 08:05 Dose: 20 mg Documented by: Naloxone HCl (Naloxone 0.4 Mg/Ml 1 Ml Vial) 0.2 mg IV Q2M PRN PRN Reason: Opioid Reversal Nystatin (Nystatin 100,000 Unit/Gm Powd 15 Gm) 1 applic TOPICAL DAILY PRN; Protocol PRN Reason: Rash Ondansetron HCl (Ondansetron 4 Mg/2 Ml Vial) 4 mg IVP Q8HR PRN PRN Reason: Nausea And Vomiting Pantoprazole Sodium (Pantoprazole 40 Mg Tablet) 40 mg PO DAILY@0600 [facility] Last Admin: 02/07/21 05:52 Dose: 40 mg Documented by: Potassium Chloride (Potassium Chloride Er 10 Meq Tab.Er.Prt) 10 meq PO DAILY@09 [facility] Last Admin: 02/07/21 08:05 Dose: 10 meq Documented by: Rivaroxaban (Rivaroxaban 15 Mg Tab) 15 mg PO DAILY@0900 [facility]; Protocol Last Admin: 02/07/21 08:05 Dose: 15 mg Documented by: Past medical history to include: Atrial fibrillation, diabetes, GERD, hypertension, osteoporosis, hypothyroid, gout, pacemaker, TAVR Social history: No history of smoking or alcohol. 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 EYES: Pupils equal. Conjunctiva normal. HEENT: External appearance of nose and ears normal, oral cavity grossly normal. NECK: JVD not raised; masses not palpable. HEART: First and second heart sounds are normal; no edema. LUNGS: Respiratory rate normal; clear to auscultation. ABDOMEN: Soft, nontender, liver spleen not palpable, no masses palpable. PSYCH: Alert and oriented x3; mood and affect normal. EXTREMITY: Dressing of the left ankle and midfoot. Blister left big toe.. INVESTIGATIONS, reviewed in the clinical context: February 07: Creatinine 0.81. Accu-Cheks to 37, 237 February 06: WBC 6.7 hemoglobin 12.4 potassium 4.4 creatinine 0.89 Pro-calcitonin 0.04 WBC 9.3 hemoglobin 10.6 platelets 304 potassium 4.6 and 51 creatinine 1.12 Assessment and plan: -Acute on chronic left heel wound/pressure ulcer. had for a few months. Failed outpatient treatment. Patient has now developed a blister on the left big toe. IV Ancef, dry Aquacel silver dressing. 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 Uncontrolled with hypoglycemia Amaryl 2 mg twice a day. Add tradjenta 5 mg daily -GERD Protonix -Paroxysmal atrial fibrillation On nadolol, xarelto -Essential hypertension Corgard, losartan -Primary osteoarthritis Use pain medications as needed -Hypothyroid Synthroid 150 g daily -Chronic gout Allopurinol 100 mg daily Accu-Cheks uncontrolled. Add Tradjenta. Consult vascular. Continue IV Ancef. Hopefully discharge in 24 hours.
[2021-02-07 21:42] LABS: Glucose,Whole Blood 336 mg/dL (75-99)
[2021-02-07] MEDS: ACETAMINOPHEN TAB 325 MG TAB PO PRN (22:48)
[2021-02-07] MEDS: LINAGLIPTIN 5 MG TABLET PO SCH (22:48)
[2021-02-08] MEDS: LORATADINE 10 MG TAB PO SCH (05:59)
[2021-02-08] MEDS: LEVOTHYROXINE 75 MCG TAB PO SCH (05:59)
[2021-02-08] MEDS: allopurinoL 100 MG TAB PO SCH (05:59)
[2021-02-08] MEDS: LOSARTAN 50 MG TAB PO SCH (05:59)
[2021-02-08] MEDS: GLIMEPIRIDE 2 MG TAB PO SCH ×2 (06:00→18:21)
[2021-02-08] MEDS: FLUTICASONE 50MCG/SPRAY NASAL 16GM EA NOSTRIL SCH (06:00)
[2021-02-08] MEDS: PANTOPRAZOLE 40 MG TABLET PO SCH (06:03)
[2021-02-08 07:25] LABS: Glucose,Whole Blood 189 mg/dL (75-99)
[2021-02-08] MEDS: POTASSIUM CHLORIDE ER 10 MEQ TAB.ER.PRT PO SCH (07:35)
[2021-02-08] MEDS: CLOPIDOGREL 75 MG TAB PO SCH (07:35)
[2021-02-08] MEDS: RIVAROXABAN 15 MG TAB PO SCH (07:36)
[2021-02-08] MEDS: LINAGLIPTIN 5 MG TABLET PO SCH (07:36)
[2021-02-08] MEDS: INSULIN ASPART (NovoLOG) 100 UNIT/ML VIAL SQ SCH ×4 (07:36→22:06)
[2021-02-08] MEDS: FERROUS SULFATE 325 MG TAB PO SCH (07:36)
[2021-02-08] MEDS ORDERED: LIDOCAINE 1% INJ 10MG/ML (20 ML MDV) ONE (09:51)
[2021-02-08] MEDS ORDERED: MORPHINE SULFATE 2 MG/ML SYRINGE IVP STA (10:01)
--- NOTE | 2021-02-08 10:46 | P.GSCN ---
History of Present Illness History of present illness: 85-year-old white female, and has been admitted admitted with multiple medical problems patient has developed a pressure ulcer on the left heel superficial no drainage noted no and also there is a blister formation on the left foot big toe without any redness odor and drainage Damir has history of 4 aortic valve replacement A. fib hypertension. Patient is a wheelchair-bound. On examination patient was seen in her room Neck examination neck is supple no bruit appreciated Chest is clear Bilateral Abdomen soft nontender Vascular examination brachial radial pulses are present femorals are 2+ bilateral popliteal marked tenderness on the left side PTDP not palpable foot is warm there is a left heel blister and pressure ulcer on the left heel which is healing Plan is patient is under care of infectious disease with IV antibiotic at this point no surgical intervention needed primary care physician Dr. amanda by mouth you ED [facility] Past Medical History Past Medical History: Atrial Fibrillation, Diabetes Mellitus, GERD/Reflux, Hypertension, Osteoarthritis (OA), Thyroid Disorder Additional Past Medical History / Comment(s): gout, SOB w/exertion, recent admission for weakness, possible fall @home, currently @[facility] for rehab History of Any Multi-Drug Resistant Organisms: None Reported Past Surgical History: Appendectomy, Joint Replacement, Pacemaker Additional Past Surgical History / Comment(s): left knee replacement, cataract surgery, carpal tunnel sugery on right Past Anesthesia/Blood Transfusion Reactions: No Reported Reaction Type of Cardiac Device: Permanent Pacemaker Device Placement Date:: patient unsure Past Psychological History: No Psychological Hx Reported Smoking Status: Never smoker Past Alcohol Use History: None Reported Past Drug Use History: None Reported - Past Family History Father Family Medical History: Cancer Medications and Allergies Home Medications Medication Instructions Recorded Confirmed Type Baclofen [Lioresal] 10 mg PO HS@1700 PRN 12/11/13 02/04/21 History Ferrous Sulfate [Feosol] 325 mg PO DAILY@89912/11/13 02/04/21 History Furosemide [Lasix] 40 mg PO DAILY@59912/11/13 02/04/21 History Cholecalciferol [Vitamin D3 (25 1,000 unit PO HS@1700 03/21/19 02/04/21 History Mcg = 1000 Iu)] Levothyroxine Sodium [Synthroid] 150 mcg PO DAILY@59903/21/19 02/04/21 History Pantoprazole Sodium [Protonix] 40 mg PO DAILY@0600 03/21/19 02/04/21 History nadoloL [Corgard] 20 mg PO DAILY@0903/21/19 02/04/21 History Acetaminophen Tab [Tylenol] 650 mg PO Q6HR PRN tab 03/24/19 02/04/21 Rx Cetirizine HCl 10 mg PO DAILY@0610/08/20 02/04/21 History Fluticasone Nasal [place] [Flonase 1 spray EA NOSTRIL DAILY@0610/08/20 02/04/21 History Nasal [place]] Glimepiride [Amaryl] 2 mg PO BID@0600,1700 10/08/20 02/04/21 History Insulin Aspart Protam & Aspart See Protocol SQ AC-TID 10/08/20 02/04/21 History [NovoLOG MIX 70-30 Flexpen] Simvastatin 10 mg PO HS@1700 10/08/20 02/04/21 History allopurinoL [Zyloprim] 100 mg PO DAILY@0610/08/20 02/04/21 History Potassium Chloride [Klor-Con 10] 10 meq PO DAILY@0900 11/06/20 02/04/21 History Clopidogrel [Plavix] 75 mg PO DAILY@0902/04/21 02/04/21 History Levofloxacin [Levaquin] 500 mg PO W/SUPPER 02/04/21 02/04/21 History Losartan Potassium 50 mg PO DAILY@0602/04/21 02/04/21 History Nystatin 100,000 Unit/gm Powd 1 applic TOPICAL DAILY PRN 02/04/21 02/04/21 History [Mycostatin Powder] Rivaroxaban [Xarelto] 15 mg PO DAILY@0900 02/04/21 02/04/21 History Allergies Allergy/AdvReac Type Severity Reaction Status Date / Time metformin Allergy Unknown Verified 02/04/21 19:01 Surgical - Exam Vital Signs Temp Pulse Resp BP Pulse Ox 98.1 F 69 16 125/81 98 02/04/21 18:59 02/04/21 18:59 02/04/21 18:59 02/04/21 18:59 02/04/21 18:59 Results - Labs 02/06/21 07:22 02/07/21 07:18 Abnormal Lab Results - Last 24 Hours (Table) 02/07/21 02/07/21 02/07/21 Range/Units 11:42 16:51 21:38 POC Glucose (mg/dL) 237 H 286 H 336 H (75-99) mg/dL 02/08/21 Range/Units 07:23 POC Glucose (mg/dL) 189 H (75-99) mg/dL Microbiology - Last 24 Hours (Table) 02/04/21 20:38 Blood Culture - Preliminary Blood No Growth after 72 hours
[2021-02-08 11:51] LABS: Glucose,Whole Blood 267 mg/dL (75-99)
--- NOTE | 2021-02-08 16:16 | XR ---
EXAMINATION TYPE: XR ankle complete LT DATE OF EXAM: 02/08/2021 COMPARISON: NONE HISTORY: Ankle pain. Ulcer. TECHNIQUE: 2 views FINDINGS: There is plantar calcaneal spurring. There is vascular calcification. Ankle mortise is rashard omic. There is osteopenia. I see no fracture. IMPRESSION: Calcaneal spurring. No fracture. No sign of osteomyelitis.
--- NOTE | 2021-02-08 16:38 | P.PN ---
Progress Note - Text Progress Note Date: 02/08/21 Chief Complaint: Left foot wound History of presenting complaint: This is a pleasant 85-year-old patient who follows with visiting physicians Dr. Alves. Chronic stable medical conditions include atrial fibrillation, diabetes, GERD, hypertension, osteoarthritis, hypothyroid, gout,. Patient has a permanent pacemaker. Patient in November of this year underwent percutaneous aortic valve implantation. 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 Patient is very much wheelchair bound. Patient wasn't [facility] for rehab back in November of this year. She is being followed by visiting physicians for a left foot wound which is a pressure ulcer of the left heel. Patient was noticed to have a blister off the left big toe. No fever no chills. Patient's appetite is fair. An okay bowel movements. Left footin dressing. No obvious drainage from the wound. Admitted with left heel ulcer and secondary cellulitis. February 05: Laying in bed. Comfortable. Getting IV vancomycin. Pending evaluation by ID. Oral intake fair. February 06: Laying in bed. Comfortable. Fair oral intake. Antibiotic changed to IV Ancef. Local wound care. February 07: Comfortable. Oral intake fair. On IV Ancef. Patient's family is very keen on vascular consultation. February 08: Patient was seen by Dr. Coronado from vascular surgery. Not for any further intervention. Patient does spike a fever last night. Otherwise feeling well. Good oral intake. Review of systems: Was done for constitutional, cardiovascular, GI, pulmonary. relevant finding as above Active Medications Acetaminophen (Acetaminophen Tab 325 Mg Tab) 650 mg PO Q6HR PRN PRN Reason: Mild Pain or Fever > 100.5 Last Admin: 02/07/21 22:48 Dose: 650 mg Documented by: Al Hydroxide/Mg Hydroxide (Mag Hydrox/Al Hydrox/Simeth 30 Ml Cup) 15 ml PO Q6HR PRN PRN Reason: Indigestion Allopurinol (Allopurinol 100 Mg Tab) 100 mg PO DAILY@0600 [facility] Last Admin: 02/08/21 05:59 Dose: 100 mg Documented by: Alprazolam (Alprazolam 0.25 Mg Tab) 0.25 mg PO Q6HR PRN PRN Reason: Anxiety Atorvastatin Calcium (Atorvastatin 10 Mg Tab) 10 mg PO HS@1700 [facility] Last Admin: 02/07/21 17:03 Dose: 10 mg Documented by: Baclofen (Baclofen 10 Mg Tab) 10 mg PO HS@1700 PRN PRN Reason: Muscle Pain Calcium Carbonate/Glycine (Calcium Carbonate 500 Mg Chewable) 1,000 mg PO Q4HR PRN PRN Reason: Dyspepsia Cholecalciferol (Cholecalciferol 25 Mcg (1000 Iu) Tablet) 25 mcg PO HS@1700 [facility] Last Admin: 02/07/21 17:03 Dose: 25 mcg Documented by: Clopidogrel Bisulfate (Clopidogrel 75 Mg Tab) 75 mg PO DAILY@0900 [facility] Last Admin: 02/08/21 07:35 Dose: 75 mg Documented by: Ferrous Sulfate (Ferrous Sulfate 325 Mg Tab) 325 mg PO DAILY@0900 [facility] Last Admin: 02/08/21 07:36 Dose: 325 mg Documented by: Fluticasone Propionate (Fluticasone 50mcg/[place] Nasal 16gm) 1 spray EA NOSTRIL DAILY@0600 [facility] Last Admin: 02/08/21 06:00 Dose: 1 spray Documented by: Glimepiride (Glimepiride 2 Mg Tab) 2 mg PO BID@0600,1700 [facility] Last Admin: 02/08/21 06:00 Dose: 2 mg Documented by: Cefazolin Sodium 2 gm/ Sodium (Chloride) 50 mls @ 100 mls/hr IVPB Q8HR [facility] Last Admin: 02/08/21 07:36 Dose: 100 mls/hr Documented by: Insulin Aspart (Insulin Aspart (Novolog) 100 Unit/Ml Vial) 0 unit SQ ACHS [facility]; Protocol Last Admin: 02/08/21 13:09 Dose: 3 unit Documented by: Lactulose (Lactulose 20 Gm/30 Ml Cup) 20 gm PO DAILY PRN PRN Reason: Constipation Levothyroxine Sodium (Levothyroxine 75 Mcg Tab) 150 mcg PO DAILY@0600 [facility] Last Admin: 02/08/21 05:59 Dose: 150 mcg Documented by: Linagliptin (Linagliptin 5 Mg Tablet) 5 mg PO DAILY [facility] Last Admin: 02/08/21 07:36 Dose: 5 mg Documented by: Loratadine (Loratadine 10 Mg Tab) 10 mg PO DAILY@0600 [facility] Last Admin: 02/08/21 05:59 Dose: 10 mg Documented by: Losartan Potassium (Losartan 50 Mg Tab) 50 mg PO DAILY@0600 [facility] Last Admin: 02/08/21 05:59 Dose: 50 mg Documented by: Magnesium Hydroxide (Magnesium Hydroxide 2,400 Mg/10 Ml Cup) 2,400 mg PO DAILY PRN PRN Reason: Constipation Melatonin (Melatonin 3 Mg Tablet) 3 mg PO HS PRN PRN Reason: Insomnia Nadolol (Nadolol 20 Mg Tab) 20 mg PO DAILY@0900 [facility] Last Admin: 02/08/21 07:36 Dose: 20 mg Documented by: Naloxone HCl (Naloxone 0.4 Mg/Ml 1 Ml Vial) 0.2 mg IV Q2M PRN PRN Reason: Opioid Reversal Nystatin (Nystatin 100,000 Unit/Gm Powd 15 Gm) 1 applic TOPICAL DAILY PRN; Protocol PRN Reason: Rash Ondansetron HCl (Ondansetron 4 Mg/2 Ml Vial) 4 mg IVP Q8HR PRN PRN Reason: Nausea And Vomiting Pantoprazole Sodium (Pantoprazole 40 Mg Tablet) 40 mg PO DAILY@0600 [facility] Last Admin: 02/08/21 06:03 Dose: 40 mg Documented by: Potassium Chloride (Potassium Chloride Er 10 Meq Tab.Er.Prt) 10 meq PO DAILY@0900 [facility] Last Admin: 02/08/21 07:35 Dose: 10 meq Documented by: Rivaroxaban (Rivaroxaban 15 Mg Tab) 15 mg PO DAILY@0900 [facility]; Protocol Last Admin: 02/08/21 07:36 Dose: 15 mg Documented by: Past medical history to include: Atrial fibrillation, diabetes, GERD, hypertension, osteoporosis, hypothyroid, gout, pacemaker, TAVR Social history: No history of smoking or alcohol. 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 Afebrile today GENERAL: reclining in bed, awake, comfortable. EYES: Pupils equal. Conjunctiva normal. HEENT: External appearance of nose and ears normal, oral cavity grossly normal. NECK: JVD not raised; masses not palpable. HEART: First and second heart sounds are normal; no edema. LUNGS: Respiratory rate normal; clear to auscultation. ABDOMEN: Soft, nontender, liver spleen not palpable, no masses palpable. PSYCH: Alert and oriented x3; mood and affect normal. EXTREMITY: Dressing of the left ankle and midfoot. Blister left big toe.. INVESTIGATIONS, reviewed in the clinical context: February 07: Creatinine 0.81. Accu-Cheks to 37, 237 February 06: WBC 6.7 hemoglobin 12.4 potassium 4.4 creatinine 0.89 Pro-calcitonin 0.04 WBC 9.3 hemoglobin 10.6 platelets 304 potassium 4.6 and 51 creatinine 1.12 Assessment and plan: -Acute on chronic left heel wound/pressure ulcer. had for a few months. Failed outpatient treatment. Patient has now developed a blister on the left big toe. IV Ancef, dry Aquacel silver dressing. Follow with ID. Patient was seen by vascular surgery Dr. Saldaña. Not for any intervention. 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 Uncontrolled with hypoglycemia Amaryl 2 mg twice a day. Add tradjenta 5 mg daily -GERD Protonix -Paroxysmal atrial fibrillation On nadolol, xarelto -Essential hypertension Corgard, losartan -Primary osteoarthritis Use pain medications as needed -Hypothyroid Synthroid 150 g daily -Chronic gout Allopurinol 100 mg daily Patient does spike 1 fever last night. No further episodes. Otherwise looks good. Continue current medications. Follow with ID.
--- NOTE | 2021-02-08 16:55 | PN ---
PROGRESS NOTE DATE OF SERVICE: 02/08/2021. REASON FOR FOLLOWUP: 1. Left heel ulcer and cellulitis. 2. Patient with new fever. INTERVAL HISTORY: The patient did spike a fever of 101 last night. The patient is afebrile this morning. The patient is breathing comfortably on room air. No specific ( ). The patient denies having any chest pain, shortness of breath or cough. No abdominal pain or pain to the left heel area. PHYSICAL EXAMINATION: Blood pressure is 101/57, pulse of 101, temperature 98.7, T-max is 101. She is 95% on room air. General description is an elderly female lying in bed in no distress. Respiratory system: Unlabored breathing, clear to auscultation anteriorly. Heart S1, S2. Regular rate and rhythm. Abdomen soft, no tenderness. Extremities: Left heel wound, superficial. Surrounding swelling and redness has resolved. LABS: No new labs have been obtained today. DIAGNOSTIC IMPRESSION AND PLAN: Patient with left heel wound with secondary cellulitis which seems to have shown overall improvement with cefazolin, however, the patient now has new fever. Clinically doubt related to his left heel area. Will look for the other source. Will go ahead and check blood cultures, check a urine culture, obtain x-rays of the left ankle area, chest x-ray and adjust antibiotic further based on this workup. MMODL / IJN: [id number] /
[2021-02-08 16:58] LABS: Anisocytosis Slight; Basophils # (A) 0.1 k/uL (0-0.2); Basophils % (A) 0 %; Eosinophils # (A) 0.1 k/uL (0-0.7); Eosinophils % (A) 1 %; HCT 38.1 % (34.0-46.0); Lymphocytes # (A) 1.4 k/uL (1.0-4.8); Lymphocytes % (A) 11 %; MCH 29.4 pg (25.0-35.0); MCHC 31.6 g/dL (31.0-37.0); Mean Platelet Volume 8.8; Monocytes # (A) 1.1 k/uL (0-1.0); Monocytes % (A) 9 %; Neutrophils # (A) 9.5 k/uL (1.3-7.7); Neutrophils % (A) 77 %; Platelet Count 245 k/uL (150-450); RDW 16.1 % (11.5-15.5); WBC 12.3 k/uL (3.8-10.6)
[2021-02-08 17:24] LABS: Glucose,Whole Blood 352 mg/dL (75-99)
[2021-02-08 17:24] LABS: ALT <6 U/L (4-34); AST 19 U/L (14-36); African American GFR (CKD) 75 (>60 ml/min/1.73 sqM); Albumin/Globulin Ratio 0.9; Alkaline Phosphatase 126 U/L (38-126); Anion Gap 9 mmol/L; Blood Urea Nitrogen 38 mg/dL (7-17); C Reactive Protein 8.9 mg/dL (<1.0); Calcium 8.7 mg/dL (8.4-10.2); Carbon Dioxide 24 mmol/L (22-30); Chloride 102 mmol/L (98-107); Globulin 3.2 g/dL; Glucose 329 mg/dL (74-99); Non-African American GFR(CKD) 65 (>60 ml/min/1.73 sqM); Potassium 4.1 mmol/L (3.5-5.1); Sodium 135 mmol/L (137-145); Total Bilirubin 0.5 mg/dL (0.2-1.3); Total Protein 6.2 g/dL (6.3-8.2)
[2021-02-08] MEDS: CHOLECALCIFEROL 25 MCG (1000 IU) TABLET PO SCH (17:29)
[2021-02-08] MEDS: ATORVASTATIN 10 MG TAB PO SCH (17:29)
[2021-02-08 20:29] LABS: Glucose,Whole Blood 251 mg/dL (75-99)
[2021-02-08] MEDS: ACETAMINOPHEN TAB 325 MG TAB PO PRN (22:05)
[2021-02-09 04:38] LABS: Appearance,Urine Cloudy (Clear); Bacteria,Urine Rare /hpf; Bilirubin,Urine Negative (Negative); Blood,Urine Small (Negative); Color,Urine Yellow; Glucose,Urine (UA) Negative (Negative); Ketones,Urine Trace (Negative); Leukocyte Esterase,Urine Negative (Negative); Mucus,Urine Rare /hpf; Nitrite,Urine Negative (Negative); PH, Urine 5.5 (5.0-8.0); Protein,Urine Trace (Negative); RBC,Urine 6 /hpf (0-5); Specific Gravity,Urine 1.022 (1.001-1.035); Squamous Epithelial Cell,Urine 8 /hpf (0-4); Urobilinogen,Urine <2.0 mg/dL (<2.0); WBC,Urine 3 /hpf (0-5)
[2021-02-09] MEDS: LORATADINE 10 MG TAB PO SCH (05:33)
[2021-02-09] MEDS: LEVOTHYROXINE 75 MCG TAB PO SCH (05:33)
[2021-02-09] MEDS: GLIMEPIRIDE 2 MG TAB PO SCH ×2 (05:33→17:46)
[2021-02-09] MEDS: PANTOPRAZOLE 40 MG TABLET PO SCH (05:33)
[2021-02-09] MEDS: LOSARTAN 50 MG TAB PO SCH (05:33)
[2021-02-09] MEDS: allopurinoL 100 MG TAB PO SCH (05:33)
[2021-02-09] MEDS: FLUTICASONE 50MCG/SPRAY NASAL 16GM EA NOSTRIL SCH (05:33)
[2021-02-09 06:43] LABS: Glucose,Whole Blood 121 mg/dL (75-99)
[2021-02-09] MEDS: INSULIN ASPART (NovoLOG) 100 UNIT/ML VIAL SQ SCH ×4 (07:12→21:17)
[2021-02-09 07:16] LABS: Basophils # (A) 0.1 k/uL (0-0.2); Basophils % (A) 1 %; Eosinophils # (A) 0.3 k/uL (0-0.7); Eosinophils % (A) 3 %; HGB 11.6 gm/dL (11.4-16.0); Lymphocytes # (A) 1.3 k/uL (1.0-4.8); Lymphocytes % (A) 13 %; MCH 29.8 pg (25.0-35.0); MCHC 32.3 g/dL (31.0-37.0); MCV 92.2 fL (80.0-100.0); Mean Platelet Volume 8.9; Monocytes % (A) 10 %; Neutrophils # (A) 7.5 k/uL (1.3-7.7); Neutrophils % (A) 71 %; Platelet Count 223 k/uL (150-450); RBC 3.91 m/uL (3.80-5.40); WBC 10.5 k/uL (3.8-10.6)
[2021-02-09] MEDS: POTASSIUM CHLORIDE ER 10 MEQ TAB.ER.PRT PO SCH (07:22)
[2021-02-09] MEDS: LINAGLIPTIN 5 MG TABLET PO SCH (07:22)
[2021-02-09] MEDS: FERROUS SULFATE 325 MG TAB PO SCH (07:22)
[2021-02-09] MEDS: CLOPIDOGREL 75 MG TAB PO SCH (07:22)
[2021-02-09] MEDS: RIVAROXABAN 15 MG TAB PO SCH (07:23)
[2021-02-09 07:28] LABS: African American GFR (CKD) 84 (>60 ml/min/1.73 sqM); Anion Gap 6 mmol/L; Blood Urea Nitrogen 39 mg/dL (7-17); Calcium 8.6 mg/dL (8.4-10.2); Carbon Dioxide 26 mmol/L (22-30); Chloride 104 mmol/L (98-107); Glucose 116 mg/dL (74-99); Non-African American GFR(CKD) 73 (>60 ml/min/1.73 sqM); Potassium 3.9 mmol/L (3.5-5.1); Sodium 136 mmol/L (137-145)
[2021-02-09 11:19] LABS: Glucose,Whole Blood 268 mg/dL (75-99)
--- NOTE | 2021-02-09 16:32 | P.PN ---
Progress Note - Text Progress Note Date: 02/09/21 Chief Complaint: Left foot wound History of presenting complaint: This is a pleasant 85-year-old patient who follows with visiting physicians Dr. Alves. Chronic stable medical conditions include atrial fibrillation, diabetes, GERD, hypertension, osteoarthritis, hypothyroid, gout,. Patient has a permanent pacemaker. Patient in November of this year underwent percutaneous aortic valve implantation. 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 Patient is very much wheelchair bound. Patient wasn't [facility] for rehab back in November of this year. She is being followed by visiting physicians for a left foot wound which is a pressure ulcer of the left heel. Patient was noticed to have a blister off the left big toe. No fever no chills. Patient's appetite is fair. An okay bowel movements. Left footin dressing. No obvious drainage from the wound. Admitted with left heel ulcer and secondary cellulitis. February 05: Laying in bed. Comfortable. Getting IV vancomycin. Pending evaluation by ID. Oral intake fair. February 06: Laying in bed. Comfortable. Fair oral intake. Antibiotic changed to IV Ancef. Local wound care. February 07: Comfortable. Oral intake fair. On IV Ancef. Patient's family is very keen on vascular consultation. February 08: Patient was seen by Dr. Coronado from vascular surgery. Not for any further intervention. Patient does spike a fever last night. Otherwise feeling well. Good oral intake. February 09: Reclining in bed. Comfortable. Oral intake fair. Pain control. Problem with transportation for discharge. Review of systems: Was done for constitutional, cardiovascular, GI, pulmonary. relevant finding as above Active Medications Acetaminophen (Acetaminophen Tab 325 Mg Tab) 650 mg PO Q6HR PRN PRN Reason: Mild Pain or Fever > 100.5 Last Admin: 02/08/21 22:05 Dose: 650 mg Documented by: Al Hydroxide/Mg Hydroxide (Mag Hydrox/Al Hydrox/Simeth 30 Ml Cup) 15 ml PO Q6HR PRN PRN Reason: Indigestion Allopurinol (Allopurinol 100 Mg Tab) 100 mg PO DAILY@0600 ROSELYN Last Admin: 02/09/21 05:33 Dose: 100 mg Documented by: Alprazolam (Alprazolam 0.25 Mg Tab) 0.25 mg PO Q6HR PRN PRN Reason: Anxiety Atorvastatin Calcium (Atorvastatin 10 Mg Tab) 10 mg PO HS@1700 [facility] Last Admin: 02/08/21 17:29 Dose: 10 mg Documented by: Baclofen (Baclofen 10 Mg Tab) 10 mg PO HS@1700 PRN PRN Reason: Muscle Pain Calcium Carbonate/Glycine (Calcium Carbonate 500 Mg Chewable) 1,000 mg PO Q4HR PRN PRN Reason: Dyspepsia Cholecalciferol (Cholecalciferol 25 Mcg (1000 Iu) Tablet) 25 mcg PO HS@1700 [facility] Last Admin: 02/08/21 17:29 Dose: 25 mcg Documented by: Clopidogrel Bisulfate (Clopidogrel 75 Mg Tab) 75 mg PO DAILY@0900 [facility] Last Admin: 02/09/21 07:22 Dose: 75 mg Documented by: Ferrous Sulfate (Ferrous Sulfate 325 Mg Tab) 325 mg PO DAILY@0900 [facility] Last Admin: 02/09/21 07:22 Dose: 325 mg Documented by: Fluticasone Propionate (Fluticasone 50mcg/[place] Nasal 16gm) 1 spray EA NOSTRIL DAILY@0600 [facility] Last Admin: 02/09/21 05:33 Dose: 1 spray Documented by: Glimepiride (Glimepiride 2 Mg Tab) 2 mg PO BID@0600,1700 [facility] Last Admin: 02/09/21 05:33 Dose: 2 mg Documented by: Cefazolin Sodium 2 gm/ Sodium (Chloride) 50 mls @ 100 mls/hr IVPB Q8HR [facility] Last Admin: 02/09/21 07:22 Dose: 100 mls/hr Documented by: Insulin Aspart (Insulin Aspart (Novolog) 100 Unit/Ml Vial) 0 unit SQ ACHS [facility]; Protocol Last Admin: 02/09/21 12:43 Dose: 6 unit Documented by: Lactulose (Lactulose 20 Gm/30 Ml Cup) 20 gm PO DAILY PRN PRN Reason: Constipation Levothyroxine Sodium (Levothyroxine 75 Mcg Tab) 150 mcg PO DAILY@0600 [facility] Last Admin: 02/09/21 05:33 Dose: 150 mcg Documented by: Linagliptin (Linagliptin 5 Mg Tablet) 5 mg PO DAILY [facility] Last Admin: 02/09/21 07:22 Dose: 5 mg Documented by: Loratadine (Loratadine 10 Mg Tab) 10 mg PO DAILY@0600 [facility] Last Admin: 02/09/21 05:33 Dose: 10 mg Documented by: Losartan Potassium (Losartan 50 Mg Tab) 50 mg PO DAILY@0600 [facility] Last Admin: 02/09/21 05:33 Dose: 50 mg Documented by: Magnesium Hydroxide (Magnesium Hydroxide 2,400 Mg/10 Ml Cup) 2,400 mg PO DAILY PRN PRN Reason: Constipation Melatonin (Melatonin 3 Mg Tablet) 3 mg PO HS PRN PRN Reason: Insomnia Nadolol (Nadolol 20 Mg Tab) 20 mg PO DAILY@0900 [facility] Last Admin: 02/09/21 07:23 Dose: 20 mg Documented by: Naloxone HCl (Naloxone 0.4 Mg/Ml 1 Ml Vial) 0.2 mg IV Q2M PRN PRN Reason: Opioid Reversal Nystatin (Nystatin 100,000 Unit/Gm Powd 15 Gm) 1 applic TOPICAL DAILY PRN; Protocol PRN Reason: Rash Ondansetron HCl (Ondansetron 4 Mg/2 Ml Vial) 4 mg IVP Q8HR PRN PRN Reason: Nausea And Vomiting Pantoprazole Sodium (Pantoprazole 40 Mg Tablet) 40 mg PO DAILY@06 [facility] Last Admin: 02/09/21 05:33 Dose: 40 mg Documented by: Potassium Chloride (Potassium Chloride Er 10 Meq Tab.Er.Prt) 10 meq PO DAILY@0900 [facility] Last Admin: 02/09/21 07:22 Dose: 10 meq Documented by: Rivaroxaban (Rivaroxaban 15 Mg Tab) 15 mg PO DAILY@09 [facility]; Protocol Last Admin: 02/09/21 07:23 Dose: 15 mg Documented by: Past medical history to include: Atrial fibrillation, diabetes, GERD, hypertension, osteoporosis, hypothyroid, gout, pacemaker, TAVR Social history: No history of smoking or alcohol. 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 Uses a wheelchair Family history: Cancer Physical examination: VITAL SIGNS: 98.8, 76, 18, 107/62, 94% room air GENERAL: reclining in bed, awake, comfortable. EYES: Pupils equal. Conjunctiva normal. HEENT: External appearance of nose and ears normal, oral cavity grossly normal. NECK: JVD not raised; masses not palpable. HEART: First and second heart sounds are normal; no edema. LUNGS: Respiratory rate normal; clear to auscultation. ABDOMEN: Soft, nontender, liver spleen not palpable, no masses palpable. PSYCH: Alert and oriented x3; mood and affect normal. EXTREMITY: Dressing of the left ankle and midfoot. Blister left big toe.. INVESTIGATIONS, reviewed in the clinical context: February 09: WBC 10.5 hemoglobin 11.6 potassium 3.9 creatinine 0.76 UA negative for leukoesterase, negative for nitrite February 07: Creatinine 0.81. Accu-Cheks to 37, 237 February 06: WBC 6.7 hemoglobin 12.4 potassium 4.4 creatinine 0.89 Pro-calcitonin 0.04 WBC 9.3 hemoglobin 10.6 platelets 304 potassium 4.6 and 51 creatinine 1.12 Assessment and plan: -Acute on chronic left heel wound/pressure ulcer. had for a few months. Failed outpatient treatment. Patient has now developed a blister on the left big toe.: Improving IV Ancef, dry Aquacel silver dressing. Follow with ID. Patient was seen by vascular surgery Dr. Saldaña. Not for any intervention. 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 Uncontrolled with hypoglycemia Amaryl 2 mg twice a day. Add tradjenta 5 mg daily -GERD Protonix -Paroxysmal atrial fibrillation On nadolol, xarelto -Essential hypertension Corgard, losartan -Primary osteoarthritis Use pain medications as needed -Hypothyroid Synthroid 150 g daily -Chronic gout Allopurinol 100 mg daily Doing well. Transport to be arranged for discharge. Per nursing will happen tomorrow. Antibiotics per ID
[2021-02-09 16:56] LABS: Glucose,Whole Blood 294 mg/dL (75-99)
[2021-02-09] MEDS: CHOLECALCIFEROL 25 MCG (1000 IU) TABLET PO SCH (17:05)
[2021-02-09] MEDS: ATORVASTATIN 10 MG TAB PO SCH (17:05)
[2021-02-09 20:58] LABS: Glucose,Whole Blood 272 mg/dL (75-99)
[2021-02-09] MEDS: ACETAMINOPHEN TAB 325 MG TAB PO PRN (21:20)
[2021-02-10] MEDS: FLUTICASONE 50MCG/SPRAY NASAL 16GM EA NOSTRIL SCH (05:37)
[2021-02-10] MEDS: LEVOTHYROXINE 75 MCG TAB PO SCH (05:38)
[2021-02-10] MEDS: GLIMEPIRIDE 2 MG TAB PO SCH (05:38)
[2021-02-10] MEDS: PANTOPRAZOLE 40 MG TABLET PO SCH (05:38)
[2021-02-10] MEDS: allopurinoL 100 MG TAB PO SCH (05:38)
[2021-02-10] MEDS: LORATADINE 10 MG TAB PO SCH (05:38)
[2021-02-10] MEDS: LOSARTAN 50 MG TAB PO SCH (05:38)
--- NOTE | 2021-02-10 06:21 | PN ---
PROGRESS NOTE DATE OF SERVICE: 02/09/2021 REASON FOR FOLLOWUP: Left heel ulcer with secondary cellulitis. INTERVAL HISTORY: Patient is afebrile. The patient is breathing comfortably. The patient denies having any chest pain, shortness of breath or cough. No abdominal pain or any worsening pain to the left heel area. PHYSICAL EXAMINATION: Blood pressure 110/70 with a pulse of 97, temperature 98.4. She is 96% on room air. General description is an elderly female lying in bed in no distress. Respiratory system: Unlabored breathing, clear to auscultation anteriorly. Heart S1, S2. Regular rate and rhythm. Abdomen soft, no tenderness. LAB: Hemoglobin 11.1, white count 10.5, BUN of 39, creatinine 0.76. Blood culture has been negative. DIAGNOSTIC IMPRESSION AND PLAN: Patient with left heel ulcer with secondary cellulitis. Overall improvement on cefazolin. Finish therapy with oral Keflex, local wound care with Aquacel Silver dressing and close outpatient followup. MMODL / IJN: [id number] /
[2021-02-10 06:43] LABS: Glucose,Whole Blood 154 mg/dL (75-99)
[2021-02-10] MEDS: POTASSIUM CHLORIDE ER 10 MEQ TAB.ER.PRT PO SCH (07:37)
[2021-02-10] MEDS: CLOPIDOGREL 75 MG TAB PO SCH (07:37)
[2021-02-10] MEDS: FERROUS SULFATE 325 MG TAB PO SCH (07:37)
[2021-02-10] MEDS: LINAGLIPTIN 5 MG TABLET PO SCH (07:37)
[2021-02-10] MEDS: RIVAROXABAN 15 MG TAB PO SCH (07:38)
[2021-02-10] MEDS: INSULIN ASPART (NovoLOG) 100 UNIT/ML VIAL SQ SCH ×2 (07:38→12:26)
[2021-02-10 07:46] VITALS: BP 106/67; PULSE 74; RESP 18; TEMP 98.2
[2021-02-10 11:09] LABS: Glucose,Whole Blood 219 mg/dL (75-99)
--- NOTE | 2021-02-10 13:33 | PN ---
PROGRESS NOTE DATE OF SERVICE: 02/10/2021 REASON FOR FOLLOWUP: Left heel wound with secondary cellulitis. INTERVAL HISTORY: The patient is afebrile. The patient is breathing comfortably. No chest pain, shortness of breath or cough. No nausea or vomiting, abdominal pain or pain to the left heel area. PHYSICAL EXAMINATION: Blood pressure 106/67, pulse of 74, temperature 98.2. She is 94% on room air. General description is an elderly female lying in bed in no distress. Respiratory system: Unlabored breathing, clear to auscultation anteriorly. Heart S1, S2. Regular rate and rhythm. Abdomen soft, no tenderness. Left foot heel area overall swelling and redness has improved. LABS: No new labs have been obtained today. Culture has been negative. DIAGNOSTIC IMPRESSION AND PLAN: Patient with left heel pressure ulcer with secondary cellulitis. The patient has shown overall clinical improvement. Finish therapy with oral Keflex for about 7-10 days. Local wound care with dry Aquacel dressing and keep the area off the pressure. MMODL / IJN: [id number] /
--- NOTE | 2021-02-10 19:51 | P.DS ---
Providers Date of admission: 02/05/21 16:24 Expected date of discharge: 02/10/21 Attending physician: Jay Russell Consults: 02/04/21 21:43 Consult Physician Routine Consulting Provider: Ander Cedeño Consult Reason/Comments: Cellulitis Do you want consulting provider notified?: Yes 02/07/21 13:30 Consult Physician Routine Consulting Provider: José Miguel Saldaña Consult Reason/Comments: poor vascular LLE Do you want consulting provider notified?: Yes Primary care physician: Chris Alves MD Hospital Course: Chief Complaint: Left foot wound History of presenting complaint: This is a pleasant 85-year-old patient who follows with visiting physicians Dr. Alves. Chronic stable medical conditions include atrial fibrillation, diabetes, GERD, hypertension, osteoarthritis, hypothyroid, gout,. Patient has a permanent pacemaker. Patient in November of this year underwent percutaneous aortic valve implantation. 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 Patient is very much wheelchair bound. Patient wasn't [facility] for rehab back in November of this year. She is being followed by visiting physicians for a left foot wound which is a pressure ulcer of the left heel. Patient was noticed to have a blister off the left big toe. No fever no chills. Patient's appetite is fair. An okay bowel movements. Left footin dressing. No obvious drainage from the wound. Admitted with left heel ulcer and secondary cellulitis. February 05: Laying in bed. Comfortable. Getting IV vancomycin. Pending evaluation by ID. Oral intake fair. February 06: Laying in bed. Comfortable. Fair oral intake. Antibiotic changed to IV Ancef. Local wound care. February 07: Comfortable. Oral intake fair. On IV Ancef. Patient's family is very keen on vascular consultation. February 08: Patient was seen by Dr. Coronado from vascular surgery. Not for any further intervention. Patient does spike a fever last night. Otherwise feeling well. Good oral intake. February 09: Reclining in bed. Comfortable. Oral intake fair. Pain control. Problem with transportation for discharge. February 10: Sitting on bed. Oral intake fair. Care was discussed with the patient. Discharge home today. Keflex as per ID. Consultation: Dr. Cedeño from ID Dr. Coronado from vascular Past medical history to include: Atrial fibrillation, diabetes, GERD, hypertension, osteoporosis, hypothyroid, gout, pacemaker, TAVR Social history: No history of smoking or alcohol. 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 EYES: Pupils equal. Conjunctiva normal. HEENT: External appearance of nose and ears normal, oral cavity grossly normal. NECK: JVD not raised; masses not palpable. HEART: First and second heart sounds are normal; no edema. LUNGS: Respiratory rate normal; clear to auscultation. ABDOMEN: Soft, nontender, liver spleen not palpable, no masses palpable. PSYCH: Alert and oriented x3; mood and affect normal. EXTREMITY: Dressing of the left ankle and midfoot. Blister left big toe.. INVESTIGATIONS, reviewed in the clinical context: February 09: WBC 10.5 hemoglobin 11.6 potassium 3.9 creatinine 0.76 UA negative for leukoesterase, negative for nitrite February 07: Creatinine 0.81. Accu-Cheks to 37, 237 February 06: WBC 6.7 hemoglobin 12.4 potassium 4.4 creatinine 0.89 Pro-calcitonin 0.04 WBC 9.3 hemoglobin 10.6 platelets 304 potassium 4.6 and 51 creatinine 1.12 Assessment and plan: -Acute on chronic left heel wound/pressure ulcer. had for a few months. Failed outpatient treatment. Patient has now developed a blister on the left big toe.: Improving IV Ancef, dry Aquacel silver dressing. Follow with ID. Patient was seen by vascular surgery Dr. Saldaña. Not for any intervention. 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 Uncontrolled with hypoglycemia Amaryl 2 mg twice a day. Add tradjenta 5 mg daily -GERD Protonix -Paroxysmal atrial fibrillation On nadolol, xarelto -Essential hypertension Corgard, losartan -Primary osteoarthritis Use pain medications as needed -Hypothyroid Synthroid 150 g daily -Chronic gout Allopurinol 100 mg daily Disposition: Home Plan - Discharge Summary Discharge Rx Participant: No New Discharge Prescriptions: New Cephalexin [Keflex] 500 mg PO Q8HR #21 cap Linagliptin [Tradjenta] 5 mg PO DAILY #30 tablet Continue Baclofen [Lioresal] 10 mg PO HS@1700 PRN PRN Reason: Muscle Pain Ferrous Sulfate [Feosol] 325 mg PO DAILY@0900 Cholecalciferol [Vitamin D3 (25 Mcg = 1000 Iu)] 1,000 unit PO HS@1700 Levothyroxine Sodium [Synthroid] 150 mcg PO DAILY@0600 nadoloL [Corgard] 20 mg PO DAILY@0900 Pantoprazole Sodium [Protonix] 40 mg PO DAILY@0600 Acetaminophen Tab [Tylenol] 650 mg PO Q6HR PRN tab PRN Reason: Fever And/ Or Pain Cetirizine HCl 10 mg PO DAILY@0600 Glimepiride [Amaryl] 2 mg PO BID@0600,1700 Insulin Aspart Protam & Aspart [NovoLOG MIX 70-30 Flexpen] See Protocol SQ AC-TID allopurinoL [Zyloprim] 100 mg PO DAILY@0600 Nystatin 100,000 Unit/gm Powd [Mycostatin Powder] 1 applic TOPICAL DAILY PRN PRN Reason: Rash Losartan Potassium 50 mg PO DAILY@0600 Clopidogrel [Plavix] 75 mg PO DAILY@0900 Fluticasone Nasal [place] [Flonase Nasal [place]] 1 spray EA NOSTRIL DAILY@0600 Simvastatin 10 mg PO HS@1700 Potassium Chloride [Klor-Con 10] 10 meq PO DAILY@0900 Rivaroxaban [Xarelto] 15 mg PO DAILY@0900 Discontinued Furosemide [Lasix] 40 mg PO DAILY@0600 Levofloxacin [Levaquin] 500 mg PO W/SUPPER Discharge Medication List Baclofen [Lioresal] 10 mg PO HS@1700 PRN 12/11/13 [History] Ferrous Sulfate [Feosol] 325 mg PO DAILY@0900 12/11/13 [History] Cholecalciferol [Vitamin D3 (25 Mcg = 1000 Iu)] 1,000 unit PO HS@1700 03/21/19 [History] Levothyroxine Sodium [Synthroid] 150 mcg PO DAILY@0600 03/21/19 [History] Pantoprazole Sodium [Protonix] 40 mg PO DAILY@0600 03/21/19 [History] nadoloL [Corgard] 20 mg PO DAILY@0900 03/21/19 [History] Acetaminophen Tab [Tylenol] 650 mg PO Q6HR PRN tab 03/24/19 [Rx] Cetirizine HCl 10 mg PO DAILY@0600 10/08/20 [History] Fluticasone Nasal [place] [Flonase Nasal [place]] 1 spray EA NOSTRIL DAILY@0610/08/20 [History] Glimepiride [Amaryl] 2 mg PO BID@0600,1700 10/08/20 [History] Insulin Aspart Protam & Aspart [NovoLOG MIX 70-30 Flexpen] See Protocol SQ AC- TID 10/08/20 [History] Simvastatin 10 mg PO HS@1700 10/08/20 [History] allopurinoL [Zyloprim] 100 mg PO DAILY@59910/08/20 [History] Potassium Chloride [Klor-Con 10] 10 meq PO DAILY@0911/06/20 [History] Clopidogrel [Plavix] 75 mg PO DAILY@0902/04/21 [History] Losartan Potassium 50 mg PO DAILY@0602/04/21 [History] Nystatin 100,000 Unit/gm Powd [Mycostatin Powder] 1 applic TOPICAL DAILY PRN 02/04/21 [History] Rivaroxaban [Xarelto] 15 mg PO DAILY@0902/04/21 [History] Cephalexin [Keflex] 500 mg PO Q8HR #21 cap 02/10/21 [Rx] Linagliptin [Tradjenta] 5 mg PO DAILY #30 tablet 02/10/21 [Rx] Follow up Appointment(s)/Referral(s): Chris Alves MD [Primary Care Provider] - 1-2 days (patient to call and make appointment after D/C) José Miguel Saldaña MD [STAFF PHYSICIAN] - 02/17/21 10:00 am [facility] Visiting Nurse, [NON-STAFF] - Activity/Diet/Wound Care/Special Instructions: wound care per dr cedeño Discharge Disposition: HOME WITH HOME HEALTH SERVICES
== END 2021-02-10 15:30 | disposition home health service (06) | DRG 638 ==
LOC: EC 18:02 → 6NMEDSUR 21:43 → 4SSUR 23:28 → OBSVTOIN 02-05 16:24
PROVIDERS: ADMIT Hospitalist; ATTEND Hospitalist
DX: E11.621 Type 2 diabetes mellitus with foot ulcer (principal); L03.116 Cellulitis of left lower limb; L97.429 Non-pressure chronic ulcer of left heel and midfoot with unspecified severity; Z68.41 Body mass index [BMI] 40.0-44.9, adult; E03.9 Hypothyroidism, unspecified; E11.628 Type 2 diabetes mellitus with other skin complications; I48.0 Paroxysmal atrial fibrillation; E11.649 Type 2 diabetes mellitus with hypoglycemia without coma; E66.01 Morbid (severe) obesity due to excess calories; Z79.4 Long term (current) use of insulin; S90.422A Blister (nonthermal), left great toe, initial encounter; I10 Essential (primary) hypertension; K21.9 Gastro-esophageal reflux disease without esophagitis; R32 Unspecified urinary incontinence; Z20.822 Contact with and (suspected) exposure to COVID-19; M1A.9XX0 Chronic gout, unspecified, without tophus (tophi); M81.0 Age-related osteoporosis without current pathological fracture; M19.91 Primary osteoarthritis, unspecified site; Z99.3 Dependence on wheelchair; Z95.2 Presence of prosthetic heart valve; Z95.0 Presence of cardiac pacemaker; Z96.652 Presence of left artificial knee joint; Z79.890 Hormone replacement therapy; Z79.899 Other long term (current) drug therapy; Z88.8 Allergy status to other drugs, medicaments and biological substances; Z98.41 Cataract extraction status, right eye; Z79.02 Long term (current) use of antithrombotics/antiplatelets; Z79.01 Long term (current) use of anticoagulants
CPT/HCPCS: 36415; 80048; 80053; 81001; 82565; 83605; 84145; 84484; 85025; 85730; 86140; 87040

== ENCOUNTER → 2021-11-17 | Outpatient (CLI) | payer MEDICARE, OTHER ==
--- NOTE | 2021-11-18 03:11 | CA ---
Transthoracic Echo Report Name: June Perez Age: 85 Gender: F : 1935 Exam Date: 11/17/2021 14:09 Exam Location: [facility] Ht (in): 62 Wt (lb): 225 Ordering Physician: Hua Martinez MD Attending/Referring Phys: [id number], Juan [employer] Operator Shakira Mejia RDCS Procedure CPT: Indications: I35.0 Nonrheumatic aortic (valve) stenosis Cardiac Hx: Technical Quality: Poor Contrast 1: Total Dose (mL): Contrast 2: Total Dose (mL): MEASUREMENTS (Male / Female) Normal Values 2D ECHO LV Diastolic Diameter PLAX 4.1 cm 4.2 - 5.9 / 3.9 - 5.3 cm LV Systolic Diameter PLAX 2.6 cm IVS Diastolic Thickness 1.5 cm 0.6 - 1.0 / 0.6 - 0.9 cm LVPW Diastolic Thickness 1.3 cm 0.6 - 1.0 / 0.6 - 0.9 cm LV Relative Wall Thickness 0.7 RV Internal Dim ED PLAX 2.6 cm M-MODE Aortic Root Diameter MM 1.9 cm DOPPLER AV Peak Velocity 166.2 cm/s AV Peak Gradient 11.0 mmHg AV Mean Velocity 113.2 cm/s AV Mean Gradient 6.0 mmHg AV Velocity Time Integral 31.9 cm AI Peak Velocity 352.6 cm/s AI Peak Gradient 49.7 mmHg AI Pressure Half Time 280.7 ms LVOT Peak Velocity 95.2 cm/s LVOT Peak Gradient 3.6 mmHg MV Area PHT 5.1 cm??? Mitral E Point Velocity 89.1 cm/s Mitral A Point Velocity 55.3 cm/s Mitral E to A Ratio 1.6 MV Deceleration Time 148.8 ms TR Peak Velocity 310.1 cm/s TR Peak Gradient 38.5 mmHg Right Ventricular Systolic Press 43.5 mmHg FINDINGS Left Ventricle Left ventricle not well visualized. Patient was scanned sitting up in the her wheel chair. No obvious regional wall motion abnormalities. Left ventricular cavity size normal. Moderately increased left ventricular wall thickness. Left ventricular ejection fraction is estimated at 50-55 %. Right Ventricle Normal right ventricular size and function. Mild to moderate pulmonary hypertension. Right Atrium Right atrium not well visualized. Left Atrium Mildly increased left atrial area. Mitral Valve Thickened anterior and posterior mitral leaflet with moderate mitral regurgitation Aortic Valve Normally functioning bioprosthetic aortic valve without stenosis with a peak velocity of 1.66 m/s, peak gradient 11 mmHg, mean gradient 6 mmHg. Mild periprosthetic regurgitation of the aortic valve. Tricuspid Valve Abnormally structured tricuspid valve. [id number] tricuspid regurgitation. Pulmonic Valve No pulmonic regurgitation. Pericardium No pericardial effusion. Aorta Normal size aortic root and proximal ascending aorta. CONCLUSIONS Normal left ventricular dimension and systolic function Transcatheter aortic valve without stenosis with mild perivalvular leak Thickened anterior and posterior mitral leaflets with moderate mitral regurgitation See above for more details Previewed by: Dr. Delmar Vera MD (Electronically Signed) Final Date: 18 Nov 2021 03:10
== END | disposition home or self-care (01) ==
LOC: RADECHMAIN 14:04
PROVIDERS: ATTEND Thoracic Surgery (Cardiothoracic Vascular Surgery)
DX: I08.3 Combined rheumatic disorders of mitral, aortic and tricuspid valves (principal); I27.20 Pulmonary hypertension, unspecified
CPT/HCPCS: 93306

== ENCOUNTER → 2021-11-17 | Outpatient (CLI) | payer MEDICARE, OTHER ==
[2021-11-17 22:54] LABS: Basophils # (A) 0.08 X 10*3/uL (0.00-0.10); Basophils % (A) 0.9 %; Eosinophils # (A) 0.42 X 10*3/uL (0.04-0.35); Eosinophils % (A) 4.6 %; HCT 42.8 % (37.2-46.3); HGB 13.4 g/dL (12.0-15.0); Immature Grans, Automated 0.5 %; Lymphocytes # (A) 2.28 X 10*3/uL (0.90-5.00); MCH 28.6 pg (27.0-32.0); MCHC 31.3 g/dL (32.0-37.0); MCV 91.3 fL (80.0-97.0); Mean Platelet Volume 12.1 fL (9.5-12.2); Monocytes % (A) 8.8 %; NRBC Per 100 WBC 0 /100 WBCS (0.0-0.0); Neutrophils % (A) 60.2 %; Platelet Count 228 X 10*3/uL (140-440); RBC 4.69 X 10*6/uL (4.10-5.20); RDW 16.3 % (11.5-14.5); WBC 9.13 X 10*3/uL (4.50-10.00)
[2021-11-17 23:01] LABS: Anion Gap 12.6 mmol/L (10.00-18.00); BUN/Creat Ratio 28.22 Ratio (12.00-20.00); Blood Urea Nitrogen 36.4 mg/dL (9.0-27.0); Calcium 9.1 mg/dL (8.7-10.3); Carbon Dioxide 23.3 mmol/L (20.0-27.5); Potassium 4.5 mmol/L (3.5-5.5)
== END | disposition home or self-care (01) ==
LOC: LABWHC1 14:43
PROVIDERS: ATTEND Thoracic Surgery (Cardiothoracic Vascular Surgery)
DX: I35.1 Nonrheumatic aortic (valve) insufficiency (principal)
CPT/HCPCS: 36415; 80048; 85025

== ENCOUNTER → 2022-03-26 | Outpatient (CLI) | payer MEDICARE, OTHER ==
--- NOTE | 2022-03-26 22:55 | CT ---
EXAMINATION TYPE: CT orbits wo/w con DATE OF EXAM: 03/26/2022 COMPARISON: EXAMINATION TYPE: CT orbits wo/w con DATE OF EXAM: 03/26/2022 COMPARISON: None. HISTORY: Edema of left eye CT DLP: 890.6 mGycm Automated exposure control for dose reduction was used. CONTRAST: Performed without and with IV Contrast, patient injected with 60cc mL of Isovue 300. FINDINGS: There is thinning and calcification of the bilateral lenses suggesting prior cataract surgery. Globes are symmetric and within normal limits in size. Intraconal fat is preserved bilaterally. Rectus musc les are symmetric and within normal limits. No suspicious enhancement along the optic nerve or intrao rbital region.. Suprasellar cistern is maintained. Optic chiasm is not effaced. Craniocervical juncti on appears within normal limits. Pituitary gland is normal in size. There is completely opacified frontal along with bilateral ethmoid, sphenoid, and maxillary sinuses. Maxillary sinus arellano are thickened and sclerotic. Ethmoid sinus arellano are thin, some cortical breakt hrough in anterior right aspect is noted. Visualized brain parenchyma shows diffuse age-related cerebral atrophy and chronic small vessel ische jay change. IMPRESSION: 1. Diffuse paranasal pansinusitis, advise clinical correlation and ENT referral to further evaluate.
== END | disposition home or self-care (01) ==
LOC: RADCTMAIN 15:36
PROVIDERS: ATTEND Ophthalmology
DX: H05.222 Edema of left orbit (principal); J32.4 Chronic pansinusitis
CPT/HCPCS: 82565; 84520; 70482; 36415; Q9967

== ENCOUNTER 2022-06-09 17:58 | Emergency (ER) | payer MEDICARE, OTHER ==
[2022-06-09 18:35] VITALS: PULSE 74; RESP 16; TEMP 97.7
[2022-06-09] MEDS ORDERED: ACETAMINOPHEN TAB 500 MG TAB PO STA (21:26)
[2022-06-09 22:07] LABS: Basophils # (A) 0.1 k/uL (0-0.2); Basophils % (A) 1 %; Eosinophils # (A) 0.5 k/uL (0-0.7); Eosinophils % (A) 5 %; HCT 43.6 % (34.0-46.0); HGB 14.2 gm/dL (11.4-16.0); Lymphocytes # (A) 2.2 k/uL (1.0-4.8); Lymphocytes % (A) 22 %; MCH 30.4 pg (25.0-35.0); MCHC 32.6 g/dL (31.0-37.0); MCV 93.3 fL (80.0-100.0); Mean Platelet Volume 9.4; Monocytes # (A) 0.6 k/uL (0-1.0); Monocytes % (A) 6 %; Neutrophils # (A) 6.4 k/uL (1.3-7.7); Neutrophils % (A) 64 %; Platelet Count 234 k/uL (150-450); RBC 4.67 m/uL (3.80-5.40); RDW 14.7 % (11.5-15.5); WBC 9.9 k/uL (3.8-10.6)
[2022-06-09 22:22] LABS: Albumin 3.7 g/dL (3.5-5.0); Calcium 9.3 mg/dL (8.4-10.2); Potassium 4.8 mmol/L (3.5-5.1); Total Bilirubin 0.6 mg/dL (0.2-1.3); Total Protein 7.2 g/dL (6.3-8.2)
[2022-06-09] MEDS ORDERED: SODIUM CHLORIDE 0.9% 500 ML 500 ML IV STA (22:33)
[2022-06-09] MEDS ORDERED: AMOXIC-POT CLAV 875-125MG 1 EACH TAB PO STA (23:17)
--- NOTE | 2022-06-10 00:24 | CT ---
EXAMINATION TYPE: CT facial bones w con DATE OF EXAM: 06/10/2022 COMPARISON: HISTORY: right maxillary pain, concern for abscess CT DLP: 672.6 mGycm Automated exposure control for dose reduction was used. CONTRAST: Performed with IV Contrast, patient injected with 80 mL of Isovue 370. Images obtained from the bottom of the mandible to the top of the frontal sinuses with the IV contras t. The mandibular ring is intact. Temporomandibular joints are intact. Zygomatic arches appear normal. T he maxilla is intact. There is complete opacification of the maxillary sinuses. There is extensive op acification of the ethmoid and frontal sinuses. There is opacification of the sphenoid sinuses there is no bone destruction. Nasal bone is intact. Orbital margins are intact. No retro-orbital mass. The maxilla is intact. No focal bone destruction. IMPRESSION: Severe pansinusitis without change. No focal bone destruction. No evidence of an abscess.
[2022-06-10] MEDS ORDERED: SODIUM CHLORIDE 0.9% 500 ML 500 ML IV STA (00:28)
--- NOTE | 2022-06-10 00:32 | ED ---
ENT HPI - General Chief complaint: ENT Stated complaint: cheek pain Time Seen by Provider: 06/09/22 21:07 Source: patient Mode of arrival: wheelchair Limitations: no limitations - History of Present Illness Initial comments: Patient is an 86-year-old female who presents to the emergency department with a chief complaint left cheek pain. There is some language barrier and daughter helps provide history. Patient daughter state symptoms started yesterday. She denies injury. Took Motrin with some relief. Patient has associated congestion D Which began 5 days ago. enies fever, upper respiratory symptoms, mouth pain, cough, chest pain, shortness of breath. Patient does have history severe sinusitis. According to daughter patient had long period of antibiotic treatment for sinusitis and finished a month ago. I did review CT with and without contrast which revealed paranasal sinusitis with completely opacified frontal, bilateral ethmoid, sphenoid, maxillary and maxillary sinuses. According to daughter patient has a follow up appointment for CT of the orbits with and without contrast next week. Of note, triage does mention a facial droop which patient and daughter do not have concern with today or currently. Patient does not have history of stroke. - Related Data Home Medications Medication Instructions Recorded Confirmed Baclofen [Lioresal] 10 mg PO HS@1700 PRN 12/11/13 02/04/21 Ferrous Sulfate [Feosol] 325 mg PO DAILY@89912/11/13 02/04/21 Cholecalciferol [Vitamin D3 (25 1,000 unit PO HS@1700 03/21/19 02/04/21 Mcg = 1000 Iu)] Levothyroxine Sodium [Synthroid] 150 mcg PO DAILY@59903/21/19 02/04/21 Pantoprazole Sodium [Protonix] 40 mg PO DAILY@00 03/21/19 02/04/21 nadoloL [Corgard] 20 mg PO DAILY@0903/21/19 02/04/21 Cetirizine HCl 10 mg PO DAILY@0600 10/08/20 02/04/21 Fluticasone Nasal [place] [Flonase 1 spray EA NOSTRIL DAILY@0600 10/08/20 02/04/21 Nasal [place]] Glimepiride [Amaryl] 2 mg PO BID@0600,1700 10/08/20 02/04/21 Insulin Aspart Prot/Insuln Asp See Protocol SQ AC-TID 10/08/20 02/04/21 [NovoLOG MIX 70-30 Flexpen] Simvastatin 10 mg PO HS@1700 10/08/20 02/04/21 allopurinoL [Zyloprim] 100 mg PO DAILY@0600 10/08/20 02/04/21 Potassium Chloride [Klor-Con 10 ER] 10 meq PO DAILY@0900 11/06/20 02/04/21 Clopidogrel [Plavix] 75 mg PO DAILY@89902/04/21 02/04/21 Losartan Potassium 50 mg PO DAILY@59902/04/21 02/04/21 Nystatin 100,000 Unit/gm Powd 1 applic TOPICAL DAILY PRN 02/04/21 02/04/21 [Mycostatin Powder] Rivaroxaban [Xarelto] 15 mg PO DAILY@0900 02/04/21 02/04/21 Previous Rx's Medication Instructions Recorded Acetaminophen Tab [Tylenol] 650 mg PO Q6HR PRN tab 03/24/19 Cephalexin [Keflex] 500 mg PO Q8HR #21 cap 02/10/21 Linagliptin [Tradjenta] 5 mg PO DAILY #30 tablet 02/10/21 Amoxic-Pot Clav 875-125Mg 1 tab PO Q12HR 10 Days #20 tab 06/10/22 [Augmentin 875-125] Allergies Allergy/AdvReac Type Severity Reaction Status Date / Time metformin Allergy Unknown Verified 02/04/21 19:01 Review of Systems ROS Statement: Those systems with pertinent positive or pertinent negative responses have been documented in the HPI. ROS Other: All systems not noted in ROS Statement are negative. Past Medical History Past Medical History: Atrial Fibrillation, Diabetes Mellitus, GERD/Reflux, Hypertension, Osteoarthritis (OA), Thyroid Disorder Additional Past Medical History / Comment(s): gout, SOB w/exertion, recent admission for weakness, possible fall @home, currently @[facility] for rehab History of Any Multi-Drug Resistant Organisms: None Reported Past Surgical History: Appendectomy, Joint Replacement, Pacemaker Additional Past Surgical History / Comment(s): left knee replacement, cataract surgery, carpal tunnel sugery on right Past Anesthesia/Blood Transfusion Reactions: No Reported Reaction Type of Cardiac Device: Permanent Pacemaker Device Placement Date:: patient unsure Past Psychological History: No Psychological Hx Reported Smoking Status: Never smoker Past Alcohol Use History: None Reported Past Drug Use History: None Reported - Past Family History Father Family Medical History: Cancer General Exam Limitations: no limitations General appearance: alert, in no apparent distress Head exam: Present: atraumatic, normocephalic, normal inspection (no facial droop), other (tenderness to left maxilla of left cheek without swelling, erythema, warmth. No fluctuance. ) Eye exam: Present: normal appearance, PERRL, EOMI. Absent: scleral icterus, conjunctival injection, periorbital swelling ENT exam: Present: normal oropharynx (Patient has dentures) Respiratory exam: Present: normal lung sounds bilaterally. Absent: respiratory distress, wheezes, rales, rhonchi, stridor Cardiovascular Exam: Present: regular rate, normal rhythm, normal heart sounds. Absent: systolic murmur, diastolic murmur, rubs, gallop, clicks Neurological exam: Present: alert, oriented X3, CN II-XII intact Psychiatric exam: Present: normal affect, normal mood Skin exam: Present: warm, dry, intact, normal color. Absent: rash Course Vital Signs 06/09/22 06/10/22 18:31 01:09 Temperature 97.7 F Pulse Rate 74 74 Respiratory 16 16 Rate Blood Pressure 127/61 143/76 O2 Sat by Pulse 98 98 Oximetry Medical Decision Making - Medical Decision Making This is an 86-year-old presenting with left cheek pain.Facial CT shows severe parasinusitis without change. No focal bone dissection and no evidence of an abscess. Pain controlled Tylenol. Results discussed with patient and her daughter. With facial pain and congestion, pain possibly related to sinusitis. Will place patient on Augmentin. She'll need to follow up with her ENT specialist for further evaluation and treatment. Dr. Bhatia is my attending. - Lab Data Result diagrams: 06/09/22 21:44 06/09/22 21:44 Lab Results 06/09/22 06/09/22 Range/Units 21:44 21:44 WBC 9.9 (3.8-10.6) k/uL RBC 4.67 (3.80-5.40) m/uL Hgb 14.2 (11.4-16.0) gm/dL Hct 43.6 (34.0-46.0) % MCV 93.3 (80.0-100.0) fL MCH 30.4 (25.0-35.0) pg MCHC 32.6 (31.0-37.0) g/dL RDW 14.7 (11.5-15.5) % Plt Count 234 (150-450) k/uL MPV 9.4 Neutrophils % 64 % Lymphocytes % 22 % Monocytes % 6 % Eosinophils % 5 % Basophils % 1 % Neutrophils # 6.4 (1.3-7.7) k/uL Lymphocytes # 2.2 (1.0-4.8) k/uL Monocytes # 0.6 (0-1.0) k/uL Eosinophils # 0.5 (0-0.7) k/uL Basophils # 0.1 (0-0.2) k/uL Sodium 138 (137-145) mmol/L Potassium 4.8 (3.5-5.1) mmol/L Chloride 103 (98-107) mmol/L Carbon Dioxide 30 (22-30) mmol/L Anion Gap 5 mmol/L BUN 28 H (7-17) mg/dL Creatinine 1.17 H (0.52-1.04) mg/dL Est GFR (CKD-EPI)AfAm 49 (>60 ml/min/1.73 sqM) Est GFR (CKD-EPI)NonAf 43 (>60 ml/min/1.73 sqM) Glucose 146 H (74-99) mg/dL Calcium 9.3 (8.4-10.2) mg/dL Total Bilirubin 0.6 (0.2-1.3) mg/dL AST 28 (14-36) U/L ALT 17 (4-34) U/L Alkaline Phosphatase 156 H (38-126) U/L Total Protein 7.2 (6.3-8.2) g/dL Albumin 3.7 (3.5-5.0) g/dL Disposition Clinical Impression: Dental infection Disposition: HOME SELF-CARE Condition: Good Instructions (If sedation given, give patient instructions): Sinusitis (ED) Additional Instructions: Take medication as directed. Take Tylenol for pain. Follow-up with ENT specialist in 1-2 days. Return to the emergency department if patient experiences new, concerning, or worsening symptoms. Prescriptions: Amoxic-Pot Clav 875-125Mg [Augmentin 875-125] 1 tab PO Q12HR 10 Days #20 tab Is patient prescribed a controlled substance at d/c from ED?: No Referrals: Chris Alves MD [Primary Care Provider] - 1-2 days Time of Disposition: 00:31
[2022-06-10 01:09] VITALS: BP 143/76
== END 2022-06-10 01:13 | disposition home or self-care (01) ==
LOC: EC 17:58
DX: K04.7 Periapical abscess without sinus (principal); I48.91 Unspecified atrial fibrillation; E11.9 Type 2 diabetes mellitus without complications; K21.9 Gastro-esophageal reflux disease without esophagitis; I10 Essential (primary) hypertension; E07.9 Disorder of thyroid, unspecified; M19.90 Unspecified osteoarthritis, unspecified site; Z79.890 Hormone replacement therapy; Z79.84 Long term (current) use of oral hypoglycemic drugs; Z79.4 Long term (current) use of insulin; Z79.899 Other long term (current) drug therapy; Z88.8 Allergy status to other drugs, medicaments and biological substances
CPT/HCPCS: 36415; 80053; 85025; 70487; 99284; 96360; 96361; Q9967

== ENCOUNTER → 2022-12-14 | Day surgery (SDC) | payer MEDICARE, OTHER ==
[~2022-12-14] MED LIST: LIDOCAINE 1% INJ 10MG/ML (20 ML MDV) SQ ONE; MIDAZOLAM 2 MG/2 ML VIAL IV ONE; SODIUM CHLORIDE 0.9% 1,000 ML IV ONE; SODIUM CHLORIDE 0.9% 1,000 ML IV SCH; ceFAZolin 1 GM in SODIUM CHLORIDE 0.9% IRRIG BTL 250 ML IRRIGATION PRN; fentaNYL (PF) 50 MCG/ML 2 ML AMP IV ONE
[2022-12-14 10:50] LABS: Basophils % (A) 0 %; Eosinophils # (A) 0.8 k/uL (0-0.7); Eosinophils % (A) 9 %; HCT 42.7 % (34.0-46.0); HGB 13.7 gm/dL (11.4-16.0); Lymphocytes # (A) 1.6 k/uL (1.0-4.8); Lymphocytes % (A) 18 %; MCH 29.8 pg (25.0-35.0); MCHC 32.1 g/dL (31.0-37.0); MCV 92.8 fL (80.0-100.0); Mean Platelet Volume 8.5; Monocytes # (A) 0.5 k/uL (0-1.0); Monocytes % (A) 5 %; Neutrophils # (A) 5.7 k/uL (1.3-7.7); Neutrophils % (A) 65 %; Platelet Count 264 k/uL (150-450); RDW 15.1 % (11.5-15.5); WBC 8.8 k/uL (3.8-10.6)
[2022-12-14 10:53] VITALS: TEMP 97.7
[2022-12-14 10:57] LABS: Glucose,Whole Blood 123 mg/dL (70-110)
[2022-12-14 11:11] LABS: African American GFR (CKD) 57 (>60 ml/min/1.73 sqM); Anion Gap 6 mmol/L; Blood Urea Nitrogen 28 mg/dL (7-17); Calcium 8.9 mg/dL (8.4-10.2); Carbon Dioxide 27 mmol/L (22-30); Chloride 102 mmol/L (98-107); Glucose 122 mg/dL (74-99); Non-African American GFR(CKD) 49 (>60 ml/min/1.73 sqM); Potassium 5.2 mmol/L (3.5-5.1); Sodium 135 mmol/L (137-145)
--- NOTE | 2022-12-14 12:54 | P.PCN ---
Description of Procedure: CARDIOLOGY PROCEDURE NOTE Creative Developer: Dr. Nelson Nye Procedure performed: Single chamber permanent pacemaker generator change Site: Left subclavian Indications: Sick Sinus Syndrome, YASSINE Complications: None Blood Loss: Minimal Description of Procedure: After the risks, benefits, and alternatives of the above-mentioned procedure was explained in detail with the patient, informed consent was obtained. The patient was taken to the cardiac catheterization suite where the left subclavian area was sterily prepped and draped in the usual fashion. Patient was given IV Versed and fentanyl for sedation. The skin over the existing pulse generator was infiltrated with lidocaine. An incision was made in the skin and was deepened until the pectoral fascia was exposed. Hemostasis was obtained. The existing pulse generator was pulled out of the pocket. The lead were disconnected and were checked for thresholds. The existing lead was then inserted into the appropriate position into the new generator. They were then secured with the setscrew provided. The lead and generator were inserted into the pocket with the leads posterior. The subcutaneous tissue was approximated utilizing #2.0 and 3.0 vicryl in an interrupted stitch fashion. The dermal layer was approximated utilizing #4.0 vicryl. The area was cleansed with sterile saline and dried. A sterile 4x4 dressing was applied and the patient was transferred to the post catheterization holding area in stable and satisfactory condition. The patient tolerated the procedure well. 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 Successful generator change of a single chamber permanent pacemaker in the left pectoral site. Plan: 1. Routine post procedure care will be instituted as well as outpatient follow- up surveillance.
[2022-12-14 18:54] VITALS: RESP 16
[2022-12-14 19:01] VITALS: BP 122/58; PULSE 92
== END ==
LOC: CATHEP 10:14
PROVIDERS: ATTEND Internal Medicine
DX: Z45.010 Encounter for checking and testing of cardiac pacemaker pulse generator [battery] (principal); I49.5 Sick sinus syndrome; I13.0 Hypertensive heart and chronic kidney disease with heart failure and stage 1 through stage 4 chronic kidney disease, or unspecified chronic kidney disease; I50.32 Chronic diastolic (congestive) heart failure; N18.9 Chronic kidney disease, unspecified; I48.3 Typical atrial flutter; I08.0 Rheumatic disorders of both mitral and aortic valves; E11.22 Type 2 diabetes mellitus with diabetic chronic kidney disease; Q21.12 Patent foramen ovale; E03.9 Hypothyroidism, unspecified; E11.621 Type 2 diabetes mellitus with foot ulcer; I87.2 Venous insufficiency (chronic) (peripheral); Z95.2 Presence of prosthetic heart valve; Z79.01 Long term (current) use of anticoagulants; Z79.82 Long term (current) use of aspirin; Z79.4 Long term (current) use of insulin; Z79.899 Other long term (current) drug therapy; Z79.51 Long term (current) use of inhaled steroids; E66.9 Obesity, unspecified
CPT/HCPCS: 33227; 80048; 85025; C1786; J2250; J0690; J2001; J3010; 33228

== ENCOUNTER 2023-10-07 19:21 | Emergency (ER) | payer MEDICARE, OTHER ==
--- NOTE | 2023-10-07 19:36 | ED ---
General Adult HPI - General Chief complaint: Extremity Injury, Lower Stated complaint: Bilateral shoulder/knee pain Time Seen by Provider: 10/07/23 19:35 Source: family, EMS Mode of arrival: EMS Limitations: altered mental status - History of Present Illness Initial comments: 87-year-old female presents emergency department with EMS for chief complaint of bilateral knee leg pain. History was obtained from patient's family in room due to patient having dementia. Family states that she evening they were helping move from her motorized wheelchair with a standing [place] (the where he lives and is underneath the foot pedals to the patient's wheelchair and quickly pulled out from underneath. Patient's son-in-law helped lower the patient to the ground. He notes that the patient has been in pain over the past day and decided to call EMS. Patient endorses bilateral knee pain. She was given fentanyl in route for pain. - Related Data Home Medications Medication Instructions Recorded Confirmed Baclofen [Lioresal] 10 mg PO HS@1700 PRN 12/11/13 12/09/22 Ferrous Sulfate [Feosol] 325 mg PO DAILY@89912/11/13 12/09/22 Cholecalciferol [Vitamin D3 (25 1,000 unit PO HS@1700 03/21/19 12/09/22 Mcg = 1000 Iu)] Levothyroxine Sodium [Synthroid] 150 mcg PO DAILY@00 03/21/19 12/14/22 Pantoprazole Sodium [Protonix] 40 mg PO DAILY@0600 03/21/19 12/14/22 nadoloL [Corgard] 20 mg PO DAILY@89903/21/19 12/14/22 Fluticasone Nasal [place] [Flonase 1 spray EA NOSTRIL DAILY@0600 PRN 10/08/20 12/09/22 Nasal [place]] Insulin Aspart Prot/Insuln Asp 20 unit SQ AC-BRKFST 10/08/20 12/09/22 [NovoLOG MIX 70-30 Flexpen] Simvastatin 10 mg PO HS@1700 10/08/20 12/09/22 allopurinoL [Zyloprim] 100 mg PO DAILY@0600 10/08/20 12/14/22 Potassium Chloride [Klor-Con 10 ER] 10 meq PO Q2D 11/06/20 12/09/22 Losartan Potassium 25 mg PO DAILY@0600 02/04/21 12/14/22 Nystatin 100,000 Unit/gm Powd 1 applic TOPICAL DAILY PRN 02/04/21 12/09/22 [Mycostatin Powder] Rivaroxaban [Xarelto] 15 mg PO DAILY@0900 02/04/21 12/14/22 Erythromycin Ophth Oint [Romycin 1 applic BOTH EYES HS 12/09/22 12/09/22 Ophth Oint] Furosemide [Lasix] 40 mg PO QAM 12/09/22 12/09/22 Insulin Regular, Human [Novolin R 0 units SQ AC-LUNCH 12/09/22 12/09/22 Flexpen] Insuln Asp Prt/Insulin Aspart 10 unit SQ HS 12/09/22 12/09/22 [NovoLOG MIX 70-30 VIAL] Loratadine [Claritin] 10 mg PO DAILY 12/09/22 12/09/22 Ubidecarenone [Co Q-10] 300 mg PO DAILY 12/09/22 12/09/22 traMADol-ACETAMINOP 37.5-325MG 1 tab PO Q6HR PRN 12/09/22 12/14/22 [Ultracet] Allergies Allergy/AdvReac Type Severity Reaction Status Date / Time metformin Allergy Unknown Verified 12/14/22 10:44 Review of Systems ROS Statement: Those systems with pertinent positive or pertinent negative responses have been documented in the HPI. ROS Other: All systems not noted in ROS Statement are negative. Past Medical History Past Medical History: Atrial Fibrillation, Diabetes Mellitus, GERD/Reflux, Hyperlipidemia, Hypertension, Osteoarthritis (OA), Renal Disease, Skin Disorder, Thyroid Disorder Additional Past Medical History / Comment(s): gout, decreased function kidneys, hand & joint pain, irritation skin folds History of Any Multi-Drug Resistant Organisms: None Reported Past Surgical History: Appendectomy, Cardiac Valve Replacement, Joint Replacement, Pacemaker Additional Past Surgical History / Comment(s): left knee replacement, cataract surgery, carpal tunnel sugery on right, TAVR 2020 Past Anesthesia/Blood Transfusion Reactions: No Reported Reaction Type of Cardiac Device: Permanent Pacemaker Device Placement Date:: patient unsure Smoking Status: Never smoker - Past Family History Father Family Medical History: Cancer General Exam Limitations: altered mental status General appearance: alert, in no apparent distress Head exam: Present: atraumatic, normocephalic, normal inspection Eye exam: Present: normal appearance, PERRL, EOMI. Absent: scleral icterus, conjunctival injection, periorbital swelling ENT exam: Present: normal exam, mucous membranes moist Neck exam: Present: normal inspection. Absent: tenderness, meningismus, lymphadenopathy Respiratory exam: Present: normal lung sounds bilaterally. Absent: respiratory distress, wheezes, rales, rhonchi, stridor Cardiovascular Exam: Present: regular rate, normal rhythm, normal heart sounds. Absent: systolic murmur, diastolic murmur, rubs, gallop, clicks GI/Abdominal exam: Present: soft, normal bowel sounds. Absent: distended, tenderness, guarding, rebound, rigid Left Hip exam: Present: normal inspection, full ROM (unable to assess) Upper Leg exam: Absent: normal inspection (generalized swelling over the anterior knee, palpable deformity felt ), full ROM Knee exam: Present: tenderness, swelling, deformity, pain w/ pronation/supinati on. Absent: full ROM Lower Leg exam: Present: swelling Ankle exam: Present: swelling Neurovascular tendon exam: Present: no vascular compromise. Absent: sensory deficit Back exam: Present: normal inspection Neurological exam: Present: alert, CN II-XII intact. Absent: normal gait Psychiatric exam: Present: normal affect, normal mood Skin exam: Present: warm, dry, intact, normal color. Absent: rash Course Vital Signs 10/07/23 10/07/23 10/07/23 19:25 21:41 22:54 Temperature 97.8 F Pulse Rate 102 H 106 H 76 Respiratory 18 18 16 Rate Blood Pressure 133/80 139/80 137/78 O2 Sat by Pulse 99 97 Oximetry Medical Decision Making - Medical Decision Making Was pt. sent in by a medical professional or institution (, PA, AUTO BODY PAINTER, urgent care, hospital, or senior living...) When possible be specific @ -No Did you speak to anyone other than the patient for history (EMS, parent, family, police, friend...)? What history was obtained from this source @ -No Did you review nursing and triage notes (agree or disagree)? Why? @ -I reviewed and agree with nursing and triage notes Were old charts reviewed (outside hosp., previous admission, EMS record, old EKG, old radiological studies, urgent care reports/EKG's, senior living records)? Report findings @ -No old charts were reviewed Differential Diagnosis (chest pain, altered mental status, abdominal pain women, abdominal pain men, vaginal bleeding, weakness, fever, dyspnea, syncope, headache, dizziness, GI bleed, back pain, seizure, CVA, palpatations, mental health, musculoskeletal)? @ -Differential Musculoskeletal Muscular strain, contusion, ligament sprain, fracture, arthritis, septic arthritis, bursitis, cellulitis, muscle spasm, nerve compression, DVT, arterial occlusion, herpes zoster, electrolyte abnormality, tumor.... This is not meant to be in all inclusive list EKG interpreted by me (3pts min.). @ -None X-rays interpreted by me (1pt min.). @ -Comprehensive x-rays of bilateral lower extremities revealed displacement of the left femur with subsequent fracture and fracture of the right distal femur CT interpreted by me (1pt min.). @ -None done U/S interpreted by me (1pt. min.). @ -None done What testing was considered but not performed or refused? (CT, X-rays, U/S, labs)? Why? @ -None What meds were considered but not given or refused? Why? @ -None Did you discuss the management of the patient with other professionals (professionals i.e. , PA, AUTO BODY PAINTER, lab, RT, psych nurse, geriatric social work professor, vineyardist, teacher, lodge officer, social work case manager)? Give summary @ -I discussed management of this patient with Dr. Amaya who instructed that patient would benefit from transfer to [facility]. Dr. Alexis spoke with the transfer team at [facility]. Was smoking cessation discussed for >3mins.? @ -No Was critical care preformed (if so, how long)? @ -No Were there social determinants of health that impacted care today? How? (Homelessness, low income, unemployed, alcoholism, drug addiction, transportation, low edu. Level, literacy, decrease access to med. care, snf, rehab)? @ -No Was there de-escalation of care discussed even if they declined (Discuss DNR or withdrawal of care, Hospice)? DNR status @ -No What co-morbidities impacted this encounter? (DM, HTN, Smoking, COPD, CAD, Cancer, CVA, ARF, Chemo, Hep., AIDS, mental health diagnosis, sleep apnea, morbid obesity)? @ -Dementia Was patient admitted / discharged? Hospital course, mention meds given and route, prescriptions, significant lab abnormalities, going to OR and other pertinent info. @ -Transferred. 87-year-old female with knee pain. On examination patient was found to have severe swelling to the leftn. Patient had total knee replacement on the left..Right imaging revealed complex comminuted distal femoral shaft fracture. Left imaging revealed distal fibular shaft fracture and dislocation with apex dorsal angulation with medial dislocation and override I discussed this case with Dr. Servin, orthopedics, who states the patient would benefit from transfer to [facility] for further intervention and orthopedic trauma workup.87-year-old female with bilateral leg pain. On examination patient was found to have deformity of the right knee is noted to have complete replacement. Patient has pain with passive range of motion of bilateral knees. Patient was sent for comprehensive imaging, and was revealed to have bilateral distal femoral fractures with displacement of the left femur. At this time I discussed this case with my attending Dr. Ebonie Higginbotham and Dr. Alexis. Continue with consultation from Ortho. Orthopedic doctor on-call Dr. Owen Servin stated that patient would benefit from transfer to [facility] for further orthopedic evaluation. I discussed these findings with patient and family. They are agreeable with transfer to [facility]. Patient denies pain at this time. Undiagnosed new problem with uncertain prognosis? @ -No Drug Therapy requiring intensive monitoring for toxicity (Heparin, Nitro, Insulin, Cardizem)? @ -No Were any procedures done? @ -No Diagnosis/symptom? @ -Bilateral distal femoral fracture Acute, or Chronic, or Acute on Chronic? @ -Acute Uncomplicated (without systemic symptoms) or Complicated (systemic symptoms)? @ -Complicated Side effects of treatment? @ -No Exacerbation, Progression, or Severe Exacerbation? @ -No Poses a threat to life or bodily function? How? (Chest pain, USA, OR, pneumonia, PE, COPD, DKA, ARF, appy, cholecystitis, CVA, Diverticulitis, Homicidal, Suicidal, threat to staff... and all critical care pts) @ -Yes, untreated treating fractures can lead to permanent osseous abnormalities and damage Disposition Clinical Impression: Fracture of femur Disposition: OTHER INSTITUTION NOT DEFINED Condition: Fair Is patient prescribed a controlled substance at d/c from ED?: No Referrals: Chris Alves MD [REFERRING] - 1-2 days - Out of Hospital Transfer - Req. Specs Out of Hospital Transfer - Requested Specifics: Other Emergency Center ([facility])
[2023-10-07 19:54] VITALS: TEMP 97.8
--- NOTE | 2023-10-07 21:02 | XR ---
PROCEDURE: XR pelvis AP view - V DATE AND TIME: 10/07/2023 8:52 PM CLINICAL INDICATION: [facility]; injury/fall TECHNIQUE: Department protocol COMPARISON: None FINDINGS: No acute soft tissue findings. No acute fracture/malalignment. No focal osseous lesions. IMPRESSION: No acute radiographic process.
--- NOTE | 2023-10-07 21:10 | XR ---
PROCEDURE: XR femur bilateral, XR knee complete bilateral DATE AND TIME: 10/07/2023 8:52 PM CLINICAL INDICATION: [facility]; FALL TECHNIQUE: 15 views were obtained COMPARISON: None FINDINGS / IMPRESSION: Right Femur and Knee: Proximal right femur is negative for acute findings. Complex, comminuted distal femoral shaft fracture is noted. Left Femur and Knee: Proximal left femur is negative for acute findings. Distal fibular shaft fractur e/dislocation is noted, with apex dorsal angulation with one half width medial dislocation and overri de.
--- NOTE | 2023-10-07 21:12 | XR ---
PROCEDURE: XR tibia fibula bilateral DATE AND TIME: 10/07/2023 8:52 PM CLINICAL INDICATION: [facility]; injury/fall TECHNIQUE: 6 views COMPARISON: None FINDINGS: Right tibia-fibula: No fracture/malalignment. Left tibia-fibula: No fracture/malalignment.
[2023-10-07 22:56] VITALS: BP 137/78; PULSE 76; RESP 16
== END 2023-10-07 22:55 | disposition other institution (70) ==
LOC: EC 19:21
DX: S72.402A Unspecified fracture of lower end of left femur, initial encounter for closed fracture (principal); S72.401A Unspecified fracture of lower end of right femur, initial encounter for closed fracture; F03.90 Unspecified dementia, unspecified severity, without behavioral disturbance, psychotic disturbance, mood disturbance, and anxiety; Z88.8 Allergy status to other drugs, medicaments and biological substances; X58.XXXA Exposure to other specified factors, initial encounter
CPT/HCPCS: 72170; 99284

== ENCOUNTER 2023-11-27 01:18 | Inpatient (IN) | payer MEDICARE, OTHER ==
[2023-11-27 01:41] LABS: Glucose,Whole Blood 51 mg/dL (70-110)
--- NOTE | 2023-11-27 01:43 | ED ---
Altered Mental Status HPI - General Chief Complaint: Altered Mental Status Stated Complaint: AMS Time Seen by Provider: 11/27/23 01:22 Source: patient Mode of arrival: EMS Limitations: no limitations - History of Present Illness Initial Comments: June cook 88-year-old female with extensive past medical history including insulin-dependent diabetes, hospitalization last month for bilateral femur fractures. [facility] was [facility] yesterday while at the [facility] patient was receiving Humulin 70/30 and upon returning home she has Humalog 75/25. Daughter gave her the same dose of Humalog as she was receiving of Humulin at the [facility] this morning. Patient reported she felt tired around midday and took a nap which is very atypical for her. Family checked on her around dinnertime and the patient was very confused not acting like herself unable to stand unassisted, EMS was called and arrived at scene to find the pa tient a glucose in the 30s. Patient was given an amp of D50 and taken to an outside hospital where she was found to be persistently and recurrently hypoglycemic. Over the course of a few hours she received 6 vials of D50. Due to her recurrent hypoglycemia patient required admission to the hospital for close monitoring however given that she was receiving additional fluids and has a history of CHF follows with cardiology here decision was made to transfer the patient here for CHF evaluation as well. Patient did make it clear that she is DNR does not want resuscitation. - Related Data Home Medications Medication Instructions Recorded Confirmed Baclofen [Lioresal] 10 mg PO HS@1700 PRN 12/11/13 12/09/22 Ferrous Sulfate [Feosol] 325 mg PO DAILY@89912/11/13 12/09/22 Cholecalciferol [Vitamin D3 (25 1,000 unit PO HS@1700 03/21/19 12/09/22 Mcg = 1000 Iu)] Levothyroxine Sodium [Synthroid] 150 mcg PO DAILY@59903/21/19 12/14/22 Pantoprazole Sodium [Protonix] 40 mg PO DAILY@59903/21/19 12/14/22 nadoloL [Corgard] 20 mg PO DAILY@89903/21/19 12/14/22 Fluticasone Nasal [place] [Flonase 1 spray EA NOSTRIL DAILY@06 PRN 10/08/20 12/09/22 Nasal [place]] Insulin Aspart Prot/Insuln Asp 20 unit SQ AC-BRKFST 10/08/20 12/09/22 [NovoLOG MIX 70-30 Flexpen] Simvastatin 10 mg PO HS@1700 10/08/20 12/09/22 allopurinoL [Zyloprim] 100 mg PO DAILY@0600 10/08/20 12/14/22 Potassium Chloride [Klor-Con 10 ER] 10 meq PO Q2D 11/06/20 12/09/22 Losartan Potassium 25 mg PO DAILY@0602/04/21 12/14/22 Nystatin 100,000 Unit/gm Powd 1 applic TOPICAL DAILY PRN 02/04/21 12/09/22 [Mycostatin Powder] Rivaroxaban [Xarelto] 15 mg PO DAILY@0900 02/04/21 12/14/22 Erythromycin Ophth Oint [Romycin 1 applic BOTH EYES HS 12/09/22 12/09/22 Ophth Oint] Furosemide [Lasix] 40 mg PO QAM 12/09/22 12/09/22 Insulin Regular, Human [Novolin R 0 units SQ AC-LUNCH 12/09/22 12/09/22 Flexpen] Insuln Asp Prt/Insulin Aspart 10 unit SQ HS 12/09/22 12/09/22 [NovoLOG MIX 70-30 VIAL] Loratadine [Claritin] 10 mg PO DAILY 12/09/22 12/09/22 Ubidecarenone [Co Q-10] 300 mg PO DAILY 12/09/22 12/09/22 traMADol-ACETAMINOP 37.5-325MG 1 tab PO Q6HR PRN 12/09/22 12/14/22 [Ultracet] Allergies Allergy/AdvReac Type Severity Reaction Status Date / Time metformin Allergy Unknown Verified 11/27/23 01:34 Review of Systems ROS Statement: Those systems with pertinent positive or pertinent negative responses have been documented in the HPI. ROS Other: All systems not noted in ROS Statement are negative. Past Medical History Past Medical History: Atrial Fibrillation, Diabetes Mellitus, GERD/Reflux, Hyperlipidemia, Hypertension, Osteoarthritis (OA), Renal Disease, Skin Disorder, Thyroid Disorder Additional Past Medical History / Comment(s): gout, decreased function kidneys, hand & joint pain, irritation skin folds History of Any Multi-Drug Resistant Organisms: None Reported Past Surgical History: Appendectomy, Cardiac Valve Replacement, Joint Replacement, Pacemaker Additional Past Surgical History / Comment(s): left knee replacement, cataract surgery, carpal tunnel sugery on right, TAVR 2020 Past Anesthesia/Blood Transfusion Reactions: No Reported Reaction Type of Cardiac Device: Permanent Pacemaker Device Placement Date:: patient unsure Past Psychological History: No Psychological Hx Reported Smoking Status: Never smoker Past Alcohol Use History: Rare Past Drug Use History: None Reported - Past Family History Father Family Medical History: Cancer General Exam - General Exam Comments Initial Comments: Physical Exam GENERAL: Elderly female no acute distress HENT: Normocephalic, Atraumatic. EYES: PERRL, EOMI PULMONARY: Mild crackles at bases CARDIOVASCULAR: There is a regular rate and rhythm without any murmurs gallops or rubs. ABDOMEN: Soft and nontender with normal bowel sounds. SKIN: Well-healing surgical incisions from previous femur surgeries : Deferred NEUROLOGIC: Alert and oriented but drowsy MUSCULOSKELETAL: Decreased range of motion of bilateral lower extremities due to recent surgery PSYCHIATRIC: Normal psychiatric evaluation. Limitations: no limitations Course Vital Signs 11/27/23 11/27/23 01:27 03:00 Temperature 96.9 F L Pulse Rate 75 82 Respiratory 20 18 Rate Blood Pressure 100/55 103/65 O2 Sat by Pulse 96 100 Oximetry Medical Decision Making - Medical Decision Making Was pt. sent in by a medical professional or institution (, PA, MACHINE PAN [employer]ER, urgent care, hospital, or [facility]...) When possible be specific @ -Yes transfer from outside facility Did you speak to anyone other than the patient for history (EMS, parent, family, police, friend...)? What history was obtained from this source @ -Transferring physician Dr. James Did you review nursing and triage notes (agree or disagree)? Why? @ -I reviewed and agree with nursing and triage notes Were old charts reviewed (outside hosp., previous admission, EMS record, old EKG, old radiological studies, urgent care reports/EKG's, [facility] records)? Report findings @ -Transfer notes were reviewed Differential Diagnosis (chest pain, altered mental status, abdominal pain women, abdominal pain men, vaginal bleeding, weakness, fever, dyspnea, syncope, headache, dizziness, GI bleed, back pain, seizure, CVA, palpatations, mental health)? @ -Not applicable EKG interpreted by me (3pts min.). @ -As above X-rays interpreted by me (1pt min.). @ -X-ray from outside facility with mild CHF CT interpreted by me (1pt min.). @ -None done U/S interpreted by me (1pt. min.). @ -None done What testing was considered but not performed or refused? (CT, X-rays, U/S, labs)? Why? @ -None What meds were considered but not given or refused? Why? @ -D10 was considered but patient is resistant to a central line so we will co ntinue with D5 Did you discuss the management of the patient with other professionals (professionals i.e. DrLudin, PA, MACHINE PAN [employer]ASER, lab, RT, psych nurse, social psychologist, microsoft dynamics manager architect, teacher, housing management officer, shelter case manager)? Give summary @ -No Was smoking cessation discussed for >3mins.? @ -No Was critical care preformed (if so, how long)? @ -Yes, 35 minutes Were there social determinants of health that impacted care today? How? (Homelessness, low income, unemployed, alcoholism, drug addiction, transportation, low edu. Level, literacy, decrease access to med. care, intermediate, rehab)? @ -No Was there de-escalation of care discussed even if they declined (Discuss DNR or withdrawal of care, Hospice)? DNR status @ -Yes DNR status was confirmed What co-morbidities impacted this encounter? (DM, HTN, Smoking, COPD, CAD, Cancer, CVA, ARF, Chemo, Hep., AIDS, mental health diagnosis, sleep apnea, morbid obesity)? @ -Diabetes, obesity Was patient admitted / discharged? Hospital course, mention meds given and route, prescriptions, significant lab abnormalities, going to OR and other pertinent info. @ -Admit Was transferred from outside facility for recurrent hypoglycemia with altered mental status. Workup was essentially negative head CT was negative chest x-ray and urinalysis show no signs of infections. Kidney function was within normal limits. Daughter had given the patient her insulin in the previous morning. I am concerned that maybe there was a erroneous dose or the wrong amount of insulin was given as the patient is having recurrent hypoglycemia. D5 will be continued every hour blood glucose checks until the patient is stable. Patient will be allowed to eat regular diet. Undiagnosed new problem with uncertain prognosis? @ -Yes Drug Therapy requiring intensive monitoring for toxicity (Heparin, Nitro, Insulin, Cardizem)? @ -No Were any procedures done? @ -No Diagnosis/symptom? @ -Recurrent hypoglycemia in a diabetic patient Acute, or Chronic, or Acute on Chronic? @ -Acute Uncomplicated (without systemic symptoms) or Complicated (systemic symptoms)? @ -Default Side effects of treatment? @ -No Exacerbation, Progression, or Severe Exacerbation? @ -No Poses a threat to life or bodily function? How? (Chest pain, [place], ME, pneumonia, PE, COPD, DKA, ARF, appy, cholecystitis, CVA, Diverticulitis, Homicidal, Suicidal, threat to staff... and all critical care pts) @ -Yes, can result in altered mental status loss of consciousness seizure coma and - Lab Data Result diagrams: 11/27/23 01:45 11/27/23 01:45 Lab Results 11/27/23 11/27/23 11/27/23 Range/Units 01:39 01:45 01:45 WBC 9.4 (3.8-10.6) k/uL RBC 3.72 L (3.80-5.40) m/uL Hgb 10.6 L (11.4-16.0) gm/dL Hct 36.8 (34.0-46.0) % MCV 99.1 (80.0-100.0) fL MCH 28.5 (25.0-35.0) pg MCHC 28.7 L (31.0-37.0) g/dL RDW 17.4 H (11.5-15.5) % Plt Count 400 (150-450) k/uL MPV 8.0 Neutrophils % 79 % Lymphocytes % 11 % Monocytes % 5 % Eosinophils % 3 % Basophils % 0 % Neutrophils # 7.4 (1.3-7.7) k/uL Lymphocytes # 1.1 (1.0-4.8) k/uL Monocytes # 0.5 (0-1.0) k/uL Eosinophils # 0.3 (0-0.7) k/uL Basophils # 0.0 (0-0.2) k/uL Hypochromasia Marked Anisocytosis Slight Macrocytosis Slight Sodium 133 L (137-145) mmol/L Potassium 4.4 (3.5-5.1) mmol/L Chloride 103 (98-107) mmol/L Carbon Dioxide 26 (22-30) mmol/L Anion Gap 4 mmol/L BUN 30 H (7-17) mg/dL Creatinine 0.69 (0.52-1.04) mg/dL Est GFR (CKD-EPI)AfAm >90 (>60 ml/min/1.73 sqM) Est GFR (CKD-EPI)NonAf 79 (>60 ml/min/1.73 sqM) Glucose 39 L* (74-99) mg/dL POC Glucose (mg/dL) 51 L (70-110) mg/dL POC Glu Heel Former ID Dina Vázquez Plasma Lactic Acid Renato (0.7-2.0) mmol/L Calcium 7.9 L (8.4-10.2) mg/dL Magnesium 1.8 (1.6-2.3) mg/dL Total Bilirubin 0.7 (0.2-1.3) mg/dL AST 36 (14-36) U/L ALT 12 (4-34) U/L Alkaline Phosphatase 121 (38-126) U/L Total Protein 5.7 L (6.3-8.2) g/dL Albumin 2.5 L (3.5-5.0) g/dL TSH 6.900 H (0.465-4.680) mIU/L Free T4 1.69 (0.78-2.19) ng/dL 11/27/23 11/27/23 Range/Units 01:45 02:45 WBC (3.8-10.6) k/uL RBC (3.80-5.40) m/uL Hgb (11.4-16.0) gm/dL Hct (34.0-46.0) % MCV (80.0-100.0) fL MCH (25.0-35.0) pg MCHC (31.0-37.0) g/dL RDW (11.5-15.5) % Plt Count (150-450) k/uL MPV Neutrophils % % Lymphocytes % % Monocytes % % Eosinophils % % Basophils % % Neutrophils # (1.3-7.7) k/uL Lymphocytes # (1.0-4.8) k/uL Monocytes # (0-1.0) k/uL Eosinophils # (0-0.7) k/uL Basophils # (0-0.2) k/uL Hypochromasia Anisocytosis Macrocytosis Sodium (137-145) mmol/L Potassium (3.5-5.1) mmol/L Chloride (98-107) mmol/L Carbon Dioxide (22-30) mmol/L Anion Gap mmol/L BUN (7-17) mg/dL Creatinine (0.52-1.04) mg/dL Est GFR (CKD-EPI)AfAm (>60 ml/min/1.73 sqM) Est GFR (CKD-EPI)NonAf (>60 ml/min/1.73 sqM) Glucose (74-99) mg/dL POC Glucose (mg/dL) 81 (70-110) mg/dL POC Glu Heel Former ID Dina Vázquez Plasma Lactic Acid Renato 1.1 (0.7-2.0) mmol/L Calcium (8.4-10.2) mg/dL Magnesium (1.6-2.3) mg/dL Total Bilirubin (0.2-1.3) mg/dL AST (14-36) U/L ALT (4-34) U/L Alkaline Phosphatase (38-126) U/L Total Protein (6.3-8.2) g/dL Albumin (3.5-5.0) g/dL TSH (0.465-4.680) mIU/L Free T4 (0.78-2.19) ng/dL Disposition Clinical Impression: Hypoglycemia Disposition: ADMITTED IP TO THIS [facility] Condition: Serious Is patient prescribed a controlled substance at d/c from ED?: No
[2023-11-27 02:09] LABS: Anisocytosis Slight; Basophils % (A) 0 %; Eosinophils # (A) 0.3 k/uL (0-0.7); Eosinophils % (A) 3 %; HCT 36.8 % (34.0-46.0); HGB 10.6 gm/dL (11.4-16.0); Hypochromasia Marked; Lymphocytes # (A) 1.1 k/uL (1.0-4.8); Lymphocytes % (A) 11 %; MCH 28.5 pg (25.0-35.0); MCHC 28.7 g/dL (31.0-37.0); MCV 99.1 fL (80.0-100.0); Macrocytosis Slight; Monocytes # (A) 0.5 k/uL (0-1.0); Monocytes % (A) 5 %; Neutrophils # (A) 7.4 k/uL (1.3-7.7); Neutrophils % (A) 79 %; Platelet Count 400 k/uL (150-450); RBC 3.72 m/uL (3.80-5.40); RDW 17.4 % (11.5-15.5); WBC 9.4 k/uL (3.8-10.6)
[2023-11-27] MEDS: DEXTROSE 5%-0.9% NACL 1,000 ML IV SCH (02:14)
[2023-11-27 02:20] LABS: ALT 12 U/L (4-34); AST 36 U/L (14-36); African American GFR (CKD) >90 (>60 ml/min/1.73 sqM); Albumin 2.5 g/dL (3.5-5.0); Alkaline Phosphatase 121 U/L (38-126); Anion Gap 4 mmol/L; Blood Urea Nitrogen 30 mg/dL (7-17); Calcium 7.9 mg/dL (8.4-10.2); Carbon Dioxide 26 mmol/L (22-30); Chloride 103 mmol/L (98-107); Magnesium 1.8 mg/dL (1.6-2.3); Non-African American GFR(CKD) 79 (>60 ml/min/1.73 sqM); Potassium 4.4 mmol/L (3.5-5.1); Sodium 133 mmol/L (137-145); Total Bilirubin 0.7 mg/dL (0.2-1.3); Total Protein 5.7 g/dL (6.3-8.2)
[2023-11-27 02:22] LABS: Glucose 39 mg/dL (74-99)
[2023-11-27] MEDS: DEXTROSE 50% SYRINGE 50 ML IVP STA ×2 (02:45→05:35)
[2023-11-27 02:46] LABS: Glucose,Whole Blood 81 mg/dL (70-110)
[2023-11-27 03:45] LABS: T4, Free (Free Thyroxine) 1.69 ng/dL (0.78-2.19)
[2023-11-27] MEDS ORDERED: NALOXONE 0.4 MG/ML 1 ML VIAL IV PRN (05:02)
[2023-11-27] MEDS: FUROSEMIDE 10 MG/ML 4 ML VIAL IV STA (05:11)
[2023-11-27 05:17] LABS: Glucose,Whole Blood 62 mg/dL (70-110)
[2023-11-27 06:06] LABS: Glucose,Whole Blood 118 mg/dL (70-110)
[2023-11-27 09:36] LABS: Glucose,Whole Blood 97 mg/dL (70-110)
[2023-11-27] MEDS ORDERED: ACETAMINOPHEN TAB 325 MG TAB PO PRN (12:27)
[2023-11-27] MEDS: PANTOPRAZOLE 40 MG TABLET PO SCH (13:02)
[2023-11-27] MEDS: allopurinoL 100 MG TAB PO SCH (13:02)
[2023-11-27] MEDS: RIVAROXABAN 15 MG TAB PO SCH (13:02)
[2023-11-27 14:36] LABS: Glucose,Whole Blood 238 mg/dL (70-110)
[2023-11-27 16:36] LABS: Glucose,Whole Blood 269 mg/dL (70-110)
--- NOTE | 2023-11-27 16:37 | P.HPIM ---
History of Present Illness H&P Date: 11/27/23 Chief Complaint: Persistent hypoglycemia History of presenting complaint: This is a pleasant 88-year-old patient who follows with visiting physicians Dr. Alves. Chronic stable medical conditions include atrial fibrillation, diabetes, GERD, hypertension, osteoarthritis, hypothyroid, gout,. permanent pacemaker. 2020-percutaneous aortic valve implantation. wheelchair bound. Patient was released from [facility] yesterday. Patient receiving Humulin 70/30 at [facility] and upon coming home was changed to Humalog 75/25. Daughter gave her the same dose of insulin at home. By afternoon patient was rather tired and took a nap rather atypical for her. Around dinnertime patient is very confused not acting like herself. Not able to stand unassisted. Blood glucose was found to be in 30s. Was given an amp of D50. Was moved to an outside hospital when she was found to be persistently hypoglycemic. She received a total of 6 vials of D50. Patient is able to answer questions though. Though not fully. Denies any pain. Decreased appetite here. On a D5 drip. Insulin has been held for now. Review of systems: GEN.: Tired EYES: None HEENT: None NECK: None RESPIRATORY: None CARDIOVASCULAR: None GASTROINTESTINAL: None GENITOURINARY: Urinary incontinence MUSCULOSKELETAL: Joint pains LYMPHATICS: None HEMATOLOGICAL: None PSYCHIATRY: Forgetful NEUROLOGICAL: Uses wheelchair Social history: No history of smoking or alcohol. 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 Uses a wheelchair Physical examination: VITAL SIGNS: Afebrile, 77, 16, 93 x 63, 95% on 2 L GENERAL: BMI 43.9, reclining in bed tired EYES: Pupils equal. Conjunctiva normal. HEENT: External appearance of nose and ears normal, oral cavity grossly normal. NECK: JVD not raised; masses not palpable. HEART: First and second heart sounds are normal; some edema. LUNGS: Respiratory rate normal; clear to auscultation. ABDOMEN: Soft, nontender, liver spleen not palpable, no masses palpable. PSYCH: Somewhat lethargic but able to answer questions. EXTREMITY: Superficial wound on the left thigh laterally. Dressing in place.. NEUROLOGICAL: Cranial nerves grossly intact; no facial asymmetry, power and sensation grossly intact LYMPHATICS: No lymph nodes palpable in the axilla and neck INVESTIGATIONS, reviewed in the clinical context: November 27, 2023: White count 9.4 hemoglobin 10.6 platelets 400 sodium 133 potassium 4.4 BUN 30 creatinine 0.69 blood glucose 39 magnesium 1.8 TSH 6.9 Free T41.69 Assessment and plan: -Persistent hypoglycemia Patient discharged from [facility] yesterday. Switch from Humulin to Humalog.'s Per EMS Accu-Chek was in the 30s. Patient received at least 6 A of D50. Has been put on D5 W drip. 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 Wheelchair-bound -Diabetes mellitus type 2, chronically on insulin. Uncontrolled with hypoglycemia Hold off insulin for now. Follow Accu-Cheks -GERD Protonix -Paroxysmal atrial fibrillation On nadolol, xarelto -Essential hypertension Corgard, losartan -Primary osteoarthritis Use pain medications as needed -Hypothyroid Synthroid 150 g daily -Chronic gout Allopurinol 100 mg daily -DNR Given the complexity and severity of patient's condition expect the patient to be in the hospital at least for 2 overnights Past Medical History Past Medical History: Atrial Fibrillation, Diabetes Mellitus, GERD/Reflux, Hyperlipidemia, Hypertension, Osteoarthritis (OA), Renal Disease, Skin Disorder, Thyroid Disorder Additional Past Medical History / Comment(s): gout, decreased function kidneys, hand & joint pain, irritation skin folds History of Any Multi-Drug Resistant Organisms: None Reported Past Surgical History: Appendectomy, Cardiac Valve Replacement, Joint Replacement, Pacemaker Additional Past Surgical History / Comment(s): left knee replacement, cataract surgery, carpal tunnel sugery on right, TAVR 2020 Past Anesthesia/Blood Transfusion Reactions: No Reported Reaction Type of Cardiac Device: Permanent Pacemaker Device Placement Date:: patient unsure Past Psychological History: No Psychological Hx Reported Smoking Status: Never smoker Past Alcohol Use History: Rare Past Drug Use History: None Reported - Past Family History Father Family Medical History: Cancer Medications and Allergies Home Medications Medication Instructions Recorded Confirmed Type Baclofen [Lioresal] 10 mg PO HS 12/11/13 11/27/23 History Ferrous Sulfate [Feosol] 325 mg PO DAILY 12/11/13 11/27/23 History Levothyroxine Sodium [Synthroid] 150 mcg PO DAILY 03/21/19 11/27/23 History Pantoprazole Sodium [Protonix] 40 mg PO DAILY 03/21/19 11/27/23 History nadoloL [Corgard] 20 mg PO DAILY 03/21/19 11/27/23 History Fluticasone Nasal [place] [Flonase 1 spray EA NOSTRIL HS 10/08/20 11/27/23 History Nasal [place]] Insulin Aspart Prot/Insuln Asp 20 unit SQ W/BRKFST 10/08/20 11/27/23 History [NovoLOG MIX 70-30 Flexpen] Simvastatin 10 mg PO HS 10/08/20 11/27/23 History allopurinoL [Zyloprim] 100 mg PO DAILY 10/08/20 11/27/23 History Nystatin 100,000 Unit/gm Powd 1 applic TOPICAL BID PRN 02/04/21 11/27/23 History [Mycostatin Powder] Rivaroxaban [Xarelto] 15 mg PO DAILY 02/04/21 11/27/23 History Erythromycin Ophth Oint [Romycin 1 applic BOTH EYES HS 12/09/22 11/27/23 History Ophth Oint] Furosemide [Lasix] 40 mg PO DAILY 12/09/22 11/27/23 History Loratadine [Claritin] 10 mg PO DAILY 12/09/22 11/27/23 History Ubidecarenone [Co Q-10] 300 mg PO HS 12/09/22 11/27/23 History traMADol-ACETAMINOP 37.5-325MG 1 tab PO BID 12/09/22 11/27/23 History [Ultracet] Acetaminophen Tab [Tylenol] 650 mg PO Q6H PRN 11/27/23 11/27/23 History Cholecalciferol (Vitamin D3) 50 mcg PO DAILY 11/27/23 11/27/23 History [Vitamin D3 (50 Mcg = 2000 Iu)] Cyanocobalamin (Vitamin B-12) 1,000 mcg PO DAILY 11/27/23 11/27/23 History [Vitamin B-12] Insulin Aspart Prot/Insuln Asp 10 unit SQ HS 11/27/23 11/27/23 History [NovoLOG MIX 70-30 Flexpen] Insulin Regular, Human [NovoLIN R] See Protocol SQ W/LUNCH 11/27/23 11/27/23 History Losartan [Cozaar] 25 mg PO DAILY 11/27/23 11/27/23 History Allergies Allergy/AdvReac Type Severity Reaction Status Date / Time metformin Allergy Unknown Verified 11/27/23 10:06 Physical Exam Vitals: Vital Signs Temp Pulse Resp BP Pulse Ox 11/27/23 03:00 82 18 103/65 100 11/27/23 01:27 96.9 F L 75 20 100/55 96 Intake and Output 11/26/23 11/27/23 11/27/23 22:59 06:59 14:59 Other: Weight 108.862 kg Results CBC & Chem 7: 11/27/23 01:45 11/27/23 01:45 Labs: Abnormal Lab Results - Last 24 Hours (Table) 11/27/23 11/27/23 11/27/23 Range/Units 01:39 01:45 01:45 RBC 3.72 L (3.80-5.40) m/uL Hgb 10.6 L (11.4-16.0) gm/dL MCHC 28.7 L (31.0-37.0) g/dL RDW 17.4 H (11.5-15.5) % Sodium 133 L (137-145) mmol/L BUN 30 H (7-17) mg/dL Glucose 39 L* (74-99) mg/dL POC Glucose (mg/dL) 51 L (70-110) mg/dL Calcium 7.9 L (8.4-10.2) mg/dL Total Protein 5.7 L (6.3-8.2) g/dL Albumin 2.5 L (3.5-5.0) g/dL TSH 6.900 H (0.465-4.680) mIU/L 11/27/23 11/27/23 Range/Units 05:08 06:04 RBC (3.80-5.40) m/uL Hgb (11.4-16.0) gm/dL MCHC (31.0-37.0) g/dL RDW (11.5-15.5) % Sodium (137-145) mmol/L BUN (7-17) mg/dL Glucose (74-99) mg/dL POC Glucose (mg/dL) 62 L 118 H (70-110) mg/dL Calcium (8.4-10.2) mg/dL Total Protein (6.3-8.2) g/dL Albumin (3.5-5.0) g/dL TSH (0.465-4.680) mIU/L
[2023-11-27 17:40] LABS: Glucose,Whole Blood 251 mg/dL (70-110)
[2023-11-27 19:15] LABS: Glucose,Whole Blood 311 mg/dL (70-110)
--- NOTE | 2023-11-27 20:03 | XR ---
EXAMINATION TYPE: XR chest 1V DATE OF EXAM: 11/27/2023 4:56 PM CLINICAL INDICATION:Female, 88 years old with history of Tired; [facility] COMPARISON: 11/14/2020 TECHNIQUE: XR chest 1V Portable AP radiograph of the chest.. FINDINGS: Lines/Tubes/Devices: Left chest single lead pacer with tip over the RV. Monitor leads over the chest. Heart/mediastinum: Heart appears moderately enlarged. Atherosclerotic calcifications of the aortic ar ch. Mediastinum silhouette appears normal. Pulmonary vascularity: Mild pulmonary vascular congestion. Increased interstitial markings can be see n with edema or pneumonitis, which may be superimposed on chronic changes. Lungs/Pleura: Hazy opacities in the lung bases with ill-definition of the costophrenic angles, likely atelectasis or infiltrates with small effusions. No visualized pneumothorax. Musculoskeletal: No acute osseous abnormality demonstrated in the limits of the exam. Other findings: None. IMPRESSION: Cardiomegaly, pulmonary vascular congestion and edema with suspected small bilateral pleural effusion s. Correlate clinically for mild/moderate congestive heart failure.
[2023-11-27 20:12] LABS: Glucose,Whole Blood 364 mg/dL (70-110)
[2023-11-27] MEDS: traMADol-ACETAMINOP 37.5-325MG 1 EACH TAB PO SCH (20:59)
[2023-11-27] MEDS: BACLOFEN 10 MG TAB PO SCH (20:59)
[2023-11-27] MEDS: ATORVASTATIN 10 MG TAB PO SCH (20:59)
[2023-11-27] MEDS: ERYTHROMYCIN 5 MG/GM OPHTH OINT 3.5 GM TUBE BOTH EYES SCH (20:59)
[2023-11-27 22:01] LABS: Glucose,Whole Blood 285 mg/dL (70-110)
[2023-11-28 00:04] LABS: Glucose,Whole Blood 264 mg/dL (70-110)
[2023-11-28 02:01] LABS: Glucose,Whole Blood 240 mg/dL (70-110)
[2023-11-28 04:05] LABS: Glucose,Whole Blood 230 mg/dL (70-110)
[2023-11-28 06:07] LABS: Glucose,Whole Blood 197 mg/dL (70-110)
[2023-11-28] MEDS: LEVOTHYROXINE 75 MCG TAB PO SCH (06:16)
[2023-11-28 08:05] LABS: Glucose,Whole Blood 226 mg/dL (70-110)
[2023-11-28] MEDS: CYANOCOBALAMIN 500 MCG TAB PO SCH (09:49)
[2023-11-28] MEDS: CHOLECALCIFEROL 25 MCG (1000 IU) TABLET PO SCH (09:49)
[2023-11-28] MEDS: FERROUS SULFATE 325 MG TAB PO SCH (09:50)
[2023-11-28 09:51] LABS: Glucose,Whole Blood 213 mg/dL (70-110)
[2023-11-28 11:56] LABS: Glucose,Whole Blood 279 mg/dL (70-110)
[2023-11-28] MEDS ORDERED: DEXTROSE 50% SYRINGE 50 ML IVP PRN ×2 (12:15)
[2023-11-28] MEDS: INSULIN ASPART (NovoLOG) 100 UNIT/ML VIAL SQ SCH (12:26)
[2023-11-28 14:54] LABS: Glucose,Whole Blood 292 mg/dL (70-110)
[2023-11-28 16:26] LABS: Glucose,Whole Blood 292 mg/dL (70-110)
[2023-11-28] MEDS: INSULN ASP PRT/INSULIN ASPART 100 UNIT/ML 10 ML VIAL SQ SCH (17:06)
[2023-11-28] MEDS: FUROSEMIDE 40 MG TAB PO SCH (17:50)
[2023-11-28 20:34] LABS: Glucose,Whole Blood 210 mg/dL (70-110)
[2023-11-29 06:18] LABS: Glucose,Whole Blood 105 mg/dL (70-110)
[2023-11-29 11:19] LABS: Glucose,Whole Blood 164 mg/dL (70-110)
[2023-11-29] MEDS: INSULN ASP PRT/INSULIN ASPART 100 UNIT/ML 10 ML VIAL SQ SCH ×2 (11:59→17:28)
[2023-11-29] MEDS: FUROSEMIDE 10 MG/ML 4 ML VIAL IV STA (13:26)
[2023-11-29 16:24] LABS: Glucose,Whole Blood 244 mg/dL (70-110)
--- NOTE | 2023-11-29 17:14 | P.PN ---
Progress Note - Text Progress Note Date: 11/29/23 Chief Complaint: Persistent hypoglycemia History of presenting complaint: This is a pleasant 88-year-old patient who follows with visiting physicians Dr. Alves. Chronic stable medical conditions include atrial fibrillation, diabetes, GERD, hypertension, osteoarthritis, hypothyroid, gout,. permanent pacemaker. 2020-percutaneous aortic valve implantation. wheelchair bound. [facility] was [facility] from [facility] yesterday. Patient receiving Humulin 70/30 at [facility] and upon coming home was changed to Humalog 75/25. Daughter gave her the same dose of insulin at home. By afternoon patient was rather tired and took a nap rather atypical for her. Around dinnertime patient is very confused not acting like herself. Not able to stand unassisted. Blood glucose was found to be in 30s. Was given an amp of D50. Was moved to an outside hospital when she was found to be persistently hypoglycemic. She received a total of 6 vials of D50. Patient is able to answer questions though. Though not fully. Denies any pain. Decreased appetite here. On a D5 drip. Insulin has been held for now. November 29, 2023: Accu-Cheks are out. Patient started on NovoLog Mix 70/30 yesterday. Eating better. Nurse informed me that patient apparently was mistakenly given extra dose of insulin at home. Patient has some shortness of breath. Given 1 dose of IV Lasix. Fluid restriction 2000 cc a day. Changed to diabetic diet. Midodrine being added for low blood pressure. Active Medications Acetaminophen (Acetaminophen Tab 325 Mg Tab) 650 mg PO Q6H PRN PRN Reason: Pain or Fever > 100.5 Allopurinol (Allopurinol 100 Mg Tab) 100 mg PO DAILY [facility] Last Admin: 11/29/23 08:15 Dose: 100 mg Atorvastatin Calcium (Atorvastatin 10 Mg Tab) 10 mg PO HS [facility] Last Admin: 11/28/23 20:44 Dose: 10 mg Baclofen (Baclofen 10 Mg Tab) 10 mg PO HS [facility] Last Admin: 11/28/23 20:44 Dose: Not Given Cholecalciferol (Cholecalciferol 25 Mcg (1000 Iu) Tablet) 50 mcg PO DAILY [facility] Last Admin: 11/29/23 08:15 Dose: 50 mcg Cyanocobalamin (Cyanocobalamin 500 Mcg Tab) 1,000 mcg PO DAILY [facility] Last Admin: 11/29/23 08:14 Dose: 1,000 mcg Dextrose/Water (Dextrose 50% Syringe 50 Ml) 25 ml IVP PER PROTOCOL PRN; Protocol PRN Reason: Hypoglycemia Dextrose/Water (Dextrose 50% Syringe 50 Ml) 50 ml IVP PER PROTOCOL PRN; Protocol PRN Reason: Hypoglycemia Erythromycin (Erythromycin 5 Mg/Gm Ophth Oint 3.5 Gm Tube) 1 applic BOTH EYES HS [facility] Last Admin: 11/28/23 20:44 Dose: 1 applic Ferrous Sulfate (Ferrous Sulfate 325 Mg Tab) 325 mg PO DAILY [facility] Last Admin: 11/29/23 08:14 Dose: 325 mg Furosemide (Furosemide 40 Mg Tab) 40 mg PO DAILY [facility] Last Admin: 11/29/23 08:15 Dose: 40 mg Insulin Aspart (Insulin Aspart (Novolog) 100 Unit/Ml Vial) 0 unit SQ ACHS [facility]; Protocol Last Admin: 11/29/23 16:43 Dose: 4 unit Insulin Aspart (Insuln Asp Prt/Insulin Aspart 100 Unit/Ml 10 Ml Vial) 10 unit SQ AC-BID [facility] Last Admin: 11/29/23 16:44 Dose: 10 unit Insulin Aspart (Insuln Asp Prt/Insulin Aspart 100 Unit/Ml 10 Ml Vial) 6 unit SQ AC-LUNCH [facility] Last Admin: 11/29/23 11:59 Dose: 6 unit Levothyroxine Sodium (Levothyroxine 75 Mcg Tab) 150 mcg PO DAILY@0630 [facility] Last Admin: 11/29/23 06:28 Dose: 150 mcg Nadolol (Nadolol 20 Mg Tab) 20 mg PO DAILY [facility] Last Admin: 11/29/23 08:14 Dose: 20 mg Naloxone HCl (Naloxone 0.4 Mg/Ml 1 Ml Vial) 0.2 mg IV Q2M PRN PRN Reason: Opioid Reversal Pantoprazole Sodium (Pantoprazole 40 Mg Tablet) 40 mg PO AC-BRKFST [facility] Last Admin: 11/29/23 06:28 Dose: 40 mg Rivaroxaban (Rivaroxaban 15 Mg Tab) 15 mg PO DAILY [facility]; Protocol Last Admin: 11/29/23 08:15 Dose: 15 mg Tramadol/Acetaminophen (Tramadol-Acetaminop 37.5-325mg 1 Each Tab) 1 each PO BID [facility] Last Admin: 11/29/23 10:23 Dose: Not Given Social history: No history of smoking or alcohol. 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 Uses a wheelchair Physical examination: VITAL SIGNS: 97.5, 75, 18, 83/52, 96% on 2 L GENERAL: BMI 43.9, reclining in bed tired EYES: Pupils equal. Conjunctiva normal. HEENT: External appearance of nose and ears normal, oral cavity grossly normal. NECK: JVD not raised; masses not palpable. HEART: First and second heart sounds are normal; some edema. LUNGS: Respiratory rate increased l; creased breath sound n. ABDOMEN: Soft, nontender, liver spleen not palpable, no masses palpable. PSYCH: Somewhat lethargic but able to answer questions. EXTREMITY: Superficial wound on the left thigh laterally. Dressing in place.. NEUROLOGICAL: Cranial nerves grossly intact; no facial asymmetry, power and sensation grossly intact LYMPHATICS: No lymph nodes palpable in the axilla and neck INVESTIGATIONS, reviewed in the clinical context: November 27, 2023: White count 9.4 hemoglobin 10.6 platelets 400 sodium 133 potassium 4.4 BUN 30 creatinine 0.69 blood glucose 39 magnesium 1.8 TSH 6.9 Free T41.69 Assessment and plan: -Persistent hypoglycemia: Resolved Patient discharged from [facility], 1 day prior to admission. Switch from Humulin to Humalog.'s Per EMS Accu-Chek was in the 30s. Patient received at least 6 A of D50. Has been put on D5 W drip. Nurse informed that mistakenly the daughter had given extra dose of insulin. 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 Wheelchair-bound -Diabetes mellitus type 2, chronically on insulin. Uncontrolled with hypoglycemia and hyperglycemia NovoLog Mix 70/30 10 units with breakfast and supper and 6 units with lunch started -GERD Protonix -Paroxysmal atrial fibrillation On nadolol, xarelto -Essential hypertension: Blood pressure running low Corgard, Stop Cozaar Add midodrine 5 mg 3 times daily -Primary osteoarthritis Use pain medications as needed -Hypothyroid Synthroid 150 g daily -Chronic gout Allopurinol 100 mg daily -DNR 1 dose of IV Lasix given fluid overload. IV fluids were discontinued yesterday. Keshav wrap. Fluid restriction 1200 cc a day. Changed to diabetic diet. Adjust dose of NovoLog Mix 70/30 Past Medical History Past Medical History: Atrial Fibrillation, Diabetes Mellitus, GERD/Reflux, Hyperlipidemia, Hypertension, Osteoarthritis (OA), Renal Disease, Skin Disorder, Thyroid Disorder Additional Past Medical History / Comment(s): gout, decreased function kidneys, hand & joint pain, irritation skin folds History of Any Multi-Drug Resistant Organisms: None Reported Past Surgical History: Appendectomy, Cardiac Valve Replacement, Joint Replacement, Pacemaker Additional Past Surgical History / Comment(s): left knee replacement, cataract surgery, carpal tunnel sugery on right, TAVR 2020 Past Anesthesia/Blood Transfusion Reactions: No Reported Reaction Type of Cardiac Device: Permanent Pacemaker Device Placement Date:: patient unsure Past Psychological History: No Psychological Hx Reported Smoking Status: Never smoker Past Alcohol Use History: Rare Past Drug Use History: None Reported
[2023-11-29] MEDS: MIDODRINE 5 MG TAB PO SCH (18:01)
[2023-11-29 20:23] LABS: Glucose,Whole Blood 192 mg/dL (70-110)
[2023-11-30 06:34] LABS: Glucose,Whole Blood 112 mg/dL (70-110)
[2023-11-30 09:08] LABS: African American GFR (CKD) 41 (>60 ml/min/1.73 sqM); Anion Gap 6 mmol/L; Blood Urea Nitrogen 43 mg/dL (7-17); Calcium 8.1 mg/dL (8.4-10.2); Carbon Dioxide 25 mmol/L (22-30); Chloride 100 mmol/L (98-107); Glucose 102 mg/dL (74-99); Non-African American GFR(CKD) 36 (>60 ml/min/1.73 sqM); Potassium 5.2 mmol/L (3.5-5.1); Sodium 131 mmol/L (137-145)
[2023-11-30 11:49] LABS: Glucose,Whole Blood 135 mg/dL (70-110)
[2023-11-30] MEDS: SODIUM CHLORIDE 0.9% 1,000 ML IV SCH (12:09)
--- NOTE | 2023-11-30 15:46 | P.PN ---
Progress Note - Text Progress Note Date: 11/30/23 Chief Complaint: Persistent hypoglycemia History of presenting complaint: This is a pleasant 88-year-old patient who follows with visiting physicians Dr. Alves. Chronic stable medical conditions include atrial fibrillation, diabetes, GERD, hypertension, osteoarthritis, hypothyroid, gout,. permanent pacemaker. 2020-percutaneous aortic valve implantation. wheelchair bound. [facility] was released from [facility] yesterday. Patient receiving Humulin 70/30 at [facility] and upon coming home was changed to Humalog 75/25. Daughter gave her the same dose of insulin at home. By afternoon patient was rather tired and took a nap rather atypical for her. Around dinnertime patient is very confused not acting like herself. Not able to stand unassisted. Blood glucose was found to be in 30s. Was given an amp of D50. Was moved to an outside hospital when she was found to be persistently hypoglycemic. She received a total of 6 vials of D50. Patient is able to answer questions though. Though not fully. Denies any pain. Decreased appetite here. On a D5 drip. Insulin has been held for now. November 29, 2023: Accu-Cheks are out. Patient started on NovoLog Mix 70/30 yesterday. Eating better. Nurse informed me that patient apparently was mistakenly given extra dose of insulin at home. Patient has some shortness of breath. Given 1 dose of IV Lasix. Fluid restriction 2000 cc a day. Changed to diabetic diet. Midodrine being added for low blood pressure. November 30, 2023: Patient given 1 dose of IV Lasix 40 mg yesterday. For fluid overload. Creatinine has bumped up to 1.33. Midodrine was added yesterday for low blood pressure. Patient will be gently hydrated at 50 cc an hour for total of 500 cc today. Discussed with patient's daughter yesterday prognosis guarded. Will get a cardiology opinion. Ordered 2D echo At Active Medications Acetaminophen (Acetaminophen Tab 325 Mg Tab) 650 mg PO Q6H PRN PRN Reason: Pain or Fever > 100.5 Allopurinol (Allopurinol 100 Mg Tab) 100 mg PO DAILY [facility] Last Admin: 11/30/23 08:33 Dose: 100 mg Atorvastatin Calcium (Atorvastatin 10 Mg Tab) 10 mg PO HS [facility] Last Admin: 11/29/23 20:24 Dose: 10 mg Baclofen (Baclofen 10 Mg Tab) 10 mg PO HS [facility] Last Admin: 11/29/23 20:24 Dose: 10 mg Cholecalciferol (Cholecalciferol 25 Mcg (1000 Iu) Tablet) 50 mcg PO DAILY [facility] Last Admin: 11/30/23 08:33 Dose: 50 mcg Cyanocobalamin (Cyanocobalamin 500 Mcg Tab) 1,000 mcg PO DAILY [facility] Last Admin: 11/30/23 08:33 Dose: 1,000 mcg Dextrose/Water (Dextrose 50% Syringe 50 Ml) 25 ml IVP PER PROTOCOL PRN; Protocol PRN Reason: Hypoglycemia Dextrose/Water (Dextrose 50% Syringe 50 Ml) 50 ml IVP PER PROTOCOL PRN; Protocol PRN Reason: Hypoglycemia Erythromycin (Erythromycin 5 Mg/Gm Ophth Oint 3.5 Gm Tube) 1 applic BOTH EYES [facility] Last Admin: 11/29/23 20:25 Dose: 1 applic Ferrous Sulfate (Ferrous Sulfate 325 Mg Tab) 325 mg PO DAILY [facility] Last Admin: 11/30/23 08:33 Dose: 325 mg Sodium Chloride (Saline 0.9%) 1,000 mls @ 50 mls/hr IV .Q20H [facility] Stop: 11/30/23 21:29 Last Admin: 11/30/23 12:09 Dose: 50 mls/hr Insulin Aspart (Insulin Aspart (Novolog) 100 Unit/Ml Vial) 0 unit SQ ACHS [facility]; Protocol Last Admin: 11/30/23 11:56 Dose: Not Given Insulin Aspart (Insuln Asp Prt/Insulin Aspart 100 Unit/Ml 10 Ml Vial) 6 unit SQ AC-LUNCH [facility] Last Admin: 11/30/23 12:09 Dose: 6 unit Insulin Aspart (Insuln Asp Prt/Insulin Aspart 100 Unit/Ml 10 Ml Vial) 14 unit SQ AC-BID [facility] Last Admin: 11/30/23 06:50 Dose: 14 unit Levothyroxine Sodium (Levothyroxine 75 Mcg Tab) 150 mcg PO DAILY@0630 [facility] Last Admin: 11/30/23 06:50 Dose: 150 mcg Midodrine (Midodrine 5 Mg Tab) 5 mg PO AC-TID [facility] Last Admin: 11/30/23 12:09 Dose: 5 mg Nadolol (Nadolol 20 Mg Tab) 20 mg PO DAILY [facility] Last Admin: 11/30/23 08:34 Dose: 20 mg Naloxone HCl (Naloxone 0.4 Mg/Ml 1 Ml Vial) 0.2 mg IV Q2M PRN PRN Reason: Opioid Reversal Pantoprazole Sodium (Pantoprazole 40 Mg Tablet) 40 mg PO AC-BRKFST [facility] Last Admin: 11/30/23 06:50 Dose: 40 mg Rivaroxaban (Rivaroxaban 15 Mg Tab) 15 mg PO DAILY [facility]; Protocol Last Admin: 11/30/23 08:33 Dose: 15 mg Tramadol/Acetaminophen (Tramadol-Acetaminop 37.5-325mg 1 Each Tab) 1 each PO BID [facility] Last Admin: 11/30/23 08:33 Dose: 1 each Social history: No history of smoking or alcohol. 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 Uses a wheelchair Physical examination: VITAL SIGNS: 97.8, 73, 18, 107 x 70, 96% on 4 L GENERAL: BMI 43.9, reclining in bed tired EYES: Pupils equal. Conjunctiva normal. HEENT: External appearance of nose and ears normal, oral cavity grossly normal. NECK: JVD not raised; masses not palpable. HEART: First and second heart sounds are normal; some edema. LUNGS: Respiratory rate increased l; creased breath sound n. ABDOMEN: Soft, nontender, liver spleen not palpable, no masses palpable. PSYCH: Somewhat lethargic but able to answer questions. EXTREMITY: Superficial wound on the left thigh laterally. Dressing in place.. NEUROLOGICAL: Cranial nerves grossly intact; no facial asymmetry, power and sensation grossly intact LYMPHATICS: No lymph nodes palpable in the axilla and neck INVESTIGATIONS, reviewed in the clinical context: November 29: Potassium 5.2 BUN 43 creatinine 1.33 November 27, 2023: White count 9.4 hemoglobin 10.6 platelets 400 sodium 133 potassium 4.4 BUN 30 creatinine 0.69 blood glucose 39 magnesium 1.8 TSH 6.9 Free T41.69 Assessment and plan: -Persistent hypoglycemia: Resolved Patient discharged from [facility], 1 day prior to admission. Switch from Humulin to Humalog.'s Per EMS Accu-Chek was in the 30s. Patient received at least 6 A of D50. Has been put on D5 W drip. Nurse informed that mistakenly the daughter had given extra dose of insulin. -Acute kidney injury likely prerenal from IV diuretics Admission creatinine 0.69. Today 1.33 Gentle hydration -Third spacing, from hypoalbuminemia Lasix not working. 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 Wheelchair-bound -Diabetes mellitus type 2, chronically on insulin. Uncontrolled with hypoglycemia and hyperglycemia: Better NovoLog Mix 70/30 14 units with breakfast and supper and 6 units with lunch -GERD Protonix -Paroxysmal atrial fibrillation On nadolol, xarelto -Essential hypertension: Corgard, Stop Cozaar midodrine 5 mg 3 times daily -Primary osteoarthritis Use pain medications as needed -Hypothyroid Synthroid 150 g daily -Chronic gout Allopurinol 100 mg daily -DNR GABBY. Stop Lasix. Gentle hydration. Significant hypoalbuminemia causing third spacing. Will order high-protein shake. Prognosis guarded Past Medical History Past Medical History: Atrial Fibrillation, Diabetes Mellitus, GERD/Reflux, Hyperlipidemia, Hypertension, Osteoarthritis (OA), Renal Disease, Skin Disorder, Thyroid Disorder Additional Past Medical History / Comment(s): gout, decreased function kidneys, hand & joint pain, irritation skin folds History of Any Multi-Drug Resistant Organisms: None Reported Past Surgical History: Appendectomy, Cardiac Valve Replacement, Joint Replacement, Pacemaker Additional Past Surgical History / Comment(s): left knee replacement, cataract surgery, carpal tunnel sugery on right, TAVR 2020 Past Anesthesia/Blood Transfusion Reactions: No Reported Reaction Type of Cardiac Device: Permanent Pacemaker Device Placement Date:: patient unsure Past Psychological History: No Psychological Hx Reported Smoking Status: Never smoker Past Alcohol Use History: Rare Past Drug Use History: None Reported
[2023-11-30 16:36] LABS: Glucose,Whole Blood 162 mg/dL (70-110)
[2023-11-30 20:05] LABS: Glucose,Whole Blood 196 mg/dL (70-110)
[2023-12-01 06:02] LABS: Glucose,Whole Blood 140 mg/dL (70-110)
[2023-12-01 11:36] LABS: Glucose,Whole Blood 187 mg/dL (70-110)
[2023-12-01 11:44] LABS: African American GFR (CKD) 45 (>60 ml/min/1.73 sqM); Anion Gap 2 mmol/L; Blood Urea Nitrogen 47 mg/dL (7-17); Calcium 8.4 mg/dL (8.4-10.2); Carbon Dioxide 27 mmol/L (22-30); Chloride 101 mmol/L (98-107); Glucose 197 mg/dL (74-99); Non-African American GFR(CKD) 39 (>60 ml/min/1.73 sqM); Potassium 4.7 mmol/L (3.5-5.1); Sodium 130 mmol/L (137-145)
--- NOTE | 2023-12-01 12:06 | CA ---
Transthoracic Echo Report Name: June Perez Age: 88 Gender: F : 1935 Exam Date: 12/01/2023 09:26 Exam Location: [facility] Ht (in): 62 Wt (lb): 240 Ordering Physician: Jay Russell MD Attending/Referring Phys: Production Manager Nidia Calderon RDCS Procedure CPT: Indications: Evaluate for CHF Cardiac Hx: Technical Quality: Technically difficult study Contrast 1: Definity Total Dose (mL): 1 Contrast 2: Total Dose (mL): MEASUREMENTS (Male / Female) Normal Values 2D ECHO LV Diastolic Diameter PLAX 4.4 cm 4.2 - 5.9 / 3.9 - 5.3 cm LV Systolic Diameter PLAX 3.1 cm IVS Diastolic Thickness 1.0 cm 0.6 - 1.0 / 0.6 - 0.9 cm LVPW Diastolic Thickness 1.1 cm 0.6 - 1.0 / 0.6 - 0.9 cm LV Relative Wall Thickness 0.5 RV Internal Dim ED PLAX 3.7 cm LVOT Diameter 1.8 cm LA Systolic Diameter LX 4.7 cm 3.0 - 4.0 / 2.7 - 3.8 cm LA Volume 108.2 cm??? 18 - 58 / 22 - 52 cm??? LA Volume Index 48.2 cm???/m??? 16 - 28 cm???/m??? M-MODE Aortic Root Diameter MM 2.6 cm DOPPLER AV Peak Velocity 164.7 cm/s AV Peak Gradient 10.9 mmHg AV Mean Velocity 107.0 cm/s AV Mean Gradient 5.6 mmHg AV Velocity Time Integral 31.6 cm AI Peak Velocity 252.0 cm/s AI Peak Gradient 25.4 mmHg AI Pressure Half Time 390.8 ms LVOT Peak Velocity 95.3 cm/s LVOT Peak Gradient 3.6 mmHg LVOT Velocity Time Integral 19.2 cm LVOT Stroke Volume 48.5 cm??? LVOT Stroke Volume Index 23.5 ml/m??? LVOT Cardiac Index 1577.7 cm???/min???m??? AV Area Cont Eq vti 1.5 cm??? AV Area Cont Eq pk 1.5 cm??? MV Area PHT 5.5 cm??? MV Deceleration Time 193.1 ms TR Peak Velocity 345.6 cm/s TR Peak Gradient 47.8 mmHg Right Ventricular Systolic Press 62.0 mmHg FINDINGS Left Ventricle Left ventricular ejection fraction is estimated at 50-55 %. Mildly increased septal wall thickness. Mildly increased posterior wall thickness. Left ventricular cavity size normal. Right Ventricle Mild right ventricular dilatation. Severe pulmonary hypertension. Right ventricular systolic pressure estimated at 62 mm hg. Right Atrium Severe right atrial dilatation. Left Atrium Severely increased left atrial diameter. Severely increased left atrial volume. Mildly increased left atrial area. Mitral Valve Mitral valve thickened. Mild mitral annular calcification. Mild mitral regurgitation. Aortic Valve Normally functioning bioprosthetic aortic valve without stenosis with a peak velocity of 1.6 m/s, peak gradient 11 mmHg, mean gradient 6 mmHg. Tricuspid Valve Moderate tricuspid regurgitation. [id number] tricuspid regurgitation. Pulmonic Valve Structurally normal pulmonic valve. Trace pulmonic regurgitation. Pericardium No pericardial effusion. Small pleural effusion. Aorta Normal size aortic root and proximal ascending aorta. CONCLUSIONS Technically difficult study. Left ventricular ejection fraction is estimated at 50-55 %. Mild concentric LVH Mild RV dilatation, evidence of pulm hypertension with RVSP 60 mmHg Severe biatrial dilatation Normally functioning bioprosthetic TAVR valve in place with mild regurg, Previewed by: Dr Roman Babb (Electronically Signed) Final Date: 01 Dec 2023 12:05
[2023-12-01] MEDS: METOPROLOL TARTRATE 12.5 MG TAB PO SCH (12:08)
--- NOTE | 2023-12-01 12:59 | P.CRDCN ---
History of Present Illness History of present illness: HISTORY OF PRESENT ILLNESS: This is a 88-year-old female with a past medical history significant for aortic valve replacement, atrial fibrillation, hypertension, hyperlipidemia, diabetes. Patient does not follow with a sustainability manager at [facility]. We have been asked to see the patient in consultation for congestive heart failure. Patient examined at the bedside. Patient was admitted to the hospital secondary to hypoglycemia. Cardiology was consulted for possible congestive heart failure. At the time of examination, the patient denies any shortness of breath. She denies any chest pain or pressure. She denies any dizziness or lightheadedness. Patient's blood pressures have been on the lower side with a systolic between 8090. Her losartan was discontinued and she was started on midodrine yesterday per primary medicine. EKG completed this morning reveals atrial flutter with a heart rate in the 70s. She is anticoagulated with Xarelto. Echocardiogram completed this morning reveals ejection fraction 50 to 55% with severe pulmonary hypertension and normally functioning bioprosthetic TAVR valve. REVIEW OF SYSTEMS: At the time of my exam: CONSTITUTIONAL: Denies fever or chills. HEENT: Denies blurred vision, vision changes, or eye pain. Denies hemoptysis CARDIOVASCULAR: Denies chest pain. Denies orthopnea. Denies PND. Denies palpitations RESPIRATORY: Denies shortness of breath. GASTROINTESTINAL: Denies abdominal pain. Denies nausea or vomiting. HEMATOLOGIC: Denies bleeding disorders. GENITOURINARY: Denies any blood in urine. SKIN: Denies pruitis. Denies rash. PHYSICAL EXAM: VITAL SIGNS: Reviewed. GENERAL: Well-developed in no acute distress. HEENT: Head is normocephalic. Pupils are equal, round. Sclerae anicteric. Mucous membranes of the mouth are moist. Neck supple. No JVD or thyromegaly LUNGS: Respirations even and unlabored. Lungs essentially clear to auscultation bilaterally. HEART: Regular rate and rhythm. S1 and S2 heard. ABDOMEN: Soft. Nondistended. Nontender. EXTREMITIES: Normal range of motion. No clubbing or cyanosis. Peripheral pulses intact. No lower extremity edema NEUROLOGIC: Awake and alert. Oriented x 3. ASSESSMENT: Hypoglycemia Persistent atrial fibrillation/flutter with controlled ventricular rate History of hypertension, currently borderline soft blood pressures History of TAVR Hyperlipidemia Diabetes PLAN: Discontinue nadolol Begin metoprolol tartrate 12.5 mg twice a day Patient has been started on midodrine per primary medicine Clinically, there is no evidence of congestive heart failure No further inpatient recommendations from a cardiac standpoint We will sign off. Please reconsult if needed. Nurse practitioner note has been reviewed by physician. Signing provider agrees with the documented findings, assessment, and plan of care documented by SECONDARY ENGLISH TEACHER as a scribe. Past Medical History Past Medical History: Atrial Fibrillation, Diabetes Mellitus, GERD/Reflux, Hyperlipidemia, Hypertension, Osteoarthritis (OA), Renal Disease, Skin Disorder, Thyroid Disorder Additional Past Medical History / Comment(s): gout, decreased function kidneys, hand & joint pain, irritation skin folds History of Any Multi-Drug Resistant Organisms: None Reported Past Surgical History: Appendectomy, Cardiac Valve Replacement, Joint Replacement, Pacemaker Additional Past Surgical History / Comment(s): left knee replacement, cataract surgery, carpal tunnel sugery on right, TAVR 2020 Past Anesthesia/Blood Transfusion Reactions: No Reported Reaction Type of Cardiac Device: Permanent Pacemaker Device Placement Date:: patient unsure Past Psychological History: No Psychological Hx Reported Smoking Status: Never smoker Past Alcohol Use History: Rare Past Drug Use History: None Reported - Past Family History Father Family Medical History: Cancer Medications and Allergies Home Medications Medication Instructions Recorded Confirmed Type Baclofen [Lioresal] 10 mg PO HS 12/11/13 11/27/23 History Ferrous Sulfate [Feosol] 325 mg PO DAILY 12/11/13 11/27/23 History Levothyroxine Sodium [Synthroid] 150 mcg PO DAILY 03/21/19 11/27/23 History Pantoprazole Sodium [Protonix] 40 mg PO DAILY 03/21/19 11/27/23 History nadoloL [Corgard] 20 mg PO DAILY 03/21/19 11/27/23 History Fluticasone Nasal [place] [Flonase 1 spray EA NOSTRIL HS 10/08/20 11/27/23 History Nasal [place]] Insulin Aspart Prot/Insuln Asp 20 unit SQ W/BRKFST 10/08/20 11/27/23 History [NovoLOG MIX 70-30 Flexpen] Simvastatin 10 mg PO HS 10/08/20 11/27/23 History allopurinoL [Zyloprim] 100 mg PO DAILY 10/08/20 11/27/23 History Nystatin 100,000 Unit/gm Powd 1 applic TOPICAL BID PRN 02/04/21 11/27/23 History [Mycostatin Powder] Rivaroxaban [Xarelto] 15 mg PO DAILY 02/04/21 11/27/23 History Erythromycin Ophth Oint [Romycin 1 applic BOTH EYES HS 12/09/22 11/27/23 History Ophth Oint] Furosemide [Lasix] 40 mg PO DAILY 12/09/22 11/27/23 History Loratadine [Claritin] 10 mg PO DAILY 12/09/22 11/27/23 History Ubidecarenone [Co Q-10] 300 mg PO HS 12/09/22 11/27/23 History traMADol-ACETAMINOP 37.5-325MG 1 tab PO BID 12/09/22 11/27/23 History [Ultracet] Acetaminophen Tab [Tylenol] 650 mg PO Q6H PRN 11/27/23 11/27/23 History Cholecalciferol (Vitamin D3) 50 mcg PO DAILY 11/27/23 11/27/23 History [Vitamin D3 (50 Mcg = 2000 Iu)] Cyanocobalamin (Vitamin B-12) 1,000 mcg PO DAILY 11/27/23 11/27/23 History [Vitamin B-12] Insulin Aspart Prot/Insuln Asp 10 unit SQ HS 11/27/23 11/27/23 History [NovoLOG MIX 70-30 Flexpen] Insulin Regular, Human [NovoLIN R] See Protocol SQ W/LUNCH 11/27/23 11/27/23 History Losartan [Cozaar] 25 mg PO DAILY 11/27/23 11/27/23 History Allergies Allergy/AdvReac Type Severity Reaction Status Date / Time metformin Allergy Unknown Verified 11/27/23 10:06 Physical Exam Vitals: Vital Signs Temp Pulse Resp BP BP Pulse Ox 12/01/23 11:27 97.4 F L 74 20 83/51 96 12/01/23 09:07 94 L 12/01/23 08:00 97.6 F 73 20 82/64 87/48 94 L 12/01/23 04:00 97.5 F L 74 18 98/62 94 L 12/01/23 02:00 75 18 12/01/23 00:00 66 16 94/58 97 11/30/23 20:00 97.2 F L 75 18 92/58 96 05/28/24 15:54 97.3 F L 75 18 107/71 98 11/30/23 14:00 73 18 Intake and Output 11/30/23 12/01/23 12/01/23 22:59 06:59 14:59 Intake Total 180 Output Total 250 250 Balance -250 -250 180 Intake: Oral 180 Output: Urine 250 250 Other: Voiding Method External Catheter External Catheter External Catheter Results 11/27/23 01:45 12/01/23 10:13 Comprehensive Metabolic Panel 12/01/23 Range/Units 10:13 Sodium 130 L (137-145) mmol/L Potassium 4.7 (3.5-5.1) mmol/L Chloride 101 (98-107) mmol/L Carbon Dioxide 27 (22-30) mmol/L BUN 47 H (7-17) mg/dL Creatinine 1.25 H (0.52-1.04) mg/dL Glucose 197 H (74-99) mg/dL Calcium 8.4 (8.4-10.2) mg/dL Current Medications Generic Name Dose Route Start Last Admin Trade Name Freq PRN Reason Stop Dose Admin Acetaminophen 650 mg 11/27/23 12:27 Acetaminophen Tab 325 Mg Tab PO Q6H PRN Pain or Fever > 100.5 Allopurinol 100 mg 11/27/23 12:30 12/01/23 09:04 Allopurinol 100 Mg Tab PO 100 mg DAILY ROSELYN Administration Atorvastatin Calcium 10 mg 11/27/23 21:00 11/30/23 20:26 Atorvastatin 10 Mg Tab PO 10 mg HS ROSELYN Administration Baclofen 10 mg 11/27/23 21:00 11/30/23 20:25 Baclofen 10 Mg Tab PO 10 mg HS ROSELYN Administration Cholecalciferol 50 mcg 11/28/23 09:00 12/01/23 09:04 Cholecalciferol 25 Mcg (1000 Iu) Tablet PO 50 mcg DAILY ROSELYN Administration Cyanocobalamin 1,000 mcg 11/28/23 09:00 12/01/23 09:04 Cyanocobalamin 500 Mcg Tab PO 1,000 mcg DAILY ROSELYN Administration Dextrose/Water 25 ml 11/28/23 12:15 Dextrose 50% Syringe 50 Ml IVP PER PROTOCOL PRN Hypoglycemia Protocol Dextrose/Water 50 ml 11/28/23 12:15 Dextrose 50% Syringe 50 Ml IVP PER PROTOCOL PRN Hypoglycemia Protocol Erythromycin 1 applic 11/27/23 21:00 11/30/23 20:25 Erythromycin 5 Mg/Gm Ophth Oint 3.5 Gm Tube BOTH EYES 1 applic HS ROSELYN Administration Ferrous Sulfate 325 mg 11/28/23 09:00 12/01/23 09:05 Ferrous Sulfate 325 Mg Tab PO 325 mg DAILY ROSELYN Administration Insulin Aspart 0 unit 11/28/23 12:30 12/01/23 12:08 Insulin Aspart (Novolog) 100 Unit/Ml Vial SQ 2 unit ACHS ROSELYN Administration Protocol Insulin Aspart 6 unit 11/29/23 12:30 12/01/23 12:07 Insuln Asp Prt/Insulin Aspart 100 Unit/Ml 10 Ml Vial SQ 6 unit AC-LUNCH ROSELYN Administration Insulin Aspart 14 unit 11/29/23 17:30 12/01/23 06:28 Insuln Asp Prt/Insulin Aspart 100 Unit/Ml 10 Ml Vial SQ 14 unit AC-BID ROSELYN Administration Levothyroxine Sodium 150 mcg 11/28/23 06:30 12/01/23 06:24 Levothyroxine 75 Mcg Tab PO 150 mcg DAILY@0630 ROSELYN Administration Metoprolol Tartrate 12.5 mg 12/01/23 11:30 12/01/23 12:08 Metoprolol Tartrate 12.5 Mg Tab PO 12.5 mg BID ROSELYN Administration Midodrine 5 mg 11/29/23 17:30 12/01/23 12:08 Midodrine 5 Mg Tab PO 5 mg AC-TID ROSELYN Administration Naloxone HCl 0.2 mg 11/27/23 05:02 Naloxone 0.4 Mg/Ml 1 Ml Vial IV Q2M PRN Opioid Reversal Pantoprazole Sodium 40 mg 11/27/23 12:30 12/01/23 06:24 Pantoprazole 40 Mg Tablet PO 40 mg AC-BRKFST ROSELYN Administration Rivaroxaban 15 mg 11/27/23 12:30 12/01/23 09:04 Rivaroxaban 15 Mg Tab PO 15 mg DAILY ROSELYN Administration Protocol Tramadol/Acetaminophen 1 each 11/27/23 21:00 11/30/23 20:25 Tramadol-Acetaminop 37.5-325mg 1 Each Tab PO 1 each BID ROSELYN Administration Intake and Output 11/30/23 12/01/23 12/01/23 22:59 06:59 14:59 Intake Total 180 Output Total 250 250 Balance -250 -250 180 Intake: Oral 180 Output: Urine 250 250 Other: Voiding Method External Catheter External Catheter External Catheter 11/27/23 01:45 12/01/23 10:13
--- NOTE | 2023-12-01 15:31 | P.PN ---
Progress Note - Text Progress Note Date: 12/01/23 Chief Complaint: Persistent hypoglycemia History of presenting complaint: This is a pleasant 88-year-old patient who follows with visiting physicians Dr. Alves. Chronic stable medical conditions include atrial fibrillation, diabetes, GERD, hypertension, osteoarthritis, hypothyroid, gout,. permanent pacemaker. 2020-percutaneous aortic valve implantation. wheelchair bound. Patient was released from [facility] yesterday. Patient receiving Humulin 70/30 at [facility] and upon coming home was changed to Humalog 75/25. Daughter gave her the same dose of insulin at home. By afternoon patient was rather tired and took a nap rather atypical for her. Around dinnertime patient is very confused not acting like herself. Not able to stand unassisted. Blood glucose was found to be in 30s. Was given an amp of D50. Was moved to an outside hospital when she was found to be persistently hypoglycemic. She received a total of 6 vials of D50. Patient is able to answer questions though. Though not fully. Denies any pain. Decreased appetite here. On a D5 drip. Insulin has been held for now. November 29, 2023: Accu-Cheks are out. Patient started on NovoLog Mix 70/30 yesterday. Eating better. Nurse informed me that patient apparently was mistakenly given extra dose of insulin at home. Patient has some shortness of breath. Given 1 dose of IV Lasix. Fluid restriction 2000 cc a day. Changed to diabetic diet. Midodrine being added for low blood pressure. November 30, 2023: Patient given 1 dose of IV Lasix 40 mg yesterday. For fluid overload. Creatinine has bumped up to 1.33. Midodrine was added yesterday for low blood pressure. Patient will be gently hydrated at 50 cc an hour for total of 500 cc today. Discussed with patient's daughter yesterday prognosis guarded. Will get a cardiology opinion. Ordered 2D echo December 01, 2023: Patient will be lethargic. Not doing well. Third spacing significantly. Lasix was discontinued because of acute kidney injury from Lasix. Some fluids given yesterday. Blood pressure again running low. I had the nurse called patient's daughter. She is agreeable to proceed with hospice. Hospice was informed. Later in the day spoke to the daughter Sameera over the phone. She understands patient doing poorly. Agreeable to proceed with hospice. Social work informed. Cardiology was consulted. This Dr. Do. Patient put on Lopressor. Patient eating with assistance. Will change insulin to Levemir. [facility] is accepted the patient. Active Medications Acetaminophen (Acetaminophen Tab 325 Mg Tab) 650 mg PO Q6H PRN PRN Reason: Pain or Fever > 100.5 Allopurinol (Allopurinol 100 Mg Tab) 100 mg PO DAILY [facility] Last Admin: 12/01/23 09:04 Dose: 100 mg Atorvastatin Calcium (Atorvastatin 10 Mg Tab) 10 mg PO HS [facility] Last Admin: 11/30/23 20:26 Dose: 10 mg Baclofen (Baclofen 10 Mg Tab) 10 mg PO HS [facility] Last Admin: 11/30/23 20:25 Dose: 10 mg Cholecalciferol (Cholecalciferol 25 Mcg (1000 Iu) Tablet) 50 mcg PO DAILY [facility] Last Admin: 12/01/23 09:04 Dose: 50 mcg Cyanocobalamin (Cyanocobalamin 500 Mcg Tab) 1,000 mcg PO DAILY [facility] Last Admin: 12/01/23 09:04 Dose: 1,000 mcg Dextrose/Water (Dextrose 50% Syringe 50 Ml) 25 ml IVP PER PROTOCOL PRN; Protocol PRN Reason: Hypoglycemia Dextrose/Water (Dextrose 50% Syringe 50 Ml) 50 ml IVP PER PROTOCOL PRN; Protocol PRN Reason: Hypoglycemia Erythromycin (Erythromycin 5 Mg/Gm Ophth Oint 3.5 Gm Tube) 1 applic BOTH EYES [facility] Last Admin: 11/30/23 20:25 Dose: 1 applic Ferrous Sulfate (Ferrous Sulfate 325 Mg Tab) 325 mg PO DAILY [facility] Last Admin: 12/01/23 09:05 Dose: 325 mg Insulin Aspart (Insulin Aspart (Novolog) 100 Unit/Ml Vial) 0 unit SQ ACHS [facility]; Protocol Last Admin: 12/01/23 12:08 Dose: 2 unit Insulin Aspart (Insuln Asp Prt/Insulin Aspart 100 Unit/Ml 10 Ml Vial) 6 unit SQ AC-LUNCH [facility] Last Admin: 12/01/23 12:07 Dose: 6 unit Insulin Aspart (Insuln Asp Prt/Insulin Aspart 100 Unit/Ml 10 Ml Vial) 14 unit SQ AC-BID [facility] Last Admin: 12/01/23 06:28 Dose: 14 unit Levothyroxine Sodium (Levothyroxine 75 Mcg Tab) 150 mcg PO DAILY@0630 [facility] Last Admin: 12/01/23 06:24 Dose: 150 mcg Metoprolol Tartrate (Metoprolol Tartrate 12.5 Mg Tab) 12.5 mg PO BID [facility] Last Admin: 12/01/23 12:08 Dose: 12.5 mg Midodrine (Midodrine 5 Mg Tab) 5 mg PO AC-TID [facility] Last Admin: 12/01/23 12:08 Dose: 5 mg Naloxone HCl (Naloxone 0.4 Mg/Ml 1 Ml Vial) 0.2 mg IV Q2M PRN PRN Reason: Opioid Reversal Pantoprazole Sodium (Pantoprazole 40 Mg Tablet) 40 mg PO AC-BRKFST [facility] Last Admin: 12/01/23 06:24 Dose: 40 mg Rivaroxaban (Rivaroxaban 15 Mg Tab) 15 mg PO DAILY [facility]; Protocol Last Admin: 12/01/23 09:04 Dose: 15 mg Tramadol/Acetaminophen (Tramadol-Acetaminop 37.5-325mg 1 Each Tab) 1 each PO BID [facility] Last Admin: 11/30/23 20:25 Dose: 1 each Social history: No history of smoking or alcohol. 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 Uses a wheelchair Physical examination: VITAL SIGNS: 97.4, 74, 20, 83/51, 96% on 4 L GENERAL: In bed, lethargic but arousable EYES: Pupils equal. Conjunctiva normal. HEENT: External appearance of nose and ears normal, oral cavity grossly normal. NECK: JVD not raised; masses not palpable. HEART: First and second heart sounds are normal; significant edema/anasarca LUNGS: Respiratory rate increased l; creased breath sound n. ABDOMEN: Soft, nontender, liver spleen not palpable, no masses palpable. PSYCH: Somewhat lethargic but arousable EXTREMITY: Superficial wound on the left thigh laterally. Dressing in place.. NEUROLOGICAL: Cranial nerves grossly intact; no facial asymmetry, power and sensation grossly intact LYMPHATICS: No lymph nodes palpable in the axilla and neck INVESTIGATIONS, reviewed in the clinical context: November 30: Potassium 4.7 creatinine 1.25 November 29: Potassium 5.2 BUN 43 creatinine 1.33 November 27, 2023: White count 9.4 hemoglobin 10.6 platelets 400 sodium 133 potassium 4.4 BUN 30 creatinine 0.69 blood glucose 39 magnesium 1.8 TSH 6.9 Free T41.69 Assessment and plan: -Persistent hypoglycemia: Resolved Patient discharged from [facility], 1 day prior to admission. Switch from Humulin to Humalog.'s Per EMS Accu-Chek was in the 30s. Patient received at least 6 A of D50. Has been put on D5 W drip. Nurse informed that mistakenly the daughter had given extra dose of insulin. -Acute kidney injury likely prerenal from IV diuretics Admission creatinine 0.69. Peaked at 1.33 Gentle hydration -Third spacing, from hypoalbuminemia Lasix not working. 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 Wheelchair-bound -Diabetes mellitus type 2, chronically on insulin. Uncontrolled with hypoglycemia and hyperglycemia: Better Will change NovoLog 70/30 to Levemir 16 units at night. -GERD Protonix -Paroxysmal atrial fibrillation On nadolol, xarelto -Essential hypertension: Blood pressure running low Corgard-discontinued by cardiology, Stop Cozaar midodrine 5 mg 3 times daily -Primary osteoarthritis Use pain medications as needed -Hypothyroid Synthroid 150 g daily -Chronic gout Allopurinol 100 mg daily -DNR Hospice consulted. Patient accepted at [facility] tomorrow. Advance care planning [December 01, 2023:] Discussed with daughter Sameera. Understand patient's overall condition very poor. Options are limited. Agreed to hospice. Patient will be transferred to [facility] tomorrow. Questions answered. Note social work involved. Time spent about 25 minutes Past Medical History Past Medical History: Atrial Fibrillation, Diabetes Mellitus, GERD/Reflux, Hyperlipidemia, Hypertension, Osteoarthritis (OA), Renal Disease, Skin Disorder, Thyroid Disorder Additional Past Medical History / Comment(s): gout, decreased function kidneys, hand & joint pain, irritation skin folds History of Any Multi-Drug Resistant Organisms: None Reported Past Surgical History: Appendectomy, Cardiac Valve Replacement, Joint Replacement, Pacemaker Additional Past Surgical History / Comment(s): left knee replacement, cataract surgery, carpal tunnel sugery on right, TAVR 2020 Past Anesthesia/Blood Transfusion Reactions: No Reported Reaction Type of Cardiac Device: Permanent Pacemaker Device Placement Date:: patient unsure Past Psychological History: No Psychological Hx Reported Smoking Status: Never smoker Past Alcohol Use History: Rare Past Drug Use History: None Reported
[2023-12-01 16:20] LABS: Glucose,Whole Blood 265 mg/dL (70-110)
[2023-12-01 20:52] LABS: Glucose,Whole Blood 286 mg/dL (70-110)
[2023-12-01] MEDS: INSULIN DETEMIR (LEVEMIR) 100 UNIT/ML SYR SQ SCH (21:26)
[2023-12-02 06:25] LABS: Glucose,Whole Blood 119 mg/dL (70-110)
[2023-12-02 11:40] LABS: Glucose,Whole Blood 206 mg/dL (70-110)
[2023-12-02 12:20] VITALS: BP 97/58; PULSE 74; RESP 20; TEMP 97
--- NOTE | 2023-12-02 14:49 | P.DS ---
Providers Date of admission: 11/27/23 05:03 Expected date of discharge: 12/02/23 Attending physician: Jay Russell Primary care physician: [facility] Course: Chief Complaint: Persistent hypoglycemia History of presenting complaint: This is a pleasant 88-year-old patient who follows with visiting physicians Dr. Alves. Chronic stable medical conditions include atrial fibrillation, diabetes, GERD, hypertension, osteoarthritis, hypothyroid, gout,. permanent pacemaker. 2020-percutaneous aortic valve implantation. wheelchair bound. Patient was released from skilled nursing yesterday. Patient receiving Humulin 70/30 at skilled nursing and upon coming home was changed to Humalog 75/25. Daughter gave her the same dose of insulin at home. By afternoon patient was rather tired and took a nap rather atypical for her. Around dinnertime patient is very confused not acting like herself. Not able to stand unassisted. Blood glucose was found to be in 30s. Was given an amp of D50. Was moved to [facility] when she was found to be persistently hypoglycemic. She received a total of 6 vials of D50. Patient is able to answer questions though. Though not fully. Denies any pain. Decreased appetite here. On a D5 drip. Insulin has been held for now. November 29, 2023: Accu-Cheks are out. Patient started on NovoLog Mix 70/30 yesterday. Eating better. Nurse informed me that patient apparently was mistakenly given extra dose of insulin at home. Patient has some shortness of breath. Given 1 dose of IV Lasix. Fluid restriction 2000 cc a day. Changed to diabetic diet. Midodrine being added for low blood pressure. November 30, 2023: Patient given 1 dose of IV Lasix 40 mg yesterday. For fluid overload. Creatinine has bumped up to 1.33. Midodrine was added yesterday for low blood pressure. Patient will be gently hydrated at 50 cc an hour for total of 500 cc today. Discussed with patient's daughter yesterday prognosis guarded. Will get a cardiology opinion. Ordered 2D echo December 01, 2023: Patient will be lethargic. Not doing well. Third spacing significantly. Lasix was discontinued because of acute kidney injury from Lasix. Some fluids given yesterday. Blood pressure again running low. I had the nurse called patient's daughter. She is agreeable to proceed with hospice. Hospice was informed. Later in the day spoke to the daughter Sameera over the phone. She understands patient doing poorly. Agreeable to proceed with hospice. Social work informed. Cardiology was consulted. This Dr. Do. Patient put on Lopressor. Patient eating with assistance. Will change insulin to Levemir. [facility] is accepted the patient. December 01: Patient remains to be lethargic. Eating with some assistance. Patient has been accepted at [facility]. Medications reviewed Discussion and discharge planning more than 35 minutes Social history: No history of smoking or alcohol. 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 Conjunctiva normal. HEENT: External appearance of nose and ears normal, oral cavity grossly normal. NECK: JVD not raised; masses not palpable. HEART: First and second heart sounds are normal; significant edema/anasarca LUNGS: Respiratory rate increased l; creased breath sound n. ABDOMEN: Soft, nontender, liver spleen not palpable, no masses palpable. PSYCH: Somewhat lethargic but arousable: Will answer occasional question EXTREMITY: Superficial wound on the left thigh laterally. Dressing in place.. INVESTIGATIONS, reviewed in the clinical context: November 30: Potassium 4.7 creatinine 1.25 November 29: Potassium 5.2 BUN 43 creatinine 1.33 November 27, 2023: White count 9.4 hemoglobin 10.6 platelets 400 sodium 133 potassium 4.4 BUN 30 creatinine 0.69 blood glucose 39 magnesium 1.8 TSH 6.9 Free T41.69 Assessment and plan: -Persistent hypoglycemia: Resolved Patient discharged from [facility], 1 day prior to admission. Switch from Humulin to Humalog.'s Per EMS Accu-Chek was in the 30s. Patient received at least 6 A of D50. Has been put on D5 W drip. Nurse informed that mistakenly the daughter had given extra dose of insulin. -Acute kidney injury likely prerenal from IV diuretics Admission creatinine 0.69. Peaked at 1.33 Gentle hydration -Third spacing, from hypoalbuminemia Lasix not working. 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 Wheelchair-bound -Diabetes mellitus type 2, chronically on insulin. Uncontrolled with hypoglycemia and hyperglycemia: Better Levemir 16 units at night. -GERD Protonix -Paroxysmal atrial fibrillation Lopressor 12.5 twice daily, xarelto -Essential hypertension: Blood pressure running low Corgard-discontinued by cardiology, Stop Cozaar midodrine 5 mg 3 times daily -Primary osteoarthritis Use pain medications as needed -Hypothyroid Synthroid 150 g daily -Chronic gout Allopurinol 100 mg daily -DNR Advance care planning [December 01, 2023:] Discussed with daughter Sameera. Understand patient's overall condition very poor. Options are limited. Agreed to hospice. Patient will be transferred to [facility] tomorrow. Questions answered. Note social work involved. Time spent about 25 minutes Disposition: [facility] Past Medical History Past Medical History: Atrial Fibrillation, Diabetes Mellitus, GERD/Reflux, Hyperlipidemia, Hypertension, Osteoarthritis (OA), Renal Disease, Skin Disorder, Thyroid Disorder Additional Past Medical History / Comment(s): gout, decreased function kidneys, hand & joint pain, irritation skin folds History of Any Multi-Drug Resistant Organisms: None Reported Past Surgical History: Appendectomy, Cardiac Valve Replacement, Joint Replacement, Pacemaker Additional Past Surgical History / Comment(s): left knee replacement, cataract surgery, carpal tunnel sugery on right, TAVR 2020 Past Anesthesia/Blood Transfusion Reactions: No Reported Reaction Type of Cardiac Device: Permanent Pacemaker Device Placement Date:: patient unsure Past Psychological History: No Psychological Hx Reported Smoking Status: Never smoker Past Alcohol Use History: Rare Past Drug Use History: None Reported Plan - Discharge Summary Discharge Rx Participant: Yes New Discharge Prescriptions: New Midodrine [ProAmatine] 5 mg PO AC-TID tab Insulin Detemir (Levemir) [Levemir] 15 unit SQ HS each Metoprolol Tartrate [Lopressor] 12.5 mg PO BID tab Continue Baclofen [Lioresal] 10 mg PO HS Levothyroxine Sodium [Synthroid] 150 mcg PO DAILY Pantoprazole Sodium [Protonix] 40 mg PO DAILY allopurinoL [Zyloprim] 100 mg PO DAILY Nystatin 100,000 Unit/gm Powd [Mycostatin Powder] 1 applic TOPICAL BID PRN PRN Reason: Rash Erythromycin Ophth Oint [Romycin Ophth Oint] 1 applic BOTH EYES HS Insulin Regular, Human [NovoLIN R] See Protocol SQ W/LUNCH Acetaminophen Tab [Tylenol] 650 mg PO Q6H PRN PRN Reason: Pain Or Fever > 100.5 Cyanocobalamin (Vitamin B-12) [Vitamin B-12] 1,000 mcg PO DAILY traMADol-ACETAMINOP 37.5-325MG [Ultracet] 1 tab PO BID #6 tab Rivaroxaban [Xarelto] 15 mg PO DAILY Discontinued Ferrous Sulfate [Feosol] 325 mg PO DAILY nadoloL [Corgard] 20 mg PO DAILY Insulin Aspart Prot/Insuln Asp [NovoLOG MIX 70-30 Flexpen] 20 unit SQ W/BRKFST Insulin Aspart Prot/Insuln Asp [NovoLOG MIX 70-30 Flexpen] 10 unit SQ HS Fluticasone Nasal [place] [Flonase Nasal [place]] 1 spray EA NOSTRIL HS Simvastatin 10 mg PO HS Furosemide [Lasix] 40 mg PO DAILY Loratadine [Claritin] 10 mg PO DAILY Ubidecarenone [Co Q-10] 300 mg PO HS Cholecalciferol (Vitamin D3) [Vitamin D3 (50 Mcg = 2000 Iu)] 50 mcg PO DAILY Losartan [Cozaar] 25 mg PO DAILY Discharge Medication List Baclofen [Lioresal] 10 mg PO HS 12/11/13 [History] Levothyroxine Sodium [Synthroid] 150 mcg PO DAILY 03/21/19 [History] Pantoprazole Sodium [Protonix] 40 mg PO DAILY 03/21/19 [History] allopurinoL [Zyloprim] 100 mg PO DAILY 10/08/20 [History] Nystatin 100,000 Unit/gm Powd [Mycostatin Powder] 1 applic TOPICAL BID PRN 02/04/21 [History] Rivaroxaban [Xarelto] 15 mg PO DAILY 02/04/21 [History] Erythromycin Ophth Oint [Romycin Ophth Oint] 1 applic BOTH EYES HS 12/09/22 [History] Acetaminophen Tab [Tylenol] 650 mg PO Q6H PRN 11/27/23 [History] Cyanocobalamin (Vitamin B-12) [Vitamin B-12] 1,000 mcg PO DAILY 11/27/23 [Histo ry] Insulin Regular, Human [NovoLIN R] See Protocol SQ W/LUNCH 11/27/23 [History] Insulin Detemir (Levemir) [Levemir] 15 unit SQ HS each 12/02/23 [Rx] Metoprolol Tartrate [Lopressor] 12.5 mg PO BID tab 12/02/23 [Rx] Midodrine [ProAmatine] 5 mg PO AC-TID tab 12/02/23 [Rx] traMADol-ACETAMINOP 37.5-325MG [Ultracet] 1 tab PO BID #6 tab 12/02/23 [Rx] Follow up Appointment(s)/Referral(s): Drew Stahl MD [Primary Care Provider] - 1-2 days Discharge Disposition: DISCH TO [facility]
[2023-12-02 15:43] VITALS: BMI 44.3
== END 2023-12-02 15:50 | disposition hospice, inpatient (51) | DRG 637 ==
LOC: EC 01:18 → 3SCARD 05:03
PROVIDERS: ADMIT Hospitalist; ATTEND Hospitalist
DX: E11.649 Type 2 diabetes mellitus with hypoglycemia without coma (principal); G93.41 Metabolic encephalopathy; Z68.41 Body mass index [BMI] 40.0-44.9, adult; F05 Delirium due to known physiological condition; I48.19 Other persistent atrial fibrillation; I48.92 Unspecified atrial flutter; E66.01 Morbid (severe) obesity due to excess calories; Z99.3 Dependence on wheelchair; Z95.2 Presence of prosthetic heart valve; K21.9 Gastro-esophageal reflux disease without esophagitis; Z66 Do not resuscitate; Z79.01 Long term (current) use of anticoagulants; M1A.9XX0 Chronic gout, unspecified, without tophus (tophi); M19.91 Primary osteoarthritis, unspecified site; E03.9 Hypothyroidism, unspecified; Z79.890 Hormone replacement therapy; N17.9 Acute kidney failure, unspecified; T50.1X5A Adverse effect of loop [high-ceiling] diuretics, initial encounter; E78.5 Hyperlipidemia, unspecified; E88.09 Other disorders of plasma-protein metabolism, not elsewhere classified; Z86.79 Personal history of other diseases of the circulatory system; I27.20 Pulmonary hypertension, unspecified; Z79.899 Other long term (current) drug therapy; Z79.4 Long term (current) use of insulin; Z96.652 Presence of left artificial knee joint; X58.XXXA Exposure to other specified factors, initial encounter; Z98.42 Cataract extraction status, left eye; Z98.41 Cataract extraction status, right eye; Z71.3 Dietary counseling and surveillance
CPT/HCPCS: 36415; 71045; 80048; 80053; 83605; 83735; 83880; 84439; 84443; 85025; 93306; 94760; 96361; 96374; 96375; 99291